=== PATIENT | female | born 1960 | race Hispanic/Latino ===

== ENCOUNTER → 2019-01-30 | Day surgery (SDC) | payer MEDICARE ==
[~2019-01-30] MED LIST: AMBIEN10 MG PO; APRISO0.375 GM PO; ATENOLOL PO; ATENOLOL25 MG PO; CLONAZEPAM0.5 MG PO; CLONAZEPAM1 MG PO; DESIPRAMINE HCL25 MG PO; DICLOFENAC SODI75 MG PO; FENTANYL CITRATE/PF 100MCG/2 ML INJ ONE; FLONASE NS; FLUCONAZOLE 200 MG/100 ML 100 ML IV NR; GABAPENTIN400 MG PO; HYDROCODONE; IMIPRAMINE HCL50 MG PO; INHALER; INSULIN PUMP1 EACH; LEVOTHYROXINE75 MCG PO; MIDAZOLAM HCL 2 MG/2 ML VIAL ONE; PANTOPRAZOLE SO40 MG PO; PIOGLITAZONE15 MG PO; PRAVASTATIN SOD40 MG PO; PROPOFOL IV EMULSION 10 MG/ML 50 ML VIAL ONE; PROVENTIL HFA6.7 GM INH; QVAIR INH; QVAR; QVAR INH; REGLAN10 MG PO; SERTRALINE HCL100 MG PO; TRAMADOL-ACETAMI1 EA; TRAZODONE HCL100 MG PO; ULTRACET TABLE1 EACH PO; ULTRAM50 MG PO; VICTOZA 2-0.6 MG/0.1 INJ; VIT D PO; VITAMIN B-12 INJ; VITAMIN B-6 PO; VITAMIN D350000 UNIT PO; XOLAIR150 MG INH; ZOLPIDEM TARTRA10 MG PO
--- OUTSIDE RECORDS SUMMARY | 2019-01-30 06:13 | XMS REPORT | Clinical Summary ---
Author Author [facility] Address Unknown Phone Unavailable Care Team Providers Care Community Affairs Manager Name Role Phone George Lin MD PCP Allergies No Known Allergies Medications End Date Status Medication Sig Dispensed Refills Start Date Active pantoprazole (PROTONIX) Take 40 mg by 2 40 MG EC tablet mouth 2 (two) 8 times a day. Active pravastatin (PRAVACHOL) Take 40 mg by 0 40 MG tablet mouth nightly. Active traZODone (DESYREL) 100 Take 100 mg 2 MG tablet by mouth 8 nightly. Active clonAZEPAM (KlonoPIN) 0.5 Take 0.5 mg 3 MG tablet by mouth 7 nightly. Active levothyroxine (SYNTHROID, Take 75 mcg 0 LEVOXYL) 75 mcg tablet by mouth 7 daily. Active cholecalciferol, vitamin Take 2,000 0 D3, (VITAMIN D3) 2,000 Units by unit capsule capsule mouth 2 (two) times a week. Active beclomethasone (QVAR) 40 Inhale 2 0 mcg/actuation inhaler puffs 2 (two) times a day. Active traMADol-acetaminophen Take 1 tablet 0 (ULTRACET) 37.5-325 mg by mouth per tablet every 12 (twelve) hours. Active metoclopramide (REGLAN) Take 10 mg by 3 10 MG tablet mouth 3 7 (three) times a day. Active NOVOLOG 100 unit/mL INJECT 75 1 injection UNITS VIA 7 INSULIN PUMP INSULIN PUMP SUBCUTANEOUSL Y 90 DAYS Active VICTOZA 2-GLENN 0.6 mg/0.1 INJECT 1.8 MG 3 mL (18 mg/3 mL) pen ONCE A DAY 7 injector SUBCUTANEOUSL Y Active zolpidem (AMBIEN) 10 mg Take 10 mg by 3 tablet mouth nightly 8 as needed. for sleep Active ondansetron (ZOFRAN) 8 MG TAKE 1 TABLET 2 tablet BY MOUTH 7 EVERY 6 TO 8 HOURS NEEDED FOR 30 DAYS. Active atenolol (TENORMIN) 100 Take 100 mg 0 MG tablet by mouth nightly. Active cyanocobalamin 1,000 Inject 1,000 0 mcg/mL injection mcg into the shoulder, thigh, or buttocks once a week. Active desipramine (NORPRAMIN) TAKE 1 TABLET 1 25 MG tablet DAILY FOR 5 8 DAYS, 2 DAILY FOR 5 DAYS, 3 DAILY FOR 5 DAYS, 4 DAILY THEREAFTER, ALL AT BEDTIME Active levothyroxine (SYNTHROID, Take 50 mcg 0 LEVOXYL) 50 mcg tablet by mouth 8 daily. Active Problems Not on file Encounters Care Team Description Date Type Specialty Kyle Rowley MD 05/20/2018 Telephone Gastroenterology Kyle Rowley MD 05/05/2018 Telephone Gastroenterology Kyle Rowley MD 04/25/2018 Telephone Gastroenterology Kyle Rowley MD LLQ pain (Primary Dx) 04/16/2018 Office Visit Gastroenterology Conrad Mendoza MA 03/05/2018 Telephone Gastroenterology Kyle Rowley MD 02/26/2018 Lab Lab after 01/29/2018 Family History Medical History Relation Name Comments No Known Problems Brother No Known Problems Father No Known Problems Maternal Aunt No Known Problems Maternal Grandfather No Known Problems Maternal Grandmother No Known Problems Maternal Uncle No Known Problems Mother No Known Problems Paternal Aunt No Known Problems Paternal Grandfather No Known Problems Paternal Grandmother No Known Problems Paternal Uncle No Known Problems Sister Relation Name Status Comments Brother Father Maternal Aunt Maternal Grandfather Maternal Grandmother Maternal Uncle Mother Paternal Aunt Paternal Grandfather Paternal Grandmother Paternal Uncle Sister Social History Date Tobacco Use Types Packs/Day Years Used Never Smoker Smokeless Tobacco: Never Used Alcohol Use Drinks/Week oz/Week Comments No Sex Assigned at Date Recorded Not on file Industry Job Start Date Occupation Not on file Not on file Not on file Travel End Travel History Travel Start No recent travel history available. Last Filed Vital Signs Time Taken Vital Sign Reading 04/16/2018 4:31 PM CDT Blood Pressure 129/85 04/16/2018 4:31 PM CDT Pulse 99 04/16/2018 4:31 PM CDT Temperature 37.1 C (98.8 F) - Respiratory Rate - - Oxygen Saturation - - Inhaled Oxygen - Concentration 04/16/2018 4:31 PM CDT Weight 55.8 kg (123 lb) 04/16/2018 4:31 PM CDT Height 152.4 cm (5') 04/16/2018 4:31 PM CDT Body Mass Index 24.02 Plan of Treatment Health Maintenance Due Date Last Done Comments CERVICAL CANCER SCREENING 1983 BREAST CANCER SCREENING 2012 COLON CANCER SCREENING 2012 SHINGLES VACCINES (#1) 2012 INFLUENZA VACCINE 06/18/2018 Procedures Comments Procedure Name Priority Date/Time Associated Diagnosis CREATININE LEVEL Routine 04/16/2018 LLQ pain 4:54 PM CDT BUN LEVEL Routine 04/16/2018 LLQ pain 4:54 PM CDT SURGICAL PATHOLOGY Routine 02/26/2018 REQUEST 10:49 AM CDT after 01/29/2018 Results * BUN level (04/16/2018 4:54 PM CDT) BUN, whole blood 9 7 - 25 mg/dL [email or web address] Specimen Blood Narrative Performed At FASTING:NO QUEST FASTING: NO Resulting Agency Comment Performing Organization Information: Site ID: [id number] Name: [facility] Address: [address] [place] [id number] Director: Antoinette Muller Performing Organization Address City/State/Zipcode Phone [email or web address] [place] [address] * Creatinine level (04/16/2018 4:54 PM CDT) Creatinine 0.72 0.50 - 1.05 mg/dL [email or web address] Comment: [facility] For patients >49 years of age, the reference limit for Creatinine is approximately 13% higher for people identified as -[place]. EGFR Non-Afr. [place] 94 > OR=60 mL/min/1.73m2 [email or web address] EGFR 109 > OR=60 mL/min/1.73m2 [email or web address] Specimen Blood Narrative Performed At FASTING:NO QUEST FASTING: NO Resulting Agency Comment Performing Organization Information: Site ID: [id number] Name: [facility] Address: [address] [place] [address] Director: Antoinette Muller Performing Organization Address City/State/Zipcode Phone Number [email or web address] [address] [place] [phone] * Surgical pathology request (02/26/2018 10:49 AM CDT) [facility] DEPARTMENT OF PATHOLOGY AND GENOMIC MEDICINE Surgical pathology report See link below for PDF Lab [facility] DEPARTMENT OF Report PATHOLOGY AND GENOMIC MEDICINE Result status This is Final Report to [facility] DEPARTMENT OF [id number] PATHOLOGY AND GENOMIC MEDICINE Performing Organization Address City/State/[facility] Phone Number [facility] DEPARTMENT OF [address] [place] [phone] PATHOLOGY AND GENOMIC MEDICINE after 01/29/2018 Insurance Payer Benefit Subscriber ID Type Phone Address Plan / Group AETNA MEDICARE AETNA xxxxxxxx HMO MEDICARE HMO/PPO [employer] MEDICAID MEDICAID xxxxxxxxx Medicaid Advance Directives Patient has advance care planning documents on file. For more information, palomo goss contact: [employer]ng [employer] [address] [place] [id number]
--- OUTSIDE RECORDS SUMMARY | 2019-01-30 06:15 | XMS REPORT | Continuity of Care Document ---
Author Author [facility] Interface Address Unknown Phone Unavailable Problems Problem Status Onset Date Classification Date Reported Comments Source DEPRESSIVE DISORDER, MAJOR, RECURRENT EPISODE, MODERATE Active 07/04/2018 Diagnosis 01/08/2019 [facility] Pelvic and perineal pain 01/16/2018 04/18/2018 [facility] Interstitial pulmonary disease, unspecified 01/09/2018 04/11/2018 [facility] BACK PAIN, POSS UTI, FEVER, VOMITING Active 12/08/2017 [facility] Discharge Diagnosis: Other spondylosis, lumbosacral region 11/27/2017 11/29/2017 [facility] J45.909 Active 10/21/2017 [facility] History of esophagogastroduodenoscopy (<span [id number]">Confirmed</span>) Resolved 09/18/2017 Problem 01/22/2019 [facility] THORACI FACET, SACRO ILIAC JOINT Active 08/13/2017 [facility] LUMBAR FACET Active 06/17/2017 [facility] Tachycardia<sup>2</sup> Active 11/18/2016 Problem 11/29/2017 had cardiac testing done 1 yr ago-cardio Dr Jose Case. denies any CP [facility] J45.909///WITH DLCO Active 02/09/2016 [facility] Discharge Diagnosis: Asthma exacerbation 12/27/2015 12/30/2015 [facility] SOB Active 12/27/2015 [facility] Discharge Diagnosis: Acute diarrhea 11/25/2015 11/29/2015 [facility] Discharge Diagnosis: Abdominal pain 11/25/2015 11/29/2015 [facility] LOWER ABDOMINAL AND BACK PAIN Active 11/25/2015 [facility] PRE-OP CV EXAM Active 01/25/2015 Condition 01/25/2015 [facility] Asthma<sup>1</sup> Active 01/11/2015 Problem 04/18/2018 Data migrated from [employer] on 05/25/15. [facility] Chest pain<sup>2</sup> Active 01/11/2015 Problem 04/18/2018 Data migrated from [employer] on 05/25/15. [facility] Conduction disorder of the heart<sup>3</sup> Active 01/11/2015 Problem 04/18/2018 Data migrated from [employer] on 05/25/15. [facility] Diabetes mellitus<sup>4</sup> Active 01/11/2015 Problem 04/18/2018 Data migrated from [employer] on 05/25/15. [facility] Dyspnea<sup>5</sup> Active 01/11/2015 Problem 04/18/2018 Data migrated from [employer] on 05/25/15. [facility] Palpitations<sup>6</sup> Active 01/11/2015 Problem 04/18/2018 Data migrated from [employer] on 05/25/15. [facility] Asthma<sup>1</sup> Active 01/11/2015 Problem 01/22/2019 Data migrated from [employer] on 05/25/15. [facility] Chest pain<sup>2</sup> Active 01/11/2015 Problem 01/22/2019 Data migrated from [employer] on 05/25/15. [facility] Conduction disorder of the heart<sup>3</sup> Active 01/11/2015 Problem 01/22/2019 Data migrated from [employer] on 05/25/15. [facility] Diabetes mellitus<sup>4</sup> Active 01/11/2015 Problem 05/26/2018 Data migrated from [employer] on 05/25/15. [facility] Dyspnea<sup>5</sup> Active 01/11/2015 Problem 05/26/2018 Data migrated from [employer] on 05/25/15. [facility] Palpitations<sup>6</sup> Active 01/11/2015 Problem 05/26/2018 Data migrated from [employer] on 05/25/15. [facility] Dyspnea<sup>4</sup> Active 01/11/2015 Problem 01/22/2019 Data migrated from [employer] on 05/25/15. [facility] Palpitations<sup>5</sup> Active 01/11/2015 Problem 01/22/2019 Data migrated from [employer] on 05/25/15. [facility] CHEST PAIN Active 01/11/2015 Condition 01/25/2015 [facility] PALPITATIONS Active 01/11/2015 Condition 01/25/2015 [facility] DYSPNEA Active 01/11/2015 Condition 01/25/2015 [facility] CARDIAC ARRHYTHMIA Active 01/11/2015 Condition 01/25/2015 [facility] HYPERTENSION - BENIGN ESSENTIAL Active 01/11/2015 Condition 01/25/2015 [facility] DM Active 01/11/2015 Condition 01/25/2015 [facility] ASTHMA Active 01/11/2015 Condition 01/25/2015 [facility] [id number] - LUMBOSACR SPOND Active 11/23/2014 [facility] Diabetes mellitus<sup>1</sup> Active 11/18/2013 Problem 11/29/2017 BS range 80-110's [facility] Insulin pump, device Active 11/18/2013 Problem 11/29/2017 [facility] Depression Active Problem 11/24/2017 [facility] Insulin pump Active Problem 11/24/2017 [facility], [facility] Pulmonary fibrosis, unspecified 04/11/2018 [facility] Cardiomegaly 04/11/2018 [facility] Asthma Active Problem 04/18/2018 [facility], [facility] Back pain Active Problem 04/18/2018 [facility], [facility] Crohn disease Active Problem 04/18/2018 [facility], [facility] Crohn's disease Active Problem 04/18/2018 [facility], [facility] Depression Active Problem 04/18/2018 [facility], [facility] Diabetes mellitus Active Problem 04/18/2018 [facility], [facility] Diabetic neuropathy Active Problem 04/18/2018 [facility] Hypercholesterolemia Active Problem 04/18/2018 [facility], [facility] Liver disease Active Problem 04/18/2018 [facility], [facility] Neck pain Active Problem 04/18/2018 [facility], [facility] Polyp Resolved Problem 04/18/2018 [facility], [facility] Tachycardia Active Problem 04/18/2018 [facility], [facility] Thyroid disease Active Problem [facility]/18[facility] [facility] Type II diabetes mellitus - poor control Active Problem 04/18/2018 [facility] 01/22/2019 [facility] Back pain Active Problem 01/22/2019 [facility] Crohn disease Active Problem 01/22/2019 [facility] Crohn's disease Active Problem 01/22/2019 [facility] Depression Active Problem 01/22/2019 [facility] Diabetes mellitus Active Problem 01/22/2019 [facility] Diabetic neuropathy Active Problem 01/22/2019 [facility] Hypercholesterolemia Active Problem 01/22/2019 [facility] Liver disease Active Problem 01/22/2019 [facility] Neck pain Active Problem 01/22/2019 [facility] Polyp Resolved Problem 01/22/2019 [facility] Gastroparesis due to secondary diabetes Resolved Problem 01/22/2019 [facility] Tachycardia Active Problem 01/22/2019 [facility] Thyroid disease Active Problem 01/22/2019 [facility] Type II diabetes mellitus - poor control Active Problem 01/22/2019 [facility] Herniated structure<sup>1</sup> Active Problem 02/24/2016 herniated disk [facility] Final: Mild persistent asthma with exacerbation 12/30/2015 [facility] Final: Acute bronchitis, unspecified 12/30/2015 [facility] Final: Fever, unspecified 12/30/2015 [facility] Final: Diarrhea, unspecified 12/30/2015 [facility] Final: Otalgia, left ear 12/30/2015 [facility] Final: Type 2 diabetes mellitus without complications 12/30/2015 [facility] Essential hypertension Active Diagnosis 01/27/2019 [facility] History of Iveth thyroiditis Active Problem 01/27/2019 [facility] Radiculopathy, lumbar region Active Problem 01/27/2019 [facility] Hyperlipidemia, mixed Active Problem 01/27/2019 [facility] Carpal tunnel syndrome Active Problem 01/27/2019 [facility] Anemia Active Problem 01/27/2019 [facility] Diarrhea Active Problem 01/27/2019 [facility] Candidiasis, unspecified Active Problem 01/27/2019 [facility] Neuropathic spondyloarthropathy of lumbosacral region Active Problem 01/27/2019 [facility] PVD Active Problem 01/27/2019 [facility] Radiculopathy, cervical region Active Problem 01/27/2019 [facility] Type 2 diabetes mellitus with diabetic polyneuropathy Active Diagnosis 01/27/2019 [facility] Hx of diverticulitis of colon Active Problem 01/27/2019 [facility] Nonscarring hair loss, unspecified Active Problem 01/27/2019 [facility] Cervical disc disorder with radiculopathy, cervicothoracic region Active Problem 01/27/2019 [facility] Left knee pain Active Problem 01/27/2019 [facility] Otalgia, left ear Active Problem 01/27/2019 [facility] Hypothyroid Active Problem 01/27/2019 [facility] Asthma Active Problem 01/27/2019 [facility] Migraine Active Problem 01/27/2019 [facility] Vitamin D deficiency Active Problem 01/27/2019 [facility] Other chronic pain Active Problem 01/27/2019 [facility] Type 2 diabetes mellitus with hyperglycemia Active Diagnosis 01/27/2019 [facility] Insulin pump status Active Diagnosis 01/27/2019 [facility] GERD Active Problem 01/27/2019 [facility] Tinea pedis Active Problem 01/27/2019 [facility] Onychomycosis Active Problem 01/27/2019 [facility] Back pain Active Diagnosis 01/27/2019 [facility] Crohn's disease of large intestine without complications Active Problem 01/27/2019 [facility] Encounter for immunization Active Diagnosis 12/03/2017 [facility] Urinary frequency Active Diagnosis 12/03/2017 [facility] Pelvic pain in female Active Diagnosis 02/05/2018 [facility] Dysuria Active Diagnosis 02/05/2018 [facility] Diabetes Type 2 Uncontrolled Active Problem 03/07/2017 [facility] Diverticulosis of colon Active Problem 03/07/2017 [facility] Fatigue Active Problem 03/07/2017 [facility] Insomnia Active Problem 03/07/2017 [facility] Anxiety state, unspecified Active Problem 03/07/2017 [facility] ASTHMA NOS Active Problem 03/07/2017 [facility] Hyperlipidemia Active Problem 03/07/2017 [facility] INSULIN PUMP STATUS Active Problem 03/07/2017 [facility] Diabetes type 2 uncontrolled w/neurological manifestations Active Problem 03/07/2017 [facility] UTI [Urinary tract infection] Active Problem 03/07/2017 [facility] Pseudopolyposis, colon Active Problem 03/07/2017 [facility] Crohn's disease NOS Active Problem 03/07/2017 [facility] Gastroenteritis NOS Active Problem 03/07/2017 [facility] Nausea with vomiting Active Problem 03/07/2017 [facility] Spondylolysis, lumbosacral region Active Problem 03/07/2017 [facility] Peripheral Vascular Disease-PVD Active Problem 03/07/2017 [facility] Tachycardia Active Problem 03/07/2017 [facility] Vitamin D Deficiency Active Problem 03/07/2017 [facility] Menopause Active Problem 03/07/2017 [facility] Dysuria Active Problem 03/07/2017 [facility] BREAST ANOMALIES NEC Active Problem 03/07/2017 [facility] Back pain Active Problem 03/07/2017 [facility] Iveth's thyroiditis Active Problem 03/07/2017 [facility] Depression with anxiety Active Problem 03/07/2017 [facility] Vulvovaginitis due to Mame Active Problem 03/07/2017 [facility] Arthralgias Active Problem 03/07/2017 [facility] INSULIN PUMP TRAINING Active Problem 03/07/2017 [facility] Crohn's disease of colon Active Problem 03/07/2017 [facility] Insulin pump titration Active Problem 03/07/2017 [facility] Hypothyroidism Active Problem 03/07/2017 [facility] Migraine Active Problem 03/07/2017 [facility] Insomnia Active Problem 03/07/2017 [facility] Type 2 diabetes mellitus with diabetic neuropathy Active Problem 03/07/2017 [facility] Other screening mammogram Active Diagnosis 01/04/2016 [facility] Examination of eyes and vision Active Diagnosis 01/04/2016 [facility] Encounter for screening mammogram for malignant neoplasm of breast Active Diagnosis 01/04/2016 [facility] Encounter for general adult medical examination without abnormal findings Active Diagnosis 01/04/2016 [facility] Type 2 diabetes mellitus with autonomic neuropathy Active Problem 03/07/2017 [facility] Vaginitis Active Diagnosis 06/12/2016 [facility] UTI Active Diagnosis 06/12/2016 [facility] Left ear pain Active Diagnosis 06/12/2016 [facility] Screening for lipid disorders Active Diagnosis 08/01/2016 [facility] Vitamin D deficiency, unspecified Active Diagnosis 08/01/2016 [facility] Anxiety Active Problem 11/29/2017 [facility] Asthma Active Problem 11/29/2017 [facility] Crohn disease Active Problem 11/29/2017 [facility] Fatty liver Active Problem 11/29/2017 [facility] Hypertension Active Problem 11/29/2017 [facility] UNSPECIFIED ASTHMA, UNCOMPLICATED Active [facility] Medications Medication Details Route Status Patient Instructions Ordering Provider Order Date Source ONE TOUCH ULTRA TEST STRIPS - check blood sugars Active - check blood sugars 4 TIMES A DAY [facility] 02/21/2019 Noel Mckenna Lidocaine Viscous 2% mucous membrane solution 1 appl, TOP, QID, PRN Mouth Pain, No trague, solution, X 7 day, # 15 mL, 0 Refill(s), Pharmacy: [facility] Active 12/30/2018 [facility] levothyroxine 50 mcg (0.05 mg) oral tablet See Instructions, # 30 tab, TAKE 1 TABLET BY MOUTH DAILY, Pharmacy: [facility] No Longer Active 08/29/2018 [facility] levothyroxine 50 mcg (0.05 mg) oral tablet See Instructions, # 30 tab, TAKE 1 TABLET BY MOUTH DAILY, Pharmacy: [facility] No Longer Active 07/28/2018 [facility] DESIPRAMINE HCL One tablet nightly. Active One tablet nightly. 07/25/2018 [facility] CLONAZEPAM One tablet Po BID. Active One tablet Po BID. 07/25/2018 [facility] DESIPRAMINE HCL Two tablets at night. Active Two tablets at night. 07/25/2018 [facility] Acetaminophen-TraMADol Hydrochloride 1 tab(s) orally Active 325 mg-37.5 mg orally every 12 hours, p.r.n. [facility] 07/18/2018 [facility] ZOLOFT 100 MG ORAL TABLET One tablet Po Every am Active One tablet Po Every am 07/04/2018 [facility] desipramine 25 mg oral tablet 25 mg=1 tab, PO, TID, # 270 tab, 0 Refill(s) Active 05/23/2018 [facility] Terbinafine Hydrochloride 1 tab(s) orally Active 250 mg orally once a day [facility] 05/19/2018 [facility] Terbinafine Hydrochloride, Topical 1 mike applied topically Active 1% applied topically One times a day [facility] 05/19/2018 [facility] Megestrol Acetate 40 MG/ML Oral Suspension [Megace] 800 mg=20 mL, PO, Daily, # 140 mL, 0 Refill(s), Pharmacy: [facility] Active 04/01/2018 [facility] B-12 1 tab(s) sublingually Active 1000 mcg sublingually once a day [facility] 01/13/2018 [facility] Freestyle William Sensor Apply one sensor every 10 days or as directed NA Active -- 01/13/2018 [facility] Mck[facility] Freestyle [place] Use as directed NA Active -- 01/13/2018 [facility] Mck[facility] Misc Medication 200 mL, Soln-IV, IV, Once, first dose 11/27/17 13:36:00 COMPUTER OPERATIONS TECHNICIAN, stop date 11/27/17 13:36:00 COMPUTER OPERATIONS TECHNICIAN Inactive 11/27/2017 [facility] diphenhydrAMINE 25 mg=0.5 mL, Injection, IV Push, Once PRN for itching, first dose 11/27/17 13:34:00 COMPUTER OPERATIONS TECHNICIAN Inactive 11/27/2017 [facility] hydrALAZINE 10 mg=0.5 mL, Injection, IV Push, As Indicated PRN for hypertension, first dose 11/27/17 13:34:00 COMPUTER OPERATIONS TECHNICIAN Inactive 11/27/2017 [facility] Labetalol 5 mg=1 mL, Injection, IV Push, As Indicated PRN for hypertension, first dose 11/27/17 13:34:00 COMPUTER OPERATIONS TECHNICIAN Inactive 11/27/2017 [facility] Dilaudid 0.5 mg=0.5 mL, Injection, IV Push, q10min PRN for pain severe (7-10), first dose 11/27/17 13:34:00 COMPUTER OPERATIONS TECHNICIAN Inactive 11/27/2017 [facility] morphine 2 mg=0.2 mL, Injection, IV Push, q5min PRN for pain, first dose 11/27/17 13:34:00 COMPUTER OPERATIONS TECHNICIAN Inactive 11/27/2017 [facility] ondansetron 4 mg=2 mL, Injection, IV Push, q15min PRN for nausea, order duration: 2 doses, first dose 11/27/17 13:34:00 COMPUTER OPERATIONS TECHNICIAN, stop date Limited # of times Inactive 11/27/2017 [facility] Xopenex 0.63 mg/3 mL inhalation solution 0.63 mg=3 mL, Soln, NEB, Once PRN for wheezing, first dose 11/27/17 13:34:00 COMPUTER OPERATIONS TECHNICIAN Inactive 11/27/2017 [facility] Demerol HCl 12.5 mg=0.25 mL, Injection, IV Push, Once PRN for shivers, first dose 11/27/17 13:34:00 COMPUTER OPERATIONS TECHNICIAN Inactive 11/27/2017 [facility] Saline Lock Flush 10 mL, Soln, IV Push, As Indicated PRN for flush, first dose 11/27/17 13:34:00 COMPUTER OPERATIONS TECHNICIAN Inactive 11/27/2017 [facility] LR 1,000 mL 1,000 mL, IV, 75 mL/hr, start date 11/27/17 13:34:00 COMPUTER OPERATIONS TECHNICIAN Inactive 11/27/2017 [facility] fentaNYL 50 mcg=1 mL, Injection, IV, Once, first dose 11/27/17 13:12:00 COMPUTER OPERATIONS TECHNICIAN, stop date 11/27/17 13:12:00 COMPUTER OPERATIONS TECHNICIAN Inactive 11/27/2017 [facility] midazolam 1 mg=1 mL, Injection, IV, Once, first dose 11/27/17 13:12:00 COMPUTER OPERATIONS TECHNICIAN, stop date 11/27/17 13:12:00 COMPUTER OPERATIONS TECHNICIAN Inactive 11/27/2017 [facility] ceFAZolin 1 gm, Powder-Inj, IV, Once, first dose 11/27/17 13:11:00 COMPUTER OPERATIONS TECHNICIAN, stop date 11/27/17 13:11:00 COMPUTER OPERATIONS TECHNICIAN Inactive 11/27/2017 [facility] Misc Medication 1,000 mL, Soln-IV, IV, Once, first dose 11/27/17 13:08:00 COMPUTER OPERATIONS TECHNICIAN, stop date 11/27/17 13:08:00 COMPUTER OPERATIONS TECHNICIAN Inactive 11/27/2017 [facility] fentaNYL 50 mcg=1 mL, Injection, IV, Once, first dose 11/27/17 13:06:00 COMPUTER OPERATIONS TECHNICIAN, stop date 11/27/17 13:06:00 COMPUTER OPERATIONS TECHNICIAN Inactive 11/27/2017 [facility] midazolam 1 mg=1 mL, Injection, IV, Once, first dose 11/27/17 13:06:00 COMPUTER OPERATIONS TECHNICIAN, stop date 11/27/17 13:06:00 COMPUTER OPERATIONS TECHNICIAN Inactive 11/27/2017 [facility] fentaNYL 50 mcg=1 mL, Injection, IV, Once, first dose 11/27/17 13:01:00 COMPUTER OPERATIONS TECHNICIAN, stop date 11/27/17 13:01:00 COMPUTER OPERATIONS TECHNICIAN Inactive 11/27/2017 [facility] midazolam 1 mg=1 mL, Injection, IV, Once, first dose 11/27/17 13:01:00 COMPUTER OPERATIONS TECHNICIAN, stop date 11/27/17 13:01:00 COMPUTER OPERATIONS TECHNICIAN Inactive 11/27/2017 [facility] midazolam 1 mg=1 mL, Injection, IV, Once, first dose 11/27/17 12:56:00 COMPUTER OPERATIONS TECHNICIAN, stop date 11/27/17 12:56:00 COMPUTER OPERATIONS TECHNICIAN Inactive 11/27/2017 [facility] fentaNYL 50 mcg=1 mL, Injection, IV, Once, first dose 11/27/17 12:56:00 COMPUTER OPERATIONS TECHNICIAN, stop date 11/27/17 12:56:00 COMPUTER OPERATIONS TECHNICIAN Inactive 11/27/2017 [facility] Lidocaine 2% 0.2 mL IV Start [[place]] 0.2 mL, Injection, Subcutaneous, Once PRN for other (see comment), first dose 11/27/17 11:01:00 COMPUTER OPERATIONS TECHNICIAN Inactive 11/27/2017 [facility] LR 1,000 mL 1,000 mL, IV, 30 mL/hr, start date 11/27/17 11:01:00 COMPUTER OPERATIONS TECHNICIAN Inactive 11/27/2017 [facility] NovoLOG Subcutaneous, TIDAC, INSULIN PUMP, 0 Refill(s), DM Active 11/20/2017 [facility] tramadol hydrochloride 50 MG Oral Tablet mg tabs, Oral, q4hr, 0 Refill(s), pain Active 11/20/2017 [facility] Trazodone Hydrochloride 50 MG Oral Tablet mg tabs, Oral, qHS, 0 Refill(s), sleep Active 11/20/2017 [facility] clonazePAM Oral, TID, 0 Refill(s), anxiety Active 11/20/2017 [facility] Qvar 80 mcg/inh inhalation aerosol INH, BID, use am of procedure, 0 Refill(s), asthma Active 11/20/2017 [facility] atenolol 25 mg oral tablet mg tabs, Oral, qPM, 0 Refill(s), HR Active 11/20/2017 [facility] pravastatin 40 mg oral tablet mg tabs, Oral, Daily, 0 Refill(s), cholesterol Active 11/20/2017 [facility] Reglan 10 mg, Oral, 0 Refill(s), acid reflux Active 11/20/2017 [facility] pantoprazole 40 mg oral delayed release tablet mg tabs, Oral, Daily, take am of procedure, 0 Refill(s), acid reflux Active 11/20/2017 [facility] levothyroxine 75 mcg (0.075 mg) oral capsule 75 mcg=1 caps, Oral, Daily, ok take am of procedure, # 30 caps, 0 Refill(s), hypothyroid Active 11/20/2017 [facility] propofol (ANES) Route: IV, Drug form: INJ, ONCE, Stop date: 08/20/17 13:25:00 CDT Inactive 08/20/2017 [facility] lidocaine (ANES) Route: IV, Drug form: INJ, ONCE, Stop date: 08/20/17 13:25:00 CDT Inactive 08/20/2017 [facility] LR 1000 mL INJ (ANES) Route: IV, Total Volume: 1,000, Start date: 08/20/17 13:08:00 CDT, Stop date: 08/20/17 14:08:00 CDT Inactive 08/20/2017 [facility] Atenolol 50 MG Oral Tablet 50 mg=1 tab, PO, Daily, 0 Refill(s) Active 08/20/2017 [facility] influenza virus vaccine, inactivated 0.5 mL, Route: IM, Drug Form: SUSP, ONCALL, Start date: 08/19/17 16:16:03 CDT, Stop date: 09/18/17 16:11:03 CDTNotes: (Same as: Fluzone Quadrivalent, Fluarix Quadrivalent) For 3 years of age and older (0.5 mL IM) Shake well before use No Longer Active 08/19/2017 [facility] levothyroxine 75 mcg (0.075 mg) oral tablet 75 microgram=1 tab, PO, Daily, 0 Refill(s) Active 08/19/2017 [facility] clonazePAM 0.5 mg oral tablet 0.5 mg=1 tab, PO, TID, 0 Refill(s) Active 08/19/2017 [facility] 3 ML liraglutide 6 MG/ML Prefilled Syringe [Victoza] SUB- Q, Daily, 0 Refill(s) Active 08/19/2017 [facility] 100 ACTUAT Beclomethasone Dipropionate 0.04 MG/ACTUAT Metered Dose Inhaler [Qvar] INHALATION, BID, 0 Refill(s) Active 08/19/2017 [facility] Trazodone Hydrochloride 100 MG Oral Tablet 100 mg=1 tab, PO, TID, 0 Refill(s) Active 08/19/2017 [facility] pantoprazole 40 mg oral enteric coated tablet 40 mg=1 tab, PO, Daily, 0 Refill(s) Active 08/19/2017 [facility] Metoclopramide 10 MG Oral Tablet 10 mg=1 tab, PO, TID, 0 Refill(s) Active 08/19/2017 [facility] pravastatin 40 mg oral tablet 40 mg=1 tab, PO, Daily, 0 Refill(s) Active 08/19/2017 [facility] cyanocobalamin 1000 mcg intramuscularly Active 1000 mcg/mL intramuscularly 1X/W [facility] 07/08/2017 [facility] Syringes - store brand not defined NA Active 3cc 25Gx1.5 1X/W [facility] 07/08/2017 [facility] Mck[facility] midazolam (ANES) Route: IV, Drug form: SOLN, ONCE, Stop date: 06/25/17 11:24:00 CDT Inactive 06/25/2017 [facility] fentaNYL (ANES) Route: IV, Drug form: INJ, ONCE, Stop date: 06/25/17 11:24:00 CDT Inactive 06/25/2017 [facility] Calcium Chloride 0.0014 MEQ/ML / Potassium Chloride 0.004 MEQ/ML / Sodium Chloride 0.103 MEQ/ML / Sodium Lactate 0.028 MEQ/ML Injectable Solution 1,000 mL, Rate: 25 ml/hr, Infuse over: 40 hr, Route: IV, Dosing Weight 60.1 kg, Total Volume: 1,000, Start date: 06/25/17 11:10:00 CDT, Duration: 30 day, Stop date: 07/25/17 11:09:00 CDT Inactive 06/25/2017 [facility] Dexamethasone 4 mg, 1 mL, Route: IVP, Drug form: INJ, ONCE, Dosing Weight 60.1, kg, PRN Nausea & Vomiting, Start date: 06/25/17 11:10:00 CDTNotes: Concentration: 4mg/ml Inactive 06/25/2017 [facility] Ondansetron 4 mg, 2 mL, Route: IVP, Drug form: INJ, ONCE, Dosing Weight 60.1, kg, PRN Nausea & Vomiting, Start date: 06/25/17 11:10:00 CDTNotes: (Same as: Patrick) MEDICATION WASTE Product Size: 4 mg P roduct Wasted: ___ mg Inactive 06/25/2017 [facility] Naloxone 0.4 mg, 1 mL, Route: IVP, Drug form: INJ, Q2MIN, Dosing Weight 60.1, kg, PRN Narcotic Reversal, Start date: 06/25/17 11:10:00 CDT, Duration: 8 doses or times, Stop date: Limited # of timesNotes: Same as Narcan Inactive 06/25/2017 [facility] Morphine 4 mg, 1 mL, Route: IVP, Drug form: INJ, Q5Min, Dosing Weight 60.1, kg, PRN Pain Score 7-10, Start date: 06/25/17 11:10:00 CDT, Duration: 3 doses or times, Stop date: Limited # of timesNotes: (Same as :MORPhine Sulfate) Inactive 06/25/2017 [facility] Flumazenil 0.2 mg, 2 mL, Route: IVP, Drug form: INJ, PRN, Dosing Weight 60.1, kg, PRN Benzodiazepine Reversal, Initial dose, Start date: 06/25/17 11:10:00 CDT, Duration: 30 day, Stop date: 07/25/17 11:09:00 CDTNotes: (Same as: Romazicon) Inactive 06/25/2017 [facility] Meperidine 12.5 mg, 0.25 mL, Route: IVP, Drug form: INJ, Q30Min, Dosing Weight 60.1, kg, PRN Other -See Comment, For shivering, Start date: 06/25/17 11:10:00 CDT, Duration: 2 doses or times, Stop date: Limited # of timesNotes: (Same As: Demerol) Inactive 06/25/2017 [facility] Ketorolac 30 mg, 1 mL, Route: IVP, Drug form: INJ, ONCE, Dosing Weight 60.1, kg, Start date: 06/25/17 11:10:00 CDT, Duration: 1 doses or times, Stop date: 06/25/17 11:10:00 CDTNotes: (Same as:Toradol) IV bolus must be given >15 seconds. Give IM administration slowly and deeply into the muscle. Not for use > 4 days MEDICATION WASTE Product Size: 30 mg Product Wasted: ___ mg Inactive 06/25/2017 [facility] Hydralazine 10 mg, 0.5 mL, Route: IVP, Drug form: INJ, Q20Min, Dosing Weight 60.1, kg, PRN Elevated BP, Start date: 06/25/17 11:10:00 CDT, Duration: 2 doses or times, Stop date: Limited # of timesNotes: (Same as: Apresoline) Push over 5 minutes Inactive 06/25/2017 [facility] Diphenhydramine 12.5 mg, 0.25 mL, Route: IVP, Drug form: INJ, Q6H, Dosing Weight 60.1, kg, PRN Itching, Start date: 06/25/17 11:10:00 CDT, Duration: 30 day, Stop date: 07/25/17 11:09:00 CDTNotes: (Same as: Benadryl) Inactive 06/25/2017 [facility] LR 1000 mL INJ (ANES) Route: IV, Total Volume: 1,000, Start date: 06/25/17 11:01:00 CDT, Stop date: 06/25/17 12:01:00 CDT Inactive 06/25/2017 [facility] fluconazole 1 tab(s) orally Active 150 mg orally once Bala 12/27/2016 Noel CadeBala BD Ultra-Fine Pen Needle Haley 32g 4mm as directed subcutaneously Active - subcutaneously daily 11/13/2016 Noel CadeBala BD Ultra-Fine Pen Needle [place] 32g 4mm as directed subcutaneously Active - subcutaneously daily 11/13/2016 Noel Mckenna Victoza 1.8 mg subcutaneously Active 18 mg/3 mL subcutaneously once a day 11/13/2016 Noel Mckenna Pravachol 1 tab(s) orally Active 40 mg orally once a day (at bedtime) 08/17/2016 Noel Mckenna nystatin topical 1 mike applied topically Active 153034 units/g applied topically 3 times a day 07/12/2016 Noel Mckenna nystatin topical 1 mike applied topically Active 488947 units/g applied topically 3 times a day 07/12/2016 Noel Mckenna fluconazole 1 tab(s) orally Active 150 mg orally once Bala 07/12/2016 Noel CadeBala Pravachol 1 tab(s) orally Active 40 mg orally once a day (at bedtime) 05/03/2016 Noel Mckenna Acetaminophen-TraMADol Hydrochloride 2 tab(s) orally Active 325 mg-37.5 mg orally every 12 hours Bala 04/27/2016 Noel Mckenna fluconazole 1 tab(s) orally Active 150 mg orally once and repeat in 3 days take after done with antibiotics Bala 04/27/2016 Noel Mckenna Sulfamethoxazole-Trimethoprim DS 1 tab(s) orally Active 800 mg- 160 mg orally 2 times a day Bala 04/27/2016 Noel Mckenna Celebrex 1 cap(s) orally Active 200 mg orally 2 times a day Bala 04/27/2016 Noel Mckenna Victoza 1.2 mg subcutaneously Active 18 mg/3 mL subcutaneously once a day Bala 03/01/2016 Noel Mckenna Tussin DM 10 CC orally Active 10 mg-100 mg/5 mL orally qid prn Bala 01/06/2016 Noel Mckenna Nebulizer Misc/Other 1 ea, MISC, PRN, PRN As directed by physician, # 1 unit, 0 Refill(s) Active 12/28/2015 [facility] predniSONE 20 mg oral tablet 40 mg=2 tab, PO, Daily, X 4 day, # 8 tab, 0 Refill(s) Active 12/28/2015 [facility] azithromycin 250 mg oral tablet See Instructions, Take 2 tablets by mouth the first day then 1 tablet by mouth daily on days 2-5., X 5 day, # 6 tab, 0 Refill(s) Active 12/28/2015 [facility] Albuterol 0.833 MG/ML / Ipratropium [place] 0.167 MG/ML Inhalant Solution [DuoNeb] 3 mL, INHALATION, QID, # 360 mL, 0 Refill(s) Active 12/28/2015 [facility] 200 ACTUAT Albuterol 0.09 MG/ACTUAT Metered Dose Inhaler [ProAir HFA] 2 puff, INHALER, Q4H, PRN wheezing, coughing, or shortness of breath, # 1 ea, 1 Refill(s) Active 12/28/2015 [facility] Albuterol 0.833 MG/ML / Ipratropium [place] 0.167 MG/ML Inhalant Solution [DuoNeb] 3 mL, Route: INHALATION, Dosing Weight 63.636, kg, ONCE, Start date: 12/27/15 18:55:00, Stop date: 12/27/15 18:55:00 Inactive 12/28/2015 [facility] Prednisone 60 mg, 3 tab, Route: PO, Drug form: TAB, ONCE, Dosing Weight 63.636, kg, Priority: STAT, Start date: 12/27/15 18:55:00, Stop date: 12/27/15 18:55:00Notes: Take with food. Inactive 12/28/2015 [facility] Naproxen 375 MG Oral Tablet [Naprosyn] 375 mg=1 tab, PO, BID, PRN Pain, # 30 tab, 0 Refill(s) Active 11/26/2015 [facility] Ondansetron 4 MG Disintegrating Tablet [Zofran] 4 mg=1 tab, PO, BID, PRN Nausea and Vomiting, Dissolve tab under tongue, X 5 day, # 10 tab, 0 Refill(s) Active 11/26/2015 [facility] Ciprofloxacin 500 MG Oral Tablet [Cipro] 500 mg=1 tab, PO, Q12H, X 7 day, # 14 tab, 0 Refill(s) Active 11/26/2015 [facility] Metronidazole 500 MG Oral Tablet [Flagyl] 500 mg=1 tab, PO, Q8H, X 7 day, # 21 tab, 0 Refill(s) Active 11/26/2015 [facility] Zofran 4 mg, 2 mL, Route: IVP, Drug form: INJ, ONCE, Dosing Weight 66.818, kg, Priority: STAT, Start date: 11/25/15 21:25:00, Stop date: 11/25/15 21:25:00Notes: (Same as: Zofran) MEDICATION WASTE Product Size: 4 mg Product Wasted: ___ mg Inactive 11/26/2015 [facility] Morphine 4 mg, 1 mL, Route: IVP, Drug form: INJ, ONCE, Dosing Weight 66.818, kg, Priority: STAT, Start date: 11/25/15 21:25:00, Stop date: 11/25/15 21:25:00Notes: (Same as:MORPhine Sulfate) Inactive 11/26/2015 [facility] Sodium Chloride 0.154 MEQ/ML Injectable Solution 1,000 mL, 1,000 ml/hr, Infuse Over: 1 hr, Route: IV, 1,000, Drug form: INJ, ONCE, Priority: STAT, Dosing Weight 66.818 kg, Start date: 11/25/15 21:25:00, Duration: 1 doses or times, Stop date: 11/25/15 21:25:00 Inactive 11/26/2015 [facility] Saline Flush 0.9% 10 mL, Route: IVP, Drug Form: INJ, Dosing Weight 66.818, kg, PRN, PRN Line Flush, Start date: 11/25/15 19:54:00, Duration: 30 day, Stop date: 12/25/15 19:53:00Notes: (Same as: BD Posiflush) No Longer Active 11/26/2015 [facility] Zostavax 1 mL subcutaneously Active - subcutaneously once [facility] 2015 Noel Mckenna Pioglitazone Hydrochloride 1 tab(s) orally No Longer Active 15 mg orally once a day [facility] 09/23/2015 Noel Mckenna Pravachol 1 tab(s) orally Active 40 mg orally once a day (at bedtime) [facility] 07/29/2015 Noel Mckenna NovoLog 75 units via insulin pump subcutaneously Active 100 units/mL subcutaneously insulin pump [facility] 07/15/2015 Noel Mckenna Acetaminophen-TraMADol Hydrochloride 1 tab(s) orally Active 325 mg-37.5 mg orally bid [facility] 03/18/2015 Noel Mckenna ASPIRIN EC LOW DOSE 81 MG TBEC 1 tablet daily Active 01/11/2015 [facility] METFORMIN HCL ER 500 MG [id number] 1 po qd Active 11/30/2014 [facility] PRAVACHOL 40 MG TABS 1 tablet daily Active 01/25/2013 [facility] GABAPENTIN 600 MG TABS 1 po TID Active 12/25/2011 [facility] TRAMADOL HCL ER 100 MG [id number] 1 po qd Active 12/25/2011 [facility] IMIPRAMINE HCL 50 MG TABS 1 po TID Active 12/25/2011 [facility] CLONAZEPAM 1 MG TABS 2 po hs Active 12/25/2011 [facility] ATENOLOL 25 MG TABS 1 po qd Active 12/25/2011 [facility] ZOLPIDEM TARTRATE 10 MG TABS 1 po hs PRN Active 12/25/2011 [facility] PROVENTIL HFA 108 (90 BASE) MCG/ACT AERS As directed Active 12/25/2011 [facility] PANTOPRAZOLE SODIUM 40 MG TBEC 1 po BID Active 12/25/2011 [facility] LEVOTHYROXINE SODIUM 75 MCG TABS 1 po qd Active 12/25/2011 [facility] NOVOLOG 100 UNIT/ML SOLN As directed Active 12/25/2011 [facility] BISOPROLOL FUMARATE 5 MG TABS 1 tablet daily Active 12/25/2011 [facility] ONE TOUCH ULTRA TEST STRIPS - check blood sugars Active - check blood sugars 4 TIMES A DAY Bala Mckenna Levothyroxine Sodium 1 tab(s) orally Active 75 mcg (0.075 mg) orally once a day Bala Mckenna Apriso 4 cap(s) orally Active 0.375 g orally once a day (in the morning) Bala Mckenna ProAir HFA 2 puff(s) inhaled Active CFC free 90 mcg/inh inhaled 4 times a day Bala Mckenna zolpidem 1 tab(s) orally Active 10 mg orally once a day (at bedtime) Bala Mckenna ergocalciferol 1 cap(s) orally Active 50,000 intl units orally 2 times a week Bala Mckenna clonazepam 2 tabs orally Active 0.5 mg orally qhs Bala Mckenna atenolol 25 mg oral tablet 1 tab(s) orally Active orally daily Bala Mckenna Celebrex 1 cap(s) orally Active 200 mg orally 2 times a day Bala Mckenna Pravachol 1 tab(s) orally Active 40 mg orally once a day (at bedtime) Bala Mckenna NovoLog 75 units via insulin pump subcutaneously Active 100 units/mL subcutaneously insulin pump Bala Mckenna trazodone 1 tab(s) orally Active 100 mg orally qhs Bala Mckenna Acetaminophen-TraMADol Hydrochloride 2 tab(s) orally Active 325 mg-37.5 mg orally every 12 hours Bala Mckenna Vitamin B6 not defined NA Active Bala Mckenna Victoza 0.6 subcutaneously Active 18 mg/3 mL subcutaneously once a day Bala Mckenna pantoprazole 1 tab(s) orally Active 40 mg orally once a day Balajesse Mckenna albuterol 3 mL inhaled Active 2.5 mg/3 mL (0.083%) inhaled every 6 hours Bala Mckenna fluconazole 1 tab(s) orally Active 150 mg orally once Bala Noel CadeBala Levothyroxine Sodium 1 tab(s) orally Active 75 mcg (0.075 mg) [facility] clonazepam 2 tabs orally Active 0.5 mg orally qhs Bala Noel CadeBala albuterol 3 mL inhaled Active 2.5 mg/3 mL (0.083%) inhaled every 6 hours Balajesse Mckenna Victoza 0.6 subcutaneously Active 18 mg/3 mL subcutaneously once a day Balajesse Mckenna atenolol 25 mg oral tablet 1 tab(s) orally Active orally daily Blaajesse Mckenna Pravachol 1 tab(s) orally Active 40 mg orally once a day (at bedtime) Balajesse Cadevaleta pantoprazole 1 tab(s) orally Active 40 mg orally once a day Bala Noel CadeBala zolpidem 1 tab(s) orally Active 10 mg orally once a day (at bedtime) Balajesse Cadevaleta ergocalciferol 1 cap(s) orally Active 50,000 intl units orally 2 times a week Balajesse Mckenna fluconazole 1 tab(s) orally Active 150 mg orally once Bala Noel Bala trazodone 1 tab(s) orally Active 100 mg orally qhs Balajesse Mckenna ProAir HFA 2 puff(s) inhaled Active CFC free 90 mcg/inh inhaled 4 times a day Balajesse Cadevaleta Levothyroxine Sodium 1 tab(s) orally Active 75 mcg (0.075 mg) orally once a day Balajesse Cadevaleta Acetaminophen-TraMADol Hydrochloride 2 tab(s) orally Active 325 mg-37.5 mg orally every 12 hours Balajesse Mckenna Vitamin B6 not defined NA Active Bala Noel Bala NovoLog 75 units via insulin pump subcutaneously Active 100 units/mL subcutaneously insulin pump Balajesse Mckenna Apriso 4 cap(s) orally Active 0.375 g orally once a day (in the morning) Balajesse Mckenna Duexis 1 tab(s) orally Active 26.6 mg-800 mg orally 3 times a day Bala Mckenna Qvar 1 puff(s) inhaled Active 40 mcg/inh inhaled 2 times a day Bala Mckenna metoclopramide 1 tab(s) orally Active 10 mg orally 2 TIMES A DAY Bala Mckenna Freestyle [place] Sensor Apply one sensor every 10 days or as directed NA Active -- Bala Mckenna Freestyle [place] Use as directed NA Active -- Bala Mckenna ONE TOUCH ULTRA TEST STRIPS CHECK BLOOD SUGARS TWICE/DAY - Active - - 6 x per day Bala Mckenna Volume spacer for inhaler as directed NA Active Gagan Mckenna Cymbalta 1 cap(s) orally Active 30 mg orally 2 times a day Bala Mckenna Proventil HFA 2 puff(s) inhaled Active CFC free 90 mcg/inh inhaled 4 times a day Bala Mckenna tramadol 1 tab(s) orally Active 50 mg orally once a day Gagan Mckenna Lyrica 1 cap(s) orally Active 150 mg orally 2 times a day Bala Mckenna Pioglitazone Hydrochloride 1 tab(s) orally Active 15 mg orally once a day Gagan Mckenna escitalopram 1 tab(s) orally Active 20 mg orally once a day Bala Mckenna naproxen 1 tab(s) orally Active 375 mg orally 2 times a day Bala Mckenna ondansetron 1 tab(s) orally Active 4 mg orally 3 times a day Bala Mckenna metronidazole 1 tab(s) orally Active 500 mg orally every 8 hours Bala Mckenna ciprofloxacin 1 tab(s) orally Active 500 mg orally once a day Bala Mckenna Pravachol 1 tab(s) orally Active 40 mg orally once a day (at bedtime) Bala Mckenna Terbinafine Hydrochloride, Topical 1 mike applied topically Active 1% applied topically One times a day Bala Mckenna Allergies, Adverse Reactions, Alerts Substance Category Reaction Severity Reaction type Status Date Reported Comments Source DARVOCET Drug allergy DARVOCET 12/26/2011 [facility] acetaminophen-propoxyphene<sup>4</sup> Assertion Drug allergy Active 12/26/2011 Data migrated from [facility] on05/26/15. Originally documented as DARVOCET. [facility] acetaminophen-propoxyphene<sup>1</sup> Assertion Drug allergy Active 12/26/2011 Data migrated from [facility] on05/26/15. Originally documented as DARVOCET. [facility] CODEINE drug allergy Does not now what 07/04/2018 [facility] PENICILLIN drug allergy Unkown 07/04/2018 [facility] METFORMIN HCL drug allergy diarrhea and vomiting 07/04/2018 [facility] codeine Adverse Reaction Info Not Available Adverse Reaction Active 11/24/2018 Noel Bala metformin Adverse Reaction Info Not Available Adverse Reaction Active 11/24/2018 Noel Bala Darvocet N 100 Adverse Reaction Info Not Available Adverse Reaction Active 11/24/2018 Noel Bala Darvocet N 50 Adverse Reaction Info Not Available Adverse Reaction Active 11/24/2018 Noel Bala Penicillin Adverse Reaction Info Not Available Adverse Reaction Active 11/24/2018 Noel Bala penicillins<sup>1</sup> Assertion Drug allergy Active Data migrated from [facility] on 06/17/15. Originally documented as PENICILLIN. [facility] codeine<sup>2, 3</sup> Assertion Drug allergy Active Data migrated from [facility] on 01/20/16. Originally documented as CODEINE. [facility] Vicodin Assertion Drug allergy Active [facility] Darvocet-N 100 Assertion Drug allergy Active [facility] metFORMIN Assertion Drug allergy Active [facility] penicillins<sup>4</sup> Assertion Drug allergy Active Data migrated from [facility] on 06/17/15. Originally documented as PENICILLIN. [facility] penicillins Assertion Drug allergy Active [facility] penicillin Assertion Unknown reaction Moderate Drug allergy Active [facility] Immunizations Immunization Date Given Site Status Last Updated Comments Source influenza virus vaccine, inactivated<sup>1</sup> 08/20/2018 Left Deltoid completed [facility] Result Comment: patient tolerated vaccine well, wait for 15 minutes no adverse reaction [facility] pneumococcal 23-valent vaccine<sup>1</sup> 05/23/2018 Left Deltoid completed [facility] Result Comment: patient tolerated vaccine well, wait for 15 minutes no adverse reaction [facility] pneumococcal 23-valent vaccine<sup>2</sup> 05/23/2018 Left Deltoid completed [facility] Result Comment: patient tolerated vaccine well, wait for 15 minutes no adverse reaction [facility] Influenza (MCR) 10/17/2017 completed Noel Bala Influenza (MCR) 09/27/2016 completed Noel Bala Toradol 30MG 04/27/2016 completed Noel Bala Influenza ([facility]) 09/23/2015 completed Noel Bala influenza virus vaccine, inactivated 10/16/2011 Right deltoid completed [facility] influenza virus vaccine, inactivated 10/16/2011 Right deltoid completed [facility], [facility] pneumococcal 23-valent vaccine 10/16/2011 Left deltoid completed [facility] pneumococcal 23-valent vaccine 10/16/2011 Left deltoid completed [facility], [facility] Results Order Name Results Value Reference Range Date Interpretation Comments Source Neck soft tissue wo contrast CT Neck soft tissue wo contrast CT Clinical Indication: - R13.10 Dysphagia, unspecified Comparison: None Technique: CT of the neck is performed with a multidetector CT. Coronal and sagittal reconstructions were obtained. Contrast: none, which limits assessment. CT Radiation Dose DLP 511 mGy-cm FINDINGS: SOFT TISSUES: There are no neck masses noted. There are no fluid collections or definite abscesses. LYMPH NODES: Physiologic level 1 and 2 nodes are present. SALIVARY GLANDS: The submandibular and parotid glands are unremarkable. PARANASAL SINUSES AND AIRWAY: The paranasal sinuses are clear without soft tissue thickening or air-fluid levels. The nasopharyngeal, oropharyngeal, supraglottic and infraglottic airway is unremarkable. There is a torus palatini. SUPRAHYOID NECK: The oropharynx, oral cavity, parapharyngeal space, and retropharyngeal space are normal on this limited noncontrast CT. INFRAHYOID NECK: The valleculae and piriform sinuses are normal. The larynx, hypopharynx, epiglottis and supraglottis are normal on this limited noncontrast CT. ORBITS: The visualized orbits are unremarkable. VASCULAR STRUCTURES: The jugular veins and carotid vessels are unremarkable. OSSEOUS STRUCTURES: There are no fractures or dislocations. There are no lucencies at the bases of the mandibular teeth to suggest abscess. There are no radiopaque foreign bodies noted. THYROID GLANDS: The thyroid lobes are symmetric and there are no lesions. VISUALIZED LUNG APICES: There are no pulmonary masses or consolidation. If there is further concern for neck masses or malignancy, postcontrast neck CT, PET/CT imaging or MRI of the neck should be performed for complete assessment. IMPRESSION: Unremarkable limited noncontrast CT examination of the neck. 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 Patient feels a small lump in the left side of the neck, starting to hurt. Symptoms have recurred for 2 months. COMPARISON: None FINDINGS: No solid or cystic masses are identified. Focal attention is made to the left submandibular gland region which is the area of interest. A soft tissue mass or fluid collection is not identified in this region. The left submandibular gland has a normal morphology. IMPRESSION: 1. No ultrasound correlate for the area of palpable abnormality and pain in the left neck region. CT scan or MRI of the neck with contrast is recommended for further evaluation. SL: [id number] 09/24/2018 - - Read by: Armando Orlando MD Dictated Date/time: 09/25/18 11:21 Electronically Signed by: Armando Orlando MD 09/25/18 11:36 [facility] Pelvis w Pelvis Transvaginal US Pelvis w Pelvis Transvaginal US Clinical Indication: R10.2 Pelvic and perineal pain - R10.2 Pelvic and perineal pain; Comparison: CT abdomen and pelvis 11/25/2015 US PELVIS Technique: Grayscale, color and Doppler transabdominal and transvaginal imaging of the pelvis was performed with standard technique. Limited assessment of the uterine parenchyma and ovaries on the transabdominal pelvic ultrasound, related to bowel gas in the pelvis necessitated a pelvic transvaginal ultrasound. FINDINGS: Uterus and ovaries are surgically absent. No adnexal masses. No fluid collections. OTHER FINDINGS: The transvaginal sonographic images show no free fluid in the pelvic cul-de-sac. If there is further concern, followup pelvic sonography or MRI of the pelvis may be performed. IMPRESSION: No sonographic abnormalities of the pelvis. The uterus and ovaries have been removed. No adnexal masses. SL: [id number] 01/10/2018 - - Read by: Jagdish Rubio MD Dictated Date/time: 01/10/18 15:38 Electronically Signed by: Jagdish Rubio MD 01/10/18 15:41 [facility] Chest wo contrast CT Chest wo contrast CT Patient Name: ELLI MACK : 1960; Age: 57 years y/o Female MR: [id number] Study: Chest wo contrast CT 01/03/2018 3:23 PM COMPUTER OPERATIONS TECHNICIAN Ordering Physician: Kyle Miranda MD Comparison: Chest x-ray 02/14/2016 CT abdomen and pelvis 11/25/2015. Clinical Indication: J84.9 Interstitial pulmonary disease, unspecified, Per pt intermittent shortness of breath and coughing x yrs - DLP: 261.41mGy-cm; Multiple computerized axial tomograms of the chest were obtained without contrast. Sagittal and coronal 2-D reconstruction images were obtained. High- resolution images of the pulmonary parenchyma were obtained bilaterally. The central tracheobronchial tree is grossly normal. A calcified granuloma is noted at the left lower lobe. No noncalcified pulmonary nodule or mass is noted. Curvilinear and patchy parenchymal opacity are noted at the basal lingula likely representing nonspecific scarring and/or volume loss. No pleural fluid collection. Lungs are otherwise clear. No pulmonary parenchymal consolidative opacity or findings for chronic interstitial pulmonary parenchymal disease are noted. There is no bronchiectasis. No mediastinal or hilar adenopathy is noted. The caliber of the thoracic aorta is not aneurysmal. Physiologic fluid at the mediastinal pericardial recesses. No pericardial fluid collection. Mild cardiomegaly. Coronary artery calcifications. Incidental images of the upper abdomen demonstrate surgical clips at the gallbladder fossa status post cholecystectomy. The bony thorax appears grossly intact. IMPRESSION: 1. Mild scarring and/or volume loss at the basal lingula similar to the previous exam, 11/25/2015. 2. No findings for chronic interstitial pulmonary parenchymal disease or bronchiectasis. 3. Calcified granuloma left lower lobe. 4. Mild cardiomegaly with minimal coronary artery calcifications. SL: [id number] 01/03/2018 - - Read by: Rogerio Lakhani MD Dictated Date/time: 01/04/18 08:51 Electronically Signed by: Rogerio Lakhani MD 01/04/18 08:59 FINAL REPORT [facility] LABORATORY Blood Glucose, Capillary 96 mg/dL 74 - 106 11/27/2017 [facility] CHEM PANEL eGFR 84 mL/min/1.73m2 08/19/2017 Result Comment: The eGFR is calculated using the CKD-EPI formula. In most young, healthy individuals the eGFR will be >90 mL/min/1.73m2. The eGFR declines with age. An eGFR of 60-89 may be normal in some populations, particularly the elderly, for whom the CKD-EPI formula has not been extensively validated. Use of the eGFR is not recommended in the following populations: Individuals with unstable creatinine concentrations, including patients and those with serious co-morbid conditions. Patients with extremes in muscle mass or diet. The data above are obtained from the National Kidney Disease Education Program (NKDEP) which additionally recommends that when the eGFR is used in patients with extremes of body mass index for purposes of drug dosing, the eGFR should be multiplied by the estimated BMI. [facility] CHEM PANEL Calcium Lvl 10.1 mg/dL 8.5 - 10.5 08/19/2017 [facility] CHEM PANEL Chloride Lvl 108 meq/L 95 - 109 08/19/2017 [facility] CHEM PANEL Potassium Lvl 4.3 meq/L 3.5 - 5.1 08/19/2017 [facility] CHEM PANEL Sodium Lvl 143 meq/L 135 - 145 08/19/2017 [facility] CHEM PANEL Glucose Lvl 118 mg/dL 70 - 99 08/19/2017 [facility] CHEM PANEL CO2 30 meq/L 24 - 32 08/19/2017 [facility] CHEM PANEL Creatinine Lvl 0.80 mg/dL 0.50 - 1.40 08/19/2017 [facility] CHEM PANEL BUN 7 mg/dL 7 - 22 08/19/2017 [facility] CHEM PANEL AGAP 9.3 meq/L 10.0 - 20.0 08/19/2017 [facility] MCHC 33.2 g/dL 32.0 - 36.0 08/19/2017 [facility] Platelet 248 K/CMM 133 - 450 08/19/2017 [facility] MCH 28.6 pg 27.0 - 31.0 08/19/2017 [facility] RDW 15.2 % 11.5 - 14.5 08/19/2017 [facility] MPV 9.0 fL 7.4 - 10.4 08/19/2017 [facility] [facility] RBC 4.04 M/CMM 4.20 - 5.40 08/19/2017 [facility] Hgb 11.6 g/dL 12.0 - 16.0 08/19/2017 [facility] MCV 86.3 fL 80.0 - 98.0 08/19/2017 [facility] WBC 8.0 K/CMM 3.7 - 10.4 08/19/2017 [facility] Hct 34.8 % 36.0 - 48.0 08/19/2017 [facility] Lymphocytes 37.4 % 20.0 - 40.0 08/19/2017 [facility] Basophils 0.4 % 0.0 - 1.0 08/19/2017 [facility] HEMATOLOGY Eosinophils 1.4 % 0.0 - 4.0 08/19/2017 [facility] Monocytes 7.5 % 2.0 - 12.0 08/19/2017 [facility] Basophils # 0.0 K/CMM 0.0 - 0.2 08/19/2017 [facility] Eosinophils # 0.1 K/CMM 0.0 - 0.5 08/19/2017 [facility] Monocytes # 0.6 K/CMM 0.0 - 0.8 08/19/2017 [facility] Segs 53.3 % 45.0 - 75.0 08/19/2017 [facility] Segs-Bands # 4.3 K/CMM 1.5 - 8.1 08/19/2017 [facility] Lymphocytes # 3.0 K/CMM 1.0 - 5.5 08/19/2017 [facility] ELECTROLYTES AGAP 8.8 meq/L 10.0 - 20.0 06/21/2017 [facility] ELECTROLYTES eGFR 84 mL/min/1.73m2 06/21/2017 Result Comment: The eGFR is calculated using the CKD-EPI formula. In most young, healthy individuals the eGFR will be >90 mL/min/1.73m2. The eGFR declines with age. An eGFR of 60-89 may be normal in some populations, particularly the elderly, for whom the CKD-EPI formula has not been extensively validated. Use of the eGFR is not recommended in the following populations: Individuals with unstable creatinine concentrations, including patients and those with serious co-morbid conditions. Patients with extremes in muscle mass or diet. The data above are obtained from the National Kidney Disease Education Program (NKDEP) which additionally recommends that when the eGFR is used in patients with extremes of body mass index for purposes of drug dosing, the eGFR should be multiplied by the estimated BMI. [facility] ELECTROLYTES Calcium Lvl 9.3 mg/dL 8.5 - 10.5 06/21/2017 [facility] ELECTROLYTES CO2 29 meq/L 24 - 32 06/21/2017 [facility] ELECTROLYTES Chloride Lvl 111 meq/L 95 - 109 06/21/2017 [facility] ELECTROLYTES BUN 10 mg/dL 7 - 22 06/21/2017 [facility] ELECTROLYTES Glucose Lvl 116 mg/dL 70 - 99 06/21/2017 [facility] ELECTROLYTES Sodium Lvl 144 meq/L 135 - 145 06/21/2017 [facility] ELECTROLYTES Creatinine Lvl 0.80 mg/dL 0.50 - 1.40 06/21/2017 [facility] ELECTROLYTES Potassium Lvl 4.8 meq/L 3.5 - 5.1 06/21/2017 [facility] Platelet 237 K/CMM 133 - 450 06/21/2017 [facility] MPV 8.9 fL 7.4 - 10.4 06/21/2017 [facility] MCH 27.6 pg 27.0 - 31.0 06/21/2017 [facility] RDW 14.7 % 11.5 - 14.5 06/21/2017 [facility] MCHC 32.2 g/dL 32.0 - 36.0 06/21/2017 [facility] RBC 4.05 M/CMM 4.20 - 5.40 06/21/2017 [facility] MCV 85.9 fL 80.0 - 98.0 06/21/2017 [facility] Hct 34.8 % 36.0 - 48.0 06/21/2017 [facility] Hgb 11.2 g/dL 12.0 - 16.0 06/21/2017 [facility] WBC 7.8 K/CMM 3.7 - 10.4 06/21/2017 [facility] HEMATOLOGY Monocytes # 0.5 K/CMM 0.0 - 0.8 06/21/2017 [facility] HEMATOLOGY Eosinophils # 0.2 K/CMM 0.0 - 0.5 06/21/2017 [facility] Basophils 0.6 % 0.0 - 1.0 06/21/2017 [facility] Lymphocytes # 2.7 K/CMM 1.0 - 5.5 06/21/2017 [facility] HEMATOLOGY Segs-Bands # 4.4 K/CMM 1.5 - 8.1 06/21/2017 [facility] Lymphocytes 34.2 % 20.0 - 40.0 06/21/2017 [facility] Monocytes 6.0 % 2.0 - 12.0 06/21/2017 [facility] Eosinophils 2.2 % 0.0 - 4.0 06/21/2017 [facility] Segs 57.0 % 45.0 - 75.0 06/21/2017 [facility] Chest 2 views DX Chest 2 views DX EXAM: Chest radiographs HISTORY: Cough, asthma COMPARISON: 12/27/2015 TECHNIQUE: Frontal and lateral views of the chest FINDINGS: The lungs appear clear. No pleural effusion. Heart size upper normal. IMPRESSION: Negative chest radiographs. SL: [id number] 02/14/2016 - - Read by: Alfredo Bonds MD Dictated Date/time: 02/14/16 09:45 Electronically Signed by: Alfredo Bonds MD 02/14/16 09:48 FINAL REPORT [facility] Digital Mammo Screen Vignesh MA w lenka Digital Mammo Screen Vignesh MA w lenka - DIGITAL MAMMO SCREEN VIGNESH MA W LENKA BILATERAL DIGITAL SCREENING MAMMOGRAM 3D/2D WITH CAD: 01/18/2016 CLINICAL: Z12.31. 2D digital mammographic images and 3D digital tomosynthesis images were obtained in the CC and MLO projections. Current study was evaluated with a Computer Aided Detection (CAD) system. Comparison is made to exams dated: 03/16/2014 mammogram and 02/26/2014 mammogram - [facility]. There are scattered fibroglandular densities in both breasts. Multiple, benign-appearing, similar circumscribed masses are present within both breasts, most likely applications sales representative of cysts or fibroadenomas. There are benign appearing calcifications in the right breast. No significant masses, calcifications, or other findings are seen in either breast. There has been no significant interval change. IMPRESSION: BENIGN Bilateral benign appearing masses. There is no mammographic evidence of malignancy. A 1 year screening mammogram is recommended. Huang Roca M.D. rsl/penrad:01/19/2016 08:39:46 [place] Supervisor: Hung Muñoz, [facility] This exam was dictated and interpreted by [id number] at [facility]. letter sent: Normal exam Mammogram BI-RADS: 2 Benign 01/18/2016 - - Read by: Huang Roca MD Dictated Date/time: 01/19/16 08:39 Electronically Signed by: Huang Roca MD 01/19/16 08:39 FINAL REPORT [facility] VIRAL - SEROLOGY Influ B Negative (12/27/15 7:26 PM) Negative 12/28/2015 [facility] VIRAL - SEROLOGY Influ A Negative (12/27/15 7:26 PM) Negative 12/28/2015 [facility] Chest 2 views DX Chest 2 views DX EXAMINATION: Chest 2 views CLINICAL HISTORY: Dyspnea. Shortness of breath. Asthma. Fever. Since 08/25/2014, pulmonary inflation has decreased. The lungs are clear of consolidation, pleural effusion, and pneumothorax. Mild streaky opacity seen in both parahilar regions are suspicious for atelectasis and reactive airway disease. The heart size remains normal. No acute fracture, dislocation, or focal osseous lesion is appreciated. SL:17 12/27/2015 - - Read by: Andrey Figueroa MD Dictated Date/time: 12/27/15 20:13 Electronically Signed by: Andrey Figueroa MD 12/27/15 20:14 FINAL REPORT [facility] CHEM PANEL Lipase Lvl 145 unit/L 73 - 393 11/26/2015 [facility] CHEM PANEL eGFR 64 mL/min/1.73m2 11/26/2015 Result Comment: The eGFR is calculated using the CKD-EPI formula. In most young, healthy individuals the eGFR will be >90 mL/min/1.73m2. The eGFR declines with age. An eGFR of 60-89 may be normal in some populations, particularly the elderly, for whom the CKD-EPI formula has not been extensively validated. Use of the eGFR is not recommended in the following populations: Individuals with unstable creatinine concentrations, including patients and those with serious co-morbid conditions. Patients with extremes in muscle mass or diet. The data above are obtained from the National Kidney Disease Education Program (NKDEP) which additionally recommends that when the eGFR is used in patients with extremes of body mass index for purposes of drug dosing, the eGFR should be multiplied by the estimated BMI. [facility] CHEM PANEL Bili Total 0.3 mg/dL 0.2 - 1.3 11/26/2015 [facility] CHEM PANEL Total Protein 8.3 g/dL 6.4 - 8.4 11/26/2015 [facility] CHEM PANEL Albumin Lvl 3.6 g/dL 3.5 - 5.0 11/26/2015 [facility] CHEM PANEL ALT 23 unit/L 0 - 65 11/26/2015 [facility] CHEM PANEL Chloride Lvl 105 meq/L 95 - 109 11/26/2015 [facility] CHEM PANEL CO2 25 meq/L 24 - 32 11/26/2015 [facility] CHEM PANEL AST 16 unit/L 0 - 37 11/26/2015 [facility] CHEM PANEL Alk Phos 101 unit/L 39 - 136 11/26/2015 [facility] CHEM PANEL Calcium Lvl 8.6 mg/dL 8.5 - 10.5 11/26/2015 [facility] CHEM PANEL Sodium Lvl 140 meq/L 135 - 145 11/26/2015 [facility] CHEM PANEL Potassium Lvl 3.5 meq/L 3.5 - 5.1 11/26/2015 [facility] CHEM PANEL Creatinine Lvl 1.01 mg/dL 0.50 - 1.40 11/26/2015 [facility] CHEM PANEL Glucose Lvl 184 mg/dL 70 - 99 11/26/2015 [facility] CHEM PANEL BUN 10 mg/dL 7 - 22 11/26/2015 [facility] CHEM PANEL A/G Ratio 0.8 0.7 - 1.6 11/26/2015 [facility] CHEM PANEL Globulin 4.7 g/dL 2.0 - 4.0 11/26/2015 [facility] CHEM PANEL AGAP 13.5 meq/L 10.0 - 20.0 11/26/2015 [facility] CHEM PANEL B/C Ratio 10 6 - 25 11/26/2015 [facility] HEMATOLOGY MPV 9.1 fL 7.4 - 10.4 11/26/2015 [facility] HEMATOLOGY Platelet 272 K/CMM 133 - 450 11/26/2015 [facility] MCH 26.3 pg 27.0 - 31.0 11/26/2015 [facility] MCHC 31.8 g/dL 32.0 - 36.0 11/26/2015 [facility] RDW 16.3 % 11.5 - 14.5 11/26/2015 [facility] Hct 38.1 % 36.0 - 48.0 11/26/2015 [facility] MCV 82.7 fL 80.0 - 98.0 11/26/2015 [facility] WBC 11.9 K/CMM 3.7 - 10.4 11/26/2015 [facility] Hgb 12.1 g/dL 12.0 - 16.0 11/26/2015 [facility] RBC 4.60 M/CMM 4.20 - 5.40 11/26/2015 [facility] Basophils 0.5 % 0.0 - 1.0 11/26/2015 [facility] Segs-Bands # 6.9 K/CMM 1.5 - 8.1 11/26/2015 [facility] Lymphocytes # 4.1 K/CMM 1.0 - 5.5 11/26/2015 [facility] Eosinophils 1.0 % 0.0 - 4.0 11/26/2015 [facility] Lymphocytes 34.4 % 20.0 - 40.0 11/26/2015 [facility] Monocytes 6.1 % 2.0 - 12.0 11/26/2015 [facility] Segs 58.0 % 45.0 - 75.0 11/26/2015 [facility] Monocytes # 0.7 K/CMM 0.0 - 0.8 11/26/2015 [facility] HEMATOLOGY Eosinophils # 0.1 K/CMM 0.0 - 0.5 11/26/2015 [facility] Basophils # 0.1 K/CMM 0.0 - 0.2 11/26/2015 [facility] URINE AND STOOL UA Trans Epi 0- 2 *ABN* (11/25/15 8:10 PM) 11/26/2015 [facility] URINE AND STOOL UA Amorph Heather Moderate /HPF None Seen /HPF 11/26/2015 [facility] URINE AND STOOL UA Sq Epi Few /LPF Few /LPF 11/26/2015 [facility] URINE AND STOOL UA Mucus Few /LPF None Seen /LPF 11/26/2015 [facility] URINE AND STOOL UA RBC 0-2 /HPF 0 - 2 11/26/2015 [facility] URINE AND STOOL UA Bacteria None Seen (11/25/15 8:10 PM) None Seen 11/26/2015 [facility] URINE AND STOOL UA WBC 6-10 /HPF None Seen /HPF 11/26/2015 [facility] URINE AND STOOL UA Nitrite Negative (11/25/15 8:10 PM) Negative 11/26/2015 [facility] URINE AND STOOL UA Leuk Est Moderate *ABN* (11/25/15 8:10 PM) Negative 11/26/2015 [facility] URINE AND STOOL UA Urobilinogen 0.2 EU/dL 0.1 - 1.0 11/26/2015 [facility] URINE AND STOOL UA Blood Negative (11/25/15 8:10 PM) Negative 11/26/2015 [facility] URINE AND STOOL UA Ketones Negative *NA* (11/25/15 8:10 PM) Negative 11/26/2015 [facility] URINE AND STOOL UA Bili Negative *NA* (11/25/15 8:10 PM) Negative 11/26/2015 [facility] URINE AND STOOL UA Glucose Negative (11/25/15 8:10 PM) Negative 11/26/2015 [facility] URINE AND STOOL UA pH 6.0 5.0 - 8.0 11/26/2015 [facility] URINE AND STOOL UA Protein Negative (11/25/15 8:10 PM) Negative 11/26/2015 [facility] URINE AND STOOL UA Spec Grav 1.010 <=1.030 11/26/2015 [facility] URINE AND STOOL UA Color Yellow *NA* (11/25/15 8:10 PM) Yellow 11/26/2015 [facility] URINE AND STOOL UA Turbidity Clear (11/25/15 8:10 PM) Clear 11/26/2015 [facility] ED Abdomen/Pelvis IV contrast only CT ED Abdomen/Pelvis IV contrast only CT CT ABDOMEN AND PELVIS WITH CONTRAST INDICATION: Left upper and lower quadrant abdominal pain, nausea and vomiting COMPARISON: CT abdomen/pelvis 08/01/2013 FINDINGS: ABDOMEN: The visible lung bases are clear. Cholecystectomy clips are in place. The liver, spleen, pancreas, adrenal glands, and kidneys appear normal. The stomach and bowel loops are grossly unremarkable, including the appendix. No free fluid or abnormal fluid collections are seen. No abdominal lymphadenopathy is identified. The abdominal aorta is normal in caliber. PELVIS: The bladder is unremarkable. The uterus and ovaries are not seen, presumed absent. No pelvic mass or lymphadenopathy are identified. BONES: No acute bony abnormalities are seen. IMPRESSION: No acute abdominal or pelvic abnormalities are visualized. SL: 16 11/25/2015 - - Read by: Inocencio Freire MD Dictated Date/time: 11/25/15 22:49 Electronically Signed by: Inocencio Freire MD 11/25/15 22:52 FINAL REPORT [facility] Vital Signs Vital Sign Value Date Comments Source Diastolic (mm Hg) 72 01/02/2019 [facility] Systolic (mm Hg) 106 01/02/2019 [facility] Height 61 01/02/2019 [facility] Heart Rate 114 01/02/2019 [facility] Weight 130 01/02/2019 [facility] Height 149.86 cm 12/30/2018 [facility] Weight 59.545 12/30/2018 [facility] BMI Calculated 26.51 12/30/2018 [facility] Heart Rate 101 12/30/2018 [facility] Temperature Oral (F) 98.5 F 12/30/2018 [facility] Systolic (mm Hg) 111 12/30/2018 [facility] Diastolic (mm Hg) 70 12/30/2018 [facility] Weight 130 11/24/2018 [facility] Height 61 11/24/2018 [facility] Diastolic (mm Hg) 80 11/24/2018 [facility] Systolic (mm Hg) 125 11/24/2018 [facility] Diastolic (mm Hg) 75 10/31/2018 [facility] Systolic (mm Hg) 111 10/31/2018 [facility] Height 61 10/31/2018 [facility] Heart Rate 113 10/31/2018 [facility] Weight 129.60 10/31/2018 [facility] Diastolic (mm Hg) 80 08/29/2018 [facility] Systolic (mm Hg) 117 08/29/2018 [facility] Height 61 08/29/2018 [facility] Heart Rate 87 08/29/2018 [facility] Weight 130.40 08/29/2018 [facility] Weight 128 08/25/2018 [facility] Height 61 08/25/2018 [facility] Diastolic (mm Hg) 70 08/25/2018 [facility] Systolic (mm Hg) 110 08/25/2018 [facility] Diastolic (mm Hg) 76 07/25/2018 [facility] Systolic (mm Hg) 111 07/25/2018 [facility] Height 61 07/25/2018 [facility] Heart Rate 103 07/25/2018 [facility] Weight 114.80 07/25/2018 [facility] Diastolic (mm Hg) 76 07/04/2018 [facility] Systolic (mm Hg) 118 07/04/2018 [facility] Height 61 07/04/2018 [facility] Heart Rate 106 07/04/2018 [facility] Weight 126.50 07/04/2018 [facility] Weight 57.727 05/23/2018 [facility] BMI Calculated 25.7 05/23/2018 [facility] Height 149.86 cm 05/23/2018 [facility] Temperature Oral (F) 98.0 F 05/23/2018 [facility] Heart Rate 83 05/23/2018 [facility] Systolic (mm Hg) 108 05/23/2018 [facility] Diastolic (mm Hg) 68 05/23/2018 [facility] Weight 125 05/19/2018 [facility] Height 61 05/19/2018 [facility] Diastolic (mm Hg) 70 05/19/2018 [facility] Systolic (mm Hg) 110 05/19/2018 [facility] Height 149.86 cm 04/01/2018 [facility] BMI Calculated 25.7 04/01/2018 [facility] Weight 57.727 04/01/2018 [facility] Systolic (mm Hg) 112 04/01/2018 [facility] Diastolic (mm Hg) 80 04/01/2018 [facility] Heart Rate 98 04/01/2018 [facility] Temperature Oral (F) 98.4 F 04/01/2018 [facility] Weight 124 02/17/2018 [facility] Height 61 02/17/2018 [facility] Diastolic (mm Hg) 80 02/17/2018 [facility] Systolic (mm Hg) 120 02/17/2018 [facility] Weight 126 01/13/2018 [facility] Height 61 01/13/2018 [facility] Weight 126 12/11/2017 [facility] Height 61 12/11/2017 [facility] Diastolic (mm Hg) 92 12/11/2017 [facility] Systolic (mm Hg) 136 12/11/2017 [facility] Systolic (mm Hg) 130 11/27/2017 [facility] Diastolic (mm Hg) 60 11/27/2017 [facility] Respitory Rate 16 11/27/2017 [facility] Peripheral Pulse Rate 72 11/27/2017 [facility] Systolic (mm Hg) 129 11/27/2017 [facility] Diastolic (mm Hg) 61 11/27/2017 [facility] Respitory Rate 16 11/27/2017 [facility] Heart Rate 74 11/27/2017 [facility] Systolic (mm Hg) 127 11/27/2017 [facility] Diastolic (mm Hg) 59 11/27/2017 [facility] Respitory Rate 16 11/27/2017 [facility] Heart Rate 75 11/27/2017 [facility] Heart Rate 71 11/27/2017 [facility] Temperature Oral (F) 36.8 Kitty 11/27/2017 [facility] Weight Measured 58.96 11/27/2017 [facility] Height 152.4 cm 11/27/2017 [facility] Peripheral Pulse Rate 86 11/27/2017 [facility] Temperature Oral (F) 36.7 Kitty 11/27/2017 [facility] Height 151.13 cm 11/21/2017 [facility] Weight 58.636 11/21/2017 [facility] BMI Calculated 25.67 11/21/2017 [facility] Weight Measured 58.96 11/20/2017 [facility] Height 152.4 cm 11/20/2017 [facility] Weight 130 11/12/2017 [facility] Height 61 11/12/2017 [facility] Diastolic (mm Hg) 80 11/12/2017 [facility] Systolic (mm Hg) 120 11/12/2017 [facility] Weight 129 10/17/2017 [facility] Height 61 10/17/2017 [facility] Diastolic (mm Hg) 70 10/17/2017 [facility] Systolic (mm Hg) 112 10/17/2017 [facility] Systolic (mm Hg) 103 08/20/2017 [facility] Diastolic (mm Hg) 63 08/20/2017 [facility] Respitory Rate 13 08/20/2017 [facility] Systolic (mm Hg) 103 08/20/2017 [facility] Diastolic (mm Hg) 63 08/20/2017 [facility] Respitory Rate 13 08/20/2017 [facility] Systolic (mm Hg) 94 08/20/2017 [facility] Diastolic (mm Hg) 66 08/20/2017 [facility] Respitory Rate 16 08/20/2017 [facility] Heart Rate 78 08/20/2017 [facility] Temperature Oral (F) 98.4 F 08/20/2017 [facility] Heart Rate 75 08/19/2017 [facility] BMI Calculated 24.97 08/19/2017 [facility] Height 152.4 cm 08/19/2017 [facility] Weight 58 08/19/2017 [facility] Weight 128 07/08/2017 [facility] Height 61 07/08/2017 [facility] Diastolic (mm Hg) 72 07/08/2017 [facility] Systolic (mm Hg) 112 07/08/2017 [facility] Systolic (mm Hg) 123 06/25/2017 [facility] Diastolic (mm Hg) 74 06/25/2017 [facility] Respitory Rate 12 06/25/2017 [facility] Respitory Rate 7 06/25/2017 [facility] Systolic (mm Hg) 104 06/25/2017 [facility] Diastolic (mm Hg) 50 06/25/2017 [facility] Systolic (mm Hg) 114 06/25/2017 [facility] Diastolic (mm Hg) 77 06/25/2017 [facility] Respitory Rate 16 06/25/2017 [facility] Heart Rate 78 06/25/2017 [facility] Temperature Oral (F) 96.6 F 06/21/2017 [facility] Heart Rate 83 06/21/2017 [facility] Weight 60.1 06/21/2017 [facility] BMI Calculated 25.88 06/21/2017 [facility] Height 152.4 cm 06/21/2017 [facility] Weight 133 04/04/2017 [facility] Height 61 04/04/2017 [facility] Diastolic (mm Hg) 70 04/04/2017 [facility] Systolic (mm Hg) 110 04/04/2017 [facility] Weight 137 12/27/2016 [facility] Height 61 12/27/2016 [facility] Diastolic (mm Hg) 66 12/27/2016 [facility] Systolic (mm Hg) 108 12/27/2016 [facility] Weight 138 09/27/2016 [facility] Height 61 09/27/2016 [facility] Diastolic (mm Hg) 70 09/27/2016 [facility] Systolic (mm Hg) 126 09/27/2016 [facility] Weight 142 07/12/2016 [facility] Height 61 07/12/2016 [facility] Diastolic (mm Hg) 76 07/12/2016 [facility] Systolic (mm Hg) 106 07/12/2016 [facility] Weight 142 06/07/2016 [facility] Height 61 06/07/2016 [facility] Temperature Oral (F) 97.9 F 06/07/2016 [facility] Diastolic (mm Hg) 70 06/07/2016 [facility] Systolic (mm Hg) 124 06/07/2016 [facility] Weight 149 04/27/2016 [facility] Height 61 04/27/2016 [facility] Diastolic (mm Hg) 76 04/27/2016 [facility] Systolic (mm Hg) 120 04/27/2016 [facility] Weight 150 03/01/2016 [facility] Height 61 03/01/2016 [facility] Diastolic (mm Hg) 70 03/01/2016 [facility] Systolic (mm Hg) 102 03/01/2016 [facility] Height 154.94 cm 02/21/2016 [facility] BMI Calculated 27.83 02/21/2016 [facility] Weight 66.818 02/21/2016 [facility] Weight 148 01/06/2016 [facility] Height 61 01/06/2016 [facility] Diastolic (mm Hg) 70 01/06/2016 [facility] Systolic (mm Hg) 112 01/06/2016 [facility] Systolic (mm Hg) 119 12/28/2015 [facility] Diastolic (mm Hg) 57 12/28/2015 [facility] Heart Rate 89 12/28/2015 [facility] Respitory Rate 18 12/28/2015 [facility] Temperature Oral (F) 98.7 F 12/28/2015 [facility] Height 170.18 cm 12/28/2015 [facility] Weight 63.636 12/28/2015 [facility] BMI Calculated 21.97 12/28/2015 [facility] Heart Rate 92 12/28/2015 [facility] Systolic (mm Hg) 151 12/28/2015 [facility] Diastolic (mm Hg) 93 12/28/2015 [facility] Temperature Oral (F) 98.2 F 12/28/2015 [facility] Respitory Rate 18 12/28/2015 [facility] Weight 153 12/01/2015 [facility] Height 61 12/01/2015 [facility] Diastolic (mm Hg) 70 12/01/2015 [facility] Systolic (mm Hg) 110 12/01/2015 [facility] Respitory Rate 18 11/26/2015 [facility] Heart Rate 76 11/26/2015 [facility] Systolic (mm Hg) 120 11/26/2015 [facility] Diastolic (mm Hg) 71 11/26/2015 [facility] Temperature Oral (F) 97.8 F 11/26/2015 [facility] Respitory Rate 18 11/26/2015 [facility] Temperature Oral (F) 99.1 F 11/26/2015 [facility] Heart Rate 88 11/26/2015 [facility] Systolic (mm Hg) 122 11/26/2015 [facility] Diastolic (mm Hg) 77 11/26/2015 [facility] Weight 66.818 11/26/2015 [facility] BMI Calculated 27.83 11/26/2015 [facility] Height 154.94 cm 11/26/2015 [facility] Weight 150 2015 No[facility] Hearnta Height 61 2015 [facility]ade[facility] Diastolic (mm Hg) 80 2015 Noel Mckenna Systolic (mm Hg) 130 2015 [facility]ck[facility] Weight 150 10/28/2015 No[facility] Mckenna Height 61 10/28/2015 Noel Mckenna Diastolic (mm Hg) 80 10/28/2015 No[facility] Mck[facility] Systolic (mm Hg) 116 10/28/2015 [facility] Weight 147 09/23/2015 [facility] Height 61 09/23/2015 [facility]ck[facility] Diastolic (mm Hg) 80 09/23/2015 [facility] Mck[facility] Systolic (mm Hg) 110 09/23/2015 [facility] Weight 143 01/25/[facility] Systolic (mm Hg) 116 01/25/2015 [facility] Diastolic (mm Hg) 70 01/25/2015 [facility] Heart Rate 81 01/25/2015 [facility] Temperature Oral (F) 97.6 F 01/25/2015 [facility] Weight 145 01/11/2015 [facility] Height 61 01/11/2015 [facility] Systolic (mm Hg) 124 01/11/2015 [facility] Diastolic (mm Hg) 79 01/11/2015 [facility] Heart Rate 95 01/11/2015 [facility] Temperature Oral (F) 97.8 F 01/11/2015 [facility] Encounters Location Location Details Encounter Type Encounter Number Reason For Visit Attending Provider ADM Date DC Date Status Source Noel Mckenna MD 3 mon x dm [id number] 09/04/2013 09/04/2013 Noel Hall MD 3 mon x dm [id number] 09/04/2013 09/04/2013 Noel Hall MD 3 mon x dm [id number] 09/04/2013 09/04/2013 Noel Hall MD 3 mon x dm [id number] 09/04/2013 09/04/2013 Noel Hall MD 3 mon x dm [id number] 09/04/2013 09/04/2013 Noel Hall MD 3 mon x dm yx2111eo-9v10-0z9z-xd28-49v36g627731 09/04/2013 09/04/2013 Noel Hall MD 3 mon x dm [id number]-e607-8e7i772o36p8 09/04/2013 09/04/2013 Noel Hall MD 3 mon x dm [id number]-77a5y4t8v0m7 09/04/2013 09/04/2013 Noel Hall MD 3 mon x dm 89np358o-wz59-3tnv-vy1k-77iv29599561 09/04/2013 09/04/2013 Noel Hall MD 3 mon x dm 7fk6cn7t-f8d0-78ur-1p0q-595w1h897m1q 09/04/2013 09/04/2013 Noel Hall MD 3 mon x dm 87oqm106-es7b-80g3-m670-19u9mi8e8i3p 09/04/2013 09/04/2013 Noel Hall MD 3 mon x dm h84w33xv-f18x-8485-32gh-8962405hx964 09/04/2013 09/04/2013 Noel Hall MD 3 mon x dm 100j91x0-2603-01i7-0x4c-b51gd4czzmf4 09/04/2013 09/04/2013 Noel Hall MD 3 mon x dm 772v45n0-nf42-519k-qu55-14twjn2l0916 09/04/2013 09/04/2013 Noel Mckenna, Noel LACY 3 mon x dm 39z3k5h3-3i71-800e-jx86-5n6x717y2249 09/04/2013 09/04/2013 Noel Mckenna, Noel LACY 3 mon x dm n0of2f9n-j998-82p6-a709-ux7a4289615u 09/04/2013 09/04/2013 Noel Mckenna, Noel LACY Unknown [id number]-ww2y-8534-zkw8-22xn50943650 01/23/2014 01/23/2014 Noel Mckenna, Noel LACY Unknown [id number] 01/23/2014 01/23/2014 Noel Hall MD Unknown [id number] 01/23/2014 01/23/2014 Noel Hall MD Unknown [id number]-[id number] 01/23/2014 01/23/2014 Noel Hall MD Unknown [id number]-r0n3-t6epe2xxpin8 01/23/2014 01/23/2014 Noel Hall MD Unknown [id number] 01/23/2014 01/23/2014 Noel Hall MD Unknown [id number]-c14hf16if1p8 01/23/2014 01/23/2014 Noel Hall MD Unknown [id number] 01/23/2014 01/23/2014 Noel Hall MD Unknown [id number] 01/23/2014 01/23/2014 Noel Mckenna, Noel LACY Unknown [id number] 01/23/2014 01/23/2014 Noel Mckenna, Noel LACY Unknown [id number] 01/23/2014 01/23/2014 Noel Mckenna, Noel LACY Unknown [id number]-x1l0-yc776v85n444 01/23/2014 01/23/2014 Noel Mckenna, Noel LACY Unknown [id number]-myv8-zt17g5143q42 01/23/2014 01/23/2014 Noel Mckenna, Noel LACY Unknown [id number]-[id number]-m10uuo7ug360 01/23/2014 01/23/2014 Noel Mckenna, Noel LACY Unknown [id number]-xh3g-8708-1348-3n1z08falwvp 01/23/2014 01/23/2014 Noel Mckenna, Noel LACY Unknown [id number] 01/23/2014 01/23/2014 Noel Mckenna, Noel LACY Refferal [id number]-4c7f-7017-3d9wa0937cbt 03/01/2014 03/01/2014 Noel Mckenna, Noel LACY Refferal [id number]-8498-q22v-5tzo74i5t743 03/01/2014 03/01/2014 Noel Mckenna, Noel LACY Refferal [id number]-ko60-0225-sqlt-8rgh2v4i8927 03/01/2014 03/01/2014 Noel Mckenna, Noel LACY Refferal [id number]-5sc9-7844-tzz7-c8j282i46299 03/01/2014 03/01/2014 Noel Mckenna, Noel LACY Refferal [id number] 03/01/2014 03/01/2014 Noel Mckenna, Noel LACY Refferal [id number]-1t19-462b-4wzb-39484j357p91 03/01/2014 03/01/2014 Noel Mckenna, Noel LACY Refferal tz2l3k90-e0qz-6rv4-bb8u-ljs9sgk04s7w 03/01/2014 03/01/2014 Noel Mckenna, Noel LACY Refferal [id number]-yu2j-[id number] 03/01/2014 03/01/2014 Noel Mckenna, Noel LACY Refferal h3x602x0-g2a4-7v1b-zd18-vo5x625c8930 03/01/2014 03/01/2014 Noel Mckenna, Noel LACY Refferal [id number]-[id number] 03/01/2014 03/01/2014 Noel Mckenna, Noel LACY Refferal [id number]-l973-41xi-dt29-1ni31676297x 03/01/2014 03/01/2014 Neol Mckenna, Noel LACY Refferal [id number]-e67g-9710u7b9y5h7 03/01/2014 03/01/2014 Noel Mckenna, Noel LACY Refferal yzknan15-uv21-511d-7oq6-7285a372n975 03/01/2014 03/01/2014 Noel Mckenna, Noel LACY Refferal [id number]-233a-15d08s0hmi98 03/01/2014 03/01/2014 Noel Mckenna, Noel LACY Refferal 64fnl5a8-8157-3h6p-1g45-28b1u3t2dj61 03/01/2014 03/01/2014 Noel Hall MD Refferal [id number]-7ef0-7353-w99q-62349145bc4p 03/01/2014 03/01/2014 Noel Hall MD shortness of breath, weak 67g1y182-8xf2-74gp-v3c6-03c860urs405 03/12/2014 03/12/2014 Noel Hall MD shortness of breath, weak 92l859i8-1c98-071l-few7-4145g0x1m177 03/12/2014 03/12/2014 Noel Hall MD shortness of breath, weak 7230y3k5-053u-7724-0a47-4095r1b83bqj 03/12/2014 03/12/2014 Noel Hall MD shortness of breath, weak 7xi6ve26-k2k5-2k1k-u023-nu68247ty174 03/12/2014 03/12/2014 Noel Hall MD shortness of breath, weak 3bh05038-32no-103m-e997-9h48hx38x038 03/12/2014 03/12/2014 Noel Hall MD shortness of breath, weak uts92l29-5f7a-58kh-ol7f-n3h0t28jlxa5 03/12/2014 03/12/2014 Noel Hall MD shortness of breath, weak 3l8h8874-060s-3xrg-lv6c-21k4n193fh7u 03/12/2014 03/12/2014 Noel Hall MD shortness of breath, weak hk844s7y-c50q-6v45-93t3-4151824b5g99 03/12/2014 03/12/2014 Noel Hall MD shortness of breath, weak weo3094h-x838-0o7f-s58z-v15hr843gd8s 03/12/2014 03/12/2014 Noel Hall MD shortness of breath, weak 7b3f3u34-lpod-6ii2-ddjw-f6r41737kofv 03/12/2014 03/12/2014 Noel Hall MD shortness of breath, weak n066l929-p605-6q22-mh2i-fj4928577tt3 03/12/2014 03/12/2014 Noel Hall MD shortness of breath, weak ca831b4q-1cp6-9542-80o4-ph30s1z735f2 03/12/2014 03/12/2014 Noel Hall MD shortness of breath, weak p6k4181b-5134-92jz-ro46-60t03nj91667 03/12/2014 03/12/2014 Noel Hall MD shortness of breath, weak 629x09l6-459x-9jmz-8282-k02559e52p33 03/12/2014 03/12/2014 Noel Hall MD shortness of breath, weak 4f1jq5oi-9w21-106s-7789-924e34x150xe 03/12/2014 03/12/2014 Noel Hall MD shortness of breath, weak sqs70357-4c33-43vi-45r0-86885u925m98 03/12/2014 03/12/2014 Noel Hall MD Unknown [id number]-u17e-9pn2-9ik1-0469l89266hg 03/15/2014 03/15/2014 Noel Hall MD Unknown [id number] 03/15/2014 03/15/2014 Noel Hall MD Unknown [id number] 03/15/2014 03/15/2014 Noel Hall MD Unknown [id number] 03/15/2014 03/15/2014 Noel Hall MD Unknown [id number]-[id number] 03/15/2014 03/15/2014 Noel Mckenna, Noel LACY Unknown [id number] 03/15/2014 03/15/2014 Noel Mckenna, Noel LACY Unknown [id number]-y10z-429i-[id number] 03/15/2014 03/15/2014 Noel Mckenna, Noel LACY Unknown [id number]-29n2-843s-y38w383n2k5l 03/15/2014 03/15/2014 Noel Mckenna, Noel LACY Unknown [id number]-65q3en9e07jq 03/15/2014 03/15/2014 Noel Mckenna, Noel LACY Unknown [id number]-88j2-9f4w97h76u92 03/15/2014 03/15/2014 Noel Mckenna, Noel LACY Unknown [id number]-l19h1859z5p3 03/15/2014 03/15/2014 Noel Mckenna, Noel LACY Unknown [id number]-[id number]-g78z-u4581w062e1e 03/15/2014 03/15/2014 Noel Mckenna, Noel LACY Unknown [id number]-j552-ne2m2400x292 03/15/2014 03/15/2014 Noel Mckenna, Noel LACY Unknown [id number]-u878-3uv9-5ie9-l9185biw8f7w 03/15/2014 03/15/2014 Noel Mckenna, Noel LACY Unknown [id number]-wz3u1e5c4490 03/15/2014 03/15/2014 Noel Mckenna, Noel LACY Unknown 06qnzv6x-88ml-8rka-3434-3jd51y0ti3w5 03/15/2014 03/15/2014 Noel Mckenna, Noel LACY Unknown ym4xus26-z1ue-6148-l6bm-n0s5117r172h 03/17/2014 03/17/2014 Noel Mckenna, Noel LACY Unknown [id number]-8713-11aru64184e5 03/17/2014 03/17/2014 Noel Mckenna, Noel LACY Unknown t04617v0-x030-1p43-is0h-j8s08pk42c3t 03/17/2014 03/17/2014 Noel Mckenna, Noel LACY Unknown [id number]-17t8-un96-97l62jh65sm1 03/17/2014 03/17/2014 Noel Mckenna, Noel LACY Unknown [id number]-89mk6ho12153 03/17/2014 03/17/2014 Noel Mckenna, Noel LACY Unknown [id number]-4016-6932-21b7-gmz92003k7cl 03/17/2014 03/17/2014 Noel Mckenna, Noel LACY Unknown [id number]-r3w0-481q-j1kw-4383dkw0mwu5 03/17/2014 03/17/2014 Noel Mckenna, Noel LACY Unknown [id number] 03/17/2014 03/17/2014 Noel Mckenna, Noel LACY Unknown llwafh14-2m98-2ot1-06r7-966mh0ce4914 03/17/2014 03/17/2014 Noel Mckenna, Noel LACY Unknown [id number]-ir8h-5ch3-d4zh-48c7iu7j2338 03/17/2014 03/17/2014 Noel Mckenna, Noel LACY Unknown [id number]-c7y1-w92498qje0k0 03/17/2014 03/17/2014 Noel Mckenna, Noel LACY Unknown [id number] 03/17/2014 03/17/2014 Noel Mckenna, Noel LACY Unknown [id number]-[id number]-188v-6xa175i3l7t4 03/17/2014 03/17/2014 Noel Mckenna, Noel LACY Unknown [id number]-7v5l-4v37-u199jg6k5v51 03/17/2014 03/17/2014 Noel Mckenna, Noel LACY Unknown [id number]-ez39-40f3-3i4x-59y80wfad423 03/17/2014 03/17/2014 Noel Mckenna, Noel LACY Unknown [id number]-g555-94d1-oi34-r641pt2bn95u 03/17/2014 03/17/2014 Noel Mckenna, Noel LACY 3m x dm r4w671iy-n3kb-9z47-2345-08s8r4x01a36 04/09/2014 04/09/2014 Noel Mckenna, Noel LACY 3m x dm 28drz8m2-e570-7150-f86f-r5wr0bi03mf9 04/09/2014 04/09/2014 Noel Mckenna, Noel LACY 3m x dm 6669641g-x410-8s4n-q607-h8d7f7aln092 04/09/2014 04/09/2014 Noel Mckenna, Noel LACY 3m x dm 16mrwy98-u7l7-5955-37vk-216993h51758 04/09/2014 04/09/2014 Noel Mckenna, Noel LACY 3m x dm 145nzif7-m251-423r-q1a0-016e0r009938 04/09/2014 04/09/2014 Noel Mckenna, Nole LACY 3m x dm oo43o17y-vv61-7966-y324-28557o3244kn 04/09/2014 04/09/2014 Noel Mckenna, Noel LACY 3m x dm k6620651-086r-78fl-3296-05689096g853 04/09/2014 04/09/2014 Noel Mckenna, Noel LACY 3m x dm 406816ni-0yv8-37io-1a99-343q5o0845k5 04/09/2014 04/09/2014 Noel Mckenna, Noel LACY 3m x dm 62f488p5-o40o-8483-0886-p39p4iap78w7 04/09/2014 04/09/2014 Noel Mckenna, Noel LACY 3m x dm 6k0d8328-v4mq-212f-03mq-2kn10ih96153 04/09/2014 04/09/2014 Noel Mckenna, Noel LACY 3m x dm 5tdaj1xf-m520-4e47-110d-93928l0w2qzh 04/09/2014 04/09/2014 Noel Mckenna, Noel LACY 3m x dm 95q2ih2q-jxp9-91i3-0413-14sxi69f5mj1 04/09/2014 04/09/2014 Noel Mckenna, Noel LACY 3m x dm 0b06g6hx-ia95-21t4-208v-e8sox4ii15ez 04/09/2014 04/09/2014 Noel Mckenna, Noel LACY 3m x dm x82l96jq-3af1-0p86-4m24-015747g5930r 04/09/2014 04/09/2014 Noel Mckenna, Noel LACY 3m x dm l668953i-xs2h-0s5s-ks34-9hv023rq7cpn 04/09/2014 04/09/2014 Noel Mckenna, Noel LACY 3m x dm 206yc98n-ox7o-61kd-7l3d-35m59h7p5281 04/09/2014 04/09/2014 Noel Mckenna, Noel LACY Unknown [id number]-ic53-jc9l78m2h79a 07/09/2014 07/09/2014 Noel Mckenna, Noel LACY [facility] [id number]-w6a3-08f6-9055-v84zpyb2d809 07/09/2014 07/09/2014 Noel Mckenna, Noel LACY Unknown [id number]-29te-230h-4o55-6w0ul64cgl01 07/09/2014 07/09/2014 Noel Mckenna, Noel LACY Unknown [id number]-i67u-1a3989e677yq 07/09/2014 07/09/2014 Noel Mckenna, Noel LACY Unknown [id number]-[id number]-[id number] 07/09/2014 07/09/2014 Noel Mckenna, Noel LACY Unknown dmi9u6q7-4fb6-956w-19u8-wv100435y741 07/09/2014 07/09/2014 Noel Mckenna, Noel LACY Unknown [id number]-135b-880xs1129k91 07/09/2014 07/09/2014 Noel Mckenna, Noel LACY Unknown w13xja5a-6309-94m2-fw98-i1t8211qtde4 07/09/2014 07/09/2014 Noel Mckenna, Noel LACY Unknown [id number]-9d38-7901-52j7137ahn7n 07/09/2014 07/09/2014 Noel Mckenna, Noel LACY Unknown 92htszuq-20x8-238989l5-9841-58z0-g43v56c2299s 07/09/2014 07/09/2014 Noel Mckenna, Noel LACY Unknown [id number]-8rpc-5630-x133-400922rk203f 07/09/2014 07/09/2014 Noel Mckenna, Noel LACY Unknown [id number]-1m78-966879g20sd5 07/09/2014 07/09/2014 Noel Mckenna, Noel LACY Unknown [id number]-o2mo-2d3r-3kv2-hpl070058oya 07/09/2014 07/09/2014 Noel Mckenna, Noel LACY Unknown [id number]-p23w-4dd5-4689-6923460m3rzi 07/09/2014 07/09/2014 Noel Hall MD Unknown n6pj82b2-29o8-25m8-gmm4-9010m2875li2 07/09/2014 07/09/2014 Noel Hall MD Unknown 15dm4liu-kze8-7y18-bu89-i979zma3v9uw 07/09/2014 07/09/2014 Noel Hall MD Cold congestion nb5qtv44-240y-5w7o-405g-7mvrax755019 08/24/2014 08/24/2014 Noel Hall MD Cold congestion u344qg93-443h-81x6-x39q-hm98d5748b42 08/24/2014 08/24/2014 Noel Hall MD Cold congestion 576iu756-e2n8-5305-b98d-pi3ny81034z7 08/24/2014 08/24/2014 Noel Hall MD Cold congestion d18gf97l-9f12-92e3-v56r-6mc1no3s6g44 08/24/2014 08/24/2014 Noel Hall MD Cold congestion b6437391-z100-1122-007r-g990227696y5 08/24/2014 08/24/2014 Noel Hall MD Cold congestion 1673u375-2kds-1056-144f-259wb659myo0 08/24/2014 08/24/2014 Noel aHll MD Cold congestion 912137n7-l9ed-03gu-p0jb-30spn7svn995 08/24/2014 08/24/2014 Noel Hall MD Cold congestion h754u8bd-086w-9u16-d700-84u21ye00j39 08/24/2014 08/24/2014 Noel Hall MD Cold congestion 9856406u-71s8-33tb-09xy-k185881b8h06 08/24/2014 08/24/2014 Noel Hall MD Cold congestion 3o08f4t2-04x2-2w41-9293-55s68o3vy61d 08/24/2014 08/24/2014 Noel Hall MD Cold congestion 0y263481-m004-4489-3jx5-ih83820o115m 08/24/2014 08/24/2014 Noel Hall MD Cold congestion 5w191tc6-4jb3-2h68-az22-f3c652gf0729 08/24/2014 08/24/2014 Noel Hall MD Cold congestion 91710c71-7plb-5uz8-m2o1-j92631ecb329 08/24/2014 08/24/2014 Noel Hall MD Cold congestion l40n1358-3663-5608-3143-21do1v030f84 08/24/2014 08/24/2014 Noel Hall MD Cold congestion l03n7iy3-4143-0yps-91dr-s597804957i2 08/24/2014 08/24/2014 Noel Hall MD Cold congestion i3uy16g8-p31z-9541-t4u3-8ey3gk59j1zi 08/24/2014 08/24/2014 Noel Mckenna [facility] Outpatient Imaging [facility] Out Diag Services [id number] Telly Farah 08/25/2014 08/26/2014 OPID [facility] Noel Mckenna MD CXR results [id number]-xs70-750498i52648 08/26/2014 08/26/2014 Noel Hall MD CXR results u0h1r4w5-37tg-500i-y236-5782d5g88s96 08/26/2014 08/26/2014 Noel Hall MD CXR results 42iy3254-8cm8-2140-ndo2-456e5g930dt8 08/26/2014 08/26/2014 Noel Hall MD CXR results taqn9574-510o-1827-83or-1p225cvla6ur 08/26/2014 08/26/2014 Noel Mckenna, Noel LACY CXR results t1d84g50-49p4-14yz-r36b-yar280n55hro 08/26/2014 08/26/2014 Noel Mckenna, Noel LACY CXR results 097sl81s-zz58-5306-6edz-495v16vcd23o 08/26/2014 08/26/2014 Noel Mckenna, Noel LACY CXR results o6782yvb-a413-7055-9kgk-ty9c75h77vit 08/26/2014 08/26/2014 Noel Mckenna, Noel LACY CXR results 4eg10n7c-z301-788o-vr33-9x2fp08f88kr 08/26/2014 08/26/2014 Noel Mckenna, Noel LACY CXR results 8711815t-h1t2-3t82-3b8o-57u82j8h08e2 08/26/2014 08/26/2014 Noel Mckenna, Noel LACY CXR results 042k72ky-7ax9-16cb-i475-vx300tx65t99 08/26/2014 08/26/2014 Noel Hall MD CXR results ibp7ydq7-s2y7-834r-f39y-ue9p33233246 08/26/2014 08/26/2014 Noel Hall MD CXR results 1s1m07q8-y8bf-7496-68i7-5d11nti9c455 08/26/2014 08/26/2014 Noel Hall MD CXR results 383360yb-6595-6bn5-y175-ggvk17528374 08/26/2014 08/26/2014 Noel Hall MD CXR results a9507935-0858-93bu-cl6r-265q1ml46f70 08/26/2014 08/26/2014 Noel Hall MD CXR results mld213tz-60sx-3r61-px5z-54u7b528ea2l 08/26/2014 08/26/2014 Noel Mckenna, Noel LACY CXR results 9yr6936s-7462-4337-5v0o-5q98n394e592 08/26/2014 08/26/2014 Noel Mckenna, Noel LACY Cold p9c66t0m-glh0-529b-u36k-062lac96v7mt 08/31/2014 08/31/2014 Noel Mckenna, Noel LACY Cold 04022n68-gj50-3980-nh51-b24r5uh421at 08/31/2014 08/31/2014 Noel Mckenna, Noel LACY Cold 780n7oq5-w5yr-542y-a6a7-2266x5935bh8 08/31/2014 08/31/2014 Noel Mckenna, Noel LACY Cold 6y4u6q8t-6k0b-82u2-k3bw-2c706191e2o3 08/31/2014 08/31/2014 Noel Mckenna, Noel LACY Cold 9haq2398-68a9-8fw2-d830-51qr9l8xerr1 08/31/2014 08/31/2014 Noel Mckenna, Noel LACY [facility] q2c8387d-y1c4-131u-i057-vf0oi9213q61 08/31/2014 08/31/2014 Noel Mckenna, Noel Brantley b76z31bu-1i31-3kup-c90s-fx6n54u39c83 08/31/2014 08/31/2014 Noel Mckenna, Noel LACY [facility] 7o8y5l89-m791-598n-u691-81527d9yz95u 08/31/2014 08/31/2014 Noel Mcknena, Noel LACY Cold p4252v8d-1t1t-7pag-hc33-t6hf52ufc31r 08/31/2014 08/31/2014 Noel Mckenna, Noel LACY Cold 3wzl46ym-736f-000q-75fe-9852705040dd 08/31/2014 08/31/2014 Noel Mckenna, Noel LACY Cold 90z2foc3-z432-50xz-2j8b-e8l120tpoq48 08/31/2014 08/31/2014 Noel Hall MD Cold 4f9asrbd-1222-2323-sai1-it8867w0816d 08/31/2014 08/31/2014 Noel Hall MD Cold 7zfw4jpp-nlp3-0f40-425z-59460r7e887r 08/31/2014 08/31/2014 Noel Hall MD Cold 377p6697-b33n-6e2w-uw27-6v60la7bx134 08/31/2014 08/31/2014 Noel Hall MD Cold 9676051h-s2ht-6n16-m2h0-lt62h7304541 08/31/2014 08/31/2014 Noel Hall MD Cold 18k3bez2-2660-7h03-r0zv-x6cue138948z 08/31/2014 08/31/2014 Noel Hall MD follow up Diabetes/insulin pump 93309i93-ox8f-0c16-e1q5-8bw593ro7apc 11/16/2014 11/16/2014 Noel Hall MD follow up Diabetes/insulin pump [id number]-7g5u-6953-6gv126907wl9 11/16/2014 11/16/2014 Noel Hall MD follow up Diabetes/insulin pump l81p3777-01n8-5t2w-rw67-74uy985a99r8 11/16/2014 11/16/2014 Noel Hall MD follow up Diabetes/insulin pump 83026ewa-3e39-263v-4a11-t05ndsp1p801 11/16/2014 11/16/2014 Noel Hall MD follow up Diabetes/insulin pump 6hp70w3k-1i0q-5098-j159-h6742d974862 11/16/2014 11/16/2014 Noel Hall MD follow up Diabetes/insulin pump [id number]-y9g1jxe83649 11/16/2014 11/16/2014 Noel Hall MD follow up Diabetes/insulin pump e6cz65jo-b728-91j2-7r2i-1j4aay4d2z8g 11/16/2014 11/16/2014 Noel Hall MD follow up Diabetes/insulin pump ic8130mg-5039-7191-286k-9e4x894h325t 11/16/2014 11/16/2014 Noel Hall MD follow up Diabetes/insulin pump [id number]-v306-8482-wzl8-56xr746pdef3 11/16/2014 11/16/2014 Noel Hall MD follow up Diabetes/insulin pump 6jh1q656-0aw3-10mx-e2nr-bin0986e7e8s 11/16/2014 11/16/2014 Noel Hall MD follow up Diabetes/insulin pump 11uwl1c2-9681-63o2-2fbx-4v21huh201z2 11/16/2014 11/16/2014 Noel Hall MD follow up Diabetes/insulin pump [id number]-901z-514g-8928-57q0oqf6u2v9 11/16/2014 11/16/2014 Noel Hall MD follow up Diabetes/insulin pump l87dt54v-0889-1f69-0568-1lxv5b8x1b1m 11/16/2014 11/16/2014 Noel Hall MD follow up Diabetes/insulin pump [id number]-4w87-d8h5-0488v6017631 11/16/2014 11/16/2014 Noel Hall MD follow up Diabetes/insulin pump [id number]-h891-9k068b44fi44 11/16/2014 11/16/2014 Noel Hall MD follow up Diabetes/insulin pump [id number] 11/16/2014 11/16/2014 Noel Mckenna [facility] Outpatient Imaging [facility] Out[facility] [id number] Telly Farah 11/23/2014 11/24/2014 [facility] Noel Bach MD cgms disc [id number]-bhdn80kdtj36 11/29/2014 11/29/2014 Noel Hall MD cgms disc x2q9ufc7-iwp6-6871-a620-990j22575obw 11/29/2014 11/29/2014 Noel Hall MD cgms disc [id number]-71h0-2582-887gq7624278 11/29/2014 11/29/2014 Noel Hall MD cgms disc y7e34bm9-0gec-94m7-6500-2gtx2b8m4yg1 11/29/2014 11/29/2014 Noel Hall MD cgms disc xap68lea-26c3-0872-3df6-p142i8r4lj1c 11/29/2014 11/29/2014 Noel Hall MD cgms disc bl7e5130-jb6w-497m-n671-4l6ih082361g 11/29/2014 11/29/2014 Noel Hall MD cgms disc i3856aj7-m937-9096-w4m4-72255wii2624 11/29/2014 11/29/2014 Noel Hall MD cgms disc 7qmdpx30-5jk7-4yb9-667v-2w020w57w707 11/29/2014 11/29/2014 Noel Hall MD cgms disc 766ms676-4ig0-4y6h-i838-nnx2023e33tx 11/29/2014 11/29/2014 Noel Hall MD cgms disc 0d56ox2t-cype-71e9-o0ic-0s58eg40n8zw 11/29/2014 11/29/2014 Noel Hall MD cgms disc p3s057v3-h77u-547o-q49r-x5944h0106w8 11/29/2014 11/29/2014 Noel Mckenna, Noel LACY cgms disc yc57tnt7-m2o9-43w8-8496-487s124c032r 11/29/2014 11/29/2014 Noel Mckenna, Noel LACY cgms disc 2hoi0695-2r25-65z4-z94b-61240saa0305 11/29/2014 11/29/2014 Noel Mckenna, Noel LACY cgms disc [id number]-5pk7-3a00-6519-am4471nt95k2 11/29/2014 11/29/2014 Noel Mckenna, Noel LACY cgms disc c2uoom8t-zvw6-3105-hk61-9pd83t7x99zp 11/29/2014 11/29/2014 Noel Mckenna, Noel LACY cgms results [id number]-74gz-is5a-8670t26a7w9z 12/17/2014 12/17/2014 Noel Mckenna, Noel LACY cgms results x17f3z39-3r6g-71h9-4bm5-h9j84h6l26s5 12/17/2014 12/17/2014 Noel Mckenna, Noel LACY cgms results 8166yp2a-gva0-2e58-npp9-5j372wu64g08 12/17/2014 12/17/2014 Noel Hall MD cgms results 3522s6m6-otq9-13j4-401w-zv3117v57909 12/17/2014 12/17/2014 Noel Hall MD cgms results 0xv5g7he-zh96-0v21-e291-o054gs002e58 12/17/2014 12/17/2014 Noel Hall MD cgms results f838679q-r6eu-6df5-v235-481715mpa404 12/17/2014 12/17/2014 Noel Hall MD cgms results jg11278r-w399-3pgt-x5nv-9q2l5687x54i 12/17/2014 12/17/2014 Noel Hall MD cgms results nxpc438b-d1r4-4u8o-qa85-15czw28u7k29 12/17/2014 12/17/2014 Noel Hall MD cgms results c6673858-7655-3zg3-ba0a-825a58c12wh2 12/17/2014 12/17/2014 Noel Hall MD cgms results 6t7s7560-84d4-0rok-yl41-1r39i31g95c6 12/17/2014 12/17/2014 Noel Hall MD cgms results 54jrn441-3i38-377u-6677-190w1xl76x60 12/17/2014 12/17/2014 Noel Hall MD cgms results kqg99v62-3y07-840b-f556-sy7s3h4k0dc4 12/17/2014 12/17/2014 Noel Hall MD cgms results 691w2f4k-tp26-8w52-vw97-480510400z86 12/17/2014 12/17/2014 Noel Hall MD cgms results 2fq01004-7247-423z-j33r-4e61jq6t77r8 12/17/2014 12/17/2014 Noel Hall MD cgms results n69j1h38-91nf-723y-aj20-s9xkj6b9n442 12/17/2014 12/17/2014 Noel Hall MD cgms results 51ys9ik9-kn89-8c49-cm76-9740385fo300 12/17/2014 12/17/2014 Noel Hall MD left wrist pain d8822859-8n85-0524-h663-z0976d4mhxo1 12/31/2014 12/31/2014 Noel Hall MD left wrist pain 2499786x-ras2-7bv0-420v-17r46uw2171o 12/31/2014 12/31/2014 Noel Hall MD left wrist pain 906fo045-7bf9-4516-jl88-3j41m2006g6q 12/31/2014 12/31/2014 Noel Hall MD left wrist pain 2p954050-13vr-573o-s1j0-87w3i19g4l63 12/31/2014 12/31/2014 Noel Hall MD left wrist pain s24tt7q7-k37x-6w8o-vr3z-07dk3hi71z3f 12/31/2014 12/31/2014 Noel Hall MD left wrist pain 5267u9t2-kunm-3593-is29-34m97x8d2685 12/31/2014 12/31/2014 Noel Hall MD left wrist pain rdi6902r-gd0i-5gq2-90o1-4m9q9s014184 12/31/2014 12/31/2014 Noel Hall MD left wrist pain 63v9746n-pc2f-1r84-s108-3e4y7a7a81v8 12/31/2014 12/31/2014 Noel Hall MD left wrist pain 414uxx01-86jh-13g1-xp44-88xksxfk7249 12/31/2014 12/31/2014 Noel Hall MD left wrist pain b72l0d39-ypky-1yz9-f956-07v3s1ys102l 12/31/2014 12/31/2014 Noel Hall MD left wrist pain l8971fa7-263u-0211-7893-798l41465l98 12/31/2014 12/31/2014 Noel Hall MD left wrist pain 4v45oz16-65uy-68h5-4e9s-v62hn20g7n81 12/31/2014 12/31/2014 Noel Hall MD left wrist pain zc230flk-6jl3-6915-1ic0-2n3f59663678 12/31/2014 12/31/2014 Noel Hall MD left wrist pain x038z6kz-d733-38o3-0089-61os47wek6v2 12/31/2014 12/31/2014 Noel Hall MD left wrist pain b29nr322-4133-1jvp-f9b7-3i7bj14zf690 12/31/2014 12/31/2014 Noel Hall MD left wrist pain ie913374-aj7t-4d1x-6q33-643p341m6k32 12/31/2014 12/31/2014 Noel Hall MD 4 Weeks (Reason: Diabetes ) w8t2au52-067x-987q-d334-6208t85yv941 01/07/2015 01/07/2015 Noel Hall MD 4 Weeks (Reason: Diabetes ) 5x9035k6-78is-3b38-77v7-c2h74j71h4zc 01/07/2015 01/07/2015 Noel Hall MD 4 Weeks (Reason: Diabetes ) 5qn9t694-j0o0-7f4a-f965-nyk625849336 01/07/2015 01/07/2015 Noel Hall MD 4 Weeks (Reason: Diabetes ) a018h5qg-e1n3-8760-8w79-33p8181ww6bf 01/07/2015 01/07/2015 Noel Hall MD 4 Weeks (Reason: Diabetes ) a47ppz7f-6147-259f-df64-9987x7021r84 01/07/2015 01/07/2015 Noel Hall MD 4 Weeks (Reason: Diabetes ) 1i8d5m2n-e815-3g55-b951-8x9fu7f39579 01/07/2015 01/07/2015 oNel Hall MD 4 Weeks (Reason: Diabetes ) sl6c250e-556p-89lr-0f1v-58p37x2fj386 01/07/2015 01/07/2015 Noel Hall MD 4 Weeks (Reason: Diabetes ) 52q968x9-1zj0-6456-p5ui-8m8vy3713q3o 01/07/2015 01/07/2015 Noel Hall MD 4 Weeks (Reason: Diabetes ) u466289g-6ohj-3fu3-1000-1f82833wp3n5 01/07/2015 01/07/2015 Noel Hall MD 4 Weeks (Reason: Diabetes ) 49pn418o-1017-1670-0ll2-28u4k16m0a83 01/07/2015 01/07/2015 Noel Hall MD 4 Weeks (Reason: Diabetes ) 97h8q5r1-ze92-63tm-k48w-507q7x984is0 01/07/2015 01/07/2015 Noel Hall MD 4 Weeks (Reason: Diabetes ) 6q97hr52-c395-1jd1-7s0t-axer9q13q1ti 01/07/2015 01/07/2015 Noel Hall MD 4 Weeks (Reason: Diabetes ) 6418a12r-4755-4lcg-u3bk-8o4y7t5305l1 01/07/2015 01/07/2015 Noel Hall MD 4 Weeks (Reason: Diabetes ) 3i2fy358-5c2d-8wc1-3916-1ie6501l945y 01/07/2015 01/07/2015 Noel Hall MD 4 Weeks (Reason: Diabetes ) 637dju85-33zj-41o9-tqz6-2937p4nchp42 01/07/2015 01/07/2015 Noel Hall MD 4 Weeks (Reason: Diabetes ) 989sbe1o-35lk-97j1-1245-t9n0051aj5ja 01/07/2015 01/07/2015 Noel Mckenna [facility] Cardiology Office Visit [id number] Gustavo Calles MD 01/11/2015 01/11/2015 [facility] Cardiology SW Office Visit [id number] Gustavo Calles MD 01/25/2015 01/25/2015 [facility] Noel Mckenna MD referral for Dr. Easton 1jm2s864-1jt0-2360-ltxw-389u31z8564t 01/26/2015 01/26/2015 Noel Hall MD referral for Dr. Easton k42j15t6-5399-177q-w762-86g1149vb3e9 01/26/2015 01/26/2015 Noel Hall MD referral for Dr. Easton 5ftuy14q-6h0a-14td-nb2l-9wd5f0833218 01/26/2015 01/26/2015 Noel Hall MD referral for Dr. Easton o20p8240-24h7-2707-7149-059aa17778xk 01/26/2015 01/26/2015 Noel Hall MD referral for Dr. Easton tpmcb53z-i31u-1291-6325-fa444x0d6186 01/26/2015 01/26/2015 Noel Hall MD referral for Dr. Easton 83c0wi52-3514-072t-79n7-96vn27654k2k 01/26/2015 01/26/2015 Noel Hall MD referral for Dr. Easton [id number]-ot00-ff9v204t3z26 01/26/2015 01/26/2015 Noel Hall MD referral for Dr. Easton 841p2744-90mf-3yp9-od95-6614g33qi51x 01/26/2015 01/26/2015 Noel Hall MD referral for Dr. Easton 02258m19-8v6g-44y3-60vb-t97795sd59zx 01/26/2015 01/26/2015 Noel Hall MD referral for Dr. Easton 0a44d865-k4p0-29b1-w322-id6zu0y4id65 01/26/2015 01/26/2015 Noel Hall MD referral for Dr. Easton 34u30i9i-w073-5m06-q411-q217me054d38 01/26/2015 01/26/2015 Noel Hall MD referral for Dr. Easton 2651zt21-42ec-94y9-362f-14o965xu85p8 01/26/2015 01/26/2015 Noel Hall MD referral for Dr. Easton 9t539ei7-2153-4v2e-k0ud-vg1n96449a4k 01/26/2015 01/26/2015 Noel Hall MD referral for Dr. Easton v48b873i-9565-1kk7-j0zw-53454s7r4504 01/26/2015 01/26/2015 Noel Hall MD referral for Dr. Easton 543uu1v0-09v7-8070-vw08-2f435s5lr8c3 01/26/2015 01/26/2015 Noel Hall MD referral for Dr. Easton 94mcx77e-ydv5-0254-459g-8zy76p03a487 01/26/2015 01/26/2015 Noel Hall MD New referral 604ytj8v-8687-5a47-2537-82ap41h661m8 02/16/2015 02/16/2015 Noel Hall MD New referral 6s5i9ay4-7alk-5d21-j857-80p8820icr7q 02/16/2015 02/16/2015 Noel Hall MD New referral [id number]-210b-6e97-3861-y5764o59383o 02/16/2015 02/16/2015 Noel Hall MD New referral i906l5cj-2mx2-6u5p-9wyz-104law36s38d 02/16/2015 02/16/2015 Noel Hall MD New referral [id number] 02/16/2015 02/16/2015 Noel Mckenna, Noel LACY New referral [id number]-3xk1-91ra-27661923r0by 02/16/2015 02/16/2015 Noel Mckenna, Noel LACY New referral [id number]-23ea-h83t8px07702 02/16/2015 02/16/2015 Noel Mckenna, Noel LACY New referral a6mciuy1-2151-799s-p948-69y993e7b547 02/16/2015 02/16/2015 Noel Mckenna, Noel LACY New referral 5mk2u27o-y12f-05z5-07l3-vwv80j2415bn 02/16/2015 02/16/2015 Noel Mckenna, Noel LACY New referral 1k6k9u8u-85q4-2935-92j8-f0055255j276 02/16/2015 02/16/2015 Noel Mckenna, Noel LACY New referral 7r39t83o-568n-0gk0-s1ru-3h0e075655d1 02/16/2015 02/16/2015 Noel Mckenna, Noel LACY New referral 6hv3m200-9d88-9pk4-e82d-7i57x6160zw4 02/16/2015 02/16/2015 Noel Mckenna, Noel LACY New referral 56ud7f43-0f9b-4u21-b30q-5j598q4iqc1h 02/16/2015 02/16/2015 Noel Mckenna, Noel LACY New referral [id number]-9901-9987-m788-rv6xf7i4n198 02/16/2015 02/16/2015 Noel Mckenna, Noel LACY New referral s3d0j9o2-6490-9173-vz89-em7238k25xpx 02/16/2015 02/16/2015 Noel Mckenna, Noel LACY New referral [id number]-h49s-937csnh6jln8 02/16/2015 02/16/2015 Noel Hall MD 3 Months (Reason: D.M. and multiple problems) mul82x25-aj62-69nx-n53z-28hx6cek82n1 06/24/2015 06/24/2015 Noel Hall MD 3 Months (Reason: D.M. and multiple problems) 8f11eo39-ad88-38t9-2e42-x66o43630k8g 06/24/2015 06/24/2015 Noel Hall MD 3 Months (Reason: D.M. and multiple problems) re5d9l0m-23di-2995-9w83-i5pm591mt7b4 06/24/2015 06/24/2015 Noel Hall MD 3 Months (Reason: D.M. and multiple problems) w9h69k89-f31m-20s1-61m4-20214c0838g6 06/24/2015 06/24/2015 Noel Hall MD 3 Months (Reason: D.M. and multiple problems) 4sl4328l-99t1-26mk-269p-19557lu23ecr 06/24/2015 06/24/2015 Noel Hall MD 3 Months (Reason: D.M. and multiple problems) vyde2u21-x4vw-59a3-24k3-2r9iko0w8o78 06/24/2015 06/24/2015 Noel Hall MD 3 Months (Reason: D.M. and multiple problems) nbgda827-bv09-67n5-9s10-585e14n1138k 06/24/2015 06/24/2015 Noel Hall MD 3 Months (Reason: D.M. and multiple problems) 76x2088n-540a-754o-i9y2-95y427s03w94 06/24/2015 06/24/2015 Noel Hall MD 3 Months (Reason: D.M. and multiple problems) [id number]-wx05-7xagrb3si555 06/24/2015 06/24/2015 Noel Hall MD 3 Months (Reason: D.M. and multiple problems) an5862g7-57o7-2l5w-9atw-x841z20ao7l6 06/24/2015 06/24/2015 Noel Hall MD 3 Months (Reason: D.M. and multiple problems) [id number]0v2 06/24/2015 06/24/2015 Noel Hall MD 3 Months (Reason: D.M. and multiple problems) [id number] 06/24/2015 06/24/2015 Noel Hall MD 3 Months (Reason: D.M. and multiple problems) i1aoe8ai-422e-533z-673m-6f686202u1t0 06/24/2015 06/24/2015 Noel Hall MD 3 Months (Reason: D.M. and multiple problems) 3l92kf0i-9576-65g8-rqen-0l1274868etv 06/24/2015 06/24/2015 Noel Hall MD 3 Months (Reason: D.M. and multiple problems) 42o9gg58-0i3n-62u1-ba1x-1376efggu440 06/24/2015 06/24/2015 Noel Hall MD 3 Months (Reason: D.M. and multiple problems) 52mcfe15-65t9-532f-e8hq-70o7137o7e2u 06/24/2015 06/24/2015 Noel Hall MD 3 Months (Reason: Diabetes ) [id number]-6096-6p1hy0o1m754 09/23/2015 09/23/2015 Noel Hall MD 3 Months (Reason: Diabetes ) 286v3ed0-j4q3-47ro-v111-4pu9p9390q68 09/23/2015 09/23/2015 Noel Hall MD 3 Months (Reason: Diabetes ) dl6c2k03-t7k9-7ye5-9t29-c6ag3t34c32a 09/23/2015 09/23/2015 Noel Hall MD 3 Months (Reason: Diabetes ) fi6x5s9w-0l01-2s16-w12f-20uj316t98j7 09/23/2015 09/23/2015 Noel Hall MD 3 Months (Reason: Diabetes ) [id number]-8688-45nzrh917393 09/23/2015 09/23/2015 Noel Hall MD 3 Months (Reason: Diabetes ) b7wcxf84-7bz1-4k44-f5gw-8k5062i80rw3 09/23/2015 09/23/2015 Noel Hall MD 3 Months (Reason: Diabetes ) 20275er2-921k-12c2-293d-j3g4me33e30c 09/23/2015 09/23/2015 Noel Hall MD 3 Months (Reason: Diabetes ) 4f30hz06-t238-2l12-5099-060l0194m3o2 09/23/2015 09/23/2015 Noel Hall MD 3 Months (Reason: Diabetes ) [id number]-g5f7-7238-ym92-5wai675x5189 09/23/2015 09/23/2015 Noel Hall MD 3 Months (Reason: Diabetes ) a995l00l-3zr9-9g40-2963-49c658aqbw4p 09/23/2015 09/23/2015 Noel Hall MD 3 Months (Reason: Diabetes ) 5n81vuuv-b3nm-318g-r670-mhe45731ci12 09/23/2015 09/23/2015 Noel Hall MD 3 Months (Reason: Diabetes ) ys142196-2t90-4wet-v679-4kui86074a9c 09/23/2015 09/23/2015 Noel Hall MD 3 Months (Reason: Diabetes ) 180kys23-02ys-64lf-98n0-bcv900n07164 09/23/2015 09/23/2015 Noel Hall MD 3 Months (Reason: Diabetes ) 687p3446-7365-00k7-5609-4s5b0xh46341 09/23/2015 09/23/2015 Noel Hall MD 3 Months (Reason: Diabetes ) 64ppsd2c-6806-8650-vm72-7qknrx74898g 09/23/2015 09/23/2015 Noel Hall MD 3 Months (Reason: Diabetes ) 08j573d0-of0m-76c7-bbwi-5p6929fz613p 09/23/2015 09/23/2015 Noel Hall MD cgms disc me6l6441-vwkm-1p93-f011-c64wi1i044i2 10/10/2015 10/10/2015 Noel Hall MD cgms disc 10t9z481-4108-9555-pc62-p3m4as2381om 10/10/2015 10/10/2015 Noel Hall MD cgms disc xu50b363-5fp3-5la3-029r-29n0545a2h96 10/10/2015 10/10/2015 Noel Hall MD cgms disc 163883su-1s59-2458-b0x4-w2392mgdnw7v 10/10/2015 10/10/2015 Noel Hall MD cgms disc v2w0k2bw-e181-6251-d904-r7485u033775 10/10/2015 10/10/2015 Noel Hall MD cgms disc 790f0781-m5f6-7lcn-4128-t5481671z31b 10/10/2015 10/10/2015 Noel Hall MD cgms disc 40b4097g-7rtu-3238-c2x2-9077776p6vlf 10/10/2015 10/10/2015 Noel Hall MD cgms disc 6680655s-81x8-4746-d8j3-2g38yfj36w0v 10/10/2015 10/10/2015 Noel Hall MD cgms disc 74ao9141-7280-04y5-82a9-89xvz3c98i54 10/10/2015 10/10/2015 Noel Hall MD cgms disc 36ar0vlk-5x8p-6i8f-ln1d-6360rx2y92y2 10/10/2015 10/10/2015 Noel Hall MD cgms disc eet8zvx7-3fd5-8f57-z42g-n84oo144kqxc 10/10/2015 10/10/2015 Noel Hall MD cgms disc 00234a8h-106j-8248-jjz9-6270c5095uo8 10/10/2015 10/10/2015 Noel Hall MD cgms results 03144475-c912-2779-0ns6-24x121ta5d13 10/28/2015 10/28/2015 Noel Hall MD cgms results mj6241hu-x1q7-3da5-574m-z51otef7y943 10/28/2015 10/28/2015 Noel Hall MD cgms results scal66mc-u8o1-33mz-0132-ei55ik0x4552 10/28/2015 10/28/2015 Noel Hall MD cgms results i28u9tm0-4084-8qe6-32a8-v2h594i1q958 10/28/2015 10/28/2015 Noel Hall MD cgms results 177i8643-k420-8032-8r5m-q79h1j895108 10/28/2015 10/28/2015 Noel Hall MD cgms results 66935uh6-z0z4-2n1e-9446-2306erzi7409 10/28/2015 10/28/2015 Noel Hall MD cgms results q6607aa8-o447-4623-sc01-5lx49m939182 10/28/2015 10/28/2015 Noel Mckenna, Noel LACY cgms results 45x54no2-8t0m-4q94-e764-25t51xz295cc 10/28/2015 10/28/2015 Noel Mckenna, Noel LACY cgms results 6d8o74p5-9886-8o49-b30s-5w7z8c70yd11 10/28/2015 10/28/2015 Noel Mckenna, Noel LACY cgms results ar21i733-2c3h-76b3-18nh-11b734494033 10/28/2015 10/28/2015 Noel Mckenna, Noel LACY cgms results u7f09921-621m-5q2c-2846-b85288zlmax5 10/28/2015 10/28/2015 Noel Mckenna, Noel LACY cgms results te8g37ra-j31q-4575-12j9-7214f3906x27 10/28/2015 10/28/2015 Noel Mckenna, Noel LACY cgms results 3j8024s3-0v60-63t7-3000-985372gu43fw 10/28/2015 10/28/2015 Noel Mckenna, Noel LACY AWV y0258245-782w-7581-ra05-413fcy47i79z 2015 2015 Noel Mckenna, Noel LACY AWV 3q573s23-k277-6t91-ag5b-1vep2918og0r 2015 2015 Noel Mckenna, Noel LACY AWV kp895wa7-0995-0331-mu59-zf4y301b33j8 2015 2015 Noel Mckenna, Noel LAYC AWV 75n65u77-128g-30mg-27e6-8099l83i4383 2015 2015 Noel Mckenna, Noel LACY AWV 2x2l8jgk-2i43-921j-ir15-92185f0834v1 2015 2015 Noel Mckenna, Noel CARRASCOV jb0t301e-c4e3-6b3k-131q-6j4g593d689m 2015 2015 Noel Mckenna, Noel VICTOR h32r3116-kg22-5z91-sl56-1o2j47384i2o 2015 2015 Noel Mckenna, Noel VICTOR 42347h68-naj0-034x-78d1-14dz426p7if6 2015 2015 Noel Mckenna, Noel VICTOR 4763p3w2-44l5-6178-mbgo-1x9462oj60y2 2015 2015 Noel Mckenna, Noel VICTOR 6e5o1356-5557-3261-2jq4-01oi1444e846 2015 2015 Noel Mckenna, Noel VICTOR 0y73y554-0272-5945-e8bz-7i79xc2qeu9w 2015 2015 Noel Mckenna, Noel CARRASCOV j26nd521-717y-14z2-738e-0l257o3nnco4 2015 2015 Noel Mckenna [facility] [id number] Alberto Lay 11/26/2015 11/26/2015 [facility] Noel Mckenna MD x dm after cgms results 54d162rm-ir1a-2z0u-c94e-27ky66164ht2 12/01/2015 12/01/2015 Noel Hall MD x dm after cgms results 524o864p-666z-2069-gfs3-qw020m7p04ml 12/01/2015 12/01/2015 Noel Hall MD dm after cgms results ge34wz9u-c2cg-1516-8mp5-i90c79g87u34 12/01/2015 12/01/2015 Noel Hall MD x dm after cgms results pe34z345-4xb7-6779-5ey1-33i5491p2i09 12/01/2015 12/01/2015 Noel Hall MD x dm after cgms results j41m1532-h2b4-7hc9-tg11-42vh6675p9h0 12/01/2015 12/01/2015 Noel Hall MD x dm after cgms results 8je0jkh8-2p72-1h22-q096-p5ie2k092k65 12/01/2015 12/01/2015 Noel Hall MD x dm after cgms results 2i1hhzr0-9e13-217q-74l8-816py2j23lkp 12/01/2015 12/01/2015 Noel Hall MD x dm after cgms results 19u321kd-8bh8-2564-vby7-3z32896x83ks 12/01/2015 12/01/2015 Noel Hall MD x dm after cgms results i79aqp87-ht7h-8ahd-904h-3epc9w59t285 12/01/2015 12/01/2015 Noel Hall MD x dm after cgms results 6334e184-851p-161o-6t3e-3447pkn3wjf7 12/01/2015 12/01/2015 Noel Hall MD x dm after cgms results bj0gzwj4-9pjx-1368-rta6-qo8qa45k055p 12/01/2015 12/01/2015 Noel Hall MD x dm after cgms results r676b7fs-k33e-9d91-kd79-42bk7a212b44 12/01/2015 12/01/2015 Noel Hall MD x dm after cgms results 3307585u-lso2-05q8-4vt1-3872ux633156 12/01/2015 12/01/2015 Noel Hall MD x dm after cgms results 94851863-6s04-84zv-9198-r6b3s5b35fh8 12/01/2015 12/01/2015 Noel Mkcenna [facility] Emergency Center [id number] Alberto Lay 12/28/2015 12/28/2015 [facility] Noel Mckenna MD Asthma 2u6bycro-pg83-05a9-07b6-1m71k2e6yc6x 01/06/2016 01/06/2016 Noel Hall MD Asthma 0858xo56-9tdx-5hz9-c865-ced1b331u3z7 01/06/2016 01/06/2016 Noel Hall MD Asthma 68825924-kc0q-83g2-h45n-9b8j31sd637h 01/06/2016 01/06/2016 Noel Hall MD Asthma -z959-9m67-5v5b-19eu8h1z4r66 01/06/2016 01/06/2016 Noel Hall MD Asthma v3zh9vj6-v960-339p-1g17-2m8i95x47rzv 01/06/2016 01/06/2016 Noel Hall MD Asthma ict3zy0x-4qiq-5ar9-0519-152t01a4c040 01/06/2016 01/06/2016 Noel Hall MD Asthma 253y0f7e-483x-18ej-30ip-9klh045z291f 01/06/2016 01/06/2016 Noel Hall MD Asthma yo34s4mp-2338-3on3-2y42-o45867v7l8y7 01/06/2016 01/06/2016 Noel Hall MD Asthma 0ck135ie-688x-7529-6ppn-a283m5187wl7 01/06/2016 01/06/2016 Noel Hall MD Asthma zn8x23rb-m43v-8802-541n-gtqz4r52f3jw 01/06/2016 01/06/2016 Noel Mckenna [facility] Outpatient Imaging [facility] Outpatient [id number] Noel Mckenna 01/18/2016 01/19/2016 MH OPID [facility] Outpatient Imaging [facility] Outpt Diag Services [id number] Kyle Ortizo 02/14/2016 02/15/2016 MH OPID [facility] Outpatient [id number] Kyle Fullerijo 02/21/2016 02/22/2016 [facility] Noel Mckenna MD 3 Months (Reason: D.M.) z1i5h2z9-883n-47u9-4r8w-p0h23moi9tq3 03/01/2016 03/01/2016 Noel Hall MD 3 Months (Reason: D.M.) vm4a6951-3508-5522-81p5-a0s95d88pi4j 03/01/2016 03/01/2016 Noel Hall MD 3 Months (Reason: D.M.) 816826u7-5n4a-70gw-n56m-0685xue20a31 03/01/2016 03/01/2016 Noel Hall MD 3 Months (Reason: D.M.) 497gn9di-naf1-4htn-t2xg-59n04gcx3291 03/01/2016 03/01/2016 Noel Hall MD 3 Months (Reason: D.M.) 56m81gxi-x1j6-8c05-66rs-5yozk8qz4v21 03/01/2016 03/01/2016 Noel Hall MD 3 Months (Reason: D.M.) 7122q755-0qvi-20f6-ml7b-47i3g2bzlz8g 03/01/2016 03/01/2016 Noel Hall MD 3 Months (Reason: D.M.) 28174hp7-m2s3-61w6-5630-1igfu0886o04 03/01/2016 03/01/2016 Noel Hall MD check up [id number]-2qs5-rdm2-9q8d27q99582 04/27/2016 04/27/2016 Noel Hall MD check up 15c99284-5034-4461-2758-e7s0y2c462b2 04/27/2016 04/27/2016 Noel Mckenna, Noel LACY check up g75583h3-0169-4739-9910-684709k42a6g 04/27/2016 04/27/2016 Noel Mckenna, Noel LACY check up zsv61i0r-81a4-7476-445x-uy0h18995680 04/27/2016 04/27/2016 Noel Mckenna, Noel LACY check up 936qku1i-t182-024x-023d-6312dls238oo 04/27/2016 04/27/2016 Noel Mckenna, Noel LACY check up 2noj1305-b866-7x71-3m9p-9080949633w7 04/27/2016 04/27/2016 Noel Mckenna, Noel LACY check up x6v0312q-39yl-7jo4-l423-5ac8r0fp190q 04/27/2016 04/27/2016 Noel Mckenna, Noel LACY check up q1g1bj36-129a-00p6-6zv7-zv1h7t47xq41 04/27/2016 04/27/2016 Noel Mckenna, Noel LACY referral 920sdd9k-911j-225l-19o1-70267ef8p5v3 05/17/2016 05/17/2016 Noel Mckenna, Noel LACY referral [id number]-5f6j-o5sb-a4042r846564 05/17/2016 05/17/2016 Noel Mckenna, Noel LACY referral 660lo9o2-21k2-811i-c23r-x38wol500450 05/17/2016 05/17/2016 Noel Mckenna, Noel LACY referral 04w6e7r7-k250-5n7n-2569-g6g101pi60t8 05/17/2016 05/17/2016 Noel Mckenna, Noel LACY referral a41vyu97-11o5-9e4a-7210-21y7250z0p14 05/17/2016 05/17/2016 Noel Mckenna, Noel LACY referral 29z95571-s53j-8g00-x8r8-1722t257712w 05/17/2016 05/17/2016 Noel Mckenna, Noel LACY referral 5p53kyaz-r3h8-38vo-l792-y24317s96592 05/17/2016 05/17/2016 Noel Mckenna, Noel LACY referral d63y4v37-31x1-760l-wxmz-x4a0e9ass91p 05/17/2016 05/17/2016 Noel Mckenna, Noel LACY referral 71nr0989-av0z-725o-3878-v57814q4mor9 05/17/2016 05/17/2016 Noel Mckenna, Noel LACY 3 mon f/u 8j9g4c35-u89w-6j0e-m613-c8j3q300112k 06/07/2016 06/07/2016 Noel Mckenna, Noel LACY 3 mon f/u 18579q1o-e505-03p1-030y-10q779652kx1 06/07/2016 06/07/2016 Noel Mckenna, Noel LACY 3 mon f/u 3to225e2-r360-59z1-n971-3x24pr6j5x35 06/07/2016 06/07/2016 Noel Mckenna, Noel LACY 3 mon f/u 598107o9-0e9b-0k61-47wp-27906b2r34ge 06/07/2016 06/07/2016 Noel Mckenna, Noel LACY 3 mon f/u w4295sz3-37kg-3318-fntj-hs3w686u3uf2 06/07/2016 06/07/2016 Noel Hall MD 3 mon f/u 8x19k88c-y0jd-98m9-b605-5g425328c1d1 06/07/2016 06/07/2016 Noel Hall MD 4 Weeks (Reason: D.M.) o95815er-689w-446j-i526-4321xl06zgk4 07/12/2016 07/12/2016 Noel Hall MD 4 Weeks (Reason: D.M.) 97c7x158-zhmt-00hn-5cl8-q3k9b9l26x27 07/12/2016 07/12/2016 Noel Hall MD 4 Weeks (Reason: D.M.) 3d323027-m7ey-82c5-g992-m62uu42z87ec 07/12/2016 07/12/2016 Noel Hall MD 4 Weeks (Reason: D.M.) 5w2byqyy-96p2-3955-jc9b-079p00jmw2b6 07/12/2016 07/12/2016 Noel Hall MD 4 Weeks (Reason: D.M.) 37tay7j8-92l4-525l-oinc-0921q7zrd60m 07/12/2016 07/12/2016 Noel Hall MD 3 Months (Reason: D.M.) s7q82rx0-1e50-5384-j293-052z274ei96g 09/27/2016 09/27/2016 Noel Hall MD 3 Months (Reason: D.M.) 667gr6wx-n44b-4973-l3h3-78bh7178pb31 09/27/2016 09/27/2016 Noel Hall MD 3 Months (Reason: D.M.) 2l60492q-39y3-7gqu-y90n-e6k83ih52837 09/27/2016 09/27/2016 Noel Hall MD 3 Months (Reason: D.M.) 4885jr49-d5k3-84a8-v465-25j378e698g1 09/27/2016 09/27/2016 Noel Hall MD referral [id number]-[id number] 10/25/2016 10/25/2016 Noel Hall MD referral 2f00we97-58gc-8qlw-u50t-0jfq3sc112s4 10/25/2016 10/25/2016 Noel Hall MD REFILLS 8x66p15v-1028-0455-uc9e-459xf213eu6s 11/13/2016 11/13/2016 Noel Hall MD REFILLS mwt97j24-w89k-5405-0744-3i3e01q452g4 11/13/2016 11/13/2016 Noel Hall MD REFILLS 7665so31-5i55-585n-6508-5596g71h5h7e 11/13/2016 11/13/2016 Noel Hall MD REFERRAL TO CARDIO 8c415984-g425-5512-40f6-25r2g5825e22 11/26/2016 11/26/2016 Noel Mckenna [facility] Day Surgery [id number] Jeb Juan 06/25/2017 06/25/2017 [facility] Day Surgery [id number] Jeb Juan 08/20/2017 08/20/2017 [facility] Outpatient [id number] Kyle Miranda 11/21/2017 11/22/2017 [facility] Outpatient [id number] Jeb Juan 11/27/2017 11/27/2017 [facility] Outpatient [id number] Jeb Juan 11/27/2017 11/27/2017 [facility] Outpatient Imaging [facility] Outpt Diag Services [id number] Kyle Ruth 01/03/2018 01/04/2018 OPID [facility] Outpatient Imaging [facility] Outpt Diag Services [id number] Jagdish Hansen 01/10/2018 01/11/2018 OPID [facility] Outpatient [id number] ROGER MCINTOSH 04/01/2018 Active [facility] Primary Care [facility] Outpatient [id number] Roger Mcintosh 04/01/2018 04/02/2018 [facility] Outpatient [id number] ROGER MCINTOSH 05/08/2018 Active [facility] Primary Care [facility] Ambulatory Pre-Reg [id number] Roger Trejoa 05/08/2018 05/08/2018 [facility] Outpatient [id number] ROGER MCINTOSH 05/23/2018 Active [facility] Primary Care [facility] Outpatient [id number] Roger Mcintosh 05/23/2018 05/24/2018 Medical Group [facility] Primary Care [facility] Phone Message [id number] 07/04/2018 07/06/2018 Medical Group [facility] Behavioral Health Est Patient Detailed - [id number] Kris Hunt MD 07/25/2018 [facility] Primary Care [facility] Phone Message [phone] 07/28/2018 07/30/2018 [facility] Group Outpatient [id number] ROGER MCINTOSH 08/20/[address] [facility] Behavioral Health Est Patient Exp Problem - [id number] Kris Hunt MD 08/29/2018 [facility] Outpatient [id number] ROGER MCINTOSH 09/15/[address] [facility] Behavioral Health Est Patient Exp Problem - [id number] Kris Hunt MD 10/31/2018 [facility] Outpatient [id number] [facility] 12/30/2018 Active [facility] Primary Care [facility] Outpatient [id number] Roger [facility] 12/30/2018 12/31/2018 Medical Group [place] [facility] Est Patient Exp Problem - [id number] Perla Clayton MD 01/02/2019 [facility] Procedures Procedure Code Date Perfomer Comments Source Diagnostic evaluation with medical - [id number] 07/04/2018 Gilbert LACY [facility] Colonoscopy<sup>1</sup> [id number] 02/26/2018 Dr. Rodriguez [facility]ID [facility] Gastroduodenoscopy [id number] 02/26/2018 OPID [facility] Colonoscopy<sup>1</sup> [id number] 02/26/2018 Dr. Rodriguez [facility] Gastroduodenoscopy [id number] 02/26/2018 Medical Group PAP smear preparation<sup>2</sup> [id number] 12/19/2017 Dr. Hansen OPID [facility] PAP smear preparation<sup>2</sup> [id number] 12/19/2017 Dr. [facility] DESTRUCTION BY NEUROLYTIC AGENT PARAVERTEBRAL FACET JT NERVE W/ IMAGE LUMB/SACRAL EACH 30607 (Bilateral)<sup>1</sup> 11/27/2017 auto-populated from documented surgical case [facility] DESTRUCTION BY NEUROLYTIC AGT PARARVERT FACET JT W/IMAGE LUM/SAC SINGLE JT 04433 (Bilateral)<sup>2</sup> 11/27/2017 auto-populated from documented surgical case [facility] FLUOROSCOPIC GUIDANCE AND LOCALIZATION OF NEEDLE OR CATHETER TIP; SPINE INJ. 59577 (Bilateral)<sup>3</sup> 11/27/2017 auto-populated from documented surgical case [facility] Colonoscopy [id number] 11/18/2013 [facility] Esophagogastroduodenoscopy [id number] 11/18/2013 [facility] Hysterectomy [id number] 11/18/2003 [facility] section [id number] [facility] Colonoscopy [id number] [facility] Gallbladder operation [id number] [facility] Gastric operation [id number] [facility] Hysterectomy [id number] [facility] section [id number] [facility] Gallbladder operation [id number] [facility] Gastric operation [id number] [facility] Hysterectomy [id number] OP[facility] section [id number] [facility] Gallbladder operation [id number] [facility] Gastric operation [id number] [facility] Hysterectomy [id number] [facility] Colonoscopy [id number] [facility] Arthroscopy of knee<sup>4</sup> [id number] X 2- left knee [facility] Cholecystectomy [id number] [facility] Laparoscopy [id number] [facility]
--- OUTSIDE RECORDS SUMMARY | 2019-01-30 06:16 | XMS REPORT | Summary of Care ---
Author Author [facility] Organization [facility] Address Unknown Phone Unavailable Encounter HQ Carlos(RENAY) [id number] Date(s): 11/21/17 - 11/21/17 [facility] [address] [place] [address]- Discharge Disposition: Home or Self Care Attending Physician: Kyle Miranda MD Vital Signs Most recent to 1 oldest [Reference Range]: Height 151.13 cm (11/21/17 10:21 AM) Weight 58.636 kg (11/21/17 10:21 AM) Body Mass Index 25.67 m2 (11/21/17 10:21 AM) Problem List Condition Effective Dates Status Health Status Informant Asthma1 01/11/15 Active Asthma(Confirmed) Active Asthma(Confirmed) Active Back pain(Confirmed) Active Chest pain2 01/11/15 Active 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/11/15 Active of the heart3 Crohn Active disease(Confirmed) Crohn's Active disease(Confirmed) Depression(Confirmed Active ) Depression(Confirmed Active ) Diabetes mellitus4 01/11/15 Active Diabetes Active mellitus(Confirmed) Diabetic Active neuropathy(Confirmed ) Dyspnea5 01/11/15 Active Hypercholesterolemia Active (Confirmed) Insulin Active pump(Confirmed) Liver Active disease(Confirmed) Neck pain(Confirmed) Active Palpitations6 01/11/15 Active Polyp(Confirmed) Resolved Tachycardia(Confirme Active d) Thyroid Active disease(Confirmed) Type II diabetes Active mellitus - poor control(Confirmed) 1Data migrated from [employer] on 05/25/15. 2Data migrated from [employer] on 05/25/15. 3Data migrated from [employer] on 05/25/15. 4Data migrated from [employer] on 05/25/15. 5Data migrated from [employer] on 05/25/15. 6Data migrated from [employer] on 05/25/15. Allergies, Adverse Reactions, Alerts Substance Reaction Severity Status penicillins1 Active codeine2, 3 Active acetaminophen-propoxyphen Active e4 Vicodin Active Darvocet-N 100 Active metFORMIN Active 1Data migrated from [employer] on 06/17/15. Originally documented as PENICILLIN. 2Data migrated from [employer] on 02/06/16. Originally documented as CODEINE. 3Data migrated from [employer] on 01/20/16. Originally documented as CODEINE. 4Data migrated from [employer] on05/26/15. Originally documented as DARVOCET. Medications No data available for this section Results No data available for this section Immunizations Given and Recorded Vaccine Date Status Refusal Reason influenza virus vaccine, inactivated 10/16/11 Given pneumococcal 23-valent vaccine 10/16/11 Given Procedures Procedure Date Related Diagnosis Body Site section Colonoscopy Gallbladder operation Gastric operation Hysterectomy Social History Social History Type Response Alcohol Never Smoking Status Never smoker; Exposure to Tobacco Smoke None; Cigarette Smoking Last 365 Days No; Reg Smoking Cessation Counseling No Assessment and Plan No data available for this section
--- OUTSIDE RECORDS SUMMARY | 2019-01-30 06:16 | XMS REPORT | Summary of Care ---
Author Author [facility] Organization [facility] Address Unknown Phone Unavailable Encounter ANDREEA Gonzalez(RENAY) [id number] Date(s): 06/25/17 - 06/25/17 [facility] [address] [place] [address]- Discharge Disposition: Home or Self Care Attending Physician: Jeb Juan MD Referring Physician: Jbe Juan MD Vital Signs 1 2 3 Most recent to oldest [Reference Range]: 152.4 cm (06/21/17 11:40 AM) Height 96.6 DegF (06/21/17 11:41 AM) Temperature Oral [96.4-99.1 DegF] 123/74 mmHg (06/25/17 11:45 AM) 104/50 mmHg (06/25/17 11:30 AM) 114/77 mmHg (06/25/17 11:27 AM) Blood Pressure [90-140/60-90 mmHg] 12 BRMIN *LOW* (06/25/17 11:45 AM) 7 BRMIN *LOW* (06/25/17 11:30 AM) 16 BRMIN (06/25/17 11:27 AM) Respiratory Rate [14-20 BRMIN] 78 bpm (06/25/17 10:30 AM) 83 bpm (06/21/17 11:41 AM) Peripheral Pulse Rate [60-100 bpm] 60.1 kg (06/21/17 11:40 AM) Weight 25.88 m2 (06/21/17 11:40 AM) Body Mass Index Problem List Condition Effective Dates Status Health [...] Adverse Reactions, Alerts Substance Reaction Severity Status acetaminophen-propoxyphen Active e1 codeine2, 3 Active Darvocet-N 100 Active metFORMIN Active penicillins4 Active Vicodin Active 1Data migrated from [employer] on05/26/15. Originally documented as DARVOCET. 2Data migrated from [employer] on 02/06/16. Originally documented as CODEINE. 3Data migrated from [employer] on 01/20/16. Originally documented as CODEINE. 4Data migrated from [employer] on 06/17/15. Originally documented as PENICILLIN. Medications ANES dexamethasone 4 mg, 1 mL, Route: IVP, Drug form: INJ, ONCE, Dosing Weight 60.1, kg, PRN Nausea & Vomiting, Start date: 06/25/17 11:10:00 CDT Notes: Concentration: 4mg/ml Start Date: 06/25/17 Stop Date: 06/25/17 Status: Discontinued ANES diphenhydrAMINE 12.5 mg, 0.25 mL, Route: IVP, Drug form: INJ, Q6H, Dosing Weight 60.1, kg, PRN I tching, Start date: 06/25/17 11:10:00 CDT, Duration: 30 day, Stop date: 07/25/17 11:09:00 CDT Notes: (Same as: Benadryl) Start Date: 06/25/17 Stop Date: 06/25/17 Status: Discontinued ANES flumazenil 0.2 mg, 2 mL, Route: IVP, Drug form: INJ, PRN, Dosing Weight 60.1, kg, PRN Benzo diazepine Reversal, Initial dose, Start date: 06/25/17 11:10:00 CDT, Duration: 3 0 day, Stop date: 07/25/17 11:09:00 CDT Notes: (Same as: Romazicon) Start Date: 06/25/17 Stop Date: 06/25/17 Status: Discontinued ANES hydrALAZINE 10 mg, 0.5 mL, Route: IVP, Drug form: INJ, Q20Min, Dosing Weight 60.1, kg, PRN E levated BP, Start date: 06/25/17 11:10:00 CDT, Duration: 2 doses or times, Stop date: Limited # of times Notes: (Same as: Apresoline)Push over 5 minutes Start Date: 06/25/17 Stop Date: 06/25/17 Status: Discontinued ANES ketOROLAC 30 mg, 1 mL, Route: IVP, Drug form: INJ, ONCE, Dosing Weight 60.1, kg, Start brittnee e: 06/25/17 11:10:00 CDT, Duration: 1 doses or times, Stop date: 06/25/17 11:10: 00 CDT Notes: (Same as:Toradol) IV bolus must be given >15 seconds. Give IM administration slowly and deeply into the muscle.Not for use > 4 days MEDICATION WASTE Product Size: 30 mgProduct Wasted: ___ mg Start Date: 06/25/17 Stop Date: 06/25/17 Status: Ordered ANES meperidine 12.5 mg, 0.25 mL, Route: IVP, Drug form: INJ, Q30Min, Dosing Weight 60.1, kg, MT N Other -See Comment, For shivering, Start date: 06/25/17 11:10:00 CDT, Duration : 2 doses or times, Stop date: Limited # of times Notes: (Same As: Demerol) Start Date: 06/25/17 Stop Date: 06/25/17 Status: Discontinued ANES morphine Sulfate 4 mg, 1 mL, Route: IVP, Drug form: INJ, Q5Min, Dosing Weight 60.1, kg, PRN Pain Score 7-10, Start date: 06/25/17 11:10:00 CDT, Duration: 3 doses or times, Stop date: Limited # of times Notes: (Same as:MORPhine Sulfate) Start Date: 06/25/17 Stop Date: 06/25/17 Status: Discontinued ANES morphine Sulfate 2 mg, 1 mL, Route: IVP, Drug form: INJ, Q5Min, Dosing Weight 60.1, kg, PRN Pain Score 4-6, Start date: 06/25/17 11:10:00 CDT, Duration: 5 doses or times, Stop d ate: Limited # of times Notes: (Same as:MORPhine Sulfate) Start Date: 06/25/17 Stop Date: 06/25/17 Status: Discontinued ANES naloxone 0.4 mg, 1 mL, Route: IVP, Drug form: INJ, Q2MIN, Dosing Weight 60.1, kg, PRN Manoj cotic Reversal, Start date: 06/25/17 11:10:00 CDT, Duration: 8 doses or times, S top date: Limited # of times Notes: Same as Narcan Start Date: 06/25/17 Stop Date: 06/25/17 Status: Discontinued ANES ondansetron 4 mg, 2 mL, Route: IVP, Drug form: INJ, ONCE, Dosing Weight 60.1, kg, PRN Nausea & Vomiting, Start date: 06/25/17 11:10:00 CDT Notes: (Same as: Patrick) MEDICATION WASTE Product Size: 4 mgProduct Was desmond: ___ mg Start Date: 06/25/17 Stop Date: 06/25/17 Status: Discontinued fentaNYL (ANES) Route: IV, Drug form: INJ, ONCE, Stop date: 06/25/17 11:24:00 CDT Start Date: 06/25/17 Stop Date: 06/25/17 Status: Completed Lactated Ringers 1,000 mL 1,000 mL, Rate: 25 ml/hr, Infuse over: 40 hr, Route: IV, Dosing Weight 60.1 kg, Total Volume: 1,000, Start date: 06/25/17 11:10:00 CDT, Duration: 30 day, Stop d ate: 07/25/17 11:09:00 CDT Start Date: 06/25/17 Stop Date: 06/25/17 Status: Discontinued LR 1000 mL INJ (ANES) Route: IV, Total Volume: 1,000, Start date: 06/25/17 11:01:00 CDT, Stop date: 12:01:00 CDT Start Date: 06/25/17 Stop Date: 06/25/17 Status: Completed midazolam (ANES) Route: IV, Drug form: SOLN, ONCE, Stop date: 06/25/17 11:24:00 CDT Start Date: 06/25/17 Stop Date: 06/25/17 Status: Completed Results ELECTROLYTES Most recent to 1 oldest [Reference Range]: Sodium Lvl [135-145 144 mEq/L mEq/L] (06/21/17 11:43 AM) Potassium Lvl 4.8 mEq/L [3.5-5.1 mEq/L] (06/21/17 11:43 AM) Chloride Lvl [95-109 111 mEq/L mEq/L] *HI* (06/21/17 11:43 AM) CO2 [24-32 mEq/L] 29 mEq/L (06/21/17 11:43 AM) AGAP [10.0-20.0 8.8 mEq/L mEq/L] *LOW* (06/21/17 11:43 AM) CHEM PANEL Most recent to 1 oldest [Reference Range]: Creatinine Lvl 0.80 mg/dL [0.50-1.40 mg/dL] (06/21/17 11:43 AM) eGFR 84 mL/min/1.73m2 1 *NA* (06/21/17 11:43 AM) BUN [7-22 mg/dL] 10 mg/dL (06/21/17 11:43 AM) Glucose Lvl [70-99 116 mg/dL mg/dL] *HI* (06/21/17 11:43 AM) Calcium Lvl 9.3 mg/dL [8.5-10.5 mg/dL] (06/21/17 11:43 AM) 1Result Comment: The eGFR is calculated using the [...] from the National Kidney Disease Education Program ( NKDEP) which additionally recommends that when the eGFR is used in patients with extremes of body mass index for purposes of drug dosing, the eGFR should be mul tiplied by the estimated BMI. HEMATOLOGY Most recent to 1 oldest [Reference Range]: WBC [3.7-10.4 K/CMM] 7.8 K/CMM (06/21/17 11:43 AM) RBC [4.20-5.40 4.05 M/CMM M/CMM] *LOW* (06/21/17:43 AM) Hgb [12.0-16.0 g/dL] 11.2 g/dL *LOW* (06/21/17:43 AM) Hct [36.0-48.0 %] 34.8 % *LOW* (06/21/17 11:43 AM) MCV [80.0-98.0 fL] 85.9 fL (06/21/17 11:43 AM) MCH [27.0-31.0 pg] 27.6 pg (06/21/17 11:43 AM) MCHC [32.0-36.0 32.2 g/dL g/dL] (06/21/17 11:43 AM) RDW [11.5-14.5 %] 14.7 % *HI* (06/21/17 11:43 AM) Platelet [133-450 237 K/CMM K/CMM] (06/21/17 11:43 AM) MPV [7.4-10.4 fL] 8.9 fL (06/21/17 11:43 AM) Segs [45.0-75.0 %] 57.0 % (06/21/17 11:43 AM) Lymphocytes 34.2 % [20.0-40.0 %] (06/21/17 11:43 AM) Monocytes [2.0-12.0 6.0 % %] (06/21/17 11:43 AM) Eosinophils [0.0-4.0 2.2 % %] (06/21/17 11:43 AM) Basophils [0.0-1.0 0.6 % %] (06/21/17 11:43 AM) Segs-Bands # 4.4 K/CMM [1.5-8.1 K/CMM] (06/21/17 11:43 AM) Lymphocytes # 2.7 K/CMM [1.0-5.5 K/CMM] (06/21/17 11:43 AM) Monocytes # [0.0-0.8 0.5 K/CMM K/CMM] (06/21/17 11:43 AM) Eosinophils # 0.2 K/CMM [0.0-0.5 K/CMM] (06/21/17 11:43 AM) Immunizations Given and Recorded Vaccine Date Status Refusal Reason influenza virus vaccine, inactivated 10/16/11 Given pneumococcal 23-valent vaccine 10/16/11 Given Procedures Procedure Date Related Diagnosis Body Site section Colonoscopy Gallbladder operation Gastric operation Hysterectomy Social History Social History Type Response Smoking Status Never smoker; Ready to change: No; Concerns about tobacco use in household: No; Exposure to Tobacco Smoke None; Cigarette Smoking Last 365 Days No; Reg Smoking Cessation Counseling Yes Assessment and Plan No data available for this section
--- OUTSIDE RECORDS SUMMARY | 2019-01-30 06:16 | XMS REPORT | Summary of Care ---
Author Author [facility] Outpatient Imaging [facility] Address Unknown Phone Unavailable Encounter HQ Encntr_alijonas(FIN) [id number] Date(s): 01/03/18 - 01/03/18 [facility] Outpatient Imaging [facility] [address] [facility] [address] [place] [address]- [phone] Encounter Diagnosis Interstitial pulmonary disease, unspecified (Final) - 01/08/18 Pulmonary fibrosis, unspecified (Final) - Cardiomegaly (Final) - Discharge Disposition: Home or Self Care Attending Physician: Kyle Miranda MD Vital Signs No data available for this section Problem List Condition Effective Dates Status Health Status Informant Asthma(Confirmed)1 01/11/15 Active Asthma(Confirmed) Active Asthma(Confirmed) Active Back pain(Confirmed) Active Chest pain2 01/11/15 Active 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/11/15 Active of the heart3 Crohn Active disease(Confirmed) Crohn's Active disease(Confirmed) Depression(Confirmed Active ) Diabetes mellitus4 01/11/15 Active Diabetes Active mellitus(Confirmed) Diabetic Active neuropathy(Confirmed ) Dyspnea5 01/11/15 Active Hypercholesterolemia Active (Confirmed) Liver Active disease(Confirmed) Neck pain(Confirmed) Active Palpitations6 01/11/15 Active Polyp(Confirmed) Resolved Gastroparesis due to Resolved secondary diabetes(Confirmed) Tachycardia(Confirme Active d) Thyroid Active disease(Confirmed) Type [...] Procedures Procedure Date Related Diagnosis Body Site Status Colonoscopy1 02/26/18 Completed Gastroduodenoscopy 02/26/18 Completed PAP smear preparation2 12/2017 Completed section Completed Gallbladder operation Completed Gastric operation Completed Hysterectomy Completed 1DrMaggy Rodriguez 2Dr. Jade Social History Social History Type Response Exercise Exercise duration: 0. Alcohol Never Smoking Status Never smoker; Exposure to Tobacco Smoke None; Cigarette Smoking Last 365 Days No; Reg Smoking Cessation Counseling No entered on: 04/01/18 Assessment and Plan No data available for this section
--- OUTSIDE RECORDS SUMMARY | 2019-01-30 06:16 | XMS REPORT | Summary of Care ---
Author Author [facility] Address Unknown Phone Unavailable Encounter HQ Deedeer_huong(FIN) [id number] Date(s): 05/08/18 - 05/08/18 [facility] [address] [address]- [phone] Attending Physician: Roger Mcintosh MD Vital Signs No data available for [...]
--- OUTSIDE RECORDS SUMMARY | 2019-01-30 06:16 | XMS REPORT | Summary of Care ---
Author Author [facility] Organization [facility] Address Unknown Phone Unavailable Encounter ANDREEA Gonzalez(RENAY) [id number] Date(s): 12/27/15 - 12/27/15 [facility] [address] [place] [address]- Discharge Diagnosis: Asthma exacerbation Final: Mild persistent asthma with (acute) exacerbation Final: Acute bronchitis, unspecified Final: Fever, unspecified Final: Diarrhea, unspecified Final: Otalgia, left ear Final: Type 2 diabetes mellitus without complications Discharge Disposition: Home Attending Physician: Alberto Lay MD Vital Signs Most recent to 1 2 oldest [Reference Range]: Height 170.18 cm (12/27/15 6:11 PM) Temperature Oral 98.7 DegF 98.2 DegF [96.4-99.1 DegF] (12/27/15 9:50 PM) (12/27/15 6:11 PM) Blood Pressure 119/57 mmHg 151/93 mmHg [90-140/60-90 mmHg] (12/27/15 9:50 PM) *HI* (12/27/15 6:11 PM) Respiratory Rate 18 BRMIN 18 BRMIN [14-20 BRMIN] (12/27/15 9:50 PM) (12/27/15 6:11 PM) Peripheral Pulse 89 bpm 92 bpm Rate [60-100 bpm] (12/27/15 9:50 PM) (12/27/15 6:11 PM) Weight 63.636 kg (12/27/15 6:11 PM) Body Mass Index 21.97 m2 (12/27/15 6:11 PM) Problem List Condition Effective Dates Status Health Status Informant Asthma(Confirmed) Active Asthma(Confirmed) Active Back pain(Confirmed) Active Crohn Active disease(Confirmed) Crohn's Active disease(Confirmed) Depression(Confirmed Active ) Depression(Confirmed Active ) Diabetes Active mellitus(Confirmed) Diabetic Active neuropathy(Confirmed ) Herniated Active structure(Confirmed) 1 Hypercholesterolemia Active (Confirmed) Insulin Active pump(Confirmed) Liver Active disease(Confirmed) Neck pain(Confirmed) Active Polyp(Confirmed) Resolved Tachycardia(Confirme Active d) Thyroid Active disease(Confirmed) Type II diabetes Active mellitus - poor control(Confirmed) 1herniated disk Allergies, Adverse Reactions, Alerts Substance Reaction Severity Status codeine Active Darvocet-N 100 Active metFORMIN Active penicillins Active Vicodin Active Medications azithromycin 250 mg oral tablet See Instructions, Take 2 tablets by mouth the first day then 1 tablet by mouth d aily on days 2-5., X 5 day, # 6 tab, 0 Refill(s) Start Date: 12/27/15 Stop Date: 01/01/16 Status: Ordered DuoNeb inhalation solution 3 mL, INHALATION, QID, # 360 mL, 0 Refill(s) Start Date: 12/27/15 Stop Date: 01/26/16 Status: Ordered DuoNeb inhalation solution 3 mL, Route: INHALATION, Dosing Weight 63.636, kg, ONCE, Start date: 12/27/15 18 :55:00, Stop date: 12/27/15 18:55:00 Start Date: 12/27/15 Stop Date: 12/27/15 Status: Completed DuoNeb inhalation solution 3 mL, Route: INHALATION, Dosing Weight 63.636, kg, ONCE, Start date: 12/27/15 18 :55:00, Stop date: 12/27/15 18:55:00 Start Date: 12/27/15 Stop Date: 12/27/15 Status: Completed DuoNeb inhalation solution 3 mL, Route: INHALATION, Dosing Weight 63.636, kg, ONCE, Start date: 12/27/15 18 :55:00, Stop date: 12/27/15 18:55:00 Start Date: 12/27/15 Stop Date: 12/27/15 Status: Completed Nebulizer Misc/Other 1 ea, MISC, PRN, PRN As directed by physician, # 1 unit, 0 Refill(s) Start Date: 12/27/15 Stop Date: 12/26/16 Status: Ordered predniSONE 60 mg, 3 tab, Route: PO, Drug form: TAB, ONCE, Dosing Weight 63.636, kg, Priorit y: STAT, Start date: 12/27/15 18:55:00, Stop date: 12/27/15 18:55:00 Notes: Take with food. Start Date: 12/27/15 Stop Date: 12/27/15 Status: Completed predniSONE 20 mg oral tablet 40 mg=2 tab, PO, Daily, X 4 day, # 8 tab, 0 Refill(s) Start Date: 12/27/15 Stop Date: 12/31/15 Status: Ordered ProAir HFA 90 mcg/inh inhalation aerosol with adapter 2 puff, INHALER, Q4H, PRN wheezing, coughing, or shortness of breath, # 1 ea, 1 Refill(s) Start Date: 12/27/15 Status: Ordered Results VIRAL - SEROLOGY Most recent to 1 oldest [Reference Range]: Influ A [Negative] Negative (12/27/15 7:26 PM) Influ B [Negative] Negative (12/27/15 7:26 PM) Immunizations Vaccine Date Refusal Reason influenza virus vaccine, inactivated 10/16/11 pneumococcal 23-valent vaccine 10/16/11 Procedures Procedure Date Related Diagnosis Body Site section Colonoscopy Gallbladder operation Gastric operation Hysterectomy Social History Social History Type Response Smoking Status Never smoker; Exposure to Tobacco Smoke None; Cigarette Smoking Last 365 Days No; Reg Smoking Cessation Counseling No Assessment and Plan No data available for this section
--- OUTSIDE RECORDS SUMMARY | 2019-01-30 06:16 | XMS REPORT | Summary of Care ---
Author Author [facility] Address Unknown Phone Unavailable Encounter HQ Jignesh_huong(FIN) [id number] Date(s): 04/01/18 - 04/01/18 [facility] [address] [facility] [address] [place] [address]- [phone] Discharge Disposition: Home or Self Care Attending Physician: Roger Mcintosh MD Vital Signs Most recent to 1 oldest [Reference Range]: Height 149.86 cm (04/01/18 1:37 PM) Temperature Oral 98.4 DegF [96.4-99.1 DegF] (04/01/18 1:37 PM) Blood Pressure 112/80 mmHg [90-140/60-90 mmHg] (04/01/18 1:37 PM) Peripheral Pulse 98 bpm Rate [60-100 bpm] (04/01/18 1:37 PM) Weight 57.727 kg (04/01/18 1:37 PM) Body Mass Index 25.7 m2 (04/01/18 1:37 PM) Problem List Condition Effective Dates Status [...] mellitus - poor control(Confirmed) 1Data migrated from [employer] on 05/25/15. 2Data migrated from [employer] [...] [employer] on05/26/15. Originally documented as DARVOCET. Medications Megace 40 mg/mL oral suspension 800 mg=20 mL, PO, Daily, # 140 mL, 0 Refill(s), Pharmacy: [facility] Start Date: 04/01/18 Stop Date: 04/08/18 Status: Ordered Results No data available for this section Immunizations Given and Recorded Vaccine Date Status Refusal Reason influenza virus vaccine, inactivated 10/16/11 Given pneumococcal 23-valent vaccine 10/16/11 Given Procedures Procedure Date Related Diagnosis Body Site Status Colonoscopy1 02/26/18 Completed Gastroduodenoscopy 02/26/18 Completed PAP smear preparation2 12/2017 Completed section Completed Gallbladder operation Completed Gastric operation Completed Hysterectomy Completed 1Dr. Jennifer 2Dr. Jade Social History Social History Type Response Exercise Exercise duration: 0. Alcohol Never Smoking Status Never smoker; Exposure to Tobacco Smoke None; Cigarette Smoking Last 365 Days No; Reg Smoking Cessation Counseling No entered on: 04/01/18 Assessment and Plan No data available for this section
--- OUTSIDE RECORDS SUMMARY | 2019-01-30 06:16 | XMS REPORT | Summary of Care ---
Author Author [facility] Organization [facility] Address Unknown Phone Unavailable Encounter ANDREEA Gonzalez(RENAY) [id number] Date(s): 08/20/17 - 08/20/17 [facility] [address] [place] [address]- Discharge Disposition: Home or Self Care Attending Physician: Jeb Juan MD Referring Physician: Jeb Juan MD Vital Signs 1 2 3 Most recent to oldest [Reference Range]: 152.4 cm (08/19/17 3:47 PM) Height 98.4 DegF (08/20/17 10:55 AM) Temperature Oral [96.4-99.1 DegF] 103/63 mmHg (08/20/17 2:15 PM) 103/63 mmHg (08/20/17 2:00 PM) 94/66 mmHg (08/20/17 1:45 PM) Blood Pressure [90-140/60-90 mmHg] 13 BRMIN *LOW* (08/20/17 2:15 PM) 13 BRMIN *LOW* (08/20/17 2:00 PM) 16 BRMIN (08/20/17 1:45 PM) Respiratory Rate [14-20 BRMIN] 78 bpm (08/20/17 10:55 AM) 75 bpm (08/19/17 4:08 PM) Peripheral Pulse Rate [60-100 bpm] 58 kg (08/19/17 3:47 PM) Weight 24.97 m2 (08/19/17 3:47 PM) Body Mass Index Problem List Condition Effective [...] on 06/17/15. Originally documented as PENICILLIN. Medications atenolol 50 mg oral tablet 50 mg=1 tab, PO, Daily, 0 Refill(s) Start Date: 08/20/17 Status: Ordered clonazePAM 0.5 mg oral tablet 0.5 mg=1 tab, PO, TID, 0 Refill(s) Start Date: 08/19/17 Status: Ordered influenza virus vaccine, inactivated 0.5 mL, Route: IM, Drug Form: SUSP, ONCALL, Start date: 08/19/17 16:16:03 CDT, S top date: 09/18/17 16:11:03 CDT Notes: (Same as: Fluzone Quadrivalent, Fluarix Quadrivalent)For 3 years of age a nd older (0.5 mL IM)Shake well before use Start Date: 08/19/17 Stop Date: 08/21/17 Status: Discontinued levothyroxine 75 mcg (0.075 mg) oral tablet 75 microgram=1 tab, PO, Daily, 0 Refill(s) Start Date: 08/19/17 Status: Ordered lidocaine (ANES) Route: IV, Drug form: INJ, ONCE, Stop date: 08/20/17 13:25:00 CDT Start Date: 08/20/17 Stop Date: 08/20/17 Status: Completed LR 1000 mL INJ (ANES) Route: IV, Total Volume: 1,000, Start date: 08/20/17 13:08:00 CDT, Stop date: 14:08:00 CDT Start Date: 08/20/17 Stop Date: 08/20/17 Status: Completed metoclopramide 10 mg oral tablet 10 mg=1 tab, PO, TID, 0 Refill(s) Start Date: 08/19/17 Status: Ordered pantoprazole 40 mg oral enteric coated tablet 40 mg=1 tab, PO, Daily, 0 Refill(s) Start Date: 08/19/17 Status: Ordered pravastatin 40 mg oral tablet 40 mg=1 tab, PO, Daily, 0 Refill(s) Start Date: 08/19/17 Status: Ordered propofol (ANES) Route: IV, Drug form: INJ, ONCE, Stop date: 08/20/17 13:25:00 CDT Start Date: 08/20/17 Stop Date: 08/20/17 Status: Completed Qvar 40 mcg/inh inhalation aerosol with adapter INHALATION, BID, 0 Refill(s) Start Date: 08/19/17 Status: Ordered trazodone 100 mg oral tablet 100 mg=1 tab, PO, TID, 0 Refill(s) Start Date: 08/19/17 Status: Ordered Victoza 18 mg/3 mL subcutaneous injection SUB-Q, Daily, 0 Refill(s) Start Date: 08/19/17 Status: Ordered Results ELECTROLYTES Most recent to 1 oldest [Reference Range]: Sodium Lvl [135-145 143 mEq/L mEq/L] (08/19/17 3:54 PM) Potassium Lvl 4.3 mEq/L [3.5-5.1 mEq/L] (08/19/17 3:54 PM) Chloride Lvl [95-109 108 mEq/L mEq/L] (08/19/17 3:54 PM) CO2 [24-32 mEq/L] 30 mEq/L (08/19/17 3:54 PM) AGAP [10.0-20.0 9.3 mEq/L mEq/L] *LOW* (08/19/17 3:54 PM) CHEM PANEL Most recent to 1 oldest [Reference Range]: Creatinine Lvl 0.80 mg/dL [0.50-1.40 mg/dL] (08/19/17 3:54 PM) eGFR 84 mL/min/1.73m2 1 *NA* (08/19/17 3:54 PM) BUN [7-22 mg/dL] 7 mg/dL (08/19/17 3:54 PM) Glucose Lvl [70-99 118 mg/dL mg/dL] *HI* (08/19/17 3:54 PM) Calcium Lvl 10.1 mg/dL [8.5-10.5 mg/dL] (08/19/17 3:54 PM) 1Result Comment: The eGFR is calculated using [...] 1 oldest [Reference Range]: WBC [3.7-10.4 K/CMM] 8.0 K/CMM (08/19/17 3:54 PM) RBC [4.20-5.40 4.04 M/CMM M/CMM] *LOW* (08/19/17 3:54 PM) Hgb [12.0-16.0 g/dL] 11.6 g/dL *LOW* (08/19/17 3:54 PM) Hct [36.0-48.0 %] 34.8 % *LOW* (08/19/17 3:54 PM) MCV [80.0-98.0 fL] 86.3 fL (08/19/17 3:54 PM) MCH [27.0-31.0 pg] 28.6 pg (08/19/17 3:54 PM) MCHC [32.0-36.0 33.2 g/dL g/dL] (08/19/17 3:54 PM) RDW [11.5-14.5 %] 15.2 % *HI* (08/19/17 3:54 PM) Platelet [133-450 248 K/CMM K/CMM] (08/19/17 3:54 PM) MPV [7.4-10.4 fL] 9.0 fL (08/19/17 3:54 PM) Segs [45.0-75.0 %] 53.3 % (08/19/17 3:54 PM) Lymphocytes 37.4 % [20.0-40.0 %] (08/19/17 3:54 PM) Monocytes [2.0-12.0 7.5 % %] (08/19/17 3:54 PM) Eosinophils [0.0-4.0 1.4 % %] (08/19/17 3:54 PM) Basophils [0.0-1.0 0.4 % %] (08/19/17 3:54 PM) Segs-Bands # 4.3 K/CMM [1.5-8.1 K/CMM] (08/19/17 3:54 PM) Lymphocytes # 3.0 K/CMM [1.0-5.5 K/CMM] (08/19/17 3:54 PM) Monocytes # [0.0-0.8 0.6 K/CMM K/CMM] (08/19/17 3:54 PM) Eosinophils # 0.1 K/CMM [0.0-0.5 K/CMM] (08/19/17 3:54 PM) Basophils # [0.0-0.2 0.0 K/CMM K/CMM] (08/19/17 3:54 PM) Immunizations Given and Recorded Vaccine Date Status [...]
--- OUTSIDE RECORDS SUMMARY | 2019-01-30 06:16 | XMS REPORT | Summary of Care ---
Author Author [facility] Primary Care [facility] Address Unknown Phone Unavailable Encounter HQ Deedeer_huong(FIN) [id number] Date(s): 07/04/18 - 07/05/18 [facility] [address] [facility] [address] [place] [address]- [phone] Vital Signs No data available for this section Problem List Condition Effective Dates Status Health Status Informant Asthma(Confirmed)1 01/11/15 Active Asthma(Confirmed) Active Back pain(Confirmed) Active Chest pain2 01/11/15 Active 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/11/15 Active of the heart3 Crohn Active disease(Confirmed) Crohn's Active disease(Confirmed) Depression(Confirmed Active ) Diabetes Active mellitus(Confirmed) Diabetic Active neuropathy(Confirmed ) Dyspnea4 01/11/15 Active Hypercholesterolemia Active (Confirmed) Liver Active disease(Confirmed) Neck pain(Confirmed) Active Palpitations5 01/11/15 Active History of 09/2017 Resolved esophagogastroduoden oscopy (EGD)(Confirmed) Polyp(Confirmed) Resolved Gastroparesis due to Resolved secondary diabetes(Confirmed) Tachycardia(Confirme Active d) Thyroid Active disease(Confirmed) Type II diabetes Active mellitus - poor control(Confirmed) 1Data migrated from [employer] on 05/25/15. 2Data migrated from [employer] on 05/25/15. 3Data migrated from [employer] on 05/25/15. 4Data migrated from [employer] on 05/25/15. 5Data migrated from [employer] on 05/25/15. Allergies, [...] Date Status Refusal Reason influenza virus vaccine, inactivated1 08/20/18 Given influenza virus vaccine, inactivated 10/16/11 Given pneumococcal 23-valent vaccine2 05/23/18 Given pneumococcal 23-valent vaccine 10/16/11 Given 1Result Comment: patient tolerated vaccine well, wait for 15 minutes no adverse reaction 2Result Comment: patient tolerated vaccine well, wait for 15 minutes no adverse reaction Procedures Procedure Date Related Diagnosis Body Site Status Colonoscopy1 02/26/18 Completed Gastroduodenoscopy 02/26/18 Completed PAP smear preparation2 12/2017 Completed section Completed Gallbladder operation Completed Gastric operation Completed Hysterectomy Completed 1DrMaggy Rodriguez 2DrMaggy Hansen Social History Social History Type Response Exercise Exercise duration: 0. Alcohol Never Smoking Status Never smoker; Exposure to Tobacco Smoke None; Cigarette Smoking Last 365 Days No; Reg Smoking Cessation Counseling No entered on: 12/30/18 Assessment and Plan No data available for this section
--- OUTSIDE RECORDS SUMMARY | 2019-01-30 06:16 | XMS REPORT | Summary of Care ---
Author Author [facility] Primary Care [facility] Address Unknown Phone Unavailable Encounter HQ Carlos(FIN) [id number] Date(s): 12/30/18 - 12/30/18 [facility] [address] [address]- [phone] Discharge Disposition: Home or Self Care Attending Physician: Roger Mcintosh MD Vital Signs Most recent to 1 oldest [Reference Range]: Height 149.86 cm (12/30/18 3:46 PM) Temperature Oral 98.5 DegF [96.4-99.1 DegF] (12/30/18 3:46 PM) Blood Pressure 111/70 mmHg [90-140/60-90 mmHg] (12/30/18 3:46 PM) Peripheral Pulse 101 bpm Rate [60-100 bpm] *HI* (12/30/18 3:46 PM) Weight 59.545 kg (12/30/18 3:46 PM) Body Mass Index 26.51 m2 (12/30/18 3:46 PM) Problem List Condition Effective Dates Status [...] Centricity on05/26/15. Originally documented as DARVOCET. Medications Lidocaine Viscous 2% mucous membrane solution 1 appl, TOP, QID, PRN Mouth Pain, No trague, solution, X 7 day, # 15 mL, 0 Refi ll(s), Pharmacy: [facility] Start Date: 12/30/18 Stop Date: 01/06/19 Status: Ordered Results No data available for [...]
--- OUTSIDE RECORDS SUMMARY | 2019-01-30 06:16 | XMS REPORT | Summary of Care ---
Author Author [facility] Primary Care [facility] Address Unknown Phone Unavailable Encounter HQ Jignesh_huong(FIN) [id number] Date(s): 05/23/18 - 05/23/18 [facility] [address] [address]- [phone] Discharge Disposition: Home or Self Care Attending Physician: Roger Mcintosh MD Vital Signs Most recent to 1 oldest [Reference Range]: Height 149.86 cm (05/23/18 10:25 AM) Temperature Oral 98.0 DegF [96.4-99.1 DegF] (05/23/18 10:25 AM) Blood Pressure 108/68 mmHg [90-140/60-90 mmHg] (05/23/18 10:25 AM) Peripheral Pulse 83 bpm Rate [60-100 bpm] (05/23/18 10:25 AM) Weight 57.727 kg (05/23/18 10:25 AM) Body Mass Index 25.7 m2 (05/23/18 10:25 AM) Problem List Condition Effective Dates Status [...] mellitus - poor control(Confirmed) 1Data migrated from [employer] on 05/25/15. 2Data migrated from [employer] [...] Centricity on05/26/15. Originally documented as DARVOCET. Medications desipramine 25 mg oral tablet 25 mg=1 tab, PO, TID, # 270 tab, 0 Refill(s) Start Date: 05/23/18 Status: Ordered Results No data available for this section Immunizations Given and Recorded Vaccine Date Status Refusal Reason pneumococcal 23-valent vaccine1 05/23/18 Given pneumococcal 23-valent vaccine 10/16/11 Given influenza virus vaccine, inactivated 10/16/11 Given 1Result Comment: patient tolerated vaccine [...] Reg Smoking Cessation Counseling No entered on: 05/23/18 Assessment and Plan No data available for this section
--- OUTSIDE RECORDS SUMMARY | 2019-01-30 06:16 | XMS REPORT | Summary of Care ---
Author Organization Unknown Address Unknown Phone Unavailable Encounter HQ Carlos(RENAY) [id number] Date(s): 11/23/14 - 11/23/14 [facility] Outpatient Imaging [address] [facility] [address] Discharge Disposition: Home Physician Attending: Telly Farah MD Reason for Visit 756.11 - LUMBOSACR SPOND Problem List Condition Effective Dates Status Health [...] metFORMIN Active penicillins Active Vicodin Active Medications No data available for this section Medications Administered During Your Visit No data available for this section Immunizations Vaccine Date Refusal Reason influenza virus vaccine, inactivated 10/16/11 pneumococcal 23-valent vaccine 10/16/11 Social History Social History Type Response
--- OUTSIDE RECORDS SUMMARY | 2019-01-30 06:16 | XMS REPORT | Summary of Care ---
Author Author [facility] Outpatient Imaging [facility] Outpatient Imaging [facility] Address Unknown Phone Unavailable Encounter HQ Deedeer_huong(FIN) [id number] Date(s): 01/10/18 - 01/10/18 [facility] Outpatient Imaging [facility] [address] [facility] [address] [place], [place] [address]- [phone] Encounter Diagnosis Pelvic and perineal pain (Final) - 01/15/18 Discharge Disposition: Home or Self Care Attending Physician: Jagdish Hansen MD Vital Signs No data available for [...]
--- OUTSIDE RECORDS SUMMARY | 2019-01-30 06:16 | XMS REPORT | Summary of Care ---
Author Author [facility] Address Unknown Phone Unavailable Encounter HQ Encntr_alijonas(FIN) [id number] Date(s): 07/28/18 - 07/29/18 [facility] [address] [address]- [phone] Vital Signs No data available for this [...] Centricity on05/26/15. Originally documented as DARVOCET. Medications levothyroxine 50 mcg (0.05 mg) oral tablet See Instructions, # 30 tab, TAKE 1 TABLET BY MOUTH DAILY, Pharmacy: [facility] Start Date: 08/29/18 Stop Date: 09/30/18 Status: Completed levothyroxine 50 mcg (0.05 mg) oral tablet See Instructions, # 30 tab, TAKE 1 TABLET BY MOUTH DAILY, Pharmacy: [facility] Start Date: 07/28/18 Stop Date: 08/29/18 Status: Completed Results No data available for this section [...] Reg Smoking Cessation Counseling No entered on: 09/15/18 Assessment and Plan No data available for this section
--- OUTSIDE RECORDS SUMMARY | 2019-01-30 06:16 | XMS REPORT | Summary of Care ---
Author Organization Unknown Address Unknown Phone Unavailable Encounter HQ Carlos(RENAY) [id number] Date(s): 08/25/14 - 08/25/14 [facility] Outpatient Imaging [address] [facility] [address] [place] [address] Discharge Disposition: Home Physician Attending: Telly Farah MD Reason for Visit 466.0 - ACUTE BRONCHITI Problem List Condition Effective Dates Status Health [...]
--- OUTSIDE RECORDS SUMMARY | 2019-01-30 06:17 | XMS REPORT | Summary of Care ---
Author Author [facility] Organization [facility] Address Unknown Phone Unavailable Encounter ANDREEA Gonzalez(RENAY) [id number] Date(s): 11/25/15 - 11/26/15 [facility] [address] [place] [address]- [phone] Discharge Diagnosis: Acute diarrhea Discharge Diagnosis: Abdominal pain Discharge Disposition: Home Attending Physician: Alberto Lay MD Vital Signs Most recent to 1 2 oldest [Reference Range]: Height 154.94 cm (11/25/15 7:17 PM) Temperature Oral 97.8 DegF 99.1 DegF [96.4-99.1 DegF] (11/26/15 12:02 AM) (11/25/15 7:17 PM) Blood Pressure 120/71 mmHg 122/77 mmHg [90-140/60-90 mmHg] (11/26/15 12:02 AM) (11/25/15 7:17 PM) Respiratory Rate 18 BRMIN 18 BRMIN [14-20 BRMIN] (11/26/15 12:02 AM) (11/25/15 7:17 PM) Peripheral Pulse 76 bpm 88 bpm Rate [60-100 bpm] (11/26/15 12:02 AM) (11/25/15 7:17 PM) Weight 66.818 kg (11/25/15 7:17 PM) Body Mass Index 27.83 m2 (11/25/15 7:17 PM) Problem List Condition Effective Dates Status [...] metFORMIN Active penicillins Active Vicodin Active Medications Cipro 500 mg oral tablet 500 mg=1 tab, PO, Q12H, X 7 day, # 14 tab, 0 Refill(s) Start Date: 11/25/15 Stop Date: 12/02/15 Status: Ordered Flagyl 500 mg oral tablet 500 mg=1 tab, PO, Q8H, X 7 day, # 21 tab, 0 Refill(s) Start Date: 11/25/15 Stop Date: 12/02/15 Status: Ordered morphine Sulfate 4 mg, 1 mL, Route: IVP, Drug form: INJ, ONCE, Dosing Weight 66.818, kg, Priority : STAT, Start date: 11/25/15 21:25:00, Stop date: 11/25/15 21:25:00 Notes: (Same as:MORPhine Sulfate) Start Date: 11/25/15 Stop Date: 11/25/15 Status: Completed Naprosyn 375 mg oral tablet 375 mg=1 tab, PO, BID, PRN Pain, # 30 tab, 0 Refill(s) Start Date: 11/25/15 Stop Date: 12/10/15 Status: Ordered NS (Bolus) IV 1,000 mL, 1,000 ml/hr, Infuse Over: 1 hr, Route: IV, 1,000, Drug form: INJ, ONCE , Priority: STAT, Dosing Weight 66.818 kg, Start date: 11/25/15 21:25:00, Durati on: 1 doses or times, Stop date: 11/25/15 21:25:00 Start Date: 11/25/15 Stop Date: 11/25/15 Status: Completed Saline Flush 0.9% 10 mL, Route: IVP, Drug Form: INJ, Dosing Weight 66.818, kg, PRN, PRN Line Flush , Start date: 11/25/15 19:54:00, Duration: 30 day, Stop date: 12/25/15 19:53:00 Notes: (Same as: BD Posiflush) Start Date: 11/25/15 Stop Date: 11/26/15 Status: Discontinued Zofran 4 mg, 2 mL, Route: IVP, Drug form: INJ, ONCE, Dosing Weight 66.818, kg, Priority : STAT, Start date: 11/25/15 21:25:00, Stop date: 11/25/15 21:25:00 Notes: (Same as: Zofran) MEDICATION WASTE Product Size: 4 mgProduct Was desmond: ___ mg Start Date: 11/25/15 Stop Date: 11/25/15 Status: Completed Zofran ODT 4 mg oral tablet, disintegrating 4 mg=1 tab, PO, BID, PRN Nausea and Vomiting, Dissolve tab under tongue, X 5 day , # 10 tab, 0 Refill(s) Start Date: 11/25/15 Stop Date: 11/30/15 Status: Ordered Results ELECTROLYTES Most recent to 1 oldest [Reference Range]: Sodium Lvl [135-145 140 mEq/L mEq/L] (11/25/15 8:10 PM) Potassium Lvl 3.5 mEq/L [3.5-5.1 mEq/L] (11/25/15 8:10 PM) Chloride Lvl [95-109 105 mEq/L mEq/L] (11/25/15 8:10 PM) CO2 [24-32 mEq/L] 25 mEq/L (11/25/15 8:10 PM) AGAP [10.0-20.0 13.5 mEq/L mEq/L] (11/25/15 8:10 PM) CHEM PANEL Most recent to 1 oldest [Reference Range]: Creatinine Lvl 1.01 mg/dL [0.50-1.40 mg/dL] (11/25/15 8:10 PM) eGFR 64 mL/min/1.73m2 1 *NA* (11/25/15 8:10 PM) BUN [7-22 mg/dL] 10 mg/dL (11/25/15 8:10 PM) B/C Ratio [6-25] 10 (11/25/15 8:10 PM) Glucose Lvl [70-99 184 mg/dL mg/dL] *HI* (11/25/15 8:10 PM) Total Protein 8.3 g/dL [6.4-8.4 g/dL] (11/25/15 8:10 PM) Albumin Lvl [3.5-5.0 3.6 g/dL g/dL] (11/25/15 8:10 PM) Globulin [2.0-4.0 4.7 g/dL g/dL] *HI* (11/25/15 8:10 PM) A/G Ratio [0.7-1.6] 0.8 (11/25/15 8:10 PM) Calcium Lvl 8.6 mg/dL [8.5-10.5 mg/dL] (11/25/15 8:10 PM) ALT [0-65 unit/L] 23 unit/L (11/25/15 8:10 PM) AST [0-37 unit/L] 16 unit/L (11/25/15 8:10 PM) Alk Phos [39-136 101 unit/L unit/L] (11/25/15 8:10 PM) Bili Total [0.2-1.3 0.3 mg/dL mg/dL] (11/25/15 8:10 PM) Lipase Lvl [73-393 145 unit/L unit/L] (11/25/15 8:10 PM) 1Result Comment: The eGFR is calculated [...] be mul tiplied by the estimated BMI. URINE AND STOOL Most recent to 1 oldest [Reference Range]: UA Turbidity [Clear] Clear (11/25/15 8:10 PM) UA Color [Yellow] Yellow *NA* (11/25/15 8:10 PM) UA pH [5.0-8.0] 6.0 (11/25/15 8:10 PM) UA Spec Grav 1.010 [<=1.030] (11/25/15 8:10 PM) UA Glucose Negative [Negative] (11/25/15 8:10 PM) UA Blood [Negative] Negative (11/25/15 8:10 PM) UA Ketones Negative [Negative] *NA* (11/25/15 8:10 PM) UA Protein Negative [Negative] (11/25/15 8:10 PM) UA Urobilinogen 0.2 EU/dL [0.1-1.0 EU/dL] (11/25/15 8:10 PM) UA Bili [Negative] Negative *NA* (11/25/15 8:10 PM) UA Leuk Est Moderate [Negative] *ABN* (11/25/15 8:10 PM) UA Nitrite Negative [Negative] (11/25/15 8:10 PM) UA WBC [None Seen 6-10 /HPF /HPF] *ABN* (11/25/15 8:10 PM) UA RBC [0-2 /HPF] 0-2 /HPF (11/25/15 8:10 PM) UA Bacteria [None None Seen Seen] (11/25/15 8:10 PM) UA Sq Epi [Few /LPF] Few /LPF (11/25/15 8:10 PM) UA Amorph Heather [None Moderate /HPF Seen /HPF] *ABN* (11/25/15 8:10 PM) UA Mucus [None Seen Few /LPF /LPF] (11/25/15 8:10 PM) UA Trans Epi 0-2 *ABN* (11/25/15 8:10 PM) HEMATOLOGY Most recent to 1 oldest [Reference Range]: WBC [3.7-10.4 K/CMM] 11.9 K/CMM *HI* (11/25/15 8:10 PM) RBC [4.20-5.40 4.60 M/CMM M/CMM] (11/25/15 8:10 PM) Hgb [12.0-16.0 g/dL] 12.1 g/dL (11/25/15 8:10 PM) Hct [36.0-48.0 %] 38.1 % (11/25/15 8:10 PM) MCV [80.0-98.0 fL] 82.7 fL (11/25/15 8:10 PM) MCH [27.0-31.0 pg] 26.3 pg *LOW* (11/25/15 8:10 PM) MCHC [32.0-36.0 31.8 g/dL g/dL] *LOW* (11/25/15 8:10 PM) RDW [11.5-14.5 %] 16.3 % *HI* (11/25/15 8:10 PM) Platelet [133-450 272 K/CMM K/CMM] (11/25/15 8:10 PM) MPV [7.4-10.4 fL] 9.1 fL (11/25/15 8:10 PM) Segs [45.0-75.0 %] 58.0 % (11/25/15 8:10 PM) Lymphocytes 34.4 % [20.0-40.0 %] (11/25/15 8:10 PM) Monocytes [2.0-12.0 6.1 % %] (11/25/15 8:10 PM) Eosinophils [0.0-4.0 1.0 % %] (11/25/15 8:10 PM) Basophils [0.0-1.0 0.5 % %] (11/25/15 8:10 PM) Segs-Bands # 6.9 K/CMM [1.5-8.1 K/CMM] (11/25/15 8:10 PM) Lymphocytes # 4.1 K/CMM [1.0-5.5 K/CMM] (11/25/15 8:10 PM) Monocytes # [0.0-0.8 0.7 K/CMM K/CMM] (11/25/15 8:10 PM) Eosinophils # 0.1 K/CMM [0.0-0.5 K/CMM] (11/25/15 8:10 PM) Basophils # [0.0-0.2 0.1 K/CMM K/CMM] (11/25/15 8:10 PM) Immunizations Vaccine Date Refusal Reason influenza [...]
--- OUTSIDE RECORDS SUMMARY | 2019-01-30 06:17 | XMS REPORT ---
Author Author Gustavo Mckenna [facility] [employer] Address Unknown Phone Unavailable Care Team Providers Care Line Out Man Name Role Phone Gustavo Mckenna CP Unavailable Allergies, Adverse Reactions, Alerts Substance Reaction Event Type metformin Info Not Available Drug Allergy codeine Info Not Available Drug Allergy Darvocet N 100 Info Not Available Drug Allergy Darvocet N 50 Info Not Available Drug Allergy Penicillin Info Not Available Drug Allergy Problems Problem Type Condition Code Onset Dates Condition Status Assessment Hypothyroid E03.9 Active Assessment Asthma J45.909 Active Assessment Hyperlipidemia, mixed E78.2 Active Assessment PVD (peripheral vascular disease) I73.9 Active Assessment Essential (primary) hypertension I10 Active Assessment Insulin pump status Z96.41 Active Assessment Type 2 diabetes mellitus with diabetic polyneuropathy E11.42 Active Assessment Type 2 diabetes mellitus with hyperglycemia E11.65 Active Problem PVD (peripheral vascular disease) I73.9 Active Problem Radiculopathy, lumbar region M54.16 Active Problem Migraine G43.909 Active Problem Carpal tunnel syndrome G56.00 Active Problem Vitamin D deficiency E55.9 Active Problem Diarrhea R19.7 Active Problem Cervical disc disorder with radiculopathy, cervicothoracic region M50.13 Active Problem Anemia D64.9 Active Problem Type 2 diabetes mellitus with diabetic polyneuropathy E11.42 Active Problem Candidiasis, unspecified B37.9 Active Problem Insulin pump status Z96.41 Active Problem Asthma J45.909 Active Problem Crohn's disease of large intestine without complications K50.10 Active Problem Hypothyroid E03.9 Active Problem Otalgia, left ear H92.02 Active Problem Nonscarring hair loss, unspecified L65.9 Active Problem 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 Problem Left knee pain M25.562 Active Assessment Crohn's disease of large intestine without complications K50.10 Active Problem Hyperlipidemia, mixed E78.2 Active Assessment GERD (gastroesophageal reflux disease) K21.9 Active Problem Hx of diverticulitis of colon Z87.19 Active Problem GERD (gastroesophageal reflux disease) K21.9 Active Problem History of Iveth thyroiditis Z86.39 Active Problem Type 2 diabetes mellitus with hyperglycemia E11.65 Active Problem Essential (primary) hypertension I10 Active Problem Radiculopathy, cervical region M54.12 Active Problem Other chronic pain G89.29 Active Medications Medication Code System Code Instructions Start Date End Date Status Dosage Levothyroxine Sodium [facility] 13469400286 75 mcg (0.075 mg) orally once a day Active 1 tab(s) Pravachol [facility] 85737248250 40 mg orally once a day (at bedtime) Active 1 tab(s) metoclopramide [facility] 19960261972 10 mg orally 2 TIMES A DAY Active 1 tab(s) Syringes - store brand ND 0 3cc 25Gx1.5 1X/W Jul 08, 2017 Active not defined Freestyle William Sensor [facility] 42081189621 -- Jan 13, 2018 Active Apply one sensor every 10 days or as directed ONE TOUCH ULTRA TEST STRIPS [facility] 0 - - 6 x per day Active CHECK BLOOD SUGARS TWICE/DAY pantoprazole [facility] 61755705582 40 mg orally once a day Active 1 tab(s) atenolol 25 mg oral tablet ND 0 orally daily Active 1 tab(s) cyanocobalamin [facility] 62757880872 1000 mcg/mL intramuscularly 1X/W Jul 08, 2017 Active 1000 mcg B-12 [facility] 51189587989 1000 mcg sublingually once a day Jan 13, 2018 Active 1 tab(s) Freestyle William Virgil [facility] 52045333924 -- Jan 13, 2018 Active Use as directed clonazepam [facility] 76448098141 0.5 mg orally qhs Active 2 tabs Acetaminophen-TraMADol Hydrochloride [facility] 68132376785 325 mg-37.5 mg orally every 12 hours Active 2 tab(s) Qvar [facility] 85050503437 40 mcg/inh inhaled 2 times a day Active 1 puff(s) ProAir HFA [facility] 73046617888 CFC free 90 mcg/inh inhaled 4 times a day Active 2 puff(s) NovoLog [facility] 12286230991 100 units/mL subcutaneously insulin pump Active 75 units via insulin pump trazodone [facility] 79905409844 100 mg orally qhs Active 1 tab(s) Vitamin B6 NDC 0 Active not defined ergocalciferol NDC 91492130017 50,000 intl units orally 2 times a week Active 1 cap(s) BD Ultra-Fine Pen Needle Haley 32g 4mm NDC 0 - subcutaneously daily Nov 13, 2016 Active as directed Vital Signs Date/Time: Jan 13, 2018 BMI 23.80 Index Weight 126 lbs Height 61 in Results Name Result Date Reference Range Unit Abnormality Flag T3, FREE ----T3, FREE 2.8 20180116 2.3-4.2 pg/mL N ACTH, PLASMA TSH, 3RD GENERATION ----TSH 0.11 20180116 mIU/L L T4, FREE ----T4, FREE 1.3 20180116 0.8-1.8 ng/dL N CORTISOL, A.M. ----CORTISOL, A.M. 14.2 20180116 mcg/dL N Summary Purpose eClinicalWorks Submission
--- OUTSIDE RECORDS SUMMARY | 2019-01-30 06:17 | XMS REPORT | Summary of Care ---
Author Author [facility] Outpatient Imaging [facility] Outpatient Imaging [facility] Address Unknown Phone Unavailable Encounter HQ Deedeer_huong(FIN) [id number] Date(s): 01/18/16 - 01/18/16 [facility] Outpatient Imaging [facility] [address] [facility] [address] [place], [place] [address]- [phone] Discharge Disposition: Home Attending Physician: Noel Mckenna MD Vital Signs No data available for [...]
--- OUTSIDE RECORDS SUMMARY | 2019-01-30 06:17 | XMS REPORT ---
Author Author Gustavo Mckenna Organization [employer] Address Unknown Phone Unavailable Care Team Providers Care Stave Cutting Supervisor Name Role Phone Gustavo Mckenna CP Unavailable Allergies No Known Allergies Problems Problem Type Condition Code Onset Dates Condition Status Problem Essential (primary) hypertension I10 Active Problem History of Iveth thyroiditis Z86.39 Active Problem Radiculopathy, lumbar region M54.16 Active Problem Hyperlipidemia, mixed E78.2 Active Problem Carpal tunnel syndrome G56.00 Active Problem Anemia D64.9 Active Problem Diarrhea R19.7 Active Problem Candidiasis, unspecified B37.9 Active Problem 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 Problem PVD (peripheral vascular disease) I73.9 Active Problem Radiculopathy, cervical region M54.12 Active Problem Type 2 diabetes mellitus with diabetic polyneuropathy E11.42 Active Problem Hx of diverticulitis of colon Z87.19 Active Problem Nonscarring hair loss, unspecified L65.9 Active Problem Cervical disc disorder with radiculopathy, cervicothoracic region M50.13 Active Problem Left knee pain M25.562 Active Problem Otalgia, left ear H92.02 Active Problem Hypothyroid E03.9 Active Problem Asthma J45.909 Active Problem Migraine G43.909 Active Problem Vitamin D deficiency E55.9 Active Problem Other chronic pain G89.29 Active Problem Type 2 diabetes mellitus with hyperglycemia E11.65 Active Problem Insulin pump status Z96.41 Active Problem GERD (gastroesophageal reflux disease) K21.9 Active Medications No Known Medications Results No Known Results Summary Purpose eClinicalWorks Submission
--- OUTSIDE RECORDS SUMMARY | 2019-01-30 06:17 | XMS REPORT ---
Author Author Gustavo Mckenna Organization [employer] Address Unknown Phone Unavailable Care Team Providers Care Director Financial Services Name Role Phone Gustavo Mckenna CP Unavailable Allergies, Adverse Reactions, Alerts Substance Reaction Event Type metformin Info Not Available Drug Allergy codeine Info Not Available Drug Allergy Darvocet N 100 Info Not Available Drug Allergy Darvocet N 50 Info Not Available Drug Allergy Penicillin Info Not Available Drug Allergy Problems Problem Type Condition Code Onset Dates Condition Status Assessment Hyperlipidemia, mixed E78.2 Active Assessment Cervical disc disorder with radiculopathy, cervicothoracic region M50.13 Active Assessment 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 Assessment Hypothyroid E03.9 Active Assessment Essential (primary) hypertension I10 Active Assessment Type 2 diabetes mellitus with diabetic polyneuropathy E11.42 Active Assessment Insulin pump status Z96.41 Active [...] GERD (gastroesophageal reflux disease) K21.9 Active Medications Medication Code System Code Instructions Start Date End Date Status Dosage Levothyroxine Sodium [facility] 86418382314 75 mcg (0.075 mg) orally once a day Active 1 tab(s) BD Ultra-Fine Pen Needle Haley 32g 4mm NDC 0 - subcutaneously daily Nov 13, 2016 Active as directed cyanocobalamin [facility] 50749542954 1000 mcg/mL intramuscularly 1X/W Jul 08, 2017 Active 1000 mcg Syringes - store brand NDC 0 3cc 25Gx1.5" 1X/W Jul 08, 2017 Active not defined clonazepam [facility] 88771113428 0.5 mg orally qhs Active 2 tabs albuterol [facility] 44642421539 2.5 mg/3 mL (0.083%) inhaled every 6 hours Active 3 mL Victoza [facility] 94300574648 18 mg/3 mL subcutaneously once a day Inactive 0.6 atenolol 25 mg oral tablet NDC 0 orally daily Active 1 tab(s) Pravachol [facility] 66853695629 40 mg orally once a day (at bedtime) Active 1 tab(s) pantoprazole [facility] 39457488465 40 mg orally once a day Active 1 tab(s) zolpidem [facility] 63855941265 10 mg orally once a day (at bedtime) Active 1 tab(s) ergocalciferol [facility] 42126572994 50,000 intl units orally 2 times a week Active 1 cap(s) fluconazole [facility] 87959678860 150 mg orally once Active 1 tab(s) trazodone [facility] 31524577376 100 mg orally qhs Active 1 tab(s) ProAir HFA [facility] 48322841290 CFC free 90 mcg/inh inhaled 4 times a day Active 2 puff(s) Levothyroxine Sodium [facility] 47020957919 75 mcg (0.075 mg) orally once a day Active 1 tab(s) Acetaminophen-TraMADol Hydrochloride [facility] 32942564539 325 mg-37.5 mg orally every 12 hours Active 2 tab(s) nystatin topical [facility] 29845462451 286596 units/g applied topically 3 times a day Jul 12, 2016 Active 1 mike Vitamin B6 NDC 0 Active not defined ONE TOUCH ULTRA TEST STRIPS ND 0 - - 6 x per day Active CHECK BLOOD SUGARS TWICE/DAY NovoLog [facility] 34999336094 100 units/mL subcutaneously insulin pump Active 75 units via insulin pump Apriso [facility] 73716202197 0.375 g orally once a day (in the morning) Active 4 cap(s) Vital Signs Date/Time: Jul 08, 2017 BMI 24.18 Index Weight 128 lbs Height 61 in Blood Pressure Diastolic 72 mm Hg Blood Pressure Systolic 112 mm Hg Results No Known Results Summary Purpose [employer]Works Submission
--- OUTSIDE RECORDS SUMMARY | 2019-01-30 06:17 | XMS REPORT ---
Author Author Gustavo Mckenna Organization [employer] Address Unknown Phone Unavailable Care Team Providers Care Box Spring Frame Builder Name Role Phone Gustavo Mckenna CP Unavailable Allergies No Known Allergies Problems Problem Type Condition Code Onset Dates Condition Status Assessment Type 2 diabetes mellitus with hyperglycemia [...] Instructions Start Date End Date Status Dosage ONE TOUCH ULTRA TEST STRIPS NDC 0 - check blood sugars 6 times a day ( insulin pump user) Active - Results No Known Results Summary Purpose [employer] Submission
--- OUTSIDE RECORDS SUMMARY | 2019-01-30 06:17 | XMS REPORT | Continuity of Care Document ---
Author Author [facility] Organization [facility] Address Unknown Phone Unavailable Care Team Providers Care Machinery Dismantler Name Role Phone MD Stevan, Gustavo Samano PP Unavailable Insurance Providers Payer name Policy type / Coverage type Policy ID Covered green party ID Policy Thomas AETNA (MEDICARE REPLACEMENT HMO) AETNA (MEDICARE REPLACEMENT HMO) [place] TM[place] - TRADITIONAL Encounters Encounter Performer Location Date Office Visit Gustavo Calles MD [facility] [address] Jan 11, 2015 Allergies, Adverse Reactions, Alerts Type Substance Reaction Status Drug allergy CODEINE Active Drug allergy DARVOCET Active Drug allergy PENICILLIN Active Problems Problem Effective Dates Problem Status CHEST PAIN Jan 11, 2015 Active PALPITATIONS Jan 11, 2015 Active DYSPNEA Jan 11, 2015 Active CARDIAC ARRHYTHMIA Jan 11, 2015 Active HYPERTENSION - BENIGN ESSENTIAL Jan 11, 2015 Active DM Jan 11, 2015 Active ASTHMA Jan 11, 2015 Active Procedures Date Description Comments Jan 11, 2015 smoking status Never smoker Medications Medication Instructions Start Date Status GABAPENTIN 600 MG TABS 1 po TID Dec 25, 2011 Active TRAMADOL HCL ER 100 MG [id number] 1 po qd Dec 25, 2011 Active IMIPRAMINE HCL 50 MG TABS 1 po TID Dec 25, 2011 Active CLONAZEPAM 1 MG TABS 2 po hs Dec 25, 2011 Active ATENOLOL 25 MG TABS 1 po qd Dec 25, 2011 Active ZOLPIDEM TARTRATE 10 MG TABS 1 po hs PRN Dec 25, 2011 Active PROVENTIL HFA 108 (90 BASE) MCG/ACT AERS As directed Dec 25, 2011 Active PANTOPRAZOLE SODIUM 40 MG TBEC 1 po BID Dec 25, 2011 Active LEVOTHYROXINE SODIUM 75 MCG TABS 1 po qd Dec 25, 2011 Active NOVOLOG 100 UNIT/ML SOLN As directed Dec 25, 2011 Active METFORMIN HCL ER 500 MG [id number] 1 po qd Nov 30, 2014 Active ASPIRIN EC LOW DOSE 81 MG TBEC 1 tablet daily Jan 11, 2015 Active Vital Signs Date Description Test Result Jan 11, 2015 weight E&M - 3141-9 WEIGHT 145 lb Jan 11, 2015 height E&M - 8302-2 HEIGHT 61 in Jan 11, 2015 blood pressure, systolic, sitting, right arm BP SYS SIT R 124 null Jan 11, 2015 blood pressure, diastolic, sitting, right arm BP STALIN SIT R 79 mmHg Jan 11, 2015 pulse rate, sitting, right PULSE SIT R 95 /min Jan 11, 2015 blood pressure, systolic, sitting, left arm BP SYS SIT L 120 mm Hg Jan 11, 2015 blood pressure, diastolic, sitting, left arm BP STALIN SIT L 68 mm Hg Jan 11, 2015 pulse rate, sitting, left PULSE SIT L 95 /min Jan 11, 2015 orthostatic blood pressure, lying, left arm, systolic OBPLYLASYS 121 null Jan 11, 2015 orthostatic blood pressure, lying, left arm, diastolic OBPLYLADIA 71 null Jan 11, 2015 pulse rate, supine, left PULSE SUP L 92 /min Jan 11, 2015 orthostatic blood pressure, sitting, left arm, systolic OBPSITLASYS 118 null Jan 11, 2015 orthostatic blood pressure, sitting, left arm, diastolic OBPSITLADIA 70 null Jan 11, 2015 pulse rate 8 PULSE RATE8 89 /min Jan 11, 2015 orthostatic blood pressure, standing, left arm, systolic OBPSTALASYS 126 null Jan 11, 2015 orthostatic blood pressure, standing, left arm, diastolic OBPSTALADIA 69 null Jan 11, 2015 pulse rate 10 PULSE RATE10 95 /min Jan 11, 2015 temperature E&M TEMPERATURE 97.8 deg f Jan 11, 2015 blood pressure, systolic - 8480-6 BP SYSTOLIC 124 mm Hg Jan 11, 2015 pulse rate E&M - 8867-4 PULSE RATE 95 /min Jan 11, 2015 blood pressure, diastolic - 8462-4 BP DIASTOLIC 79 mm Hg
--- OUTSIDE RECORDS SUMMARY | 2019-01-30 06:17 | XMS REPORT ---
Author Author Gustavo Mckenna Organization [employer] Address Unknown Phone Unavailable Care Team Providers Care Vp Research Name Role Phone Gustavo Mckenna CP Unavailable [...]
--- OUTSIDE RECORDS SUMMARY | 2019-01-30 06:17 | XMS REPORT ---
Author Author Gustavo Mckenna Organization [employer] Address Unknown Phone Unavailable Care Team Providers Care Riprap Man Name Role Phone Gustavo Mckenna CP Unavailable Allergies, Adverse Reactions, Alerts Substance Reaction Event Type metformin Info Not Available Drug Allergy codeine Info Not Available Drug Allergy Darvocet N 100 Info Not Available Drug Allergy Darvocet N 50 Info Not Available Drug Allergy Penicillin Info Not Available Drug Allergy Problems Problem Type Condition Code Onset Dates Condition Status Assessment Cervical disc disorder with radiculopathy, cervicothoracic region M50.13 Active Assessment 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 Assessment Essential (primary) hypertension I10 Active Assessment Hypothyroid E03.9 Active Assessment Insulin pump status Z96.41 Active Assessment Encounter for immunization Z23 Active Assessment Urinary frequency R35.0 Active Assessment Type 2 diabetes mellitus with [...] ear H92.02 Active Problem Hypothyroid E03.9 Active Assessment Hyperlipidemia, mixed E78.2 Active Problem Asthma J45.909 Active Problem Migraine G43.909 Active Problem Vitamin D deficiency E55.9 Active Problem Other chronic pain G89.29 Active Problem Type 2 diabetes mellitus with hyperglycemia E11.65 Active Problem Insulin pump status Z96.41 Active Problem GERD (gastroesophageal reflux disease) K21.9 Active Medications Medication Code System Code Instructions Start Date End Date Status Dosage trazodone [facility] 63280029527 100 mg orally qhs Active 1 tab(s) Qvar [facility] 36968717672 40 mcg/inh inhaled 2 times a day Active 1 puff(s) ONE TOUCH ULTRA TEST STRIPS ND 0 - - 6 x per day Active CHECK BLOOD SUGARS TWICE/DAY pantoprazole ND 14704063370 40 mg orally once a day Active 1 tab(s) NovoLog ND 91176225251 100 units/mL subcutaneously insulin pump Active 75 units via insulin pump cyanocobalamin [facility] 21616459183 1000 mcg/mL intramuscularly 1X/W Jul 08, 2017 Active 1000 mcg BD Ultra-Fine Pen Needle Haley 32g 4mm ND 0 - subcutaneously daily Nov 13, 2016 Active as directed metoclopramide [facility] 19257779544 10 mg orally 2 TIMES A DAY Active 1 tab(s) Syringes - store brand NDC 0 3cc 25Gx1.5 1X/W Jul 08, 2017 Active not defined atenolol 25 mg oral tablet NDC 0 orally daily Active 1 tab(s) Pravachol [facility] 31186195156 40 mg orally once a day (at bedtime) Active 1 tab(s) clonazepam [facility] 78868817775 0.5 mg orally qhs Active 2 tabs Levothyroxine Sodium [facility] 78542242986 75 mcg (0.075 mg) orally once a day Active 1 tab(s) Vitamin B6 NDC 0 Active not defined Acetaminophen-TraMADol Hydrochloride ND 90148317626 325 mg-37.5 mg orally every 12 hours Active 2 tab(s) ProAir HFA [facility] 18200882347 CFC free 90 mcg/inh inhaled 4 times a day Active 2 puff(s) ergocalciferol [facility] 27613433769 50,000 intl units orally 2 times a week Active 1 cap(s) Vital Signs Date/Time: Oct 17, 2017 BMI 24.37 Index Weight 129 lbs Height 61 in Blood Pressure Diastolic 70 mm Hg Blood Pressure Systolic 112 mm Hg Results No Known Results Immunizations Vaccine Administration Date Influenza (MCR) Oct 17, 2017 Summary Purpose eClinicalWorks Submission
--- OUTSIDE RECORDS SUMMARY | 2019-01-30 06:17 | XMS REPORT | Continuity of Care Document ---
Author Author [facility] Organization [facility] Address Unknown Phone Unavailable Care Team Providers Care Manufacturing Controls Engineer Name Role Phone MD Stevan, Gustavo Samano PP Unavailable Insurance Providers Payer name Policy type / Coverage type Policy ID Covered constitution party ID Policy Thomas AETNA (MEDICARE REPLACEMENT HMO) AETNA (MEDICARE REPLACEMENT HMO[place]AD[place] Encounters Encounter Performer Location Date Office Visit Gustavo Calles MD [facility] Cardiology Jan 25, 2015 Allergies, Adverse Reactions, Alerts Type Substance [...] 2015 Active ASTHMA Jan 11, 2015 Active PRE-OP CV EXAM Jan 25, 2015 Active Procedures Date Description Comments Jan 11, 2015 smoking status Never smoker Jan 25, 2015 smoking status Never smoker Medications Medication Instructions Start Date Status GABAPENTIN 600 MG TABS 1 po TID Dec 25, 2011 Active TRAMADOL HCL ER 100 MG [id number] 1 po qd Dec 25, 2011 Active IMIPRAMINE HCL 50 MG TABS 1 po TID Dec 25, 2011 Active CLONAZEPAM 1 MG TABS 2 po hs Dec 25, 2011 Active ZOLPIDEM TARTRATE 10 [...] 2011 Active METFORMIN HCL ER 500 MG [id number] 1 po qd Nov 30, 2014 Active ASPIRIN EC LOW DOSE 81 MG TBEC 1 tablet daily Jan 11, 2015 Active BISOPROLOL FUMARATE 5 MG TABS 1 tablet daily Dec 25, 2011 Active PRAVACHOL 40 MG TABS 1 tablet daily Jan 25, 2013 Active Vital Signs Date Description Test Result [...] - 8462-4 BP DIASTOLIC 79 mm Hg Jan 25, 2015 weight E&M - 3141-9 WEIGHT 143 lb Jan 25, 2015 blood pressure, systolic, sitting, right arm BP SYS SIT R 116 null Jan 25, 2015 blood pressure, diastolic, sitting, right arm BP STALIN SIT R 70 mmHg Jan 25, 2015 pulse rate, sitting, right PULSE SIT R 81 /min Jan 25, 2015 blood pressure, systolic, sitting, left arm BP SYS SIT L 118 mm Hg Jan 25, 2015 blood pressure, diastolic, sitting, left arm BP STALIN SIT L 65 mm Hg Jan 25, 2015 pulse rate, sitting, left PULSE SIT L 84 /min Jan 25, 2015 temperature E&M TEMPERATURE 97.6 deg f Jan 25, 2015 orthostatic blood pressure, lying, left arm, systolic OBPLYLASYS 112 null Jan 25, 2015 orthostatic blood pressure, lying, left arm, diastolic OBPLYLADIA 73 null Jan 25, 2015 pulse rate, supine, left PULSE SUP L 72 /min Jan 25, 2015 orthostatic blood pressure, sitting, left arm, systolic OBPSITLASYS 117 null Jan 25, 2015 orthostatic blood pressure, sitting, left arm, diastolic OBPSITLADIA 69 null Jan 25, 2015 pulse rate 8 PULSE RATE8 74 /min Jan 25, 2015 orthostatic blood pressure, standing, left arm, systolic OBPSTALASYS 102 null Jan 25, 2015 orthostatic blood pressure, standing, left arm, diastolic OBPSTALADIA 64 null Jan 25, 2015 pulse rate 10 PULSE RATE10 80 /min Jan 25, 2015 blood pressure, systolic - 8480-6 BP SYSTOLIC 116 mm Hg Jan 25, 2015 pulse rate E&M - 8867-4 PULSE RATE 84 /min Jan 25, 2015 blood pressure, diastolic - 8462-4 BP DIASTOLIC 70 mm Hg
--- OUTSIDE RECORDS SUMMARY | 2019-01-30 06:17 | XMS REPORT ---
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 Assessment Type 2 diabetes mellitus with hyperglycemia E11.65 Active Problem Hyperlipidemia, mixed E78.2 Active Problem Radiculopathy, cervical region M54.12 Active Problem Type 2 diabetes mellitus with hyperglycemia E11.65 Active Problem Other chronic pain G89.29 Active Problem Diarrhea R19.7 Active Problem Cervical disc disorder with radiculopathy, cervicothoracic region M50.13 Active Problem Carpal tunnel syndrome G56.00 Active Problem Candidiasis, unspecified B37.9 Active Problem 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 Problem Asthma J45.909 Active Problem GERD (gastroesophageal reflux disease) K21.9 Active Problem Type 2 diabetes mellitus with diabetic polyneuropathy E11.42 Active Problem Radiculopathy, lumbar region M54.16 Active Problem Anemia D64.9 Active Problem Nonscarring hair loss, unspecified L65.9 Active Problem Left knee pain M25.562 Active Problem Otalgia, left ear H92.02 Active Problem Migraine G43.909 Active Problem Insulin pump status Z96.41 Active Problem Essential (primary) hypertension I10 Active Problem Vitamin D deficiency E55.9 Active Problem History of Iveth thyroiditis Z86.39 Active Problem PVD (peripheral vascular disease) I73.9 Active Problem Hx of diverticulitis of colon Z87.19 Active Problem Hypothyroid E03.9 Active Medications No Known Medications Results No Known Results Summary Purpose eClinicalWorks Submission
--- OUTSIDE RECORDS SUMMARY | 2019-01-30 06:17 | XMS REPORT ---
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 Assessment Hyperlipidemia, mixed E78.2 Active Assessment Left knee pain M25.562 Active Assessment Cervical disc disorder with radiculopathy, cervicothoracic region M50.13 Active Assessment Hypothyroid E03.9 Active Assessment Essential [...] Z87.19 Active Problem Hypothyroid E03.9 Active Medications Medication Code System Code Instructions Start Date End Date Status Dosage Levothyroxine Sodium ND 1842 75 mcg (0.075 mg) orally once a day Active 1 tab([place] [address] 489572 units/g applied topically 3 times a day Jul 12, 2016 Active 1 mike Apriso NDC 218200 0.375 g orally once a day (in the morning) Active 4 cap(s) ProAir HFA NDC 12503 CFC free 90 mcg/inh inhaled 4 times a day Active 2 puff(s) zolpidem NDC 69670 10 mg orally once a day (at bedtime) Active 1 tab([place] [address] 50,000 intl units orally 2 times a week Active 1 cap(s) clonazepam NDC 49657 0.5 mg orally qhs Active 2 tabs atenolol 25 mg oral tablet NDC 46353 orally daily Active 1 tab(s) Celebrex NDC 28971 200 mg orally 2 times a day Inactive 1 cap(s) Pravachol NDC 1884 40 mg orally once a day (at bedtime) Active 1 tab(s) BD Ultra-Fine Pen Needle Haley 32g 4mm ND 7517502 - subcutaneously daily Nov 13, 2016 Active as directed ONE TOUCH ULTRA TEST STRIPS ND 0 - - 6 x per day Active CHECK BLOOD SUGARS TWICE/DAY NovoLog NDC 30126 100 units/mL subcutaneously insulin pump Active 75 units via insulin pump trazodone NDC 68845 100 mg orally qhs Active 1 tab(s) [place] [address] 325 mg-37.5 mg orally every 12 hours Active 2 tab(s) Vitamin B6 ND 4994 Active not defined Victoza ND 553041 18 mg/3 mL subcutaneously once a day Active 0.6 pantoprazole NDC 28814 40 mg orally once a day Active 1 tab([place] [address] 2.5 mg/3 mL (0.083%) inhaled every 6 hours Active 3 mL fluconazole NDC 34600 150 mg orally once Active 1 tab(s) Vital Signs Date/Time: April 04, 2017 BMI 25.13 Index Weight 133 lbs Height 61 in Blood Pressure Diastolic 70 mm Hg Blood Pressure Systolic 110 mm Hg Results No Known Results Summary Purpose eClinicalWorks Submission
--- OUTSIDE RECORDS SUMMARY | 2019-01-30 06:17 | XMS REPORT ---
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 Assessment Cervical disc disorder with radiculopathy, cervicothoracic region M50.13 Active Assessment Left knee pain M25.562 Active Assessment Hypothyroid E03.9 Active Assessment Essential (primary) hypertension I10 Active Problem PVD (peripheral vascular disease) I73.9 Active Assessment Type 2 diabetes mellitus with hyperglycemia E11.65 Active Problem Hyperlipidemia, mixed E78.2 Active Problem Radiculopathy, cervical region M54.12 Active Problem Type 2 diabetes mellitus with hyperglycemia E11.65 Active Problem Carpal tunnel syndrome G56.00 Active Problem Diarrhea R19.7 Active Problem 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 Problem Left knee pain M25.562 Active Problem GERD (gastroesophageal reflux disease) K21.9 Active Problem Radiculopathy, lumbar region M54.16 Active Problem Candidiasis, unspecified B37.9 Active Problem Other chronic pain G89.29 Active Problem Nonscarring hair loss, unspecified L65.9 Active Problem Cervical disc disorder with radiculopathy, cervicothoracic region M50.13 Active Problem Otalgia, left ear H92.02 Active Problem Anemia D64.9 Active Problem Vitamin D deficiency E55.9 Active Problem Migraine G43.909 Active Problem Asthma J45.909 Active Problem Essential (primary) hypertension I10 Active Problem Hypothyroid E03.9 Active Problem History of Iveth thyroiditis Z86.39 Active Problem Insulin pump status Z96.41 Active Problem Hx of diverticulitis of colon Z87.19 Active Medications Medication Code System Code Instructions Start Date End [place] D[place] [address] 2.5 mg/3 mL (0.083%) inhaled every 6 hours Active 3 [place] [address] 50,000 intl units orally 2 times a week Active 1 cap(s) Vitamin B6 ND 4994 Active not defined NovoLog NDC 12849 100 units/mL subcutaneously insulin pump Active 75 units via insulin pump [place] [address] 325 mg-37.5 mg orally every 12 hours Active 2 tab(s) clonazepam NDC 92343 0.5 mg orally qhs Active 2 tabs Levothyroxine Sodium ND 1842 75 mcg (0.075 mg) orally once a day Active 1 tab([place]) [place] [address] 40 mg orally once a day Active 1 tab(s) Apriso NDC 537345 0.375 g orally once a day (in the morning) Active 4 cap([place] [address] 636143 units/g applied topically 3 times a day Jul 12, 2016 Active 1 mike Celebrex NDC 79498 200 mg orally 2 times a day Active 1 cap(s) zolpidem NDC 88203 10 mg orally once a day (at bedtime) Active 1 tab(s) ProAir HFA NDC 34796 CFC free 90 mcg/inh inhaled 4 times a day Active 2 puff(s) atenolol 25 mg oral tablet NDC 06017 orally daily Active 1 tab(s) Pravachol NDC 1884 40 mg orally once a day (at bedtime) Active 1 tab(s) Celebrex NDC 96807 200 mg orally 2 times a day Active 1 cap(s) Duexis NDC 042791 26.6 mg-800 mg orally 3 times a day Active 1 tab(s) BD Ultra-Fine Pen Needle Haley 32g 4mm ND 0680352 - subcutaneously daily Nov 13, 2016 Active as directed trazodone NDC 07431 100 mg orally qhs Active 1 tab(s) ONE TOUCH ULTRA TEST STRIPS ND 0 - - 6 x per day Active CHECK BLOOD SUGARS TWICE/DAY Victoza ND 548135 18 mg/3 mL subcutaneously once a day Active 1.8 mg fluconazole [facility] [place] [address] 150 mg orally once Dec 27, 2016 Active 1 tab(s) Vital Signs Date/Time: Dec 27, 2016 BMI 25.88 Index Weight 137 lbs Height 61 in Blood Pressure Diastolic 66 mm Hg Blood Pressure Systolic 108 mm Hg Results No Known Results Summary Purpose eClinicalWorks Submission
--- OUTSIDE RECORDS SUMMARY | 2019-01-30 06:17 | XMS REPORT | Summary of Care ---
Author Author [facility] Outpatient Imaging [facility] Address Unknown Phone Unavailable Encounter HQ Carlos(FIN) [id number] Date(s): 02/14/16 - 02/14/16 [facility] Outpatient Imaging [facility] [address] [place], [place] [address]- [phone] Discharge Disposition: Home Attending Physician: Kyle Miranda MD Vital Signs [...]
--- OUTSIDE RECORDS SUMMARY | 2019-01-30 06:17 | XMS REPORT | Summary of Care ---
Author Author [facility] Organization [facility] Address Unknown Phone Unavailable Encounter ANDREEA Gonzalez(RENAY) [id number] Date(s): 02/21/16 - 02/21/16 [facility] [address] [place] [address]- Discharge Disposition: Home Attending Physician: Kyle Miranda MD Vital Signs Most recent to 1 oldest [Reference Range]: Height 154.94 cm (02/21/16 7:42 AM) Weight 66.818 kg (02/21/16 7:42 AM) Body Mass Index 27.83 m2 (02/21/16 7:42 AM) Problem List Condition Effective Dates Status [...]
--- OUTSIDE RECORDS SUMMARY | 2019-01-30 06:18 | XMS REPORT ---
Author Author Telly Farah Organization [employer] Address Unknown Phone Unavailable Care Team Providers Care Barrel Lapper Name Role Phone Telly Farah Unavailable Encounters Encounter Location Date Unknown Noel Mckenna MD March 15, 2014 Unknown Noel Mckenna MD March 17, 2014 shortness of breath, weak Noel Mckenna MD March 12, 2014 3m x dm Noel Mckenna MD April 09, 2014 3 mon x dm Noel Mckenna MD Sep 04, 2013 Unknown Noel Mckenna MD January 23, 2014 Refferal Noel Mckenna MD March 01, 2014 Cold congestion Noel Mckenna MD Aug 24, 2014 cgms disc Noel Mckenna MD Nov 29, 2014 Unknown Noel Mckenna MD Jul 09, 2014 CXR results Noel Mckenna MD Aug 26, 2014 New referral Noel Mckenna MD February 16, 2015 3 Months (Reason: D.M. and multiple problems) Noel Mckenna MD Jun 24, 2015 referral for Noel Gonzáles MD January 26, 2015 4 Weeks (Reason: Diabetes ) Noel Mckenna MD Jan 07, 2015 left wrist pain Noel Mckenna MD Dec 31, 2014 cgms results Noel Mckenna MD Dec 17, 2014 Cold Noel Mckenna MD Aug 31, 2014 follow up Diabetes/insulin pump Noel Mckenna MD Nov 16, 2014 3 Months (Reason: Diabetes ) Noel Mckenna MD Sep 23, 2015 Problems Problem Type Condition ICD-9 Code Onset Dates Condition Status Assessment Diabetes Type 2 Uncontrolled 250.02 Active Problem Diverticulosis of colon (without mention of hemorrhage) 562.10 Active Problem Fatigue 780.79 Active Problem Insomnia 780.52 Active Problem Anxiety state, unspecified 300.00 Active Problem ASTHMA NOS 493.90 Active Problem Hyperlipidemia 272.4 Active Problem INSULIN PUMP STATUS V45.85 Active Problem Diabetes type 2 uncontrolled w/neurological manifestations 250.62 Active Problem UTI [Urinary tract infection] 599.0 Active Problem Pseudopolyposis, colon 556.4 Active Problem Crohn's disease NOS 555.9 Active Problem Gastroenteritis NOS 009.1 Active Problem Nausea with vomiting 787.01 Active Problem Spondylolysis, 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 Active Problem Peripheral Vascular Disease-PVD 443.9 Active Problem Tachycardia 785.0 Active Problem Diabetes Type 2 Uncontrolled 250.02 Active Problem Vitamin D Deficiency 268.9 Active Problem Menopause 627.9 Active Problem Dysuria 788.1 Active Problem BREAST ANOMALIES NEC 757.6 Active Problem Hyperlipidemia 272.4 Active Problem Back pain 724.5 Active Problem Iveth's thyroiditis 245.2 Active Problem Depression with anxiety 300.4 Active Problem Vulvovaginitis due to Mame 112.1 Active Problem Arthralgias 714.9 Active Problem INSULIN PUMP TRAINING V65.46 Active Problem Crohn's disease of colon 555.1 Active Social History Social History Element Qualifiers Date Reported Language: . Swedish, Czech Dec 01, 2015 Marital Status: single. Dec 01, 2015 Tobacco . N/A Dec 01, 2015 Drug use: no. Dec 01, 2015 Caffeine: yes. frequency:, 1 c/day Dec 01, 2015 Pets: . N/A Dec 01, 2015 Exercise: yes. Dec 01, 2015 Sexually active: . N/A Dec 01, 2015 Smoking/Tobacco Use: no. Patient is a: Never Smoker Dec 01, 2015 Alcohol: no. Dec 01, 2015 Travel outside [place]: no. Dec 01, 2015 Occupation: unemployed. Disabled Dec 01, 2015 Summary Purpose [employer]Works Submission
--- OUTSIDE RECORDS SUMMARY | 2019-01-30 06:18 | XMS REPORT ---
Author Author Gustavo Mckenna [facility] [employer] Address Unknown Phone Unavailable Care Team Providers Care Rigger Apprentice Name Role Phone Gustavo Mckenna CP Unavailable [...] Instructions Start Date End Date Status Dosage clonazepam [facility] 92841160410 0.5 mg orally qhs Active 2 tabs cyanocobalamin [facility] 50960287516 1000 mcg/mL intramuscularly 1X/W Jul 08, 2017 Active 1000 mcg BD Ultra-Fine Pen Needle Haley 32g 4mm NDC 0 - subcutaneously daily Nov 13, 2016 Active as directed B-12 ND 61190379943 1000 mcg sublingually once a day Jan 13, 2018 Active 1 tab(s) Pravachol [facility] 96707370387 40 mg orally once a day (at bedtime) Active 1 tab(s) ONE TOUCH ULTRA TEST STRIPS [facility] 0 - - 6 x per day Active CHECK BLOOD SUGARS TWICE/DAY Syringes - store brand NDC 0 3cc 25Gx1.5 1X/W Jul 08, 2017 Active not defined Qvar [facility] 23438252392 40 mcg/inh inhaled 2 times a day Active 1 puff(s) Vitamin B6 NDC 0 Active not defined Freestyle William Sensor [facility] 26085670549 -- Active Apply one sensor every 10 days or as directed pantoprazole [facility] 18512105786 40 mg orally once a day Active 1 tab(s) atenolol 25 mg oral tablet NDC 0 orally daily Active 1 tab(s) NovoLog [facility] 51598825715 100 units/mL subcutaneously insulin pump Active 75 units via insulin pump metoclopramide [facility] 73374065926 10 mg orally 2 TIMES A DAY Active 1 tab(s) ergocalciferol [facility] 12023828496 50,000 intl units orally 2 times a week Active 1 cap(s) Levothyroxine Sodium [facility] 73733127785 75 mcg (0.075 mg) orally once a day Active 1 tab(s) Freestyle William [place] [facility] 44446088669 -- Active Use as directed trazodone [facility] 24383215457 100 mg orally qhs Active 1 tab(s) Acetaminophen-TraMADol Hydrochloride [facility] 51635467019 325 mg-37.5 mg orally every 12 hours Active 2 tab(s) ProAir HFA [facility] 55166606010 CFC free 90 mcg/inh inhaled 4 times a day Active 2 puff(s) Vital Signs Date/Time: February 17, 2018 BMI 23.43 Index Weight 124 lbs Height 61 in Blood Pressure Diastolic 80 mm Hg Blood Pressure Systolic 120 mm Hg Results No Known Results Summary Purpose [employer]ClinicalWorks Submission
--- OUTSIDE RECORDS SUMMARY | 2019-01-30 06:18 | XMS REPORT ---
Author Author Gustavo Mckenna Organization [employer] Address Unknown Phone Unavailable Care Team Providers Care Community Service Worker Name Role Phone Gustavo Mckenna CP Unavailable Allergies, Adverse Reactions, Alerts Substance Reaction Event Type metformin Info Not Available Drug Allergy codeine Info Not Available Drug Allergy Darvocet N 100 Info Not Available Drug Allergy Darvocet N 50 Info Not Available Drug Allergy Penicillin Info Not Available Drug Allergy Problems Problem Type Condition Code Onset Dates Condition Status Assessment Insulin pump status Z96.41 Active Assessment Essential (primary) hypertension I10 Active Assessment Type 2 diabetes mellitus with hyperglycemia E11.65 Active Assessment Type 2 diabetes mellitus with diabetic polyneuropathy E11.42 Active Problem Asthma J45.909 Active Problem Insulin pump status Z96.41 Active Problem GERD (gastroesophageal reflux disease) K21.9 Active Problem PVD (peripheral vascular disease) I73.9 Active Problem Anemia D64.9 Active Problem Migraine G43.909 Active Problem Cervical disc disorder with radiculopathy, cervicothoracic region M50.13 Active Problem Vitamin D deficiency E55.9 Active Problem Nonscarring hair loss, unspecified L65.9 Active Problem Otalgia, left ear H92.02 Active Problem Left knee pain M25.562 Active Problem Tinea pedis B35.3 Active Problem Onychomycosis B35.1 Active Problem Hyperlipidemia, mixed E78.2 Active Problem History of Iveth thyroiditis Z86.39 Active Assessment Back pain M54.9 Active Problem Back pain M54.9 Active Problem Hypothyroid E03.9 Active Assessment Onychomycosis B35.1 Active Problem Candidiasis, unspecified B37.9 Active Assessment Tinea pedis B35.3 Active Problem 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 Problem Crohn's disease of large intestine without complications K50.10 Active Problem Type 2 diabetes mellitus with diabetic polyneuropathy E11.42 Active Assessment PVD (peripheral vascular disease) I73.9 Active Problem Other chronic pain G89.29 Active Assessment Hyperlipidemia, mixed E78.2 Active Problem Type 2 diabetes mellitus with hyperglycemia E11.65 Active Assessment Asthma J45.909 Active Problem Hx of diverticulitis of colon Z87.19 Active Assessment Hypothyroid E03.9 Active Problem Radiculopathy, cervical region M54.12 Active Assessment Crohn's disease of large intestine without complications K50.10 Active Problem Diarrhea R19.7 Active Assessment GERD (gastroesophageal reflux disease) K21.9 Active Problem Carpal tunnel syndrome G56.00 Active Problem Essential (primary) hypertension I10 Active Problem Radiculopathy, lumbar region M54.16 Active Medications Medication Code System Code Instructions Start Date End Date Status Dosage Pravachol [facility] 62705115043 40 mg orally once a day (at bedtime) Active 1 tab(s) atenolol 25 mg oral tablet NDC 0 orally daily Active 1 tab(s) Qvar [facility] 52989771087 40 mcg/inh inhaled 2 times a day Active 1 puff(s) Freestyle William Sensor [facility] 93140203846 -- Active Apply one sensor every 10 days or as directed Syringes - store brand NDC 0 3cc 25Gx1.5 1X/W Jul 08, 2017 Active not defined Terbinafine Hydrochloride, Topical [facility] 17443747452 1% applied topically One times a day Active 1 mike Freestyle William [place] [facility] 27633816476 -- Active Use as directed pantoprazole [facility] 38006697271 40 mg orally once a day Active 1 tab(s) B-12 [facility] 53746578706 1000 mcg sublingually once a day Jan 13, 2018 Active 1 tab(s) BD Ultra-Fine Pen Needle Haley 32g 4mm ND 0 - subcutaneously daily Nov 13, 2016 Active as directed metoclopramide [facility] 49374533427 10 mg orally 2 TIMES A DAY Active 1 tab(s) trazodone ND 17026510048 100 mg orally qhs Active 1 tab(s) NovoLog ND 15800052480 100 units/mL subcutaneously insulin pump Active 75 units via insulin pump ONE TOUCH ULTRA TEST STRIPS NDC 0 - check blood sugars 4 TIMES A DAY February 21, 2019 Active - ergocalciferol [facility] 83111940460 50,000 intl units orally 2 times a week Active 1 cap(s) Vitamin B6 ND 0 Active not defined Levothyroxine Sodium [facility] 26704550768 75 mcg (0.075 mg) orally once a day Active 1 tab(s) ProAir HFA [facility] 15691535163 CFC free 90 mcg/inh inhaled 4 times a day Active 2 puff(s) clonazepam [facility] 46619420119 0.5 mg orally qhs Active 2 tabs Vital Signs Date/Time: Aug 25, 2018 BMI 24.18 Index Weight 128 lbs Height 61 in Blood Pressure Diastolic 70 mm Hg Blood Pressure Systolic 110 mm Hg Results No Known Results Summary Purpose [employer]Works Submission
--- OUTSIDE RECORDS SUMMARY | 2019-01-30 06:18 | XMS REPORT ---
Author Author Telly Farah Organization [employer] Address Unknown Phone Unavailable Care Team Providers Care Resident Medical Officer Name Role Phone Gagan Telly CP Unavailable Allergies, Adverse Reactions, Alerts Substance Reaction Event Type metformin Info Not Available Drug Allergy codeine Info Not Available Drug Allergy Darvocet N 100 Info Not Available Drug Allergy Darvocet N 50 Info Not Available Drug Allergy Penicillin Info Not Available Drug Allergy Encounters Encounter Location Date Unknown Noel Mckenna [...] congestion Noel Mckenna MD Aug 24, 2014 x dm after cgms results Noel Mckenna MD Dec 01, 2015 cgms disc Noel Mckenna MD Nov 29, 2014 Unknown Noel Mckenna MD Jul 09, 2014 CXR results Noel Mckenna MD Aug 26, 2014 New referral Noel Mckenna MD February 16, 2015 3 Months (Reason: D.M. and multiple problems) Noel Mckenna MD Jun 24, 2015 referral for Noel Gonzáles MD January 26, 2015 4 Weeks (Reason: Diabetes ) Noel Mckenna MD Jan 07, 2015 cgms results Noel Mckenna MD Oct 28, 2015 left wrist pain Noel Mckenna MD Dec 31, 2014 cgms disc Noel Mckenna MD Oct 10, 2015 cgms results Noel Mckenna MD Dec 17, 2014 AWV Noel Mckenna MD 2015 Cold Nole Mckenna MD Aug 31, 2014 follow up Diabetes/insulin pump Noel Mckenna MD Nov 16, 2014 3 Months (Reason: Diabetes ) Noel Mckenna MD Sep 23, 2015 Problems Problem Type Condition ICD-9 Code Onset Dates Condition Status Problem Arthralgias 714.9 Active Problem Vulvovaginitis due to Mame 112.1 Active Problem INSULIN PUMP STATUS V45.85 Active Problem ASTHMA NOS 493.90 Active Problem UTI [Urinary tract infection] 599.0 Active Problem Crohn's disease NOS 555.9 Active Problem Pseudopolyposis, colon 556.4 Active Problem Menopause 627.9 Active Problem Vitamin D Deficiency 268.9 Active Problem BREAST ANOMALIES NEC 757.6 Active Problem Dysuria 788.1 Active Problem Tachycardia 785.0 Active Problem Gastroenteritis NOS 009.1 Active Problem Nausea with vomiting 787.01 Active Problem Insulin pump titration V53.91 Active Problem Radiculopathy, cervical region M54.12 Active Problem Hypothyroidism (acquired) 244.9 Active Problem Migraine 346.10 Active Problem GERD (gastroesophageal reflux disease) K21.9 Active Problem Asthma J45.909 Active Problem Other chronic pain G89.29 Active Problem Radiculopathy, lumbar region M54.16 Active Assessment Other screening mammogram Z12.31 Active Assessment Examination of eyes and vision Z01.00 Active Assessment Encounter for screening mammogram for malignant neoplasm of breast Z12.31 Active Problem Diverticulosis of colon (without mention of hemorrhage) 562.10 Active Problem Fatigue 780.79 Active Problem Insomnia 780.52 Active Problem Anxiety state, unspecified 300.00 Active Problem Essential (primary) hypertension I10 Active Assessment Encounter for general adult medical examination without abnormal findings Z00.00 Active Problem Vitamin D deficiency E55.9 Active Problem Migraine G43.909 Active Problem Insomnia G47.00 Active Problem Insulin pump status Z96.41 Active Problem Type 2 diabetes mellitus with diabetic neuropathy E11.40 Active Problem Hyperlipidemia, mixed E78.2 Active Problem Type 2 diabetes mellitus with hyperglycemia E11.65 Active Problem Spondylolysis, 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 Active Problem Hypothyroid E03.9 Active Problem Peripheral Vascular Disease-PVD 443.9 Active Problem Hx of diverticulitis of colon Z87.19 Active Problem Diabetes Type 2 Uncontrolled 250.02 Active Problem PVD (peripheral vascular disease) I73.9 Active Problem Diabetes type 2 uncontrolled w/neurological manifestations 250.62 Active Problem History of Iveth thyroiditis Z86.39 Active Problem Hyperlipidemia 272.4 Active Problem INSULIN PUMP TRAINING V65.46 Active Problem Crohn's disease of colon 555.1 Active Problem Hyperlipidemia 272.4 Active Problem Back pain 724.5 Active Problem Iveth's thyroiditis 245.2 Active Problem Depression with anxiety 300.4 Active Medications Medication Code System Code Instructions Start Date End Date Status Dosage ONE TOUCH ULTRA TEST STRIPS Unknown 0 - - 6 x per day Active CHECK BLOOD SUGARS TWICE/DAY Levothyroxine Sodium [facility] 1842 75 mcg (0.075 mg) orally once a day Active 1 tab(s) ergocalciferol [facility] 58762 50,000 intl units orally 2 times a week Active 1 cap(s) Cymbalta [facility] 35725 30 mg orally 2 times a day Active 1 cap(s) zolpidem [facility] 87018 10 mg orally once a day (at bedtime) Active 1 tab(s) Acetaminophen-TraMADol Hydrochloride [facility] 63977 325 mg-37.5 mg orally bid March 18, 2015 Active 1 tab(s) Pravachol [facility] 1884 40 mg orally once a day (at bedtime) Active 1 tab(s) pantoprazole [facility] 09580 40 mg orally once a day Active 1 tab(s) Lyrica [facility] 05020 150 mg orally 2 times a day Active 1 cap(s) Zostavax [facility] 91761 - subcutaneously once 2015 Active 1 mL atenolol 25 mg oral tablet [facility] 29089 orally daily Active 1 tab(s) tramadol [facility] 98301 50 mg orally once a day Active 1 tab(s) NovoLog [facility] 58519 100 units/mL subcutaneously insulin pump Active 75 units via insulin pump Pioglitazone Hydrochloride [facility] 937496 15 mg orally once a day Sep 23, 2015 Active 1 tab(s) Proventil HFA [facility] 6128 CFC free 90 mcg/inh inhaled 4 times a day Active 2 puff(s) Vitamin B6 [facility] 4994 Active Unknown Social History Social History Element Qualifiers Date Reported Language: . Tajik, Georgian Dec 01, 2015 Marital Status: single. Dec [...] 2015 Occupation: unemployed. Disabled Dec 01, 2015 Vital Signs Date/Time: 2015 Weight 150 lbs Height 61 in Blood Pressure Diastolic 80 mm Hg Blood Pressure Systolic 130 mm Hg Summary Purpose [employer]ClinicalWorks Submission
--- OUTSIDE RECORDS SUMMARY | 2019-01-30 06:18 | XMS REPORT ---
Author Author Telly Farah Organization [employer] Address Unknown Phone Unavailable Care Team Providers Care Rubber Heel And Sole Press Tender Name Role Phone Farah, Telly CP Unavailable Allergies, Adverse Reactions, Alerts [...] congestion Noel Mckenna MD Aug 24, 2014 Unknown Noel Mckenna MD Jul 09, [...] NEC 757.6 Active Problem Dysuria 788.1 Active Assessment Radiculopathy, lumbar region M54.16 Active Assessment GERD (gastroesophageal reflux disease) K21.9 Active Assessment Radiculopathy, cervical region M54.12 Active Assessment Other chronic pain G89.29 Active Assessment Migraine G43.909 Active Assessment Asthma J45.909 Active Assessment Vitamin D deficiency E55.9 Active Problem Tachycardia 785.0 Active Problem Gastroenteritis NOS 009.1 Active Problem Nausea with vomiting 787.01 Active Problem Insulin pump titration V53.91 Active Problem Radiculopathy, cervical region M54.12 Active Problem Hypothyroidism (acquired) 244.9 Active Problem Migraine 346.10 Active Problem GERD (gastroesophageal reflux disease) K21.9 Active Problem Asthma J45.909 Active Problem Other chronic pain G89.29 Active Problem Radiculopathy, lumbar region M54.16 Active Assessment Hypothyroid E03.9 Active Assessment Hx of diverticulitis of colon Z87.19 Active Assessment Insomnia G47.00 Active Assessment Insulin pump status Z96.41 Active Assessment Type 2 diabetes mellitus with diabetic neuropathy E11.40 Active Assessment Hyperlipidemia, mixed E78.2 Active Assessment Essential (primary) hypertension I10 Active Assessment History of Iveth thyroiditis Z86.39 Active Assessment Encounter for immunization Z23 Active Assessment PVD (peripheral vascular disease) I73.9 Active Problem Diverticulosis of colon (without mention of hemorrhage) 562.10 Active Problem Fatigue 780.79 Active Problem Insomnia 780.52 Active Problem Anxiety state, unspecified 300.00 Active Problem Essential (primary) hypertension I10 Active Assessment Type 2 diabetes mellitus with hyperglycemia E11.65 Active Problem Vitamin D deficiency E55.9 Active [...] Start Date End Date Status Dosage Pravachol [facility] 1884 40 mg orally once a day (at bedtime) Jul 29, 2015 Active 1 tab(s) zolpidem [facility] 43036 10 mg orally once a day (at bedtime) Active 1 tab(s) ONE TOUCH ULTRA TEST STRIPS Unknown 0 - - 6 x per day Active CHECK BLOOD SUGARS TWICE/DAY pantoprazole [facility] 44600 40 mg orally once a day Active 1 tab(s) Volume spacer for inhaler [facility] 9167 Active as directed Cymbalta [facility] 10624 30 mg orally 2 times a day Active 1 cap(s) Proventil HFA [facility] 6128 CFC free 90 mcg/inh inhaled 4 times a day Active 2 puff(s) tramadol [facility] 70873 50 mg orally once a day Active 1 tab(s) Pioglitazone Hydrochloride [facility] 240929 15 mg orally once a day Sep 23, 2015 Active 1 tab(s) NovoLog [facility] 38942 100 units/mL subcutaneously insulin pump Jul 15, 2015 Active 75 units via insulin pump Levothyroxine Sodium [facility] 1842 75 mcg (0.075 mg) orally once a day Active 1 tab(s) Acetaminophen-TraMADol Hydrochloride [facility] 70644 325 mg-37.5 mg orally bid March 18, 2015 Active 1 tab(s) Lyrica [facility] 32222 150 mg orally 2 times a day Active 1 cap(s) ergocalciferol [facility] 02084 50,000 intl units orally 2 times a week Active 1 cap(s) atenolol 25 mg oral tablet [facility] 94421 orally daily Active 1 tab(s) Social History Social History Element Qualifiers Date Reported Language: . Djiboutian, Scottish Dec 01, 2015 Marital Status: single. Dec [...] Disabled Dec 01, 2015 Vital Signs Date/Time: Sep 23, 2015 Weight 147 lbs Height 61 in Blood Pressure Diastolic 80 mm Hg Blood Pressure Systolic 110 mm Hg Immunizations Vaccine Administration Date Influenza (MCR) Sep 23, 2015 Summary Purpose [employer]ClinicalWorks Submission
--- OUTSIDE RECORDS SUMMARY | 2019-01-30 06:18 | XMS REPORT ---
Author Author Gustavo Mckenna Organization [employer] Address Unknown Phone Unavailable Care Team Providers Care Hoof Trimmer Name Role Phone Gustavo Mckenna CP Unavailable [...] Instructions Start Date End Date Status Dosage BD Ultra-Fine Pen Needle Haley 32g 4mm NDC 0 - subcutaneously daily Nov 13, 2016 Active as directed trazodone NDC 87696771665 100 mg orally qhs Active 1 tab(s) NovoLog NDC 06768673929 100 units/mL subcutaneously insulin pump Active 75 units via insulin pump ergocalciferol NDC 15219075489 50,000 intl units orally 2 times a week Active 1 cap(s) metoclopramide [facility] 92943482265 10 mg orally 2 TIMES A DAY Active 1 tab(s) clonazepam [facility] 08738315385 0.5 mg orally qhs Active 2 tabs Acetaminophen-TraMADol Hydrochloride [facility] 73185193432 325 mg-37.5 mg orally every 12 hours Active 2 tab(s) ONE TOUCH ULTRA TEST STRIPS ND 0 - - 6 x per day Active CHECK BLOOD SUGARS TWICE/DAY pantoprazole [facility] 93242006879 40 mg orally once a day Active 1 tab(s) Syringes - store brand NDC 0 3cc 25Gx1.5 1X/W Jul 08, 2017 Active not defined atenolol 25 mg oral tablet ND 0 orally daily Active 1 tab(s) Levothyroxine Sodium [facility] 31385647323 75 mcg (0.075 mg) orally once a day Active 1 tab(s) cyanocobalamin [facility] 37221821206 1000 mcg/mL intramuscularly 1X/W Jul 08, 2017 Active 1000 mcg Vitamin B6 NDC 0 Active not defined Pravachol [facility] 01891048829 40 mg orally once a day (at bedtime) Active 1 tab(s) ProAir HFA [facility] 65027085203 CFC free 90 mcg/inh inhaled 4 times a day Active 2 puff(s) Qvar [facility] 24903500297 40 mcg/inh inhaled 2 times a day Active 1 puff(s) Results No Known Results Summary Purpose [employer]Works Submission
--- OUTSIDE RECORDS SUMMARY | 2019-01-30 06:18 | XMS REPORT ---
Author Author Linn Fam Organization [employer] Address Unknown Phone Unavailable Care Team Providers Care Member Of Technical Staff Name Role Phone Linn Fam CP Unavailable Allergies, Adverse Reactions, Alerts Substance [...] Instructions Start Date End Date Status Dosage ergocalciferol [facility] 16963810778 50,000 intl units orally 2 times a week Active 1 cap(s) cyanocobalamin ND 82698085550 1000 mcg/mL intramuscularly 1X/W Jul 08, 2017 Active 1000 mcg atenolol 25 mg oral tablet NDC 0 orally daily Active 1 tab(s) NovoLog ND 00757343034 100 units/mL subcutaneously insulin pump Active 75 units via insulin pump ONE TOUCH ULTRA TEST STRIPS NDC 0 - - 6 x per day Active CHECK BLOOD SUGARS TWICE/DAY Qvar ND 80180764378 40 mcg/inh inhaled 2 times a day Active 1 puff(s) Levothyroxine Sodium [facility] 17055752491 75 mcg (0.075 mg) orally once a day Active 1 tab(s) BD Ultra-Fine Pen Needle Haley 32g 4mm NDC 0 - subcutaneously daily Nov 13, 2016 Active as directed Vitamin B6 NDC 0 Active not defined metoclopramide [facility] 17401930982 10 mg orally 2 TIMES A DAY Active 1 tab(s) ProAir HFA [facility] 47069749623 CFC free 90 mcg/inh inhaled 4 times a day Active 2 puff(s) trazodone [facility] 65103035762 100 mg orally qhs Active 1 tab(s) Pravachol [facility] 86459561111 40 mg orally once a day (at bedtime) Active 1 tab(s) clonazepam [facility] 55426256124 0.5 mg orally qhs Active 2 tabs pantoprazole [facility] 00705361314 40 mg orally once a day Active 1 tab(s) Syringes - store brand NDC 0 3cc 25Gx1.5 1X/W Jul 08, 2017 Active not defined Acetaminophen-TraMADol Hydrochloride [facility] 06497824529 325 mg-37.5 mg orally every 12 hours Active 2 tab(s) Vital Signs Date/Time: Nov 12, 2017 BMI 24.56 Index Weight 130 lbs Height 61 in Blood Pressure Diastolic 80 mm Hg Blood Pressure Systolic 120 mm Hg Results No Known Results Summary Purpose [employer] Submission
--- OUTSIDE RECORDS SUMMARY | 2019-01-30 06:18 | XMS REPORT ---
Author Author Gustavo Mckenna [facility] [employer] Address Unknown Phone Unavailable Care Team Providers Care Supervisor Carding Name Role Phone Gustavo Mckenna CP Unavailable Allergies, Adverse Reactions, Alerts Substance Reaction Event Type metformin Info Not Available Drug Allergy codeine Info Not Available Drug Allergy Darvocet N 100 Info Not Available Drug Allergy Darvocet N 50 Info Not Available Drug Allergy Penicillin Info Not Available Drug Allergy Problems Problem Type Condition Code Onset Dates Condition Status Assessment Essential (primary) hypertension I10 Active Assessment Hyperlipidemia, mixed E78.2 Active Assessment Type 2 diabetes mellitus with diabetic polyneuropathy E11.42 Active Assessment Insulin pump status Z96.41 Active Assessment Type 2 diabetes mellitus with hyperglycemia E11.65 Active Problem Asthma J45.909 Active Problem Insulin [...] History of Iveth thyroiditis Z86.39 Active Assessment Onychomycosis B35.1 Active Problem Back pain M54.9 Active Problem Hypothyroid E03.9 Active Assessment Tinea pedis B35.3 Active Problem Candidiasis, unspecified B37.9 Active Problem 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 Problem Crohn's disease of large intestine without complications K50.10 Active Problem Type 2 diabetes mellitus with diabetic polyneuropathy E11.42 Active Assessment Hypothyroid E03.9 Active Problem Other chronic pain G89.29 Active Assessment PVD (peripheral vascular disease) I73.9 Active Problem Type 2 diabetes mellitus with hyperglycemia E11.65 Active Assessment GERD (gastroesophageal reflux disease) K21.9 Active Problem Hx of diverticulitis of colon Z87.19 Active Assessment Asthma J45.909 Active Problem Radiculopathy, cervical region M54.12 Active Assessment Back pain M54.9 Active Problem Diarrhea R19.7 Active Assessment Crohn's disease of large intestine without complications K50.10 Active Problem Carpal tunnel syndrome G56.00 Active Problem Essential (primary) hypertension I10 Active Problem Radiculopathy, lumbar region M54.16 Active Medications Medication Code System Code Instructions Start Date End Date Status Dosage Freestyle William Pyote [facility] 41249128327 -- Active Use as directed Qvar [facility] 72812147034 40 mcg/inh inhaled 2 times a day Active 1 puff(s) ProAir HFA [facility] 82784267443 CFC free 90 mcg/inh inhaled 4 times a day Active 2 puff(s) Pravachol [facility] 87128323551 40 mg orally once a day (at bedtime) Active 1 tab(s) ONE TOUCH ULTRA TEST STRIPS [facility] 0 - - 6 x per day Active CHECK BLOOD SUGARS TWICE/DAY trazodone [facility] 16237629586 100 mg orally qhs Active 1 tab(s) clonazepam [facility] 35073904562 0.5 mg orally qhs Active 2 tabs Freestyle William Sensor [facility] 80119335543 -- Active Apply one sensor every 10 days or as directed Levothyroxine Sodium [facility] 41676905146 75 mcg (0.075 mg) orally once a day Active 1 tab(s) B-12 [facility] 70736082226 1000 mcg sublingually once a day Jan 13, 2018 Active 1 tab(s) NovoLog [facility] 89178903494 100 units/mL subcutaneously insulin pump Active 75 units via insulin pump Terbinafine Hydrochloride [facility] 36529496903 250 mg orally once a day May 19, 2018 Aug 17, 2018 Active 1 tab(s) Terbinafine Hydrochloride, Topical ND 16895226750 1% applied topically One times a day May 19, 2018 Sep 16, 2018 Active 1 mike Acetaminophen-TraMADol Hydrochloride [facility] 93537902442 325 mg-37.5 mg orally every 12 hours, p.r.n. Jul 18, 2018 Active 1 tab(s) ergocalciferol [facility] 63302171650 50,000 intl units orally 2 times a week Active 1 cap(s) BD Ultra-Fine Pen Needle Haley 32g 4mm NDC 0 - subcutaneously daily Nov 13, 2016 Active as directed atenolol 25 mg oral tablet NDC 0 orally daily Active 1 tab(s) Syringes - store brand NDC 0 3cc 25Gx1.5 1X/W Jul 08, 2017 Active not defined Vitamin B6 NDC 0 Active not defined pantoprazole [facility] 90519948596 40 mg orally once a day Active 1 tab(s) cyanocobalamin [facility] 88024808245 1000 mcg/mL intramuscularly 1X/W Jul 08, 2017 Active 1000 mcg metoclopramide [facility] 95859286115 10 mg orally 2 TIMES A DAY Active 1 tab(s) Vital Signs Date/Time: May 19, 2018 BMI 23.62 Index Weight 125 lbs Height 61 in Blood Pressure Diastolic 70 mm Hg Blood Pressure Systolic 110 mm Hg Results No Known Results Summary Purpose [employer]Works Submission
--- OUTSIDE RECORDS SUMMARY | 2019-01-30 06:18 | XMS REPORT ---
Author Author Linn Fam Organization [employer] Address Unknown Phone Unavailable Care Team Providers Care Police Dispatcher Name Role Phone Linn Fam CP Unavailable Allergies, Adverse Reactions, Alerts Substance Reaction Event Type metformin Info Not Available Drug Allergy codeine Info Not Available Drug Allergy Darvocet N 100 Info Not Available Drug Allergy Darvocet N 50 Info Not Available Drug Allergy Penicillin Info Not Available Drug Allergy Problems Problem Type Condition Code Onset Dates Condition Status Assessment Pelvic pain in female R10.2 Active Assessment Dysuria R30.0 Active Problem PVD (peripheral vascular disease) I73.9 [...] Problem Left knee pain M25.562 Active Problem Hyperlipidemia, mixed E78.2 Active Problem Hx of diverticulitis of colon Z87.19 Active Problem GERD (gastroesophageal reflux disease) K21.9 Active Problem History of Iveth thyroiditis Z86.39 Active Problem Type 2 diabetes mellitus with hyperglycemia E11.65 Active Problem Essential (primary) hypertension I10 Active Problem Radiculopathy, cervical region M54.12 Active Problem Other chronic pain G89.29 Active Medications Medication Code System Code Instructions Start Date End Date Status Dosage Vitamin B6 NDC 0 Active not defined pantoprazole NDC 58627128824 40 mg orally once a day Active 1 tab(s) atenolol 25 mg oral tablet NDC 0 orally daily Active 1 tab(s) NovoLog ND 71000003546 100 units/mL subcutaneously insulin pump Active 75 units via insulin pump Levothyroxine Sodium ND 62622434870 75 mcg (0.075 mg) orally once a day Active 1 tab(s) Syringes - store brand NDC 0 3cc 25Gx1.5 1X/W Jul 08, 2017 Active not defined clonazepam [facility] 06309849305 0.5 mg orally qhs Active 2 tabs ProAir HFA [facility] 72745953154 CFC free 90 mcg/inh inhaled 4 times a day Active 2 puff(s) Pravachol [facility] 69219042420 40 mg orally once a day (at bedtime) Active 1 tab(s) Acetaminophen-TraMADol Hydrochloride [facility] 09258618276 325 mg-37.5 mg orally every 12 hours Active 2 tab(s) cyanocobalamin [facility] 18921075282 1000 mcg/mL intramuscularly 1X/W Jul 08, 2017 Active 1000 mcg Qvar [facility] 98798052516 40 mcg/inh inhaled 2 times a day Active 1 puff(s) ONE TOUCH ULTRA TEST STRIPS [facility] 0 - - 6 x per day Active CHECK BLOOD SUGARS TWICE/DAY trazodone [facility] 25676405675 100 mg orally qhs Active 1 tab(s) ergocalciferol [facility] 01883218027 50,000 intl units orally 2 times a week Active 1 cap(s) metoclopramide [facility] 87095966866 10 mg orally 2 TIMES A DAY Active 1 tab(s) BD Ultra-Fine Pen Needle Haley 32g 4mm ND 0 - subcutaneously daily Nov 13, 2016 Active as directed Vital Signs Date/Time: Dec 11, 2017 BMI 23.80 Index Weight 126 lbs Height 61 in Blood Pressure Diastolic 92 mm Hg Blood Pressure Systolic 136 mm Hg Results No Known Results Summary Purpose [employer]Works Submission
--- OUTSIDE RECORDS SUMMARY | 2019-01-30 06:18 | XMS REPORT ---
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 Problem Crohn's disease of large intestine without complications K50.10 Active Problem Type 2 diabetes mellitus with diabetic polyneuropathy E11.42 Active Problem Other chronic pain G89.29 Active Problem Type 2 diabetes mellitus with hyperglycemia E11.65 Active Problem Hx of diverticulitis of colon Z87.19 Active Problem Radiculopathy, cervical region M54.12 Active Problem Diarrhea R19.7 Active Problem Carpal tunnel syndrome G56.00 Active Problem Essential (primary) hypertension I10 Active Problem Radiculopathy, lumbar region M54.16 Active Medications No Known Medications Results No Known Results Summary Purpose [employer] Submission
--- OUTSIDE RECORDS SUMMARY | 2019-01-30 06:18 | XMS REPORT ---
Author Author Gustavo Mckenna Organization [employer] Address Unknown Phone Unavailable Care Team Providers Care Nipping Machine Operator Name Role Phone Gustavo Mckenna [...] PVD (peripheral vascular disease) I73.9 Active Problem Migraine G43.909 Active Problem Anemia D64.9 Active Problem Cervical disc disorder with radiculopathy, [...] Start Date End Date Status Dosage Pravachol [facility] 50914187871 40 mg orally once a day (at bedtime) Active 1 tab(s) ergocalciferol [facility] 09195327220 50,000 intl units orally 2 times a week Active 1 cap(s) trazodone [facility] 44359161919 100 mg orally qhs Active 1 tab(s) Qvar [facility] 93374574661 40 mcg/inh inhaled 2 times a day Active 1 puff(s) Vitamin B6 ND 0 Active not defined Freestyle William [place] [facility] 98396039885 -- Active Use as directed pantoprazole [facility] 09886469476 40 mg orally once a day Active 1 tab(s) clonazepam [facility] 79469546344 0.5 mg orally qhs Active 2 tabs NovoLog [facility] 44890070797 100 units/mL subcutaneously insulin pump Active 75 units via insulin pump ONE TOUCH ULTRA TEST STRIPS ND 0 - check blood sugars 4 TIMES A DAY Active - BD Ultra-Fine Pen Needle Haley 32g 4mm ND 0 - subcutaneously daily Nov 13, 2016 Active as directed ProAir HFA [facility] 54935179630 CFC free 90 mcg/inh inhaled 4 times a day Active 2 puff(s) Freestyle William Sensor [facility] 09110670822 -- Active Apply one sensor every 10 days or as directed Syringes - store brand NDC 0 3cc 25Gx1.5 1X/W Jul 08, 2017 Active not defined Levothyroxine Sodium [facility] 28184144422 75 mcg (0.075 mg) orally once a day Active 1 tab(s) Terbinafine Hydrochloride, Topical ND 94062087116 1% applied topically One times a day Active 1 mike metoclopramide [facility] 26388980504 10 mg orally 2 TIMES A DAY Active 1 tab(s) B-12 [facility] 83397574702 1000 mcg sublingually once a day Jan 13, 2018 Active 1 tab(s) atenolol 25 mg oral tablet NDC 0 orally daily Active 1 tab(s) Vital Signs Date/Time: Nov 24, 2018 BMI 24.56 Index Weight 130 lbs Height 61 in Blood Pressure Diastolic 80 mm Hg Blood Pressure Systolic 125 mm Hg Results No Known Results Summary Purpose [employer]ClinicalWorks Submission
--- OUTSIDE RECORDS SUMMARY | 2019-01-30 06:19 | XMS REPORT ---
Author Author Gustavo Mckenna [facility] [employer] Address Unknown Phone Unavailable Care Team Providers Care Telephone Order Dispatcher Name Role Phone Gustavo Mckenna Unavailable Allergies, Adverse Reactions, Alerts Substance Reaction [...] ICD-9 Code Onset Dates Condition Status Problem INSULIN PUMP STATUS V45.85 Active Problem ASTHMA NOS 493.90 Active Problem Crohn's disease NOS 555.9 Active Problem UTI [Urinary tract infection] 599.0 Active Problem Pseudopolyposis, colon 556.4 Active Problem Menopause 627.9 Active Problem Vitamin D Deficiency 268.9 Active Problem BREAST ANOMALIES NEC 757.6 Active Problem Dysuria 788.1 Active Problem Nausea with vomiting 787.01 Active Problem Gastroenteritis NOS 009.1 Active Problem Migraine 346.10 Active Problem Hypothyroidism (acquired) 244.9 Active Problem Tachycardia 785.0 Active Problem Other chronic pain G89.29 Active Problem Radiculopathy, lumbar region M54.16 Active Problem Insulin pump titration V53.91 Active Problem Radiculopathy, cervical region M54.12 Active Problem Essential (primary) hypertension I10 Active Problem Vitamin D deficiency E55.9 Active Problem GERD (gastroesophageal reflux disease) K21.9 Active Problem Asthma J45.909 Active Assessment Hypothyroid E03.9 Active Assessment Diarrhea R19.7 Active Problem Diverticulosis of colon (without mention of hemorrhage) 562.10 Active Assessment Type 2 diabetes mellitus with hyperglycemia E11.65 Active Assessment Essential (primary) hypertension I10 Active Assessment Hyperlipidemia, mixed E78.2 Active Assessment Type 2 diabetes mellitus with diabetic neuropathy E11.40 Active Assessment Carpal tunnel syndrome G56.00 Active Problem Insomnia 780.52 Active Problem Anxiety state, unspecified 300.00 Active Problem Hyperlipidemia 272.4 Active Problem Diabetes type 2 uncontrolled w/neurological manifestations 250.62 Active Problem Migraine G43.909 Active Problem Fatigue 780.79 Active Problem Insulin pump status Z96.41 Active Problem Insomnia G47.00 Active Problem Hypothyroid E03.9 Active Problem Hx of diverticulitis of colon Z87.19 Active Problem Diarrhea R19.7 Active Problem Type 2 diabetes mellitus with hyperglycemia E11.65 Active Problem Carpal tunnel syndrome G56.00 Active Problem Depression with anxiety 300.4 Active Problem PVD (peripheral vascular disease) I73.9 Active Problem Iveth's thyroiditis 245.2 Active Problem History of Iveth thyroiditis Z86.39 Active Problem Spondylolysis, 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 Active Problem Type 2 diabetes mellitus with diabetic neuropathy E11.40 Active Problem Peripheral Vascular Disease-PVD 443.9 Active Problem Hyperlipidemia, mixed E78.2 Active Problem Diabetes Type 2 Uncontrolled 250.02 Active Problem Vulvovaginitis due to Mame 112.1 Active Problem Arthralgias 714.9 Active Problem INSULIN PUMP TRAINING V65.46 Active Problem Crohn's disease of colon 555.1 Active Problem Hyperlipidemia 272.4 Active Problem Back pain 724.5 Active Medications Medication Code System Code Instructions Start Date End Date Status Dosage atenolol 25 mg oral tablet [facility] 05101 orally daily Active 1 tab(s) Pioglitazone Hydrochloride [facility] 919385 15 mg orally once a day Sep 23, 2015 Active 1 tab(s) pantoprazole [facility] 14655 40 mg orally once a day Active 1 tab(s) Lyrica [facility] 55482 150 mg orally 2 times a day Active 1 cap(s) Zostavax [facility] 70392 - subcutaneously once 2015 Active 1 mL metronidazole [facility] 00792 500 mg orally every 8 hours Active 1 tab(s) NovoLog [facility] 12331 100 units/mL subcutaneously insulin pump Active 75 units via insulin pump ondansetron [facility] 32037 4 mg orally 3 times a day Active 1 tab(s) Acetaminophen-TraMADol Hydrochloride [facility] 78967 325 mg-37.5 mg orally bid March 18, 2015 Active 1 tab(s) zolpidem [facility] 06141 10 mg orally once a day (at bedtime) Active 1 tab(s) tramadol [facility] 64357 50 mg orally once a day Active 1 tab(s) ciprofloxacin [facility] 64729 500 mg orally once a day Active 1 tab(s) Proventil HFA [facility] 6128 CFC free 90 mcg/inh inhaled 4 times a day Active 2 puff(s) Levothyroxine Sodium [facility] 1842 75 mcg (0.075 mg) orally once a day Active 1 tab(s) Pravachol [facility] 1884 40 mg orally once a day (at bedtime) Active 1 tab(s) naproxen [facility] 35563 375 mg orally 2 times a day Active 1 tab(s) Cymbalta [facility] 15725 30 mg orally 2 times a day Active 1 cap(s) ergocalciferol [facility] 44424 50,000 intl units orally 2 times a week Active 1 cap(s) ONE TOUCH ULTRA TEST STRIPS Unknown 0 - - 6 x per day Active CHECK BLOOD SUGARS TWICE/DAY Vitamin B6 [facility] 2888 Active Unknown Social History Social History Element Qualifiers Date Reported Language: . Bhutanese, Monegasque Dec 01, 2015 Marital Status: single. Dec [...] Disabled Dec 01, 2015 Vital Signs Date/Time: Dec 01, 2015 Weight 153 lbs Height 61 in Blood Pressure Diastolic 70 mm Hg Blood Pressure Systolic 110 mm Hg Summary Purpose eClinicalWorks Submission
--- OUTSIDE RECORDS SUMMARY | 2019-01-30 06:19 | XMS REPORT ---
Author Author Telly Farah Organization [employer] Address Unknown Phone Unavailable Care Team Providers Care Heel Top Lift Splitter Name Role Phone Gagan Telly Unavailable Allergies, Adverse Reactions, Alerts Substance Reaction Event Type metformin Info Not Available Drug Allergy codeine Info Not Available Drug Allergy Darvocet N 100 Info Not Available Drug Allergy Darvocet N 50 Info Not Available Drug Allergy Penicillin Info Not Available Drug Allergy Encounters Encounter Location Date Cold congestion Noel Mckenna MD Aug 24, 2014 New referral Noel Mckenna MD February [...] ) Noel Mckenna MD Sep 23, 2015 Unknown Noel Mckenna MD March 15, 2014 Unknown Noel Mckenna MD March 17, 2014 shortness of breath, weak Noel Mckenna MD March 12, 2014 3m x dm Noel Mckenna MD April 09, 2014 3 mon x dm Noel Mckenna MD Sep 04, 2013 Unknown Noel Mckenna MD January 23, 2014 Refferal Noel Mckenna MD March 01, 2014 x dm after cgms results Noel Mckenna MD Dec 01, 2015 cgms disc Noel Mckenna MD Nov 29, 2014 Unknown Noel Mckenna MD Jul 09, 2014 CXR results Noel Mckenna MD Aug 26, 2014 referral Noel Mckenna MD May 17, 2016 check up Noel Mckenna MD April 27, 2016 cgms results Noel Mckenna MD Oct 28, 2015 cgms disc Noel Mckenna MD Oct 10, 2015 AWNoel Li MD 2015 Asthma Noel Mckenna MD Jan 06, 2016 Problems Problem Type Condition ICD-9 Code Onset Dates Condition Status Problem Dysuria 788.1 Active Problem BREAST ANOMALIES NEC 757.6 Active Problem Gastroenteritis NOS 009.1 Active Problem Nausea with vomiting 787.01 Active Problem Tachycardia 785.0 Active Problem Hypothyroidism (acquired) 244.9 Active Problem Migraine 346.10 Active Problem Insulin pump titration V53.91 Active Problem Radiculopathy, cervical region M54.12 Active Problem Other chronic pain G89.29 Active Problem Radiculopathy, lumbar region M54.16 Active Assessment Dysuria R30.0 Active Assessment 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 Assessment Vaginitis N76.0 Active Assessment UTI (lower urinary tract infection) N39.0 Active Assessment Hypothyroid E03.9 Active Assessment Left ear pain H92.02 Active Assessment Left knee pain M25.562 Active Problem Essential (primary) hypertension I10 Active Problem Asthma J45.909 Active Problem GERD (gastroesophageal reflux disease) K21.9 Active Problem Insulin pump status Z96.41 Active Problem Insomnia G47.00 Active Problem Vitamin D deficiency E55.9 Active Problem Migraine G43.909 Active Problem History of Iveth thyroiditis Z86.39 Active Problem PVD (peripheral vascular disease) I73.9 Active Problem Hx of diverticulitis of colon Z87.19 Active Problem Hypothyroid E03.9 Active Problem Fatigue 780.79 Active Problem Diverticulosis of colon (without mention of hemorrhage) 562.10 Active Assessment Type 2 diabetes mellitus with hyperglycemia E11.65 Active Assessment Essential (primary) hypertension I10 Active Problem Peripheral Vascular Disease-PVD 443.9 Active Problem Diabetes Type 2 Uncontrolled 250.02 Active Problem Anxiety state, unspecified 300.00 Active Problem Insomnia 780.52 Active Problem Diabetes type 2 uncontrolled w/neurological manifestations 250.62 Active Problem Hyperlipidemia 272.4 Active Problem Iveth's thyroiditis 245.2 Active Problem Depression with anxiety 300.4 Active Problem Hyperlipidemia 272.4 Active Problem Back pain 724.5 Active Problem Hyperlipidemia, mixed E78.2 Active Problem Spondylolysis, 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 Active Problem Type 2 diabetes mellitus with diabetic neuropathy E11.40 Active Problem Type 2 diabetes mellitus with hyperglycemia E11.65 Active Problem Carpal tunnel syndrome G56.00 Active Problem Diarrhea R19.7 Active Problem 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 Problem Left knee pain M25.562 Active Problem Type 2 diabetes mellitus with autonomic neuropathy E11.43 Active Problem ASTHMA NOS 493.90 Active Problem Nonscarring hair loss, unspecified L65.9 Active Problem Arthralgias 714.9 Active Problem Cervical disc disorder with radiculopathy, cervicothoracic region M50.13 Active Problem Vulvovaginitis due to Mame 112.1 Active Problem Otalgia, left ear H92.02 Active Problem Crohn's disease of colon 555.1 Active Problem Anemia D64.9 Active Problem INSULIN PUMP TRAINING V65.46 Active Problem Menopause 627.9 Active Problem Vitamin D Deficiency 268.9 Active Problem Crohn's disease NOS 555.9 Active Problem Pseudopolyposis, colon 556.4 Active Problem INSULIN PUMP STATUS V45.85 Active Problem UTI [Urinary tract infection] 599.0 Active Medications Medication Code System Code Instructions Start Date End Date Status Dosage Celebrex MULTUM 55747 200 mg orally 2 times a day April 27, 2016 Active 1 cap(s) atenolol 25 mg oral tablet MULTUM 78963 orally daily Active 1 tab(s) NovoLog MULTUM 49553 100 units/mL subcutaneously insulin pump Active 75 units via insulin pump Pravachol MULTUM 1884 40 mg orally once a day (at bedtime) Active 1 tab(s) Levothyroxine Sodium MULTUM 1842 75 mcg (0.075 mg) orally once a day Active 1 tab(s) Vitamin B6 MULTUM 4994 Active Unknown clonazepam MULTUM 77255 0.5 mg orally qhs Active 2 tabs Victoza MULTUM 717812 18 mg/3 mL subcutaneously once a day Active 1.8 mg Sulfamethoxazole-Trimethoprim DS MULTUM 7978 800 mg-160 mg orally 2 times a day April 27, 2016 Active 1 tab(s) Victoza MULTUM 449658 18 mg/3 mL subcutaneously once a day March 01, 2016 Active 1.2 mg Acetaminophen-TraMADol Hydrochloride MULTUM 80995 325 mg-37.5 mg orally every 12 hours April 27, 2016 Active 2 tab(s) pantoprazole MULTUM 79847 40 mg orally once a day Active 1 tab(s) escitalopram MULTUM 90789 20 mg orally once a day Active 1 tab(s) zolpidem MULTUM 71182 10 mg orally once a day (at bedtime) Active 1 tab(s) ONE TOUCH ULTRA TEST STRIPS Unknown 0 - - 6 x per day Active CHECK BLOOD SUGARS TWICE/DAY fluconazole MULTUM 38548 150 mg orally once and repeat in 3 days take after done with antibiotics April 27, 2016 Active 1 tab(s) ProAir HFA MULTUM 65728 CFC free 90 mcg/inh inhaled 4 times a day Active 2 puff(s) albuterol MULTUM 03407 2.5 mg/3 mL (0.083%) inhaled every 6 hours Active 3 mL ergocalciferol MULTUM 41032 50,000 intl units orally 2 times a week Active 1 cap(s) Acetaminophen-TraMADol Hydrochloride MULTUM 48917 325 mg-37.5 mg orally bid March 18, 2015 Active 1 tab(s) trazodone MULTUM 03253 100 mg orally qhs Active 1 tab(s) Social History Social History Element Qualifiers Date Reported Language: . Ukrainian, Mauritian June 07, 2016 Marital Status: single. June 07, 2016 Tobacco . N/A June 07, 2016 Drug use: no. June 07, 2016 Caffeine: yes. frequency:, 1 c/day June 07, 2016 Pets: . N/A June 07, 2016 Exercise: yes. June 07, 2016 Sexually active: . N/A June 07, 2016 Smoking/Tobacco Use: no. Patient is a: Never Smoker June 07, 2016 Alcohol: no. June 07, 2016 Travel outside [place]: no. June 07, 2016 Occupation: unemployed. Disabled June 07, 2016 Vital Signs Date/Time: April 27, 2016 Weight 149 lbs Height 61 in Blood Pressure Diastolic 76 mm Hg Blood Pressure Systolic 120 mm Hg Results HgA1C Finger stick glucose Immunizations Vaccine Administration Date Toradol 30MG April 27, 2016 Summary Purpose [employer] Submission
--- OUTSIDE RECORDS SUMMARY | 2019-01-30 06:19 | XMS REPORT ---
Author Author Gustavo Mckenna [facility] [employer] Address Unknown Phone Unavailable Care Team Providers Care Algebraist Name Role Phone Gustavo Mckenna Unavailable Allergies, [...] results Noel Mckenna MD Aug 26, 2014 cgms results Noel Mckenna MD Oct 28, 2015 cgms disc Noel Mckenna MD Oct 10, 2015 AWV Noel Mckenna MD 2015 Asthma Noel Mckenna MD Jan [...] K21.9 Active Problem Asthma J45.909 Active Problem Diverticulosis of colon (without mention of hemorrhage) 562.10 Active Assessment Type 2 diabetes mellitus with hyperglycemia E11.65 Active Assessment Asthma J45.909 Active Problem Insomnia 780.52 Active Problem Anxiety [...] Instructions Start Date End Date Status Dosage zolpidem MULTUM 07750 10 mg orally once a day (at bedtime) Active 1 tab(s) Vitamin B6 MULTUM 4994 Active Unknown ergocalciferol MULTUM 82580 50,000 intl units orally 2 times a week Active 1 cap(s) albuterol MULTUM 27770 2.5 mg/3 mL (0.083%) inhaled every 6 hours Active 3 mL Zostavax MULTUM 92956 - subcutaneously once 2015 Active 1 mL Acetaminophen-TraMADol Hydrochloride MULTUM 37650 325 mg-37.5 mg orally bid March 18, 2015 Active 1 tab(s) NovoLog MULTUM 40509 100 units/mL subcutaneously insulin pump Active 75 units via insulin pump naproxen MULTUM 26110 375 mg orally 2 times a day Active 1 tab(s) ondansetron MULTUM 79377 4 mg orally 3 times a day Active 1 tab(s) Cymbalta MULTUM 85508 30 mg orally 2 times a day Active 1 cap(s) metronidazole MULTUM 31661 500 mg orally every 8 hours Active 1 tab(s) Pravachol MULTUM 1884 40 mg orally once a day (at bedtime) Active 1 tab(s) Levothyroxine Sodium MULTUM 1842 75 mcg (0.075 mg) orally once a day Active 1 tab(s) Tussin DM MULTUM 7794 10 mg-100 mg/5 mL orally qid prn Jan 06, 2016 Active 10 CC atenolol 25 mg oral tablet MULTUM 44430 orally daily Active 1 tab(s) pantoprazole MULTUM 65362 40 mg orally once a day Active 1 tab(s) Proventil HFA MULTUM 6128 CFC free 90 mcg/inh inhaled 4 times a day Active 2 puff(s) ONE TOUCH ULTRA TEST STRIPS Unknown 0 - - 6 x per day Active CHECK BLOOD SUGARS TWICE/DAY Lyrica MULTUM 88643 150 mg orally 2 times a day Active 1 cap(s) ProAir HFA MULTUM 88657 CFC free 90 mcg/inh inhaled 4 times a day Active 2 puff(s) ciprofloxacin MULTUM 03669 500 mg orally once a day Active 1 tab(s) Pioglitazone Hydrochloride MULTUM 572954 15 mg orally once a day Sep 23, 2015 Active 1 tab(s) Social History Social History Element Qualifiers Date Reported Language: . Bulgarian, Syriac March 01, 2016 Marital Status: single. March 01, 2016 Tobacco . N/A March 01, 2016 Drug use: no. March 01, 2016 Caffeine: yes. frequency:, 1 c/day March 01, 2016 Pets: . N/A March 01, 2016 Exercise: yes. March 01, 2016 Sexually active: . N/A March 01, 2016 Smoking/Tobacco Use: no. Patient is a: Never Smoker March 01, 2016 Alcohol: no. March 01, 2016 Travel outside [place]: no. March 01, 2016 Occupation: unemployed. Disabled March 01, 2016 Vital Signs Date/Time: Jan 06, 2016 Weight 148 lbs Height 61 in Blood Pressure Diastolic 70 mm Hg Blood Pressure Systolic 112 mm Hg Results Finger stick glucose Summary Purpose [employer] Submission
--- OUTSIDE RECORDS SUMMARY | 2019-01-30 06:19 | XMS REPORT ---
Author Author Gustavo Mckenna [facility] [employer] Address Unknown Phone Unavailable Care Team Providers Care Seismographer Name Role Phone Gustavo Mckenna Unavailable Encounters Encounter Location Date Cold congestion Noel [...] referral Noel Mckenna MD May 17, 2016 cgms results Noel Mckenna MD Oct 28, 2015 cgms disc Noel Mckenna MD Oct 10, 2015 AWV Noel Mckenna MD 2015 Asthma Noel Mckenna MD Jan 06, 2016 Problems Problem Type Condition ICD-9 Code Onset Dates Condition Status Problem Crohn's disease NOS 555.9 Active Problem UTI [Urinary tract infection] 599.0 Active Problem Menopause 627.9 Active Problem Pseudopolyposis, colon 556.4 Active Problem Vitamin D Deficiency 268.9 Active Problem BREAST ANOMALIES NEC 757.6 Active Problem Dysuria 788.1 Active Problem Nausea with vomiting 787.01 Active Problem Gastroenteritis NOS 009.1 Active Problem Tachycardia 785.0 Active Problem Hypothyroidism (acquired) 244.9 Active Problem Radiculopathy, cervical region M54.12 Active Problem Insulin pump titration V53.91 Active Problem Migraine 346.10 Active Problem GERD (gastroesophageal reflux disease) K21.9 Active Problem Asthma J45.909 Active Problem Other chronic pain G89.29 Active Problem Radiculopathy, lumbar region M54.16 Active Problem Migraine G43.909 Active Problem Insulin pump status Z96.41 Active Problem Essential (primary) hypertension I10 Active Problem Vitamin D deficiency E55.9 Active Problem Insomnia 780.52 Active Problem Fatigue 780.79 Active Problem Diverticulosis of colon (without mention of hemorrhage) 562.10 Active Problem Hyperlipidemia 272.4 Active Problem Diabetes type 2 uncontrolled w/neurological manifestations 250.62 Active Problem Diabetes Type 2 Uncontrolled 250.02 Active Problem Peripheral Vascular Disease-PVD 443.9 Active Problem Insomnia G47.00 Active Problem Anxiety state, unspecified 300.00 Active Problem Hx of diverticulitis of colon Z87.19 Active Problem Hypothyroid E03.9 Active Problem PVD (peripheral vascular disease) I73.9 Active Problem History of Iveth thyroiditis Z86.39 Active Problem 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 Problem Carpal tunnel syndrome G56.00 Active Problem Type 2 diabetes mellitus with autonomic neuropathy E11.43 Active Problem Back pain 724.5 Active Problem Type 2 diabetes mellitus with diabetic neuropathy E11.40 Active Problem Hyperlipidemia 272.4 Active Problem Hyperlipidemia, mixed E78.2 Active Problem Depression with anxiety 300.4 Active Problem Diarrhea R19.7 Active Problem Iveth's thyroiditis 245.2 Active Problem Type 2 diabetes mellitus with hyperglycemia E11.65 Active Problem Spondylolysis, 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 Lithuanian, Kosovan April 27, 2016 Marital Status: single. April 27, 2016 Tobacco . N/A April 27, 2016 Drug use: no. April 27, 2016 Caffeine: yes. frequency:, 1 c/day April 27, 2016 Pets: . N/A April 27, 2016 Exercise: yes. April 27, 2016 Sexually active: . N/A April 27, 2016 Smoking/Tobacco Use: no. Patient is a: Never Smoker April 27, 2016 Alcohol: no. April 27, 2016 Travel outside [place]: no. April 27, 2016 Occupation: unemployed. Disabled April 27, 2016 Summary Purpose [employer]Works Submission
--- OUTSIDE RECORDS SUMMARY | 2019-01-30 06:19 | XMS REPORT ---
Author Author Gustavo Mckenna [facility] [employer] Address Unknown Phone Unavailable Care Team Providers Care Bench Technician Name Role Phone Gustavo Mceknna Unavailable Allergies, Adverse Reactions, Alerts Substance Reaction Event Type metformin Info Not Available Drug Allergy codeine Info Not Available Drug Allergy Darvocet N 100 Info Not Available Drug Allergy Darvocet N 50 Info Not Available Drug Allergy Penicillin Info Not Available Drug Allergy Encounters Encounter Location Date Cold congestion Noel Mckenna MD Aug 24, 2014 4 Weeks (Reason: D.M.) Noel Mckenna MD Jul 12, 2016 New referral Noel Mckenna MD February 16, [...] up Noel Mckenna MD April 27, 2016 3 Months (Reason: D.M.) Noel Mckenna MD March 01, 2016 3 mon f/u Noel Mckenna MD June 07, 2016 cgms results Noel Mckenna MD Oct 28, 2015 cgms disc Noel Mckenna MD Oct 10, 2015 AWV Noel Mckenna MD 2015 Asthma Noel Mckenna MD Jan 06, 2016 Problems Problem Type Condition ICD-9 Code Onset Dates Condition Status Problem Nausea with vomiting 787.01 Active Problem Dysuria 788.1 Active Problem Tachycardia 785.0 Active Problem Gastroenteritis NOS 009.1 Active Problem Hypothyroidism (acquired) 244.9 Active Problem Migraine 346.10 Active Problem Insulin pump titration V53.91 Active Problem Radiculopathy, cervical region M54.12 Active Problem Other chronic pain G89.29 Active Problem Radiculopathy, lumbar region M54.16 Active Problem GERD (gastroesophageal reflux disease) K21.9 Active Assessment Candidiasis, unspecified B37.9 Active Assessment Screening for lipid disorders Z13.220 Active Assessment 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 Assessment Cervical disc disorder with radiculopathy, cervicothoracic region M50.13 Active Assessment Nonscarring hair loss, unspecified L65.9 Active Assessment Anemia D64.9 Active Assessment Essential (primary) hypertension I10 Active Assessment Left knee pain M25.562 Active Assessment Hypothyroid E03.9 Active Problem Vitamin D deficiency E55.9 Active Problem Essential (primary) hypertension I10 Active Problem Asthma J45.909 Active Problem Insomnia G47.00 Active Problem Hx of diverticulitis of colon Z87.19 Active Problem Migraine G43.909 Active Problem Insulin pump status Z96.41 Active Problem PVD (peripheral vascular disease) I73.9 Active Problem Hyperlipidemia, mixed E78.2 Active Problem Hypothyroid E03.9 Active Problem History of Iveth thyroiditis Z86.39 Active Problem Insomnia 780.52 Active Problem Fatigue 780.79 Active Problem Diverticulosis of colon (without mention of hemorrhage) 562.10 Active Assessment Type 2 diabetes mellitus with hyperglycemia E11.65 Active Problem Spondylolysis, 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 Active Problem Peripheral Vascular Disease-PVD 443.9 Active Problem Hyperlipidemia 272.4 Active Problem Anxiety state, unspecified 300.00 Active Problem Diabetes Type 2 Uncontrolled 250.02 Active Problem Diabetes type 2 uncontrolled w/neurological manifestations 250.62 Active Problem Depression with anxiety 300.4 Active Problem Hyperlipidemia 272.4 Active Problem Back pain 724.5 Active Problem INSULIN PUMP TRAINING V65.46 Active Problem Type 2 diabetes mellitus with diabetic neuropathy E11.40 Active Problem Iveth's thyroiditis 245.2 Active Problem Type 2 diabetes mellitus with hyperglycemia E11.65 Active Problem Diarrhea R19.7 Active Problem Cervical disc disorder with radiculopathy, cervicothoracic region M50.13 Active Problem Carpal tunnel syndrome G56.00 Active Problem Type 2 diabetes mellitus with autonomic neuropathy E11.43 Active Problem 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 Problem Candidiasis, unspecified B37.9 Active Problem INSULIN PUMP STATUS V45.85 Active Problem Anemia D64.9 Active Problem ASTHMA NOS 493.90 Active Problem Nonscarring hair loss, unspecified L65.9 Active Problem Arthralgias 714.9 Active Problem Left knee pain M25.562 Active Problem Vulvovaginitis due to Mame 112.1 Active Problem Otalgia, left ear H92.02 Active Problem Crohn's disease of colon 555.1 Active Problem Vitamin D Deficiency 268.9 Active Problem BREAST ANOMALIES NEC 757.6 Active Problem Pseudopolyposis, colon 556.4 Active Problem Menopause 627.9 Active Problem UTI [Urinary tract infection] 599.0 Active Problem Crohn's disease NOS 555.9 Active Medications Medication Code System Code Instructions Start Date End Date Status Dosage nystatin topical MULTUM 00595 030427 units/g applied topically 3 times a day Jul 12, 2016 Active 1 mike escitalopram MULTUM 50063 20 mg orally once a day Active 1 tab(s) zolpidem MULTUM 63245 10 mg orally once a day (at bedtime) Active 1 tab(s) Vitamin B6 MULTUM 4994 Active Unknown albuterol MULTUM 84546 2.5 mg/3 mL (0.083%) inhaled every 6 hours Active 3 mL NovoLog MULTUM 80042 100 units/mL subcutaneously insulin pump Active 75 units via insulin pump fluconazole MULTUM 39666 150 mg orally once and repeat in 3 days take after done with antibiotics April 27, 2016 Active 1 tab(s) fluconazole MULTUM 41517 150 mg orally once Jul 12, 2016 Active 1 tab(s) Pravachol MULTUM 1884 40 mg orally once a day (at bedtime) May 03, 2016 Active 1 tab(s) Victoza MULTUM 655388 18 mg/3 mL subcutaneously once a day Active 1.8 mg ProAir HFA MULTUM 74141 CFC free 90 mcg/inh inhaled 4 times a day Active 2 puff(s) Acetaminophen-TraMADol Hydrochloride MULTUM 68062 325 mg-37.5 mg orally every 12 hours Active 2 tab(s) ONE TOUCH ULTRA TEST STRIPS Unknown 0 - - 6 x per day Active CHECK BLOOD SUGARS TWICE/DAY Levothyroxine Sodium MULTUM 1842 75 mcg (0.075 mg) orally once a day Active 1 tab(s) atenolol 25 mg oral tablet MULTUM 45622 orally daily Active 1 tab(s) trazodone MULTUM 43633 100 mg orally qhs Active 1 tab(s) clonazepam MULTUM 08061 0.5 mg orally qhs Active 2 tabs Celebrex MULTUM 12597 200 mg orally 2 times a day Active 1 cap(s) Celebrex MULTUM 17302 200 mg orally 2 times a day Active 1 cap(s) ergocalciferol MULTUM 95278 50,000 intl units orally 2 times a week Active 1 cap(s) pantoprazole MULTUM 79260 40 mg orally once a day Active 1 tab(s) Acetaminophen-TraMADol Hydrochloride MULTUM 11158 325 mg-37.5 mg orally every 12 hours Active 2 tab(s) Social History Social History Element Qualifiers Date Reported Language: . Italian, Sami Jul 12, 2016 Marital Status: single. Jul 12, 2016 Tobacco . N/A Jul 12, 2016 Drug use: no. Jul 12, 2016 Caffeine: yes. frequency:, 1 c/day Jul 12, 2016 Pets: . N/A Jul 12, 2016 Exercise: yes. Jul 12, 2016 Sexually active: . N/A Jul 12, 2016 Smoking/Tobacco Use: no. Patient is a: Never Smoker Jul 12, 2016 Alcohol: no. Jul 12, 2016 Travel outside [place]: no. Jul 12, 2016 Occupation: unemployed. Disabled Jul 12, 2016 Vital Signs Date/Time: Jul 12, 2016 Weight 142 lbs Height 61 in Blood Pressure Diastolic 76 mm Hg Blood Pressure Systolic 106 mm Hg Results Finger stick glucose Summary Purpose eClinicalWorks Submission
--- OUTSIDE RECORDS SUMMARY | 2019-01-30 06:19 | XMS REPORT ---
Author Author Telly Farah Organization [employer] Address Unknown Phone Unavailable Care Team Providers Care Press Cutter Name Role Phone Telly Farah Unavailable Encounters Encounter Location Date Unknown Noel Mckenna MD March 15, 2014 Unknown Noel Mckenan MD March 17, 2014 shortness of breath, [...] 2014 AWV Noel Mckenna MD 2015 Cold Noel Mckenna MD Aug 31, 2014 [...] Problem Radiculopathy, lumbar region M54.16 Active Problem Diverticulosis of colon (without mention [...] Active Problem Depression with anxiety 300.4 Active Social History Social History Element Qualifiers Date Reported Language: . Japanese, Greenlandic Dec 01, 2015 Marital Status: single. Dec [...]
--- OUTSIDE RECORDS SUMMARY | 2019-01-30 06:19 | XMS REPORT ---
Author Author Telly Farah Organization [employer] Address Unknown Phone Unavailable Care Team Providers Care Stable Cleaner Name Role Phone Farah, Telly CP Unavailable [...] 757.6 Active Problem Dysuria 788.1 Active Assessment GERD (gastroesophageal reflux disease) K21.9 Active Problem Tachycardia 785.0 Active Problem Gastroenteritis NOS 009.1 Active Problem Nausea with vomiting 787.01 Active Problem Insulin pump titration V53.91 Active Problem Radiculopathy, cervical region M54.12 Active Problem Hypothyroidism (acquired) 244.9 Active Problem Migraine 346.10 Active Problem GERD (gastroesophageal reflux disease) K21.9 Active Problem Asthma J45.909 Active Problem Other chronic pain G89.29 Active Problem Radiculopathy, lumbar region M54.16 Active Assessment Insulin pump status Z96.41 Active Assessment Migraine G43.909 Active Assessment Vitamin D deficiency E55.9 Active Assessment Asthma J45.909 Active Assessment Type 2 diabetes mellitus with diabetic neuropathy E11.40 Active Assessment Hyperlipidemia, mixed E78.2 Active Assessment Hypothyroid E03.9 Active Assessment Insomnia G47.00 Active Assessment PVD (peripheral vascular disease) I73.9 Active Assessment Essential (primary) hypertension I10 Active Problem Diverticulosis of colon (without mention [...] Instructions Start Date End Date Status Dosage NovoLog MULTUM 77728 100 units/mL subcutaneously insulin pump Active 75 units via insulin pump tramadol MULTUM 69970 50 mg orally once a day Active 1 tab(s) Proventil HFA MULTUM 6128 CFC free 90 mcg/inh inhaled 4 times a day Active 2 puff(s) Cymbalta MULTUM 19281 30 mg orally 2 times a day Active 1 cap(s) ergocalciferol MULTUM 01792 50,000 intl units orally 2 times a week Active 1 cap(s) Lyrica MULTUM 44056 150 mg orally 2 times a day Active 1 cap(s) Vitamin B6 MULTUM 4994 Active Unknown Levothyroxine Sodium MULTUM 1842 75 mcg (0.075 mg) orally once a day Active 1 tab(s) pantoprazole MULTUM 51138 40 mg orally once a day Active 1 tab(s) zolpidem MULTUM 00657 10 mg orally once a day (at bedtime) Active 1 tab(s) ONE TOUCH ULTRA TEST STRIPS Unknown 0 - - 6 x per day Active CHECK BLOOD SUGARS TWICE/DAY Pioglitazone Hydrochloride MULTUM 862959 15 mg orally once a day Sep 23, 2015 Active 1 tab(s) atenolol 25 mg oral tablet MULTUM 90091 orally daily Active 1 tab(s) Volume spacer for inhaler MULTUM 9167 Active as directed Pioglitazone Hydrochloride MULTUM 640867 15 mg orally once a day Active 1 tab(s) Acetaminophen-TraMADol Hydrochloride MULTUM 29114 325 mg-37.5 mg orally bid March 18, 2015 Active 1 tab(s) Pravachol MULTUM 1884 40 mg orally once a day (at bedtime) Active 1 tab(s) Social History Social History Element Qualifiers Date Reported Language: . English, Georgian Dec 01, 2015 Marital Status: single. [...] Disabled Dec 01, 2015 Vital Signs Date/Time: Oct 28, 2015 Weight 150 lbs Height 61 in Blood Pressure Diastolic 80 mm Hg Blood Pressure Systolic 116 mm Hg Summary Purpose eClinicalWorks Submission
--- OUTSIDE RECORDS SUMMARY | 2019-01-30 06:20 | XMS REPORT ---
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 Assessment Anemia D64.9 Active Assessment Otalgia, left ear H92.02 Active Assessment Hypothyroid E03.9 Active Assessment Cervical disc disorder with radiculopathy, [...] bedtime) May 03, 2016 Active 1 tab(s) atenolol 25 mg oral tablet MULTUM 96383 orally daily Active 1 tab(s) Acetaminophen-TraMADol Hydrochloride MULTUM 92271 325 mg-37.5 mg orally every 12 hours April 27, 2016 Active 2 tab(s) zolpidem MULTUM 28339 10 mg orally once a day (at bedtime) Active 1 tab(s) fluconazole MULTUM 04726 150 mg orally once and repeat in 3 days take after done with antibiotics April 27, 2016 Active 1 tab(s) albuterol MULTUM 74538 2.5 mg/3 mL (0.083%) inhaled every 6 hours Active 3 mL Victoza MULTUM 068171 18 mg/3 mL subcutaneously once a day Active 1.8 mg Acetaminophen-TraMADol Hydrochloride MULTUM 93466 325 mg-37.5 mg orally bid March 18, 2015 Active 1 tab(s) Levothyroxine Sodium MULTUM 1842 75 mcg (0.075 mg) orally once a day Active 1 tab(s) clonazepam MULTUM 54924 0.5 mg orally qhs Active 2 tabs NovoLog MULTUM 33653 100 units/mL subcutaneously insulin pump Active 75 units via insulin pump ergocalciferol MULTUM 89169 50,000 intl units orally 2 times a week Active 1 cap(s) Celebrex MULTUM 09413 200 mg orally 2 times a day Active 1 cap(s) ONE TOUCH ULTRA TEST STRIPS Unknown 0 - - 6 x per day Active CHECK BLOOD SUGARS TWICE/DAY Victoza MULTUM 833984 18 mg/3 mL subcutaneously once a day March 01, 2016 Active 1.2 mg Sulfamethoxazole-Trimethoprim DS MULTUM 7978 800 mg-160 mg orally 2 times a day April 27, 2016 Active 1 tab(s) escitalopram MULTUM 10994 20 mg orally once a day Active 1 tab(s) trazodone MULTUM 13165 100 mg orally qhs Active 1 tab(s) fluconazole MULTUM 37955 150 mg orally once and repeat in 3 days take after done with antibiotics April 27, 2016 Active 1 tab(s) Acetaminophen-TraMADol Hydrochloride MULTUM 59272 325 mg-37.5 mg orally every 12 hours Active 2 tab(s) ProAir HFA MULTUM 30966 CFC free 90 mcg/inh inhaled 4 times a day Active 2 puff(s) Celebrex MULTUM 64842 200 mg orally 2 times a day April 27, 2016 Active 1 cap(s) pantoprazole MULTUM 88934 40 mg orally once a day Active 1 tab(s) Vitamin B6 MULTUM 4994 Active Unknown Social History Social History Element Qualifiers Date Reported Language: . Frisian, Slovak Jul 12, 2016 Marital Status: single. Jul [...] Disabled Jul 12, 2016 Vital Signs Date/Time: June 07, 2016 Weight 142 lbs Height 61 in Temperature 97.9 F Blood Pressure Diastolic 70 mm Hg Blood Pressure Systolic 124 mm Hg Summary Purpose eClinicalWorks Submission
--- OUTSIDE RECORDS SUMMARY | 2019-01-30 06:20 | XMS REPORT | Summary of Care ---
Author Author [facility] Organization [facility] Address Unknown Phone Unavailable Encounter [facility] [id number] Date(s): 11/27/17 - 11/27/17 [facility] [address] [place], [place] [address] Discharge Diagnosis: Other spondylosis, lumbosacral region Discharge Disposition: Discharged to Home or Self Care Attending Physician: Jeb Juan Admitting Physician: Jeb Juan Vital Signs 1 2 3 Most recent to oldest [Reference Range]: 36.7 DegC (11/27/17 11:02 AM) Temperature Oral [35.8-37.3 DegC] 36.8 DegC (11/27/17 1:30 PM) Temperature Temporal Artery [36.3-37.8 DegC] 98.24 (11/27/17 1:30 PM) Temperature Temporal Fahrenheit 72 bpm (11/27/17 3:15 PM) 86 bpm (11/27/17 11:02 AM) Peripheral Pulse Rate [55-105 bpm] 74 bpm (11/27/17 2:30 PM) 75 bpm (11/27/17 2:20 PM) 71 bpm (11/27/17 2:10 PM) Heart Rate Monitored [60-100 bpm] 16 (11/27/17 3:15 PM) 16 (11/27/17 2:30 PM) 16 (11/27/17 2:20 PM) Respiratory Rate [12-20] 97 % (11/27/17 3:15 PM) 97 % (11/27/17 2:30 PM) 97 % (11/27/17 2:20 PM) SpO2 [90-100 %] 130/60 mmHg *HI* (11/27/17 3:15 PM) 129/61 mmHg *HI* (11/27/17 2:30 PM) 127/59 mmHg *HI* (11/27/17 2:20 PM) Blood Pressure [110-120/65-85 mmHg] 83.7 mmHg (11/27/17 2:30 PM) 81.7 mmHg (11/27/17 2:20 PM) 90 mmHg (11/27/17 2:10 PM) Mean Arterial Pressure, Cuff 152.4 cm (11/27/17 11:02 AM) 152.4 cm (11/20/17 3:55 PM) Height 152.4 cm (11/27/17 11:02 AM) 152.4 cm (11/20/17 3:55 PM) Height/Length Dosing 60 in (11/27/17 11:02 AM) 60 in (11/20/17 3:55 PM) Height Inches 58.96 kg (11/27/17 11:02 AM) 58.96 kg (11/20/17 3:55 PM) Weight 58.96 kg (11/27/17 11:02 AM) 58.96 kg (11/20/17 3:55 PM) Weight Dosing 130 lb (11/27/17 11:02 AM) 130 lb (11/20/17 3:55 PM) Weight Pounds 25.39 kg/m2 (11/27/17 11:02 AM) 25.39 kg/m2 (11/20/17 3:55 PM) Body Mass Index Problem List Condition Effective Dates Status Health Status Informant Anxiety(Confirmed) Active Asthma(Confirmed) Active Crohn Active disease(Confirmed) Diabetes 11/18/13 Active mellitus(Confirmed)1 Fatty Active liver(Confirmed) Hypertension(Confirm Active ed) Insulin pump, 11/18/13 Active device(Confirmed) Tachycardia(Confirme 11/18/16 Active d)2 1BS range 80-110's 2had cardiac testing done 1 yr ago-cardio Dr Jose Case. denies any CP Allergies, Adverse Reactions, Alerts Substance Reaction Severity Status codeine Unknown reaction Active penicillin Unknown reaction Moderate Active Vicodin Heart rate increase Moderate Active Medications atenolol 25 mg oral tablet mg tabs, Oral, qPM, 0 Refill(s), HR Start Date: 11/20/17 Stop Date: 12/04/17 Status: Ordered ceFAZolin 1 gm, Powder-Inj, IV, Once, first dose 11/27/17 13:11:00 ENERGY DIRECTOR, stop date 11/27/17 13:11:00 ENERGY DIRECTOR Start Date: 11/27/17 Stop Date: 11/27/17 Status: Completed clonazePAM Oral, TID, 0 Refill(s), anxiety Start Date: 11/20/17 Stop Date: 12/04/17 Status: Ordered Demerol HCl 12.5 mg=0.25 mL, Injection, IV Push, Once PRN for shivers, first dose 11/27/17 1 3:34:00 ENERGY DIRECTOR Start Date: 11/27/17 Stop Date: 11/27/17 Status: Discontinued Dilaudid 0.5 mg=0.5 mL, Injection, IV Push, q10min PRN for pain severe (7-10), first dose 11/27/17 13:34:00 ENERGY DIRECTOR Start Date: 11/27/17 Stop Date: 11/27/17 Status: Discontinued diphenhydrAMINE 25 mg=0.5 mL, Injection, IV Push, Once PRN for itching, first dose 11/27/17 13:3 4:00 ENERGY DIRECTOR Start Date: 11/27/17 Stop Date: 11/27/17 Status: Discontinued fentaNYL 50 mcg=1 mL, Injection, IV, Once, first dose 11/27/17 13:12:00 ENERGY DIRECTOR, stop date 13:12:00 ENERGY DIRECTOR Start Date: 11/27/17 Stop Date: 11/27/17 Status: Completed fentaNYL 50 mcg=1 mL, Injection, IV, Once, first dose 11/27/17 13:06:00 ENERGY DIRECTOR, stop date 13:06:00 ENERGY DIRECTOR Start Date: 11/27/17 Stop Date: 11/27/17 Status: Completed fentaNYL 50 mcg=1 mL, Injection, IV, Once, first dose 11/27/17 13:01:00 ENERGY DIRECTOR, stop date 13:01:00 ENERGY DIRECTOR Start Date: 11/27/17 Stop Date: 11/27/17 Status: Completed fentaNYL 50 mcg=1 mL, Injection, IV, Once, first dose 11/27/17 12:56:00 ENERGY DIRECTOR, stop date 12:56:00 ENERGY DIRECTOR Start Date: 11/27/17 Stop Date: 11/27/17 Status: Completed hydrALAZINE 10 mg=0.5 mL, Injection, IV Push, As Indicated PRN for hypertension, first dose 11/27/17 13:34:00 ENERGY DIRECTOR Start Date: 11/27/17 Stop Date: 11/27/17 Status: Discontinued labetalol 5 mg=1 mL, Injection, IV Push, As Indicated PRN for hypertension, first dose 09/04 13:34:00 ENERGY DIRECTOR Start Date: 11/27/17 Stop Date: 11/27/17 Status: Discontinued levothyroxine 75 mcg (0.075 mg) oral capsule 75 mcg=1 caps, Oral, Daily, ok take am of procedure, # 30 caps, 0 Refill(s), hyp othyroid Start Date: 11/20/17 Stop Date: 12/04/17 Status: Ordered Lidocaine 2% 0.2 mL IV Start [[place]] 0.2 mL, Injection, Subcutaneous, Once PRN for other (see comment), first dose 11:01:00 ENERGY DIRECTOR Start Date: 11/27/17 Stop Date: 11/27/17 Status: Discontinued LR 1,000 mL 1,000 mL, IV, 75 mL/hr, start date 11/27/17 13:34:00 ENERGY DIRECTOR Start Date: 11/27/17 Stop Date: 11/27/17 Status: Discontinued LR 1,000 mL 1,000 mL, IV, 30 mL/hr, start date 11/27/17 11:01:00 ENERGY DIRECTOR Start Date: 11/27/17 Stop Date: 11/27/17 Status: Discontinued midazolam 1 mg=1 mL, Injection, IV, Once, first dose 11/27/17 12:56:00 ENERGY DIRECTOR, stop date 11/18 12:56:00 ENERGY DIRECTOR Start Date: 11/27/17 Stop Date: 11/27/17 Status: Completed midazolam 1 mg=1 mL, Injection, IV, Once, first dose 11/27/17 13:01:00 ENERGY DIRECTOR, stop date 11/18 13:01:00 ENERGY DIRECTOR Start Date: 11/27/17 Stop Date: 11/27/17 Status: Completed midazolam 1 mg=1 mL, Injection, IV, Once, first dose 11/27/17 13:06:00 ENERGY DIRECTOR, stop date 11/18 13:06:00 ENERGY DIRECTOR Start Date: 11/27/17 Stop Date: 11/27/17 Status: Completed midazolam 1 mg=1 mL, Injection, IV, Once, first dose 11/27/17 13:12:00 ENERGY DIRECTOR, stop date 11/18 13:12:00 ENERGY DIRECTOR Start Date: 11/27/17 Stop Date: 11/27/17 Status: Completed Misc Medication 200 mL, Soln-IV, IV, Once, first dose 11/27/17 13:36:00 ENERGY DIRECTOR, stop date 11/27/17 13:36:00 ENERGY DIRECTOR Start Date: 11/27/17 Stop Date: 11/27/17 Status: Completed Misc Medication 1,000 mL, Soln-IV, IV, Once, first dose 11/27/17 13:08:00 ENERGY DIRECTOR, stop date 8 13:08:00 ENERGY DIRECTOR Start Date: 11/27/17 Stop Date: 11/27/17 Status: Completed morphine 2 mg=0.2 mL, Injection, IV Push, q5min PRN for pain, first dose 11/27/17 13:34:0 0 ENERGY DIRECTOR Start Date: 11/27/17 Stop Date: 11/27/17 Status: Discontinued NovoLOG Subcutaneous, TIDAC, INSULIN PUMP, 0 Refill(s), DM Start Date: 11/20/17 Stop Date: 12/04/17 Status: Ordered ondansetron 4 mg=2 mL, Injection, IV Push, q15min PRN for nausea, order duration: 2 doses, f irst dose 11/27/17 13:34:00 ENERGY DIRECTOR, stop date Limited # of times Start Date: 11/27/17 Stop Date: 11/27/17 Status: Discontinued pantoprazole 40 mg oral delayed release tablet mg tabs, Oral, Daily, take am of procedure, 0 Refill(s), acid reflux Start Date: 11/20/17 Stop Date: 12/04/17 Status: Ordered pravastatin 40 mg oral tablet mg tabs, Oral, Daily, 0 Refill(s), cholesterol Start Date: 11/20/17 Stop Date: 12/04/17 Status: Ordered Qvar 80 mcg/inh inhalation aerosol INH, BID, use am of procedure, 0 Refill(s), asthma Start Date: 11/20/17 Stop Date: 12/04/17 Status: Ordered Reglan 10 mg, Oral, 0 Refill(s), acid reflux Start Date: 11/20/17 Stop Date: 12/04/17 Status: Ordered Saline Lock Flush 10 mL, Soln, IV Push, As Indicated PRN for flush, first dose 11/27/17 13:34:[address] Start Date: 11/27/17 Stop Date: 11/27/17 Status: Discontinued traMADol 50 mg oral tablet mg tabs, Oral, q4hr, 0 Refill(s), pain Start Date: 11/20/17 Stop Date: 12/04/17 Status: Ordered traZODone 50 mg oral tablet mg tabs, Oral, qHS, 0 Refill(s), sleep Start Date: 11/20/17 Stop Date: 12/04/17 Status: Ordered Xopenex 0.63 mg/3 mL inhalation solution 0.63 mg=3 mL, Soln, NEB, Once PRN for wheezing, first dose 11/27/17 13:34:00 ENERGY DIRECTOR Start Date: 11/27/17 Stop Date: 11/27/17 Status: Discontinued Results LABORATORY Most recent to 1 oldest [Reference Range]: Blood Glucose, 96 mg/dL Capillary [74-106 (11/27/17 11:27 AM) mg/dL] Immunizations No data available for this section Procedures Procedure Date Related Diagnosis Body Site DESTRUCTION BY NEUROLYTIC AGENT PARAVERTEBRAL 11/27/17 FACET JT NERVE W/ IMAGE LUMB/SACRAL EACH 83657 (Bilateral)1 DESTRUCTION BY NEUROLYTIC AGT PARARVERT FACET 11/27/17 JT W/IMAGE LUM/SAC SINGLE JT 37235 (Bilateral)2 FLUOROSCOPIC GUIDANCE AND LOCALIZATION OF 11/27/17 NEEDLE OR CATHETER TIP; SPINE INJ. 47760 (Bilateral)3 Colonoscopy 2013 Esophagogastroduodenoscopy 2013 Hysterectomy 2004 Arthroscopy of knee4 Cholecystectomy Laparoscopy 1auto-populated from documented surgical case 2auto-populated from documented surgical case 3auto-populated from documented surgical case 4X 2- left knee Social History Social History Type Response Smoking Status Never smoker Assessment and Plan No data available for this section
--- OUTSIDE RECORDS SUMMARY | 2019-01-30 06:20 | XMS REPORT ---
Author Author Gustavo Mckenna [facility] eClinicalWorks Address Unknown Phone Unavailable Care Team Providers Care Assembler Corncob Pipes Name Role Phone Gustavo Mckenna Unavailable Allergies, [...] D.M.) Noel Mckenna MD March 01, 2016 cgms results Noel Mckenna MD Oct [...] K21.9 Active Problem Asthma J45.909 Active Assessment Asthma J45.909 Active Assessment GERD (gastroesophageal reflux disease) K21.9 Active Assessment Vitamin D deficiency, unspecified E55.9 Active Problem Diverticulosis of colon (without mention of hemorrhage) 562.10 Active Assessment Type 2 diabetes mellitus with hyperglycemia E11.65 Active Assessment Hyperlipidemia, mixed E78.2 Active Assessment Hypothyroid E03.9 Active Assessment Type 2 diabetes mellitus with diabetic neuropathy E11.40 Active Assessment Essential (primary) hypertension I10 Active Problem Insomnia 780.52 Active Problem Anxiety [...] Instructions Start Date End Date Status Dosage ondansetron MULTUM 13116 4 mg orally 3 times a day Active 1 tab(s) Pravachol MULTUM 1884 40 mg orally once a day (at bedtime) Active 1 tab(s) atenolol 25 mg oral tablet MULTUM 57299 orally daily Active 1 tab(s) escitalopram MULTUM 87482 20 mg orally once a day Active 1 tab(s) clonazepam MULTUM 20377 0.5 mg orally qhs Active 2 tabs naproxen MULTUM 85520 375 mg orally 2 times a day Active 1 tab(s) ergocalciferol MULTUM 42398 50,000 intl units orally 2 times a week Active 1 cap(s) Acetaminophen-TraMADol Hydrochloride MULTUM 55013 325 mg-37.5 mg orally bid March 18, 2015 Active 1 tab(s) Cymbalta MULTUM 92860 30 mg orally 2 times a day Active 1 cap(s) ProAir HFA MULTUM 79735 CFC free 90 mcg/inh inhaled 4 times a day Active 2 puff(s) Victoza MULTUM 311676 18 mg/3 mL subcutaneously once a day March 01, 2016 Active 1.2 mg Pioglitazone Hydrochloride MULTUM 497733 15 mg orally once a day Sep 23, 2015 Inactive 1 tab(s) NovoLog MULTUM 79343 100 units/mL subcutaneously insulin pump Active 75 units via insulin pump Vitamin B6 MULTUM 4994 Active Unknown Levothyroxine Sodium MULTUM 1842 75 mcg (0.075 mg) orally once a day Active 1 tab(s) Tussin DM MULTUM 7794 10 mg-100 mg/5 mL orally qid prn Jan 06, 2016 Active 10 CC albuterol MULTUM 15063 2.5 mg/3 mL (0.083%) inhaled every 6 hours Active 3 mL ONE TOUCH ULTRA TEST STRIPS Unknown 0 - - 6 x per day Active CHECK BLOOD SUGARS TWICE/DAY zolpidem MULTUM 60957 10 mg orally once a day (at bedtime) Active 1 tab(s) trazodone MULTUM 92605 100 mg orally qhs Active 1 tab(s) pantoprazole MULTUM 51230 40 mg orally once a day Active 1 tab(s) Social History Social History Element Qualifiers Date Reported Language: . Faroese, Albanian Jul 12, 2016 Marital Status: single. Jul [...] Disabled Jul 12, 2016 Vital Signs Date/Time: March 01, 2016 Weight 150 lbs Height 61 in Blood Pressure Diastolic 70 mm Hg Blood Pressure Systolic 102 mm Hg Summary Purpose eClinicalWorks Submission
--- OUTSIDE RECORDS SUMMARY | 2019-01-30 06:20 | XMS REPORT ---
Author Author Gustavo Mckenna [facility] eClinicalWorks Address Unknown Phone Unavailable Care Team Providers Care Health Policy Manager Name Role Phone Gustavo Mckenna Unavailable Encounters Encounter Location Date Cold congestion Noel Mckenna MD Aug 24, 2014 REFILLS Noel Mckenna MD Nov 13, 2016 3 Months (Reason: D.M.) Noel Mckenna MD Sep 27, 2016 4 Weeks (Reason: D.M.) Noel Mckenna MD Jul 12, 2016 New referral Noel Mckenna MD February 16, 2015 3 Months (Reason: D.M. and multiple problems) Noel Mckenna MD Jun 24, 2015 referral Noel Mckenna MD Oct 25, 2016 referral for Noel Gonzáles MD January 26, 2015 4 Weeks (Reason: Diabetes ) Noel Mckenna MD Jan 07, 2015 left wrist pain Noel Mckenna MD Dec 31, 2014 cgms results Noel Mckenna MD Dec 17, 2014 Cold Noel Mckenna MD Aug 31, 2014 follow up Diabetes/insulin pump Noel Mckenna MD Nov 16, 2014 3 Months (Reason: Diabetes ) oNel Mckenna MD Sep 23, 2015 Unknown Noel [...] GERD (gastroesophageal reflux disease) K21.9 Active Problem Vitamin D deficiency E55.9 Active [...] (without mention of hemorrhage) 562.10 Active Problem Spondylolysis, 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 Croatian, Amharic Sep 27, 2016 Marital Status: single. Sep 27, 2016 Tobacco . N/A Sep 27, 2016 Drug use: no. Sep 27, 2016 Caffeine: yes. frequency:, 1 c/day Sep 27, 2016 Pets: . N/A Sep 27, 2016 Exercise: yes. Sep 27, 2016 Sexually active: . N/A Sep 27, 2016 Smoking/Tobacco Use: no. Patient is a: Never Smoker Sep 27, 2016 Alcohol: no. Sep 27, 2016 Travel outside [place]: no. Sep 27, 2016 Occupation: unemployed. Disabled Sep 27, 2016 Summary Purpose eClinicalWorks Submission
--- OUTSIDE RECORDS SUMMARY | 2019-01-30 06:20 | XMS REPORT ---
Author Author Admin, [place] Organization [facility] Address [address] [place] [address] Phone Allergies, Adverse Reactions, Alerts Allergy Name Reaction Description Start Date Severity Status Provider METFORMIN HCL diarrhea and vomiting Severe Active Kris Hunt MD PENICILLIN Unkown Severe Active Kris Hunt MD CODEINE Does not now what Severe Active Kris Hunt MD Conditions or Problems Problem Name Problem Code Onset Date Status Entry Date Provider Comment Standard Description Annotate DEPRESSIVE DISORDER, MAJOR, RECURRENT EPISODE, MODERATE Active Kris Hunt MD Major depressive disorder, recurrent episode, moderate degree Medication List Medication Instructions Start Date Stop Date Generic Name NDC Status Provider Patient Instruction CLONAZEPAM 0.5 MG ORAL TABLET One tablet Po BID. CLONAZEPAM 21782401821 Active Kris Hunt MD Active DESIPRAMINE HCL 75 MG ORAL TABLET One tablet nightly. DESIPRAMINE HCL 36215758617 Active Perla Clayton MD Active ZOLOFT 100 MG ORAL TABLET One tablet Po Every am SERTRALINE HCL 14311232651 Active Kris Hunt MD Active Vital Signs Date Name Value Unit Range Description blood pressure, diastolic 72 mm[Hg] BP martinez blood pressure, systolic 106 mm[Hg] BP sys height E&M 61 [in_us] Bdy height pulse rate E&M 114 /min Heart rate weight E&M 130 [lb_av] Weight Measured blood pressure, diastolic 75 mm[Hg] BP martinez blood pressure, systolic 111 mm[Hg] BP sys height E&M 61 [in_us] Bdy height pulse rate E&M 113 /min Heart rate weight E&M 129.60 [lb_av] Weight Measured blood pressure, diastolic 80 mm[Hg] BP martinez blood pressure, systolic 117 mm[Hg] BP sys height E&M 61 [in_us] Bdy height pulse rate E&M 87 /min Heart rate weight E&M 130.40 [lb_av] Weight Measured blood pressure, diastolic 76 mm[Hg] BP martinez blood pressure, systolic 111 mm[Hg] BP sys height E&M 61 [in_us] Bdy height pulse rate E&M 103 /min Heart rate weight E&M 114.80 [lb_av] Weight Measured blood pressure, diastolic 76 mm[Hg] BP martinez blood pressure, systolic 118 mm[Hg] BP sys height E&M 61 [in_us] Bdy height pulse rate E&M 106 /min Heart rate weight E&M 126.50 [lb_av] Weight Measured Encounters Date Encounter Provider Code Facility 16:16:31 ENFORCEMENT OFFICER Est Patient Exp Problem - 37399 Perla Clayton MD CPT-70785 [facility] 15:59:40 ENFORCEMENT OFFICER Est Patient Exp Problem - 51198 Kris Wooten MD CPT-96608 [facility] 16:16:41 CDT Est Patient Exp Problem - 40851 Kris Wooten MD CPT-34005 [facility] 14:44:53 CDT Est Patient Detailed - 15475 Kris Hunt MD CPT-[address] [facility] Procedures Code Procedure Name Date Entry Date Standard Description CPT-15584 Diagnostic evaluation with medical - 21010 13:53:05 CDT
--- OUTSIDE RECORDS SUMMARY | 2019-01-30 06:20 | XMS REPORT ---
Author Author Admin, [place] Organization [facility] Address [address] [place] [address] Phone Allergies, Adverse Reactions, Alerts Allergy Name [...] ORAL TABLET One tablet Po BID. CLONAZEPAM 48601596505 Active Kris Hunt MD Active DESIPRAMINE HCL 25 MG ORAL TABLET Two tablets at night. DESIPRAMINE HCL 90416804091 Active Kris Hunt MD Active ZOLOFT 100 MG ORAL TABLET One tablet Po Every am SERTRALINE HCL 77791814292 Active Kris Hunt MD Active Vital Signs Date Name Value Unit Range Description blood pressure, diastolic 75 mm[Hg] BP martinez [...] Measured Encounters Date Encounter Provider Code Facility 15:59:40 MEAT WRAPPER Est Patient Exp Problem - 28826 Kris Wooten MD CPT-43347 [facility] 16:16:41 CDT Est Patient Exp Problem - 70099 Kris Wooten MD CPT-34447 [facility] 14:44:53 CDT Est Patient Detailed - 82134 Kris Hunt MD CPT-99848 [facility] Procedures Code Procedure Name Date Entry Date Standard Description CPT-50626 Diagnostic evaluation with medical - 21531 13:53:05 CDT
--- OUTSIDE RECORDS SUMMARY | 2019-01-30 06:20 | XMS REPORT ---
Author Author [facility] Address Unknown Phone Unavailable Care Team Providers Care Flanging Machine Operator Name Role Phone Shannon Hansen Unavailable Unavailable Problems This patient has no known problems. Allergies, Adverse Reactions, Alerts This patient has no known allergies or adverse reactions. Medications This patient has no known medications. Encounters Start Date/Time End Date/Time Encounter Type Admission Type Attending Clinicians Care Facility Care Department Encounter ID 2017-12-30 15:28:00 2017-12-30 15:28:00 Outpatient Jagdish Hansen [id number] Results Test Description Test Time Test Comments Text Results Atomic Results Result Comments MRI CERVICAL WO CLINICAL INDICATION: M54.2 Cervicalgia. MODALITY: [employer] [place] 1.2 [place] Open MRITECHNIQUE: Multiplanar SE and FSE evaluation of the cervical region was performed without contrast enha ncement.IMPRESSION:1. Multiple, small broad-based posterior protrusions at the C3-C4 through C6-C7 levels, detailed below.2. Mild bilateral neural foraminal narrowing at C4-C5.3. No significant cervical canal stenosis.4. Mild cervical facet arthrosis.FINDINGS:COMPARISON: None.Cervical vertebral bodies demonstrate anatomic alignment. No focal marrow signal abnormalities are seen. There is no significant disc desiccation or disc height loss in the cervical spine.Craniocervical junction is within normal limits. Cervical spinal cord demonstrates normal signal intensity.No prevertebral soft tissue mass is seen.FINDINGS AT SPECIFIC LEVELS:C2-C3: No significant disc bulge or protrusion. Bilateral facets are within normal limits. No significant central canal stenosis or neural foraminal narrowing.C3-C4: Broad-based posterior protrusion measuring 1.5 mm, minimally effacing the anterior thecal sac. Bilateral facets are within normal limits. No significant central canal stenosis or neural foraminal jerome rowing.C4-C5: Broad-based posterior protrusion measuring 1.5 mm, minimally effacing the anterior thecal sac. Bilateral facets are mildly degenerated. Mild bilateral neural foraminal narrowing is present. No significant central canal stenosis.C5-C6: Broad-based posterior protrusion measuring 1.5 mm, mildly effacing the anterior thecal sac. Bilateral facets are mildly degenerated. No significant neural foraminal narrowing or central canal stenosis.C6-C7: Broad- based posterior protrusion measuring 1.5 mm, effacing the anterior thecal sac. Bilateral facets are within normal limits. No significant central canal stenosis or neural foraminal narrowing.C7-T1: No significant disc bulge or protrusion. Bilateral facets are within normal limits. No significant central canal stenosis or neural foraminal narrowing.
--- OUTSIDE RECORDS SUMMARY | 2019-01-30 06:20 | XMS REPORT ---
Author Author Gustavo Mckenna [facility] eClinicalWorks Address Unknown Phone Unavailable Care Team Providers Care Party Plan Sales Unit Sales Leader Name Role Phone Gustavo Mckenna Unavailable Encounters [...] BD Ultra-Fine Pen Needle [place]aley 32g 4mm MULTUM 0245057 - subcutaneously daily Nov 13, 2016 Active as directed Victoza MULTUM 950319 18 mg/3 mL subcutaneously once a day Nov 13, 2016 Active 1.8 mg Social History Social History Element Qualifiers Date Reported Language: . German, Mohawk Sep 27, 2016 Marital Status: single. Sep [...]
--- OUTSIDE RECORDS SUMMARY | 2019-01-30 06:20 | XMS REPORT ---
Author Author Gustavo Mckenna [facility] eClinicalWorks Address Unknown Phone Unavailable Care Team Providers Care Security Expert Name Role Phone Gustavo Mckenna Unavailable Encounters [...] for Noel Gonzáles MD January 26, 2015 REFERRAL TO CARDIO Noel Mckenna MD Nov 26, 2016 4 Weeks (Reason: Diabetes ) Noel Mckenna [...] History Element Qualifiers Date Reported Language: . Albanian, Mongolian Sep 27, 2016 Marital Status: single. Sep [...]
--- OUTSIDE RECORDS SUMMARY | 2019-01-30 06:20 | XMS REPORT ---
Author Author Gustavo Mckenna [facility] eClinicalWorks Address Unknown Phone Unavailable Care Team Providers Care Silverware Etcher Name Role Phone Gustavo Mckenna Unavailable Allergies, Adverse Reactions, Alerts Substance Reaction Event Type metformin Info Not Available Drug Allergy codeine Info Not Available Drug Allergy Darvocet N 100 Info Not Available Drug Allergy Darvocet N 50 Info Not Available Drug Allergy Penicillin Info Not Available Drug Allergy Encounters Encounter Location Date Cold congestion Nole Mckenna MD Aug 24, 2014 3 Months (Reason: D.M.) Noel Mckenna MD [...] GERD (gastroesophageal reflux disease) K21.9 Active Assessment Hyperlipidemia, mixed E78.2 Active Assessment Cervical disc disorder with radiculopathy, cervicothoracic region M50.13 Active Assessment Left knee pain M25.562 Active Assessment Anemia D64.9 Active Assessment 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 Assessment Essential (primary) hypertension I10 Active Assessment Encounter for immunization Z23 Active Assessment Hypothyroid E03.9 Active Problem Vitamin [...] Instructions Start Date End Date Status Dosage Acetaminophen-TraMADol Hydrochloride MULTUM 53535 325 mg-37.5 mg orally every 12 hours Active 2 tab(s) clonazepam MULTUM 09269 0.5 mg orally qhs Active 2 tabs Celebrex MULTUM 93048 200 mg orally 2 times a day Active 1 cap(s) Duexis MULTUM 743580 26.6 mg-800 mg orally 3 times a day Active 1 tab(s) albuterol MULTUM 77369 2.5 mg/3 mL (0.083%) inhaled every 6 hours Active 3 mL atenolol 25 mg oral tablet MULTUM 91122 orally daily Active 1 tab(s) Vitamin B6 MULTUM 4994 Active Unknown Pravachol MULTUM 1884 40 mg orally once a day (at bedtime) Aug 17, 2016 Active 1 tab(s) Levothyroxine Sodium MULTUM 1842 75 mcg (0.075 mg) orally once a day Active 1 tab(s) pantoprazole MULTUM 69936 40 mg orally once a day Active 1 tab(s) Victoza MULTUM 067602 18 mg/3 mL subcutaneously once a day Active 1.8 mg fluconazole MULTUM 11054 150 mg orally once Jul 12, 2016 Active 1 tab(s) escitalopram MULTUM 90901 20 mg orally once a day Active 1 tab(s) NovoLog MULTUM 71966 100 units/mL subcutaneously insulin pump Active 75 units via insulin pump zolpidem MULTUM 02305 10 mg orally once a day (at bedtime) Active 1 tab(s) trazodone MULTUM 08760 100 mg orally qhs Active 1 tab(s) Celebrex MULTUM 05590 200 mg orally 2 times a day Active 1 cap(s) ONE TOUCH ULTRA TEST STRIPS Unknown 0 - - 6 x per day Active CHECK BLOOD SUGARS TWICE/DAY nystatin topical MULTUM 55981 868636 units/g applied topically 3 times a day Jul 12, 2016 Active 1 mike ProAir HFA MULTUM 42909 CFC free 90 mcg/inh inhaled 4 times a day Active 2 puff(s) ergocalciferol MULTUM 26304 50,000 intl units orally 2 times a week Active 1 cap(s) Social History Social History Element Qualifiers Date Reported Language: . Kiswahili, Malay Sep 27, 2016 Marital Status: single. Sep [...] 2016 Occupation: unemployed. Disabled Sep 27, 2016 Vital Signs Date/Time: Sep 27, 2016 Weight 138 lbs Height 61 in Blood Pressure Diastolic 70 mm Hg Blood Pressure Systolic 126 mm Hg Results Finger stick glucose Immunizations Vaccine Administration Date Influenza (MCR) Sep 27, 2016 Summary Purpose eClinicalWorks Submission
[2019-01-30 09:26] VITALS: BP 126/76
--- NOTE | 2019-01-30 14:55 | Operative Report ---
DATE OF PROCEDURE: 01/30/2019 SURGEON: George Lin MD PROCEDURES: Esophagogastroduodenoscopy with esophageal brushings, esophageal dilatation and biopsies. INDICATIONS FOR PROCEDURE: Dysphagia/odynophagia. MEDICATIONS: The patient was done under MAC, please see anesthesiologist's note. PROCEDURE IN DETAIL: With the patient in left lateral decubitus position, flexible fiberoptic Olympus gastroscope was introduced into the esophagus under direct visualization without any difficulty. There were a few scattered whitish plaques noted in the esophagus, those were brushed and sent to stain for Mame. Esophagus was dilated to size 52-Malian Munoz. The scope was then advanced with ease into the stomach and a large amount of retained undigested food was noted in the stomach precluding visualization of the fundus and the majority of the upper body along the greater curvature along with some of the antral mucosa. Whatever was visualized, the mucosa overlying the antrum and the distal body revealed some patchy intense erythema, low-grade to moderate edema. Biopsies were obtained and sent to stain for H pylori. The pylorus was of normal contour and shape, was intubated with ease and the scope was advanced all the way to the second portion of the duodenum. Biopsies were obtained from the proximal second portion and duodenal bulb to rule out sprue. The scope was then withdrawn back into the stomach and retroflexed and the cardia appeared to be within normal limits. The minimal mucosa that was visualized overlying the fundus appeared to be within normal limits. The scope was then straightened out, it was subsequently withdrawn. The patient tolerated the procedure well. IMPRESSION: 1. Rule out Mame esophagitis. 2. Esophagus dilated to size 52-Malian Munoz. 3. Gastritis, mild. 4. Large amount of retained undigested food in the stomach precluding visualization of the fundus and the body. 5. Rule out sprue. PLAN: Follow up histology. Continue Protonix 40 mg one p.o. a.c. b.i.d. Add Diflucan 200 mg one p.o. daily x10 days. George Lin MD [facility] [place][id number] cc: Roger Mcintosh MD
== END | disposition home or self-care (01) ==
LOC: OR 06:08
PROVIDERS: ATTEND Internal Medicine Gastroenterology
DX: R13.10 Dysphagia, unspecified (principal); K29.70 Gastritis, unspecified, without bleeding; K31.89 Other diseases of stomach and duodenum; K22.8 Other specified diseases of esophagus; K21.9 Gastro-esophageal reflux disease without esophagitis; K76.0 Fatty (change of) liver, not elsewhere classified; G47.33 Obstructive sleep apnea (adult) (pediatric); J45.909 Unspecified asthma, uncomplicated; E78.5 Hyperlipidemia, unspecified; E11.9 Type 2 diabetes mellitus without complications; E03.9 Hypothyroidism, unspecified; F32.9 Major depressive disorder, single episode, unspecified; F41.9 Anxiety disorder, unspecified; Z88.6 Allergy status to analgesic agent; Z88.0 Allergy status to penicillin; Z88.8 Allergy status to other drugs, medicaments and biological substances; Z01.810 Encounter for preprocedural cardiovascular examination; Z79.4 Long term (current) use of insulin
CPT/HCPCS: 36415; 43239; 43450; 82948; 88112; 88305; 88312; 93005; J1450; J2250; J2704

== ENCOUNTER → 2019-07-16 | Day surgery (SDC) | payer MEDICARE ==
[2019-07-10 11:56] LABS: ANION GAP 14.3 mmol/L (8-16); BLOOD UREA NITROGEN 11 mg/dL (7-26); BUN/CREATININE RATIO 15 (6-25); CALCIUM 9.4 mg/dL (8.4-10.2); CARBON DIOXIDE 26 mmol/L (22-29); CHLORIDE 104 mmol/L (98-107); CREATININE, SERUM 0.74 mg/dL (0.57-1.11); EST GLOMERULAR FILTRATION RATE > 60 ML/MIN (60-); GLUCOSE 95 mg/dL (74-118); POTASSIUM 4.3 mmol/L (3.5-5.1); SODIUM 140 mmol/L (136-145)
[~2019-07-16] MED LIST changes: +ACETAMINOPHEN 1000 MG/100 ML 100 ML IV ONE; +DEXAMETHASONE SOD PHOS INJ 4 MG/ML VIAL ONE; -FLUCONAZOLE 200 MG/100 ML 100 ML IV NR; +KETOROLAC TROMETHAMINE 30 MG/ML VIAL ONE; +LIDOCAINE 1% W/EPINEPHRINE 20 ML VIAL ONE; +LIDOCAINE HCL 2% LOCAL INJ 5 ML SDV VIAL INJ ONE; +ONDANSETRON HCL INJ 2MG/ML 2ML 2 MG/ML VIAL ONE; +PROAIR HFA INH8.5 GM INH; +PROPOFOL IV EMULSION 10 MG/ML 20 ML VIAL ONE; -PROPOFOL IV EMULSION 10 MG/ML 50 ML VIAL ONE; +RANITIDINE HCL75 MG PO; +ROCURONIUM BROMIDE 10 MG/ML 5ML VIAL ONE; +SEVOFLURANE INHAL SOLN 250 ML PEN BTL ONE
--- OUTSIDE RECORDS SUMMARY | 2019-07-16 07:17 | XMS REPORT | Clinical Summary ---
Author Author [facility] Address Unknown Phone Unavailable Care Team Providers Care Real Estate Officer Name Role Phone George Lin MD PCP [...] 8 daily. Active Problems Not on file Family History Medical History Relation Name Comments [...] Used Never Smoker Smokeless Tobacco: Never Used Drinks/Week oz/Week Comments Alcohol Use No Sex Assigned at Date Recorded Not on file Industry Job Start Date Occupation Not on file Not on file Not on file Travel End Travel History Travel Start No recent travel history available. Last Filed Vital Signs Not on file Plan of Treatment Health Maintenance Due Date Last Done Comments CERVICAL CANCER SCREENING 1983 BREAST CANCER SCREENING 2012 COLONOSCOPY SCREENING 2012 SHINGLES VACCINES (#1) 2012 INFLUENZA VACCINE 06/18/2019 Results Not on fileafter 07/15/2018 Insurance Type Payer Benefit Subscriber ID Effective Phone Address Plan / Dates Group HMO AETNA MEDICARE AETNA xxxxxxxx 2013-P MEDICARE resent HMO/PPO [facility] Medicaid MEDICAID MEDICAID xxxxxxxxx 2013- Present Advance Directives For more information, please contact: [phone] Patient Occupational Therapy Manager Explanation Type Date Recorded Advance Directives, Living Will and Medical Power of Operational Risk Analyst
--- OUTSIDE RECORDS SUMMARY | 2019-07-16 07:19 | XMS REPORT | Continuity of Care Document ---
Author Author [employer] Address Unknown Phone Unavailable Care Team Providers Care Guitar Teacher Name Role Phone [employer] Unavailable Unavailable Problems Problem Status Onset Date Classification Date Reported Comments Source Localized swelling, mass and lump, neck 10/01/2018 04/14/2019 [facility] DEPRESSIVE DISORDER, MAJOR, RECURRENT EPISODE, MODERATE Active 07/04/2018 Diagnosis 06/12/2019 [facility] Pelvic and perineal pain 01/16/2018 04/18/2018 [facility] Interstitial pulmonary disease, unspecified 01/09/2018 04/11/2018 [facility] BACK PAIN, POSS UTI, FEVER, VOMITING Active 12/08/2017 [facility] Other spondylosis, lumbosacral region 11/27/2017 11/29/2017 [facility] J45.909 Active 10/21/2017 [facility] Past history of procedure (context-dependent category) Resolved 09/18/2017 Problem 06/24/2019 [facility] THORACI FACET, SACRO ILIAC JOINT Active 08/13/2017 [facility] LUMBAR FACET Active 06/17/2017 [facility] Tachycardia (finding) Active 11/18/2016 Problem 11/29/2017 had cardiac testing done 1 yr ago-cardio Dr Jose Case. denies any CP [facility] J45.909///WITH DLCO Active 02/09/2016 [facility] Discharge Diagnosis: Asthma exacerbation 12/27/2015 12/30/2015 [facility] SOB Active 12/27/2015 [facility] Discharge Diagnosis: Acute diarrhea 11/25/2015 11/29/2015 [facility] Discharge Diagnosis: Abdominal pain 11/25/2015 11/29/2015 [facility] LOWER ABDOMINAL AND BACK PAIN Active 11/25/2015 [facility] PRE-OP CV EXAM Active 01/25/2015 Condition 01/25/2015 [facility] Asthma (disorder) Active 01/11/2015 Problem 06/24/2019 Data migrated from [employer] on 05/25/15. [facility] Chest pain (finding) Active 01/11/2015 Problem 06/24/2019 Data migrated from [employer] on 05/25/15. [facility] Conduction disorder of the heart (disorder) Active 01/11/2015 Problem 06/24/2019 Data migrated from [employer] on 05/25/15. [facility] Dyspnea (finding) Active 01/11/2015 Problem 06/24/2019 Data migrated from [employer] on 05/25/15. [facility], [facility] Palpitations (finding) Active 01/11/2015 Problem 06/24/2019 Data migrated from [employer] on 05/25/15. [facility] CHEST PAIN Active 01/11/2015 Condition 01/25/2015 [facility] PALPITATIONS Active 01/11/2015 Condition 01/25/2015 [facility] DYSPNEA Active 01/11/2015 Condition 01/25/2015 [facility] CARDIAC ARRHYTHMIA Active 01/11/2015 Condition 01/25/2015 [facility] HYPERTENSION - BENIGN ESSENTIAL Active 01/11/2015 Condition 01/25/2015 [facility] DM Active 01/11/2015 Condition 01/25/2015 [facility] ASTHMA Active 01/11/2015 Condition 01/25/2015 [facility] [id number] - LUMBOSACR SPOND Active 11/23/2014 [facility] Insulin pump, device (physical object) Active 11/18/2013 Problem 11/29/2017 [facility] Depression - motion (qualifier value) Active Problem 11/24/2017 [facility] Pulmonary fibrosis, unspecified 04/11/2018 [facility] Cardiomegaly 04/11/2018 [facility] Backache (finding) Active Problem 06/24/2019 [facility] Crohn's disease (disorder) Active Problem 06/24/2019 [facility] Depressive disorder (disorder) Active Problem 06/24/2019 [facility] Diabetes mellitus (disorder) Active Problem 06/24/2019 [facility] Diabetic neuropathy (disorder) Active Problem 06/24/2019 [facility] Hypercholesterolemia (disorder) Active Problem 06/24/2019 [facility] Disorder of liver (disorder) Active Problem 06/24/2019 [facility] Neck pain (finding) Active Problem 06/24/2019 [facility] Polyp (disorder) Resolved Problem 06/24/2019 [facility] Secondary diabetes mellitus (disorder) Resolved Problem 06/24/2019 [facility] Tachyarrhythmia (disorder) Active Problem 06/24/2019 [facility] Disease of thyroid gland (disorder) Active Problem 06/24/2019 [facility] Type II diabetes mellitus - poor control (disorder) Active Problem 06/24/2019 [facility] Final: Mild persistent asthma with (acute) exacerbation 12/30/2015 [facility] Final: Acute bronchitis, unspecified 12/30/2015 [facility] Final: Fever, unspecified 12/30/2015 [facility] Final: Diarrhea, unspecified 12/30/2015 [facility] Final: Otalgia, left ear 12/30/2015 [facility] Final: Type 2 diabetes mellitus without complications 12/30/2015 [facility] Herniated structure (morphologic abnormality) Active Problem 02/24/2016 herniated disk [facility] Hyperlipidemia, mixed Active Problem 07/15/2019 eCW: Noel Mckenna Neuropathic spondyloarthropathy of lumbosacral region Active Problem 07/15/2019 eCW: Noel Mckenna Cervical disc disorder with radiculopathy, cervicothoracic region Active Problem 07/15/2019 eCW: Noel Mckenna Left knee pain Active Problem 07/15/2019 eCW: Noel Mckenna Hypothyroid Active Diagnosis 07/15/2019 eCW: Noel Mckenna Essential (primary) hypertension Active Diagnosis 07/15/2019 eCW: Noel Mckenna PVD (peripheral vascular disease) Active Problem 07/15/2019 eCW: Noel Mckenna Type 2 diabetes mellitus with hyperglycemia Active Diagnosis 07/15/2019 eCW: Noel Mckenna Radiculopathy, cervical region Active Problem 07/15/2019 eCW: Noel Mckenna Carpal tunnel syndrome Active Problem 07/15/2019 eCW: Noel Mckenna Diarrhea Active Problem 07/15/2019 eCW: Noel Mckenna GERD (gastroesophageal reflux disease) Active Problem 07/15/2019 eCW: Noel Mckenna Radiculopathy, lumbar region Active Problem 07/15/2019 eCW: Noel Mckenna Candidiasis, unspecified Active Problem 01/27/2019 eCW: Noel Mckenna Other chronic pain Active Problem 07/15/2019 eCW: Noel Mckenna Nonscarring hair loss, unspecified Active Problem 07/15/2019 eCW: Noel Mckenna Otalgia, left ear Active Problem 07/15/2019 eCW: Noel Mckenna Anemia Active Problem 07/15/2019 eCW: Noel Mckenna Vitamin D deficiency Active Problem 07/15/2019 eCW: Noel Mckenna Migraine Active Problem 07/15/2019 eCW: Noel Mckenna Asthma Active Problem 07/15/2019 eCW: Noel Mckenna History of Iveth thyroiditis Active Problem 07/15/2019 eCW: Noel Mckenna Insulin pump status Active Diagnosis 07/15/2019 eCW: Noel Mckenna Hx of diverticulitis of colon Active Problem 07/15/2019 eCW: Noel Mckenna Type 2 diabetes mellitus with diabetic polyneuropathy Active Diagnosis 07/15/2019 eCW: Noel Mckenna Crohn's disease of large intestine without complications Active Problem 07/15/2019 eCW: Noel Mckenna Encounter for immunization Active Diagnosis 12/03/2017 eCW: Noel Mckenna Urinary frequency Active Diagnosis 12/03/2017 eCW: Noel Mckenna Tinea pedis Active Problem 07/15/2019 eCW: Noel Mckenna Onychomycosis Active Problem 07/15/2019 eCW: Noel Mckenna Back pain Active Problem 07/15/2019 eCW: Noel Mckenna Pelvic pain in female Active Diagnosis 02/05/2018 eCW: Noel Mckenna Dysuria Active Diagnosis 02/05/2018 eCW: Noel Mckenna Diabetes Type 2 Uncontrolled Active Problem 03/07/2017 eCW: Noel Mckenna Diverticulosis of colon (without mention of hemorrhage) Active Problem 03/07/2017 eCW: Noel Mckenna Fatigue Active Problem 03/07/2017 eCW: Noel Mckenna Insomnia Active Problem 03/07/2017 eCW: Noel Mckenna Anxiety state, unspecified Active Problem 03/07/2017 eCW: Noel Mckenna ASTHMA NOS Active Problem 03/07/2017 eCW: Noel Mckenna Hyperlipidemia Active Problem 03/07/2017 eCW: Noel Mckenna INSULIN PUMP STATUS Active Problem 03/07/2017 eCW: Noel Mckenna Diabetes type 2 uncontrolled w/neurological manifestations Active Problem 03/07/2017 eCW: Noel Mckenna UTI [Urinary tract infection] Active Problem 03/07/2017 eCW: Noel Mckenna Pseudopolyposis, colon Active Problem 03/07/2017 eCW: Noel Mckenna Crohn's disease NOS Active Problem 03/07/2017 eCW: Noel Mckenna Gastroenteritis NOS Active Problem 03/07/2017 eCW: Noel Mckenna Nausea with vomiting Active Problem 03/07/2017 eCW: Noel Mckenna Spondylolysis, lumbosacral region Active Problem 03/07/2017 eCW: Noel Mckenna Peripheral Vascular Disease-PVD Active Problem 03/07/2017 eCW: Noel Mckenna Tachycardia Active Problem 03/07/2017 eCW: Noel Mckenna Vitamin D Deficiency Active Problem 03/07/2017 eCW: Noel Mckenna Menopause Active Problem 03/07/2017 eCW: Noel Mckenna Dysuria Active Problem 03/07/2017 eCW: Noel Mckenna BREAST ANOMALIES NEC Active Problem 03/07/2017 eCW: Noel Mckenna Back pain Active Problem 03/07/2017 eCW: Noel Mckenna Iveth's thyroiditis Active Problem 03/07/2017 eCW: Noel Mckenna Depression with anxiety Active Problem 03/07/2017 eCW: Noel Mckenna Vulvovaginitis due to Mame Active Problem 03/07/2017 eCW: Noel Mckenna Arthralgias Active Problem 03/07/2017 eCW: Noel Mckenna INSULIN PUMP TRAINING Active Problem 03/07/2017 eCW: Noel Mckenna Crohn's disease of colon Active Problem 03/07/2017 eCW: Noel Mckenna Insulin pump titration Active Problem 03/07/2017 eCW: Noel Mckenna Hypothyroidism (acquired) Active Problem 03/07/2017 eCW: Noel Mckenna Migraine Active Problem 03/07/2017 eCW: Noel Mckenna Other screening mammogram Active Diagnosis 01/04/2016 eCW: Noel Mckenna Examination of eyes and vision Active Diagnosis 01/04/2016 eCW: Noel Mckenna Encounter for screening mammogram for malignant neoplasm of breast Active Diagnosis 01/04/2016 eCW: Noel Mckenna Encounter for general adult medical examination without abnormal findings Active Diagnosis 01/04/2016 eCW: Noel Mckenna Insomnia Active Problem 03/07/2017 eCW: Noel Mckenna Type 2 diabetes mellitus with diabetic neuropathy Active Problem 03/07/2017 eCW: Noel Mckenna Type 2 diabetes mellitus with autonomic neuropathy Active Problem 03/07/2017 eCW: Noel Mckenna Vaginitis Active Diagnosis 06/12/2016 eCW: Noel Mckenna UTI (lower urinary tract infection) Active Diagnosis 06/12/2016 eCW: Noel Mckenna Left ear pain Active Diagnosis 06/12/2016 eCW: Noel Mckenna Vitamin D deficiency, unspecified Active Diagnosis 08/01/2016 eCW: Noel Mckenna Screening for lipid disorders Active Diagnosis 08/01/2016 eCW: Noel Mckenna Moniliasis Active Problem 07/15/2019 eCW: Noel Mckenna Anxiety (finding) Active Problem 11/29/2017 [facility] Steatosis of liver (disorder) Active Problem 11/29/2017 [facility] Hypertensive disorder, systemic arterial (disorder) Active Problem 11/29/2017 [facility] UNSPECIFIED ASTHMA, UNCOMPLICATED Active [facility] Medications Medication Details Route Status Patient Instructions Ordering Provider Order Date Source Levothyroxine Sodium 1 tab(s) orally Active 75 mcg (0.075 mg) orally once a day [facility] 08/24/2019 eCW: Noel Mckenna Lidocaine Viscous 2% mucous membrane solution 1 appl, TOP, QID, PRN Mouth Pain, X 7 day, # 15 mL, 0 Refill(s), Pharmacy: [facility] Active 06/16/2019 [facility] Ranitidine See Instructions, 0 Refill(s) Active 06/16/2019 [facility] levothyroxine 88 mcg (0.088 mg) oral tablet 88 microgram=1 tab, PO, Daily, # 90 tab, 0 Refill(s) Active 06/16/2019 [facility] Levothyroxine Sodium 1 tab(s) orally Active 88 mcg (0.088 mg) orally once a day [facility] 05/22/2019 eCW: Noel Mckenna levothyroxine 75 mcg (0.075 mg) oral tablet 75 microgram=1 tab, PO, Daily, # 90 tab, 1 Refill(s) Active 02/27/2019 [facility] sertraline 25 mg oral tablet 25 mg=1 tab, PO, Daily, # 90 tab, 0 Refill(s) Active 02/27/2019 [facility] Sucralfate 100 MG/ML Oral Suspension [Carafate] 1 gm=10 ml, PO, Before Meals & Bedtime, # 200 ml, 0 Refill(s) Inactive 02/27/2019 [facility] Vitamin D3 50,000 intl units oral capsule 50,000 IntlUnit=1 cap, PO, qWeek, # 12 cap, 0 Refill(s), Pharmacy: [facility] Active 02/27/2019 [facility] Terbinafine Hydrochloride, Topical 1 mike applied topically Active 1% applied topically One times a day [facility] 02/25/2019 eCW: Noel Mckenna TraMADol Hydrochloride 1 tab(s) orally Active 50 mg orally daily p.r.n. [facility] 02/25/2019 eCW: Noel Mckenna ONE TOUCH ULTRA TEST STRIPS - check blood sugars Active - check blood sugars 4 TIMES A DAY [facility] 02/21/2019 eCW: Noel Mckenna Lidocaine Viscous 2% mucous membrane solution 1 appl, TOP, QID, PRN Mouth Pain, No trague, solution, X 7 day, # 15 mL, 0 Refill(s), Pharmacy: [facility] Active 12/30/2018 [facility] levothyroxine 50 mcg (0.05 mg) oral tablet See Instructions, # 30 tab, Refill(s) 5, TAKE 1 TABLET BY MOUTH DAILY, Pharmacy: [facility] No Longer Active 09/30/2018 [facility] levothyroxine 50 mcg (0.05 mg) oral tablet See Instructions, # 30 tab, TAKE 1 TABLET BY MOUTH DAILY, Pharmacy: [facility] No Longer Active 08/29/2018 [facility] levothyroxine 50 mcg (0.05 mg) oral tablet See Instructions, # 30 tab, TAKE 1 TABLET BY MOUTH DAILY, [facility] No Longer Active 07/28/2018 [facility] DESIPRAMINE HCL One tablet nightly. Active One tablet nightly. 07/25/2018 [facility] CLONAZEPAM One tablet Po BID. Active One tablet Po BID. 07/25/2018 [facility] DESIPRAMINE HCL Two tablets at night. Active Two tablets at night. 07/25/2018 [facility] Acetaminophen-TraMADol Hydrochloride 1 tab(s) orally Active 325 mg-37.5 mg orally every 12 hours, p.r.n. [facility] 07/18/2018 eCW: Noel Mckenna ZOLOFT 100 MG ORAL TABLET Two tablets daily. Active Two tablets daily. 07/04/2018 [facility] desipramine 25 mg oral tablet 25 mg=1 tab, PO, TID, # 270 tab, 0 Refill(s) Active 05/23/2018 [facility] Terbinafine Hydrochloride 1 tab(s) orally Active 250 mg orally once a day [facility] 05/19/2018 eCW: Noel Mckenna Terbinafine Hydrochloride, Topical 1 mike applied topically Active 1% applied topically One times a day [facility] 05/19/2018 eCW: Noel Mckenna Megestrol Acetate 40 MG/ML Oral Suspension [Megace] 800 mg=20 mL, PO, Daily, # 140 mL, 0 Refill(s), Pharmacy: [facility] Active 04/01/2018 [facility] Freestyle William Sensor Apply one sensor every 10 days or as directed NA Active -- 01/13/2018 eCW: Noel Mckenna B-12 1 tab(s) sublingually Active 1000 mcg sublingually once a day 01/13/2018 eCW: Noel Mckenna Freestyle William [place] Use as directed NA Active -- 01/13/2018 eCW: Noel Mckenna Misc Medication 200 mL, Soln-IV, IV, Once, first dose 11/27/17 13:36:00 END USER CONSULTANT, stop date 11/27/17 13:36:00 END USER CONSULTANT Inactive 11/27/2017 [facility] diphenhydrAMINE 25 mg=0.5 mL, Injection, IV Push, Once PRN for itching, first dose 11/27/17 13:34:00 END USER CONSULTANT Inactive 11/27/2017 [facility] hydrALAZINE 10 mg=0.5 mL, Injection, IV Push, As Indicated PRN for hypertension, first dose 11/27/17 13:34:00 END USER CONSULTANT Inactive 11/27/2017 [facility] Labetalol 5 mg=1 mL, Injection, IV Push, As Indicated PRN for hypertension, first dose 11/27/17 13:34:00 END USER CONSULTANT Inactive 11/27/2017 [facility] Dilaudid 0.5 mg=0.5 mL, Injection, IV Push, q10min PRN for pain severe (7-10), first dose 11/27/17 13:34:00 END USER CONSULTANT Inactive 11/27/2017 [facility] morphine 2 mg=0.2 mL, Injection, IV Push, q5min PRN for pain, first dose 11/27/17 13:34:00 END USER CONSULTANT Inactive 11/27/2017 [facility] ondansetron 4 mg=2 mL, Injection, IV Push, q15min PRN for nausea, order duration: 2 doses, first dose 11/27/17 13:34:00 END USER CONSULTANT, stop date Limited # of times Inactive 11/27/2017 [facility] Xopenex 0.63 mg/3 mL inhalation solution 0.63 mg=3 mL, Soln, NEB, Once PRN for wheezing, first dose 11/27/17 13:34:00 END USER CONSULTANT Inactive 11/27/2017 [facility] Demerol HCl 12.5 mg=0.25 mL, Injection, IV Push, Once PRN for shivers, first dose 11/27/17 13:34:00 END USER CONSULTANT Inactive 11/27/2017 [facility] Saline Lock Flush 10 mL, Soln, IV Push, As Indicated PRN for flush, first dose 11/27/17 13:34:00 END USER CONSULTANT Inactive 11/27/2017 [facility] LR 1,000 mL 1,000 mL, IV, 75 mL/hr, start date 11/27/17 13:34:00 END USER CONSULTANT Inactive 11/27/2017 [facility] fentaNYL 50 mcg=1 mL, Injection, IV, Once, first dose 11/27/17 13:12:00 END USER CONSULTANT, stop date 11/27/17 13:12:00 END USER CONSULTANT Inactive 11/27/2017 [facility] midazolam 1 mg=1 mL, Injection, IV, Once, first dose 11/27/17 13:12:00 END USER CONSULTANT, stop date 11/27/17 13:12:00 END USER CONSULTANT Inactive 11/27/2017 [facility] ceFAZolin 1 gm, Powder-Inj, IV, Once, first dose 11/27/17 13:11:00 END USER CONSULTANT, stop date 11/27/17 13:11:00 END USER CONSULTANT Inactive 11/27/2017 [facility] Misc Medication 1,000 mL, Soln-IV, IV, Once, first dose 11/27/17 13:08:00 END USER CONSULTANT, stop date 11/27/17 13:08:00 END USER CONSULTANT Inactive 11/27/2017 [facility] fentaNYL 50 mcg=1 mL, Injection, IV, Once, first dose 11/27/17 13:06:00 END USER CONSULTANT, stop date 11/27/17 13:06:00 END USER CONSULTANT Inactive 11/27/2017 [facility] midazolam 1 mg=1 mL, Injection, IV, Once, first dose 11/27/17 13:06:00 END USER CONSULTANT, stop date 11/27/17 13:06:00 END USER CONSULTANT Inactive 11/27/2017 [facility] fentaNYL 50 mcg=1 mL, Injection, IV, Once, first dose 11/27/17 13:01:00 END USER CONSULTANT, stop date 11/27/17 13:01:00 END USER CONSULTANT Inactive 11/27/2017 [facility] midazolam 1 mg=1 mL, Injection, IV, Once, first dose 11/27/17 13:01:00 END USER CONSULTANT, stop date 11/27/17 13:01:00 END USER CONSULTANT Inactive 11/27/2017 [facility] midazolam 1 mg=1 mL, Injection, IV, Once, first dose 11/27/17 12:56:00 END USER CONSULTANT, stop date 11/27/17 12:56:00 END USER CONSULTANT Inactive 11/27/2017 [facility] fentaNYL 50 mcg=1 mL, Injection, IV, Once, first dose 11/27/17 12:56:00 END USER CONSULTANT, stop date 11/27/17 12:56:00 END USER CONSULTANT Inactive 11/27/2017 [facility] Lidocaine 2% 0.2 mL IV Start [[place]] 0.2 mL, Injection, Subcutaneous, Once PRN for other (see comment), first dose 11/27/17 11:01:00 END USER CONSULTANT Inactive 11/27/2017 [facility] LR 1,000 mL 1,000 mL, IV, 30 mL/hr, start date 11/27/17 11:01:00 END USER CONSULTANT Inactive 11/27/2017 [facility] NovoLOG Subcutaneous, TIDAC, INSULIN [...] Stop date: 08/20/17 13:25:00 CDT Inactive 08/20/2017 [facility] lidocaine (ANES) Route: IV, Drug form: INJ, ONCE, Stop date: 08/20/17 13:25:00 CDT Inactive 08/20/2017 [facility] LR 1000 mL INJ (ANES) Route: IV, Total Volume: 1,000, Start date: 08/20/17 13:08:00 CDT, Stop date: 08/20/17 14:08:00 CDT Inactive 08/20/2017 [facility] Atenolol 50 MG Oral Tablet 50 mg=1 tab, PO, Daily, 0 Refill(s) Active 08/20/2017 [facility] influenza virus vaccine, inactivated 0.5 mL, Route: IM, Drug Form: SUSP, ONCALL, Start date: 08/19/17 16:16:03 CDT, Stop date: 09/18/17 16:11:03 CDTNotes: (Same as: Fluzone Quadrivalent, Fluarix Quadrivalent) For 3 years of age and older (0.5 mL IM) Shake well before use No Longer Active 08/19/2017 [facility] levothyroxine 75 mcg (0.075 mg) oral tablet 75 microgram=1 tab, PO, Daily, 0 Refill(s) Active 08/19/2017 [facility] clonazePAM 0.5 mg oral tablet 0.5 mg=1 tab, PO, TID, 0 Refill(s) Active 08/19/2017 [facility] 3 ML liraglutide 6 MG/ML Prefilled Syringe [Victoza] SUB- Q, Daily, 0 Refill(s) Active 08/19/2017 [facility] 100 ACTUAT Beclomethasone Dipropionate 0.04 MG/ACTUAT Metered Dose Inhaler [Qvar] INHALATION, BID, 0 Refill(s) Active 08/19/2017 [facility] Trazodone Hydrochloride 100 MG Oral Tablet 100 mg=1 tab, PO, TID, 0 Refill(s) Active 08/19/2017 [facility] pantoprazole 40 mg oral enteric coated tablet 40 mg=1 tab, PO, Daily, 0 Refill(s) Active 08/19/2017 [facility] Metoclopramide 10 MG Oral Tablet 10 mg=1 tab, PO, TID, 0 Refill(s) Active 08/19/2017 [facility] pravastatin 40 mg oral tablet 40 mg=1 tab, PO, Daily, 0 Refill(s) Active 08/19/2017 [facility] Syringes - store brand not defined NA Active 3cc 25Gx1.5 1X/W [facility] 07/08/2017 eCW: Noel Mckenna cyanocobalamin 1000 mcg intramuscularly Active 1000 mcg/mL intramuscularly 1X/W [facility] 07/08/2017 eCW: Noel Mckenna midazolam (ANES) Route: IV, Drug form: SOLN, ONCE, Stop date: 06/25/17 11:24:00 CDT Inactive 06/25/2017 [facility] fentaNYL (ANES) Route: IV, Drug form: INJ, ONCE, Stop date: 06/25/17 11:24:00 CDT Inactive 06/25/2017 [facility] Calcium Chloride 0.0014 MEQ/ML / Potassium Chloride 0.004 MEQ/ML / Sodium Chloride 0.103 MEQ/ML / Sodium Lactate 0.028 MEQ/ML Injectable Solution 1,000 mL, Rate: 25 ml/hr, Infuse over: 40 hr, Route: IV, Dosing Weight 60.1 kg, Total Volume: 1,000, Start date: 06/25/17 11:10:00 CDT, Duration: 30 day, Stop date: 07/25/17 11:09:00 CDT Inactive 06/25/2017 [facility] Dexamethasone 4 mg, 1 mL, Route: IVP, Drug form: INJ, ONCE, Dosing Weight 60.1, kg, PRN Nausea & Vomiting, Start date: 06/25/17 11:10:00 CDTNotes: Concentration: 4mg/ml Inactive 06/25/2017 [facility] Ondansetron 4 mg, 2 mL, Route: IVP, Drug form: INJ, ONCE, Dosing Weight 60.1, kg, PRN Nausea & Vomiting, Start date: 06/25/17 11:10:00 CDTNotes: (Same as: Patrick) MEDICATION WASTE Product Size: 4 mg P roduct Wasted: ___ mg Inactive 06/25/2017 [facility] Naloxone 0.4 mg, 1 mL, Route: IVP, Drug form: INJ, Q2MIN, Dosing Weight 60.1, kg, PRN Narcotic Reversal, Start date: 06/25/17 11:10:00 CDT, Duration: 8 doses or times, Stop date: Limited # of timesNotes: Same as Narcan Inactive 06/25/2017 [facility] Morphine 4 mg, 1 mL, Route: IVP, Drug form: INJ, Q5Min, Dosing Weight 60.1, kg, PRN Pain Score 7-10, Start date: 06/25/17 11:10:00 CDT, Duration: 3 doses or times, Stop date: Limited # of timesNotes: (Same as :MORPhine Sulfate) Inactive 06/25/2017 [facility] Flumazenil 0.2 mg, 2 mL, Route: IVP, Drug form: INJ, PRN, Dosing Weight 60.1, kg, PRN Benzodiazepine Reversal, Initial dose, Start date: 06/25/17 11:10:00 CDT, Duration: 30 day, Stop date: 07/25/17 11:09:00 CDTNotes: (Same as: Romazicon) Inactive 06/25/2017 [facility] Meperidine 12.5 mg, 0.25 mL, Route: IVP, Drug form: INJ, Q30Min, Dosing Weight 60.1, kg, PRN Other -See Comment, For shivering, Start date: 06/25/17 11:10:00 CDT, Duration: 2 doses or times, Stop date: Limited # of timesNotes: (Same As: Demerol) Inactive 06/25/2017 [facility] Ketorolac 30 mg, 1 mL, Route: IVP, [...] mg Product Wasted: ___ mg Inactive 06/25/2017 [facility] Hydralazine 10 mg, 0.5 mL, Route: IVP, Drug form: INJ, Q20Min, Dosing Weight 60.1, kg, PRN Elevated BP, Start date: 06/25/17 11:10:00 CDT, Duration: 2 doses or times, Stop date: Limited # of timesNotes: (Same as: Apresoline) Push over 5 minutes Inactive 06/25/2017 [facility] Diphenhydramine 12.5 mg, 0.25 mL, Route: IVP, Drug form: INJ, Q6H, Dosing Weight 60.1, kg, PRN Itching, Start date: 06/25/17 11:10:00 CDT, Duration: 30 day, Stop date: 07/25/17 11:09:00 CDTNotes: (Same as: Benadryl) Inactive 06/25/2017 [facility] LR 1000 mL INJ (ANES) Route: IV, Total Volume: 1,000, Start date: 06/25/17 11:01:00 CDT, Stop date: 06/25/17 12:01:00 CDT Inactive 06/25/2017 [facility] fluconazole 1 tab(s) orally Active 150 mg orally once 12/27/2016 eCW: Noel Mckenna BD Ultra-Fine Pen Needle [place] 32g 4mm as directed subcutaneously Active - subcutaneously daily 11/13/2016 eCW: Noel Mckenna BD Ultra-Fine Pen Needle [place] 32g 4mm as directed subcutaneously Active - subcutaneously daily 11/13/2016 eCW: Noel Mckenna Victoza 1.8 mg subcutaneously Active 18 mg/3 mL subcutaneously once a day 11/13/2016 eCW: Noel Mckenna Pravachol 1 tab(s) orally Active 40 mg orally once a day (at bedtime) 08/17/2016 eCW: Noel Mckenna nystatin topical 1 mike applied topically Active 459572 units/g applied topically 3 times a day 07/12/2016 eCW: Noel Mckenna nystatin topical 1 mike applied topically Active 192320 units/g applied topically 3 times a day 07/12/2016 eCW: Noel Mckenna fluconazole 1 tab(s) orally Active 150 mg orally once 07/12/2016 eCW: Noel Mckenna Pravachol 1 tab(s) orally Active 40 mg orally once a day (at bedtime) 05/03/2016 eCW: Noel Mckenna Celebrex 1 cap(s) orally Active 200 mg orally 2 times a day 04/27/2016 eCW: Noel Mckenna Sulfamethoxazole-Trimethoprim DS 1 tab(s) orally Active 800 mg- 160 mg orally 2 times a day 04/27/2016 eCW: Noel Mckenna Acetaminophen-TraMADol Hydrochloride 2 tab(s) orally Active 325 mg-37.5 mg orally every 12 hours 04/27/2016 eCW: Noel Mckenna fluconazole 1 tab(s) orally Active 150 mg orally once and repeat in 3 days take after done with antibiotics 04/27/2016 eCW: Noel Mckenna Victoza 1.2 mg subcutaneously Active 18 mg/3 mL subcutaneously once a day Bala 03/01/2016 eCW: Noel Mckenna Tussin DM 10 CC orally Active 10 mg-100 mg/5 mL orally qid prn Bala 01/06/2016 eCW: Noel Mckenna Nebulizer Misc/Other 1 ea, MISC, PRN, PRN As directed by physician, # 1 unit, 0 Refill(s) Active 12/28/2015 [facility] predniSONE 20 mg oral tablet 40 mg=2 tab, PO, Daily, X 4 day, # 8 tab, 0 Refill(s) Active 12/28/2015 [facility] azithromycin 250 mg oral tablet See Instructions, Take 2 tablets by mouth the first day then 1 tablet by mouth daily on days 2-5., X 5 day, # 6 tab, 0 Refill(s) Active 12/28/2015 [facility] Albuterol 0.833 MG/ML / Ipratropium [place] 0.167 MG/ML Inhalant Solution [DuoNeb] 3 mL, INHALATION, QID, # 360 mL, 0 Refill(s) Active 12/28/2015 [facility] 200 ACTUAT Albuterol 0.09 MG/ACTUAT Metered Dose Inhaler [ProAir HFA] 2 puff, INHALER, Q4H, PRN wheezing, coughing, or shortness of breath, # 1 ea, 1 Refill(s) Active 12/28/2015 [facility] Albuterol 0.833 MG/ML / Ipratropium [place] 0.167 MG/ML Inhalant Solution [DuoNeb] 3 mL, Route: INHALATION, Dosing Weight 63.636, kg, ONCE, Start date: 12/27/15 18:55:00, Stop date: 12/27/15 18:55:00 Inactive 12/28/2015 [facility] Prednisone 60 mg, 3 tab, Route: PO, Drug form: TAB, ONCE, Dosing Weight 63.636, kg, Priority: STAT, Start date: 12/27/15 18:55:00, Stop date: 12/27/15 18:55:00Notes: Take with food. Inactive 12/28/2015 [facility] Naproxen 375 MG Oral Tablet [Naprosyn] 375 mg=1 tab, PO, BID, PRN Pain, # 30 tab, 0 Refill(s) Active 11/26/2015 [facility] Ondansetron 4 MG Disintegrating Tablet [Zofran] 4 mg=1 tab, PO, BID, PRN Nausea and Vomiting, Dissolve tab under tongue, X 5 day, # 10 tab, 0 Refill(s) Active 11/26/2015 [facility] Ciprofloxacin 500 MG Oral Tablet [Cipro] 500 mg=1 tab, PO, Q12H, X 7 day, # 14 tab, 0 Refill(s) Active 11/26/2015 [facility] Metronidazole 500 MG Oral Tablet [Flagyl] 500 mg=1 tab, PO, Q8H, X 7 day, # 21 tab, 0 Refill(s) Active 11/26/2015 [facility] Zofran 4 mg, 2 mL, Route: IVP, Drug form: INJ, ONCE, Dosing Weight 66.818, kg, Priority: STAT, Start date: 11/25/15 21:25:00, Stop date: 11/25/15 21:25:00Notes: (Same as: Zofran) MEDICATION WASTE Product Size: 4 mg Product Wasted: ___ mg Inactive 11/26/2015 [facility] Morphine 4 mg, 1 mL, Route: IVP, Drug form: INJ, ONCE, Dosing Weight 66.818, kg, Priority: STAT, Start date: 11/25/15 21:25:00, Stop date: 11/25/15 21:25:00Notes: (Same as:MORPhine Sulfate) Inactive 11/26/2015 [facility] Sodium Chloride 0.154 MEQ/ML Injectable Solution 1,000 mL, 1,000 ml/hr, Infuse Over: 1 hr, Route: IV, 1,000, Drug form: INJ, ONCE, Priority: STAT, Dosing Weight 66.818 kg, Start date: 11/25/15 21:25:00, Duration: 1 doses or times, Stop date: 11/25/15 21:25:00 Inactive 11/26/2015 [facility] Saline Flush 0.9% 10 mL, Route: IVP, Drug Form: INJ, Dosing Weight 66.818, kg, PRN, PRN Line Flush, Start date: 11/25/15 19:54:00, Duration: 30 day, Stop date: 12/25/15 19:53:00Notes: (Same as: BD Posiflush) No Longer Active 11/26/2015 [facility] Zostavax 1 mL subcutaneously Active - subcutaneously once Bala 2015 eCW: Noel Mckenna Pioglitazone Hydrochloride 1 tab(s) orally No Longer Active mg orally once a day Bala 09/23/2015 eCW: Noel Mckenna Pravachol 1 tab(s) orally Active 40 mg orally once a day (at bedtime) Farah 07/29/2015 eCW: Noel Mckenna NovoLog 75 units via insulin pump subcutaneously Active 100 units/mL subcutaneously insulin pump Fraah 07/15/2015 eCW: Noel Mckenna Acetaminophen-TraMADol Hydrochloride 1 tab(s) orally Active 325 mg-37.5 mg orally bid Bala 03/18/2015 eCW: Noel Mckenna ASPIRIN EC LOW DOSE 81 MG TBEC 1 tablet daily Active 01/11/[facility] METFORMIN HCL ER 500 MG [id number] 1 po qd Active 11/30/2014 [facility] PRAVACHOL 40 MG TABS 1 tablet daily Active 01/25/2013 [facility] GABAPENTIN 600 MG TABS 1 po TID Active 12/25/2011 [facility] TRAMADOL HCL ER 100 MG [id number] 1 po qd Active 12/25/2011 [facility] IMIPRAMINE HCL 50 MG TABS 1 po TID Active 12/25/2011 [facility] CLONAZEPAM 1 MG TABS 2 po hs Active 12/25/2011 [facility] ATENOLOL 25 MG TABS 1 po [...] 1 tablet daily Active 12/25/2011 [facility] albuterol 3 mL inhaled Active 2.5 mg/3 mL (0.083%) inhaled every 6 hours Bala eCW: Noel Mckenna ergocalciferol 1 cap(s) orally Active 50,000 intl units orally 2 times a week Bala eCW: Noel Mckenna Vitamin B6 not defined NA Active Bala eCW: Noel Mckenna NovoLog 75 units via insulin pump subcutaneously Active 100 units/mL subcutaneously insulin pump Bala eCW: Noel Mckenna Acetaminophen-TraMADol Hydrochloride 2 tab(s) orally Active 325 mg-37.5 mg orally every 12 hours Bala eCW: Noel Mckenna clonazepam 2 tabs orally Active 0.5 mg orally qhs Bala eCW: Noel Mckenna Levothyroxine Sodium 1 tab(s) orally Active 75 mcg (0.075 mg) orally once a day Bala eCW: Noel Mckenna pantoprazole 1 tab(s) orally Active 40 mg orally once a day Bala eCW: Noel Mckenna Apriso 4 cap(s) orally Active 0.375 g orally once a day (in the morning) Bala eCW: Noel Mckenna Celebrex 1 cap(s) orally Active 200 mg orally 2 times a day Bala eCW: Noel Mckenna zolpidem 1 tab(s) orally Active 10 mg orally once a day (at bedtime) Bala eCW: Noel Mckenna ProAir HFA 2 puff(s) inhaled Active CFC free 90 mcg/inh inhaled 4 times a day Bala eCW: Noel Mckenna atenolol 25 mg oral tablet 1 tab(s) orally Active orally daily Bala eCW: Noel Mckenna Pravachol 1 tab(s) orally Active 40 mg orally once a day (at bedtime) Bala eCW: Noel Mckenna Duexis 1 tab(s) orally Active 26.6 mg-800 mg orally 3 times a day Bala eCW: Noel Mckenna trazodone 1 tab(s) orally Active 100 mg orally qhs Bala eCW: Noel Mckenna ONE TOUCH ULTRA TEST STRIPS - check blood sugars Active - check blood sugars 4 TIMES A DAY Bala eCW: Noel Mckenna Victoza 0.6 subcutaneously Active 18 mg/3 mL subcutaneously once a day Bala eCW: Noel Mckenna fluconazole 1 tab(s) orally Active 150 mg orally once Bala eCW: Noel Mckenna Levothyroxine Sodium 1 tab(s) orally Active 75 mcg (0.075 mg) orally once a day Bala eCW: Noel Mckenna Pravachol 1 tab(s) orally Active 40 mg orally once a day (at bedtime) Bala eCW: Noel Mckenna metoclopramide 1 tab(s) orally Active 10 mg orally 2 TIMES A DAY Bala eCW: Noel Mckenna pantoprazole 1 tab(s) orally Active 40 mg orally once a day Bala eCW: Noel Mckenna atenolol 25 mg oral tablet 1 tab(s) orally Active orally daily Bala eCW: Noel Mckenna clonazepam 2 tabs orally Active 0.5 mg orally qhs Bala eCW: Noel Mckenna Acetaminophen-TraMADol Hydrochloride 2 tab(s) orally Active 325 mg-37.5 mg orally every 12 hours Bala eCW: Noel Mckenna Qvar 1 puff(s) inhaled Active 40 mcg/inh inhaled 2 times a day Bala eCW: Noel Mckenna ProAir HFA 2 puff(s) inhaled Active CFC free 90 mcg/inh inhaled 4 times a day Bala eCW: Noel Mckenna NovoLog 75 units via insulin pump subcutaneously Active 100 units/mL subcutaneously insulin pump Bala eCW: Noel Mckenna trazodone 1 tab(s) orally Active 100 mg orally qhs Bala eCW: Noel Mckenna Vitamin B6 not defined NA Active Bala eCW: Noel Mckenna ergocalciferol 1 cap(s) orally Active 50,000 intl units orally 2 times a week Bala eCW: Noel Mckenna Levothyroxine Sodium 1 tab(s) orally Active 75 mcg (0.075 mg) orally once a day Phongsy eCW: Noel Mckenna albuterol 3 mL inhaled Active 2.5 mg/3 mL (0.083%) inhaled every 6 hours Bala eCW: Noel Mckenna Victoza 0.6 subcutaneously Active 18 mg/3 mL subcutaneously once a day Bala eCW: Noel Mckenna zolpidem 1 tab(s) orally Active 10 mg orally once a day (at bedtime) Bala eCW: Noel Mckenna fluconazole 1 tab(s) orally Active 150 mg orally once Bala eCW: Noel Mckenna Apriso 4 cap(s) orally Active 0.375 g orally once a day (in the morning) Bala eCW: Noel Mckenna Pravachol 1 tab(s) orally Active 40 mg orally once a day (at bedtime) Bala eCW: Noel Mckenna Freestyle [place] Use as directed NA Active -- Bala eCW: Noel Mckenna Freestyle William Sensor Apply one sensor every 10 days or as directed NA Active -- Bala eCW: Noel Mckenna Terbinafine Hydrochloride, Topical 1 mike applied topically Active 1% applied topically One times a day Bala eCW: Noel Mckenna ONE TOUCH ULTRA TEST STRIPS CHECK BLOOD SUGARS TWICE/DAY - Active - - 6 x per day Bala eCW: Noel Mckenna Cymbalta 1 cap(s) orally Active 30 mg orally 2 times a day Bala eCW: Noel Mckenna Lyrica 1 cap(s) orally Active 150 mg orally 2 times a day Bala eCW: Noel Mckenna tramadol 1 tab(s) orally Active 50 mg orally once a day Gagan eCW: Noel Mckenna Proventil HFA 2 puff(s) inhaled Active CFC free 90 mcg/inh inhaled 4 times a day Bala eCW: Noel Mckenna Volume spacer for inhaler as directed NA Active Gagan eCW: Noel Mckenna Pioglitazone Hydrochloride 1 tab(s) orally Active 15 mg orally once a day Gagan eCW: Noel Mckenna metronidazole 1 tab(s) orally Active 500 mg orally every 8 hours Bala eCW: Noel Mckenna ondansetron 1 tab(s) orally Active 4 mg orally 3 times a day Bala eCW: Noel Mckenna ciprofloxacin 1 tab(s) orally Active 500 mg orally once a day Bala eCW: Noel Mckenna naproxen 1 tab(s) orally Active 375 mg orally 2 times a day Bala eCW: Noel Mckenna escitalopram 1 tab(s) orally Active 20 mg orally once a day Bala eCW: Noel Mckenna Allergies, Adverse Reactions, Alerts Substance Category Reaction Severity Reaction type Status Date Reported Comments Source DARVOCET Drug allergy DARVOCET 12/26/2011 [facility] acetaminophen-propoxyphene<sup>4</sup> Assertion Drug allergy Active 12/26/2011 Data migrated from [facility] on05/26/15. Originally documented as DARVOCET. [facility] acetaminophen-propoxyphene<sup>1</sup> Assertion Drug allergy Active 12/26/2011 Data migrated from [facility] on05/26/15. Originally documented as DARVOCET. [facility] CODEINE drug allergy Does not now what 07/04/2018 [facility] PENICILLIN drug allergy Unkown 07/04/2018 [facility] METFORMIN HCL drug allergy diarrhea and vomiting 07/04/2018 [facility] codeine Adverse Reaction Info Not Available Adverse Reaction Active 05/22/2019 eCW: Noel Mckenna metformin Adverse Reaction Info Not Available Adverse Reaction Active 05/22/2019 eCW: Noel Mckenna Darevacet N 100 Adverse Reaction Info Not Available Adverse Reaction Active 05/22/2019 eCW: Noel Mckenna Darvocet N 50 Adverse Reaction Info Not Available Adverse Reaction Active 05/22/2019 eCW: Noel Mckenna Penicillin Adverse Reaction Info Not Available Adverse Reaction Active 05/22/2019 eCW: Noel CadeBala penicillins<sup>1</sup> Assertion Drug allergy Active Data migrated from [facility] on 06/17/15. Originally documented as PENICILLIN. [facility] codeine<sup>2, 3</sup> Assertion Drug allergy Active Data migrated from [facility] on 02/06/16. Originally documented as CODEINE. Data migrated from [facility] on 01/20/16. Originally documented as CODEINE. [facility] Vicodin Assertion Drug allergy Active [facility] Darvocet-N 100 Assertion Drug allergy Active [facility] metFORMIN Assertion Drug allergy Active [facility] penicillins<sup>4</sup> Assertion Drug allergy Active Data migrated from [facility] on 06/17/15. Originally documented as PENICILLIN. [facility] penicillins Assertion Drug allergy Active [facility] penicillin Assertion Unknown reaction Moderate Drug allergy Active [facility] Immunizations Immunization Date Given Site Status Last Updated Comments Source influenza virus vaccine, inactivated<sup>1</sup> 08/20/2018 Left Deltoid completed Jacob Result Comment: patient tolerated vaccine well, wait for 15 minutes no adverse reaction [facility], OPID [facility] pneumococcal 23-valent vaccine<sup>2</sup> 05/23/2018 Left Deltoid completed Jacob Result Comment: patient tolerated vaccine well, wait for 15 minutes no adverse reaction [facility], TANISHA [facility] pneumococcal 23-valent vaccine<sup>1</sup> 05/23/2018 Left Deltoid completed Jacob Result Comment: patient tolerated vaccine well, wait for 15 minutes no adverse reaction [facility] Influenza ([facility]) 10/17/2017 completed eCW: Noel CadeBala Influenza ([facility]) 09/27/2016 completed eCW: Noel Bala Toradol 30MG 04/27/2016 completed eCW: Noel CadeBala Influenza ([facility]) 09/23/2015 completed eCW: Noel Mckenna influenza virus vaccine, inactivated 10/16/2011 Right deltoid completed [facility] pneumococcal 23-valent vaccine 10/16/2011 Left deltoid completed [facility] Results Order Name Results Value Reference Range Date Interpretation Comments Source LABORATORY Blood Glucose, Capillary 96 74 - 106 11/27/2017 [facility] CHEM PANEL eGFR 84 08/19/2017 Result Comment: The eGFR is calculated [...] should be multiplied by the estimated BMI. [facility] CHEM PANEL Calcium Lvl 10.1 8.5 - 10.5 08/19/2017 [facility] CHEM PANEL Chloride Lvl 108 95 - 109 08/19/2017 [facility] CHEM PANEL Potassium Lvl 4.3 3.5 - 5.1 08/19/2017 [facility] CHEM PANEL Sodium Lvl 143 135 - 145 08/19/2017 [facility] CHEM PANEL Glucose Lvl 118 70 - 99 08/19/2017 [facility] CHEM PANEL CO2 30 24 - 32 08/19/2017 [facility] CHEM PANEL Creatinine Lvl 0.80 0.50 - 1.40 08/19/2017 [facility] CHEM PANEL BUN 7 7 - 22 08/19/2017 [facility] CHEM PANEL AGAP 9.3 10.0 - 20.0 08/19/2017 [facility] HEMATOLOGY MCHC 33.2 32.0 - 36.0 08/19/2017 [facility] Platelet 248 133 - 450 08/19/2017 [facility] MCH 28.6 27.0 - 31.0 08/19/2017 [facility] HEMATOLOGY RDW 15.2 11.5 - 14.5 08/19/2017 [facility] HEMATOLOGY MPV 9.0 7.4 - 10.4 08/19/2017 [facility] RBC 4.04 4.20 - 5.40 08/19/2017 [facility] HEMATOLOGY Hgb 11.6 12.0 - 16.0 08/19/2017 [facility] MCV 86.3 80.0 - 98.0 08/19/2017 [facility] WBC 8.0 3.7 - 10.4 08/19/2017 [facility] HEMATOLOGY Hct 34.8 36.0 - 48.0 08/19/2017 [facility] Lymphocytes 37.4 20.0 - 40.0 08/19/2017 [facility] HEMATOLOGY Basophils 0.4 0.0 - 1.0 08/19/2017 [facility] HEMATOLOGY Eosinophils 1.4 0.0 - 4.0 08/19/2017 [facility] HEMATOLOGY Monocytes 7.5 2.0 - 12.0 08/19/2017 [facility] HEMATOLOGY Basophils # 0.0 0.0 - 0.2 08/19/2017 [facility] HEMATOLOGY Eosinophils # 0.1 0.0 - 0.5 08/19/2017 [facility] HEMATOLOGY Monocytes # 0.6 0.0 - 0.8 08/19/2017 [facility] HEMATOLOGY Segs 53.3 45.0 - 75.0 08/19/2017 [facility] HEMATOLOGY Segs-Bands # 4.3 1.5 - 8.1 08/19/2017 [facility] HEMATOLOGY Lymphocytes # 3.0 1.0 - 5.5 08/19/2017 [facility] ELECTROLYTES AGAP 8.8 10.0 - 20.0 06/21/2017 [facility] ELECTROLYTES eGFR 84 06/21/2017 Result Comment: The eGFR is calculated [...] should be multiplied by the estimated BMI. [facility] ELECTROLYTES Calcium Lvl 9.3 8.5 - 10.5 06/21/2017 [facility] ELECTROLYTES CO2 29 24 - 32 06/21/2017 [facility] ELECTROLYTES Chloride Lvl 111 95 - 109 06/21/2017 [facility] ELECTROLYTES BUN 10 7 - 22 06/21/2017 [facility] ELECTROLYTES Glucose Lvl 116 70 - 99 06/21/2017 [facility] ELECTROLYTES Sodium Lvl 144 135 - 145 06/21/2017 [facility] ELECTROLYTES Creatinine Lvl 0.80 0.50 - 1.40 06/21/2017 [facility] ELECTROLYTES Potassium Lvl 4.8 3.5 - 5.1 06/21/2017 [facility] Platelet 237 133 - 450 06/21/2017 [facility] MPV 8.9 7.4 - 10.4 06/21/2017 [facility] MCH 27.6 27.0 - 31.0 06/21/2017 [facility] RDW 14.7 11.5 - 14.5 06/21/2017 [facility] MCHC 32.2 32.0 - 36.0 06/21/2017 [facility] RBC 4.05 4.20 - 5.40 06/21/2017 [facility] MCV 85.9 80.0 - 98.0 06/21/2017 [facility] Hct 34.8 36.0 - 48.0 06/21/2017 [facility] Hgb 11.2 12.0 - 16.0 06/21/2017 [facility] WBC 7.8 3.7 - 10.4 06/21/2017 [facility] Monocytes # 0.5 0.0 - 0.8 06/21/2017 [facility] HEMATOLOGY Eosinophils # 0.2 0.0 - 0.5 06/21/2017 [facility] HEMATOLOGY Basophils 0.6 0.0 - 1.0 06/21/2017 [facility] HEMATOLOGY Lymphocytes # 2.7 1.0 - 5.5 06/21/2017 [facility] Segs-Bands # 4.4 1.5 - 8.1 06/21/2017 [facility] Lymphocytes 34.2 20.0 - 40.0 06/21/2017 [facility] Monocytes 6.0 2.0 - 12.0 06/21/2017 [facility] HEMATOLOGY Eosinophils 2.2 0.0 - 4.0 06/21/2017 [facility] Segs 57.0 45.0 - 75.0 06/21/2017 [facility] VIRAL - SEROLOGY Influ B Negative (12/27/15 7:26 PM) Negative 12/28/2015 [facility] VIRAL - SEROLOGY Influ A Negative (12/27/15 7:26 PM) Negative 12/28/2015 [facility] CHEM PANEL Lipase Lvl 145 73 - 393 11/26/2015 [facility] CHEM PANEL eGFR 64 11/26/2015 Result Comment: The eGFR is calculated [...] should be multiplied by the estimated BMI. [facility] CHEM PANEL Bili Total 0.3 0.2 - 1.3 11/26/2015 [facility] CHEM PANEL Total Protein 8.3 6.4 - 8.4 11/26/2015 [facility] CHEM PANEL Albumin Lvl 3.6 3.5 - 5.0 11/26/2015 [facility] CHEM PANEL ALT 23 0 - 65 11/26/2015 [facility] CHEM PANEL Chloride Lvl 105 95 - 109 11/26/2015 [facility] CHEM PANEL CO2 25 24 - 32 11/26/2015 [facility] CHEM PANEL AST 16 0 - 37 11/26/2015 [facility] CHEM PANEL Alk Phos 101 39 - 136 11/26/2015 [facility] CHEM PANEL Calcium Lvl 8.6 8.5 - 10.5 11/26/2015 [facility] CHEM PANEL Sodium Lvl 140 135 - 145 11/26/2015 [facility] CHEM PANEL Potassium Lvl 3.5 3.5 - 5.1 11/26/2015 [facility] CHEM PANEL Creatinine Lvl 1.01 0.50 - 1.40 11/26/2015 [facility] CHEM PANEL Glucose Lvl 184 70 - 99 11/26/2015 [facility] CHEM PANEL BUN 10 7 - 22 11/26/2015 [facility] CHEM PANEL A/G Ratio 0.8 0.7 - 1.6 11/26/2015 [facility] CHEM PANEL Globulin 4.7 2.0 - 4.0 11/26/2015 [facility] CHEM PANEL AGAP 13.5 10.0 - 20.0 11/26/2015 [facility] CHEM PANEL B/C Ratio 10 6 - 25 11/26/2015 [facility] HEMATOLOGY MPV 9.1 7.4 - 10.4 11/26/2015 [facility] HEMATOLOGY Platelet 272 133 - 450 11/26/2015 [facility] HEMATOLOGY MCH 26.3 27.0 - 31.0 11/26/2015 [facility] MCHC 31.8 32.0 - 36.0 11/26/2015 [facility] HEMATOLOGY RDW 16.3 11.5 - 14.5 11/26/2015 [facility] HEMATOLOGY Hct 38.1 36.0 - 48.0 11/26/2015 [facility] HEMATOLOGY MCV 82.7 80.0 - 98.0 11/26/2015 [facility] HEMATOLOGY WBC 11.9 3.7 - 10.4 11/26/2015 [facility] HEMATOLOGY Hgb 12.1 12.0 - 16.0 11/26/2015 [facility] HEMATOLOGY RBC 4.60 4.20 - 5.40 11/26/2015 [facility] HEMATOLOGY Basophils 0.5 0.0 - 1.0 11/26/2015 [facility] HEMATOLOGY Segs-Bands # 6.9 1.5 - 8.1 11/26/2015 [facility] HEMATOLOGY Lymphocytes # 4.1 1.0 - 5.5 11/26/2015 [facility] HEMATOLOGY Eosinophils 1.0 0.0 - 4.0 11/26/2015 [facility] HEMATOLOGY Lymphocytes 34.4 20.0 - 40.0 11/26/2015 [facility] HEMATOLOGY Monocytes 6.1 2.0 - 12.0 11/26/2015 [facility] HEMATOLOGY Segs 58.0 45.0 - 75.0 11/26/2015 [facility] HEMATOLOGY Monocytes # 0.7 0.0 - 0.8 11/26/2015 [facility] HEMATOLOGY Eosinophils # 0.1 0.0 - 0.5 11/26/2015 [facility] HEMATOLOGY Basophils # 0.1 0.0 - 0.2 11/26/2015 [facility] URINE AND STOOL UA Trans Epi 0-2 *ABN* (11/25/15 8:10 PM) 11/26/2015 [facility] URINE AND STOOL UA Amorph Heather Moderate /HPF None Seen /HPF 11/26/2015 [facility] URINE AND STOOL UA Sq Epi Few /LPF Few /LPF 11/26/2015 [facility] URINE AND STOOL UA Mucus Few /LPF None Seen /LPF 11/26/2015 [facility] URINE AND STOOL UA RBC 0-2 /HPF 0 - 2 11/26/2015 [facility] URINE AND STOOL UA Bacteria None Seen (11/25/15 8:10 PM) None Seen 11/26/2015 [facility] URINE AND STOOL UA WBC 6-10 /HPF None Seen /HPF 11/26/2015 [facility] URINE AND STOOL UA Nitrite Negative (11/25/15 8:10 PM) Negative 11/26/2015 [facility] URINE AND STOOL UA Leuk Est Moderate *ABN* (11/25/15 8:10 PM) Negative 11/26/2015 [facility] URINE AND STOOL UA Urobilinogen 0.2 0.1 - 1.0 11/26/2015 [facility] URINE AND STOOL UA Blood Negative (11/25/15 8:10 PM) Negative 11/26/2015 [facility] URINE AND STOOL UA Ketones Negative *NA* (11/25/15 8:10 PM) Negative 11/26/2015 [facility] URINE AND STOOL UA Bili Negative *NA* (11/25/15 8:10 PM) Negative 11/26/2015 [facility] URINE AND STOOL UA Glucose Negative (11/25/15 8:10 PM) Negative 11/26/2015 [facility] URINE AND STOOL UA pH 6.0 5.0 - 8.0 11/26/2015 [facility] URINE AND STOOL UA Protein Negative (11/25/15 8:10 PM) Negative 11/26/2015 [facility] URINE AND STOOL UA Spec Grav 1.010 <=1.030 11/26/2015 [facility] URINE AND STOOL UA Color Yellow *NA* (11/25/15 8:10 PM) Yellow 11/26/2015 [facility] [facility] URINE AND STOOL UA Turbidity Clear (11/25/15 8:10 PM) Clear 11/26/2015 [facility] Pathology Reports No Data Provided for This Section Diagnostic Reports Report Value Date Source Neck soft tissue wo contrast CT Clinical [...] limited noncontrast CT examination of the neck. SL: [id number] 01/28/2019 [facility] Soft Tissue Head/Neck US Patient Name: ELLI MACK : 1960; Age: 57 years Female MR: [id number] Study: Soft Tissue Head/Neck US 09/24/2018 2:55 PM END USER CONSULTANT Clinical Indication: - R22.1 Localized swelling, mass [...] contrast is recommended for further evaluation. SL: [id number] 09/24/2018 [facility] Pelvis w Pelvis Transvaginal US Clinical Indication: [...] have been removed. No adnexal masses. SL: [id number] 01/10/2018 [facility] Chest wo contrast CT Patient Name: ELLI MACK : 1960; Age: 57 years y/o Female MR: [id number] Study: Chest wo contrast CT 01/03/2018 3:23 PM END USER CONSULTANT Ordering Physician: Kyle Miranda MD Comparison: Chest [...] cardiomegaly with minimal coronary artery calcifications. SL: [id number] 01/03/2018 [facility] Chest 2 views DX EXAM: Chest radiographs HISTORY: Cough, asthma COMPARISON: 12/27/2015 TECHNIQUE: Frontal and lateral views of the chest FINDINGS: The lungs appear clear. No pleural effusion. Heart size upper normal. IMPRESSION: Negative chest radiographs. SL: [id number] 02/14/2016 [facility] Digital Mammo Screen Vignesh MA w lenka [...] dated: 03/16/2014 mammogram and 02/26/2014 mammogram - [facility]. There are scattered fibroglandular densities in both breasts. Multiple, benign-appearing, similar circumscribed masses are present within both breasts, most likely manufacturer's representative of cysts or fibroadenomas. There are benign appearing calcifications in the right breast. No significant masses, calcifications, or other findings are seen in either breast. There has been no significant interval change. IMPRESSION: BENIGN Bilateral benign appearing masses. There is no mammographic evidence of malignancy. A 1 year screening mammogram is recommended. Huang Roca M.D. rstarah/penrad:01/19/2016 08:39:46 Pruner: Hung Muñoz, [facility] This exam was dictated and interpreted by [id number] at [facility]. letter sent: Normal exam Mammogram BI-RADS: 2 Benign 01/18/2016 [facility] Chest 2 views DX EXAMINATION: Chest 2 [...] focal osseous lesion is appreciated. SL:17 12/27/2015 [facility] ED Abdomen/Pelvis IV contrast only CT CT [...] pelvic abnormalities are visualized. SL: 16 11/25/2015 [facility] Consultation Notes No Data Provided for This Section Discharge Summaries No Data Provided for This Section History and Physicals No Data Provided for This Section Vital Signs Vital Sign Value Date Comments Source Weight 61.42 [facility] Height 149.86 cm 06/16/[facility] BMI Calculated 27.35 06/16/2019 [facility] Heart Rate 104 06/16/2019 [facility] Temperature Oral (F) 99.3 F 06/16/2019 [facility] Systolic (mm Hg) 111 06/16/2019 [facility] Diastolic (mm Hg) 70 06/16/2019 [facility] Diastolic (mm Hg) 74 06/05/2019 [facility] Systolic (mm Hg) 111 06/05/2019 [facility] Height 61 06/05/2019 [facility] Heart Rate 108 06/05/2019 [facility] Weight 137 06/05/2019 [facility] Weight 136 05/22/2019 eCW: Nole Mckenna Height 61 05/22/2019 eCW: Noel Mckenna Diastolic (mm Hg) 82 05/22/2019 eCW: Noel Mckenna Systolic (mm Hg) 115 05/22/2019 eCW: Noel Mckenna Diastolic (mm Hg) 74 05/08/2019 [facility] Systolic (mm Hg) 117 05/08/2019 [facility] Height 61 05/08/2019 [facility] Heart Rate 101 05/08/2019 [facility] Weight 133.50 05/08/2019 [facility] Diastolic (mm Hg) 72 03/13/2019 [facility] Systolic (mm Hg) 112 03/13/2019 [facility] Height 61 03/13/2019 [facility] Heart Rate 111 03/13/2019 [facility] Weight 132.60 03/13/2019 [facility] Temperature Oral (F) 98.5 F 02/27/2019 [facility] Heart Rate 94 02/27/2019 [facility] Height 149.86 cm 02/27/2019 [facility] BMI Calculated 26.31 02/27/2019 [facility] Weight 59.091 02/27/2019 [facility] Systolic (mm Hg) 99 02/27/2019 [facility] Diastolic (mm Hg) 67 02/27/2019 [facility] Weight 130 02/25/2019 eCW: Noel Mckenna Height 61 02/25/2019 eCW: Noel Mckenna Diastolic (mm Hg) 76 02/25/2019 eCW: Noel Mckenna Systolic (mm Hg) 115 02/25/2019 eCW: Noel Mckenna Diastolic (mm Hg) 76 01/30/2019 [facility] Systolic (mm Hg) 117 01/30/2019 [facility] Height 61 01/30/2019 [facility] Heart Rate 102 01/30/2019 [facility] Weight 132.25 01/30/2019 [facility] Diastolic (mm Hg) 72 01/02/2019 [facility] Systolic [...] 70 12/30/2018 [facility] Weight 130 11/24/2018 eCW: Noel Mckenna Height 61 11/24/2018 eCW: Noel Mckenna Diastolic (mm Hg) 80 11/24/2018 eCW: Noel Mckenna Systolic (mm Hg) 125 11/24/2018 eCW: Noel Mckenna Diastolic (mm Hg) 75 10/31/2018 [facility] Systolic (mm Hg) 111 10/31/2018 [facility] Height 61 10/31/2018 [facility] Heart Rate 113 10/31/2018 [facility] Weight 129.60 10/31/2018 [facility] BMI Calculated 26.11 09/15/2018 [facility] Weight 58.636 09/15/2018 [facility] Height 149.86 cm 09/15/2018 [facility] Temperature Oral (F) 98.4 F 09/15/2018 [facility] Heart Rate 101 09/15/2018 [facility] Systolic (mm Hg) 95 09/15/2018 [facility] Diastolic (mm Hg) 65 09/15/2018 [facility] Diastolic (mm Hg) 80 08/29/2018 [facility] Systolic (mm Hg) 117 08/29/2018 [facility] Height 61 08/29/2018 [facility] Heart Rate 87 08/29/2018 [facility] Weight 130.40 08/29/2018 [facility] Weight 128 08/25/2018 eCW: Noel Mckenna Height 61 08/25/2018 eCW: Noel Mckenna Diastolic (mm Hg) 70 08/25/2018 eCW: Noel Mckenna Systolic (mm Hg) 110 08/25/2018 eCW: Noel Mckenna Systolic (mm Hg) 110 08/20/2018 [facility] Diastolic (mm Hg) 66 08/20/2018 [facility] Temperature Oral (F) 98.9 F 08/20/2018 [facility] Heart Rate 102 08/20/2018 [facility] Height 149.86 cm 08/20/2018 [facility] Weight 58.182 08/20/2018 [facility] BMI Calculated 25.91 08/20/2018 [facility] Diastolic (mm Hg) 76 07/25/2018 [facility] Systolic [...] 05/23/2018 [facility] Heart Rate 83 05/23/2018 [facility] Systolic (mm Hg) 108 05/23/2018 [facility] Diastolic (mm Hg) 68 05/23/2018 [facility] Weight 125 05/19/2018 eCW: Noel Mckenna Height 61 05/19/2018 eCW: Noel Mckenna Diastolic (mm Hg) 70 05/19/2018 eCW: Noel Mckenna Systolic (mm Hg) 110 05/19/2018 eCW: Noel Mckenna Height 149.86 cm 04/01/2018 [facility] BMI Calculated 25.7 04/01/2018 [facility] Weight 57.727 04/01/2018 [facility] Systolic (mm Hg) 112 04/01/2018 [facility] Diastolic (mm Hg) 80 04/01/2018 [facility] Heart Rate 98 04/01/2018 [facility] Temperature Oral (F) 98.4 F 04/01/2018 [facility] Weight 124 02/17/2018 eCW: Noel Mckenna Height 61 02/17/2018 eCW: Noel Mckenna Diastolic (mm Hg) 80 02/17/2018 eCW: Noel Mckenna Systolic (mm Hg) 120 02/17/2018 eCW: Noel Mckenna Weight 126 01/13/2018 e[facility]: Noel Mckenna Height 61 01/13/2018 eCW: Noel Mckenna Weight 126 12/11/2017 e[facility]: Noel Mckenna Height 61 12/11/2017 e[facility]: Noel Mckenna Diastolic (mm Hg) 92 12/11/2017 e[facility]: Noel Mckenna Systolic (mm Hg) 136 12/11/2017 [facility]: Noel Mckenna Systolic (mm Hg) 130 11/27/2017 [facility] Diastolic [...] [facility] Temperature Oral (F) 36.7 Kitty 11[facility]27[facility] Height 151.13 cm 11/21/2017 [facility] Weight 58.636 11/21/2017 [facility] BMI Calculated 25.67 11/21/2017 [facility] Weight Measured 58.96 11/20/2017 [facility] Height 152.4 cm 11/20/2017 [facility] Weight 130 11/12/2017 e[facility]: Noel Mckenna Height 61 11/12/2017 eCW: Noel Mckenna Diastolic (mm Hg) 80 11/12/2017 eCW: Noel Mckenna Systolic (mm Hg) 120 11/12/2017 e[facility]: Noel Mckenna Weight 129 10/17/2017 e[facility]: Noel Mckenna Height 61 10/17/2017 eCW: Noel Mckenna Diastolic (mm Hg) 70 10/17/2017 e[facility]: Noel Mckenna Systolic (mm Hg) 112 10/17/2017 [facility]: Noel Mckenna Systolic (mm Hg) 103 08/20/2017 [facility] Diastolic (mm Hg) 63 08/20/2017 [facility] Respitory Rate 13 08/20/2017 [facility] Systolic (mm Hg) 103 08/20/2017 [facility] Diastolic (mm Hg) 63 08/20/2017 [facility] Respitory Rate 13 08/20/2017 [facility] Systolic (mm Hg) 94 08/20/2017 [facility] Diastolic (mm Hg) 66 08/20/2017 [facility] Respitory Rate 16 08/20/2017 [facility] Heart Rate 78 08/20/2017 [facility] Temperature Oral (F) 98.4 F 08/20/2017 [facility] Heart Rate 75 08/19/2017 [facility] BMI Calculated 24.97 08/19/2017 [facility] Height 152.4 cm 08/19/2017 [facility] Weight 58 08/19/2017 [facility] Weight 128 07/08/2017 eCW: Noel Mckenna Height 61 07/08/2017 eCW: Noel Mckenna Diastolic (mm Hg) 72 07/08/2017 e[facility]: Noel Mckenna Systolic (mm Hg) 112 07/08/2017 [facility]: Noel Mckenna Systolic (mm Hg) 123 06/25/2017 [facility] Diastolic (mm Hg) 74 06/25/2017 [facility] Respitory Rate 12 06/25/2017 [facility] Respitory Rate 7 06/25/2017 [facility] Systolic (mm Hg) 104 06/25/2017 [facility] Diastolic (mm Hg) 50 06/25/2017 [facility] Systolic (mm Hg) 114 06/25/2017 [facility] Diastolic (mm Hg) 77 06/25/2017 [facility] Respitory Rate 16 06/25/2017 [facility] Heart Rate 78 06/25/2017 [facility] Temperature Oral (F) 96.6 F 06/21/2017 [facility] Heart Rate 83 06/21/2017 [facility] Weight 60.1 06/21/2017 [facility] BMI Calculated 25.88 06/21/2017 [facility] Height 152.4 cm 06/21/2017 [facility] Weight 133 04/04/2017 eCW: Noel Mckenna Height 61 04/04/2017 eCW: Noel Mckenna Diastolic (mm Hg) 70 04/04/2017 e[facility]: Noel Mckenna Systolic (mm Hg) 110 04/04/2017 e[facility]: Noel Mckenna Weight 137 12/27/2016 [facility]: Noel Mckenna Height 61 12/27/2016 eCW: Noel Mckenna Diastolic (mm Hg) 66 12/27/2016 e[facility]: Noel Mckenna Systolic (mm Hg) 108 12/27/2016 [facility]: Noel Mckenna Weight 138 09/27/2016 e[facility]: Noel Mckenna Height 61 09/27/2016 eCW: Noel Mckenna Diastolic (mm Hg) 70 09/27/2016 eCW: Noel Mckenna Systolic (mm Hg) 126 09/27/2016 e[facility]: Noel Mckenna Weight 142 07/12/2016 e[facility]: Noel Mckenna Height 61 07/12/2016 eCW: Noel Mckenna Diastolic (mm Hg) 76 07/12/2016 eCW: Noel Mckenna Systolic (mm Hg) 106 07/12/2016 eCW: Noel Mckenna Weight 142 06/07/2016 eCW: Noel Mckenna Height 61 06/07/2016 eCW: Noel Mckenna Temperature Oral (F) 97.9 F 06/07/2016 eCW: Noel Mckenna Diastolic (mm Hg) 70 06/07/2016 eCW: Noel Mckenna Systolic (mm Hg) 124 06/07/2016 eCW: Noel Mckenna Weight 149 04/27/2016 eCW: Noel Mckenna Height 61 04/27/2016 eCW: Noel Mckenna Diastolic (mm Hg) 76 04/27/2016 eCW: Noel Mckenna Systolic (mm Hg) 120 04/27/2016 eCW: Noel Mckenna Weight 150 03/01/2016 e[facility]: Noel Mckenna Height 61 03/01/2016 eCW: Noel Mckenna Diastolic (mm Hg) 70 03/01/2016 e[facility]: Noel Mckenna Systolic (mm Hg) 102 03/01/2016 eCW: Noel Mckenna Height 154.94 cm 02/21/2016 [facility] BMI Calculated 27.83 02/21/2016 [facility] Weight 66.818 02/21/2016 [facility] Weight 148 01/06/2016 e[facility]: Noel Mckenna Height 61 01/06/2016 eCW: Noel Hearnta Diastolic (mm Hg) 70 01/06/2016 eCW: Noel Bala Systolic (mm Hg) 112 01/06/2016 eCW: Noel Mckenna Systolic (mm Hg) 119 12/28/2015 [facility] Diastolic (mm Hg) 57 12/28/2015 [facility] Heart Rate 89 12/28/2015 [facility] Respitory Rate 18 12/28/2015 [facility] Temperature Oral (F) 98.7 F 12/28/2015 [facility] Height 170.18 cm 12/28/2015 [facility] Weight 63.636 12/28/2015 [facility] BMI Calculated 21.97 12/28/2015 [facility] Heart Rate 92 12/28/2015 [facility] Systolic (mm Hg) 151 12/28/2015 [facility] Diastolic (mm Hg) 93 12/28/2015 [facility] Temperature Oral (F) 98.2 F 12/28/2015 [facility] Respitory Rate 18 12/28/2015 [facility] Weight 153 12/01/2015 e[facility]: Noel Hearnta Height 61 12/01/2015 eCW: Noel Hearnta Diastolic (mm Hg) 70 12/01/2015 eCW: Noel CadeBala Systolic (mm Hg) 110 12/01/2015 eCW: Noel CadeBala Respitory Rate 18 11/26/2015 [facility] Heart Rate 76 11/26/2015 [facility] Systolic (mm Hg) 120 11/26/2015 [facility] Diastolic (mm Hg) 71 11/26/2015 [facility] Temperature Oral (F) 97.8 F 11/26/2015 [facility] Respitory Rate 18 11/26/2015 [facility] Temperature Oral (F) 99.1 F 11/26/2015 [facility] Heart Rate 88 11/26/2015 [facility] Systolic (mm Hg) 122 11/26/2015 [facility] Diastolic (mm Hg) 77 11/26/2015 [facility] Weight 66.818 11/26/2015 [facility] BMI Calculated 27.83 11/26/2015 [facility] Height 154.94 cm 11/26/2015 [facility] Weight 150 2015 eCW: Noel Mckenna Height 61 2015 eCW: Noel Mckenna Diastolic (mm Hg) 80 2015 eCW: Noel Mckenna Systolic (mm Hg) 130 2015 eCW: Noel CadeBala Weight 150 10/28/2015 eCW: Noel Mckenna Height 61 10/28/2015 eCW: Noel Mckenna Diastolic (mm Hg) 80 10/28/2015 eCW: Noel Mckenna Systolic (mm Hg) 116 10/28/2015 e[facility]: Noel Mckenna Weight 147 09/23/2015 eCW: Noel Mckenna Height 61 09/23/2015 eCW: Noel Mckenna Diastolic (mm Hg) 80 09/23/2015 e[facility]: Noel Mckenna Systolic (mm Hg) 110 09/23/2015 [facility]: Noel Mckenna Weight 143 01/25/[facility] [...] Source Noel Mckenna MD 3 mon x zuleima [id number] 09/04/2013 09/04/2013 eCW: Noel Hall MD 3 mon x zuleima [id number] 09/04/2013 09/04/2013 eCW: Noel Hall MD 3 mon x zuleima [id number] 09/04/2013 09/04/2013 eCW: Noel Hall MD 3 mon x zuleima [id number] 09/04/2013 09/04/2013 eCW: Noel Hall MD 3 mon x zuleima [id number] 09/04/2013 09/04/2013 eCW: Noel Hall MD 3 mon x dm [id number] 09/04/2013 09/04/2013 eCW: Noel Hall MD 3 mon x dm [id number] 09/04/2013 09/04/2013 eCW: Noel Hall MD 3 mon x dm [id number] 09/04/2013 09/04/2013 eCW: Noel Hall MD 3 mon x dm [id number] 09/04/2013 09/04/2013 eCW: Noel Hall MD 3 mon x dm [id number] 09/04/2013 09/04/2013 eCW: Noel Hall MD 3 mon x dm [id number] 09/04/2013 09/04/2013 eCW: Noel Hall MD 3 mon x dm [id number] 09/04/2013 09/04/2013 eCW: Noel Hall MD 3 mon x dm [id number] 09/04/2013 09/04/2013 eCW: Noel Hall MD 3 mon x dm [id number] 09/04/2013 09/04/2013 eCW: Noel Hall MD 3 mon x dm [id number] 09/04/2013 09/04/2013 eCW: Noel Hall MD 3 mon x dm [id number] 09/04/2013 09/04/2013 eCW: Noel Hall MD Unknown [id number] 01/23/2014 01/23/2014 eCW: Noel Hall MD Unknown [id number] 01/23/2014 01/23/2014 eCW: Noel Hall MD Unknown [id number] 01/23/2014 01/23/2014 eCW: Noel Hall MD Unknown [id number] 01/23/2014 01/23/2014 eCW: Noel Hall MD Unknown [id number] 01/23/2014 01/23/2014 eCW: Noel Hall MD Unknown [id number] 01/23/2014 01/23/2014 eCW: Noel Hall MD Unknown [id number] 01/23/2014 01/23/2014 eCW: Noel Hall MD Unknown [id number] 01/23/2014 01/23/2014 eCW: Noel Hall MD Unknown [id number] 01/23/2014 01/23/2014 eCW: Noel Hall MD Unknown [id number] 01/23/2014 01/23/2014 eCW: Noel Hall MD Unknown [id number] 01/23/2014 01/23/2014 eCW: Noel Hall MD Unknown [id number] 01/23/2014 01/23/2014 eCW: Noel Hall MD Unknown [id number] 01/23/2014 01/23/2014 eCW: Noel Hall MD Unknown [id number] 01/23/2014 01/23/2014 eCW: Noel Hall MD Unknown [id number] 01/23/2014 01/23/2014 eCW: Noel Hall MD Unknown [id number] 01/23/2014 01/23/2014 eCW: Noel Hall MD Refferal [id number] 03/01/2014 03/01/2014 eCW: Noel Hall MD Refferal [id number] 03/01/2014 03/01/2014 eCW: Noel Hall MD Refferal [id number] 03/01/2014 03/01/2014 eCW: Noel Hall MD Refferal [id number] 03/01/2014 03/01/2014 eCW: Neol Hall MD Refferal [id number] 03/01/2014 03/01/2014 eCW: Noel Hall MD Refferal [id number] 03/01/2014 03/01/2014 eCW: Noel Hall MD Refferal [id number] 03/01/2014 03/01/2014 eCW: Noel Hall MD Refferal [id number] 03/01/2014 03/01/2014 eCW: Noel Hall MD Refferal [id number] 03/01/2014 03/01/2014 eCW: Noel Hall MD Refferal [id number] 03/01/2014 03/01/2014 eCW: Noel Hall MD Refferal [id number] 03/01/2014 03/01/2014 eCW: Noel Hall MD Refferal [id number] 03/01/2014 03/01/2014 eCW: Noel Hall MD Refferal [id number] 03/01/2014 03/01/2014 eCW: Noel Hall MD Refferal [id number] 03/01/2014 03/01/2014 eCW: Noel Hall MD Refferal [id number] 03/01/2014 03/01/2014 eCW: Noel Hall MD Refferal [id number] 03/01/2014 03/01/2014 eCW: Noel Hall MD shortness of breath, weak [id number] 03/12/2014 03/12/2014 eCW: Noel Hall MD shortness of breath, weak [id number] 03/12/2014 03/12/2014 eCW: Noel Hall MD shortness of breath, weak [id number] 03/12/2014 03/12/2014 eCW: Noel Hall MD shortness of breath, weak [id number] 03/12/2014 03/12/2014 eCW: Noel Hall MD shortness of breath, weak [id number] 03/12/2014 03/12/2014 eCW: Noel Hall MD shortness of breath, weak [id number] 03/12/2014 03/12/2014 eCW: Noel Hall MD shortness of breath, weak [id number] 03/12/2014 03/12/2014 eCW: Noel Hall MD shortness of breath, weak [id number] 03/12/2014 03/12/2014 eCW: Noel Hall MD shortness of breath, weak [id number] 03/12/2014 03/12/2014 eCW: Noel Hall MD shortness of breath, weak [id number] 03/12/2014 03/12/2014 eCW: Noel Hall MD shortness of breath, weak [id number] 03/12/2014 03/12/2014 eCW: Noel Hall MD shortness of breath, weak [id number] 03/12/2014 03/12/2014 eCW: Noel Hall MD shortness of breath, weak [id number] 03/12/2014 03/12/2014 eCW: Noel Hall MD shortness of breath, weak [id number] 03/12/2014 03/12/2014 eCW: Noel Hall MD shortness of breath, weak [id number] 03/12/2014 03/12/2014 eCW: Noel Hall MD shortness of breath, weak [id number] 03/12/2014 03/12/2014 eCW: Noel Hall MD Unknown [id number] 03/15/2014 03/15/2014 eCW: Noel Hall MD Unknown [id number] 03/15/2014 03/15/2014 eCW: Noel Hall MD Unknown [id number] 03/15/2014 03/15/2014 eCW: Noel Hall MD Unknown [id number] 03/15/2014 03/15/2014 eCW: Noel Hall MD Unknown [id number] 03/15/2014 03/15/2014 eCW: Noel Hall MD Unknown [id number] 03/15/2014 03/15/2014 eCW: Noel Hall MD Unknown [id number] 03/15/2014 03/15/2014 eCW: Noel Hall MD Unknown [id number] 03/15/2014 03/15/2014 eCW: Noel Hall MD Unknown [id number] 03/15/2014 03/15/2014 eCW: Noel Hall MD Unknown [id number] 03/15/2014 03/15/2014 eCW: Noel Hall MD Unknown [id number] 03/15/2014 03/15/2014 eCW: Noel Hall MD Unknown [id number] 03/15/2014 03/15/2014 eCW: Noel Hall MD Unknown [id number] 03/15/2014 03/15/2014 eCW: Noel Hall MD Unknown [id number] 03/15/2014 03/15/2014 eCW: Noel Hall MD Unknown [id number] 03/15/2014 03/15/2014 eCW: Noel Hall MD Unknown [id number] 03/15/2014 03/15/2014 eCW: Nole Hall MD Unknown [id number] 03/17/2014 03/17/2014 eCW: Noel Hall MD Unknown [id number] 03/17/2014 03/17/2014 eCW: Noel Hall MD Unknown [id number] 03/17/2014 03/17/2014 eCW: Noel Hall MD Unknown [id number] 03/17/2014 03/17/2014 eCW: Noel Hall MD Unknown [id number] 03/17/2014 03/17/2014 eCW: Noel Hall MD Unknown [id number] 03/17/2014 03/17/2014 eCW: Noel Hall MD Unknown [id number] 03/17/2014 03/17/2014 eCW: Noel Hall MD Unknown [id number] 03/17/2014 03/17/2014 eCW: Noel Hall MD Unknown [id number] 03/17/2014 03/17/2014 eCW: Noel Hall MD Unknown [id number] 03/17/2014 03/17/2014 eCW: Noel Hall MD Unknown [id number] 03/17/2014 03/17/2014 eCW: Noel Hall MD Unknown [id number] 03/17/2014 03/17/2014 eCW: Noel Hlal MD Unknown [id number] 03/17/2014 03/17/2014 eCW: Noel Hall MD Unknown [id number] 03/17/2014 03/17/2014 eCW: Noel Hall MD Unknown [id number] 03/17/2014 03/17/2014 eCW: Noel Hall MD Unknown [id number] 03/17/2014 03/17/2014 eCW: Noel Hall MD 3m x dm [id number] 04/09/2014 04/09/2014 eCW: Noel Hall MD 3m x dm [id number] 04/09/2014 04/09/2014 eCW: Noel Hall MD 3m x dm [id number] 04/09/2014 04/09/2014 eCW: Noel Hall MD 3m x dm [id number] 04/09/2014 04/09/2014 eCW: Noel Hall MD 3m x dm [id number] 04/09/2014 04/09/2014 eCW: Noel Hall MD 3m x dm [id number] 04/09/2014 04/09/2014 eCW: Noel Hall MD 3m x dm [id number] 04/09/2014 04/09/2014 eCW: Noel Hall MD 3m x dm [id number] 04/09/2014 04/09/2014 eCW: Noel Hall MD 3m x dm [id number] 04/09/2014 04/09/2014 eCW: Noel Hall MD 3m x dm [id number] 04/09/2014 04/09/2014 eCW: Noel Hall MD 3m x dm [id number] 04/09/2014 04/09/2014 eCW: Noel Hall MD 3m x dm [id number] 04/09/2014 04/09/2014 eCW: Noel Hall MD 3m x dm [id number] 04/09/2014 04/09/2014 eCW: Noel Hall MD 3m x dm [id number] 04/09/2014 04/09/2014 eCW: Noel Hall MD 3m x dm [id number] 04/09/2014 04/09/2014 eCW: Noel Hall MD 3m x dm [id number] 04/09/2014 04/09/2014 eCW: Noel Hall MD Unknown [id number] 07/09/2014 07/09/2014 eCW: Noel Hall MD Unknown [id number] 07/09/2014 07/09/2014 eCW: Noel Hall MD Unknown [id number] 07/09/2014 07/09/2014 eCW: Noel Hall MD Unknown [id number] 07/09/2014 07/09/2014 eCW: Noel Hall MD Unknown [id number] 07/09/2014 07/09/2014 eCW: Noel Hall MD Unknown [id number] 07/09/2014 07/09/2014 eCW: Noel Hall MD Unknown [id number] 07/09/2014 07/09/2014 eCW: Noel Hall MD Unknown [id number] 07/09/2014 07/09/2014 eCW: Noel Hall MD Unknown [id number] 07/09/2014 07/09/2014 eCW: Noel Hall MD Unknown [id number] 07/09/2014 07/09/2014 eCW: Noel Hall MD Unknown [id number] 07/09/2014 07/09/2014 eCW: Noel Hall MD Unknown [id number] 07/09/2014 07/09/2014 eCW: Noel Hall MD Unknown [id number] 07/09/2014 07/09/2014 eCW: Noel Hall MD Unknown [id number] 07/09/2014 07/09/2014 eCW: Noel Hall MD Unknown [id number] 07/09/2014 07/09/2014 eCW: Noel Hall MD Unknown [id number] 07/09/2014 07/09/2014 eCW: Noel Hall MD Cold congestion [id number]-3z3t-312x-2vacex716949 08/24/2014 08/24/2014 eCW: Noel Hall MD Cold congestion [id number]-n40p-py9tl27168k8 08/24/2014 08/24/2014 eCW: Noel Hall MD Cold congestion [id number]-8f47-38q9-y71b-8fz4ti9u4m45 08/24/2014 08/24/2014 eCW: Noel Hall MD Cold congestion [id number]-7654-393e-708ir315eyq4 08/24/2014 08/24/2014 eCW: Noel Hall MD Cold congestion [id number]-[id number] 08/24/2014 08/24/2014 eCW: Noel Hall MD Cold congestion [id number]-19u1-k43c-ns68g1090v51 08/24/2014 08/24/2014 eCW: Noel Hall MD Cold congestion [id number]-x7wv-00by-v3wu-96qrv7miq614 08/24/2014 08/24/2014 eCW: Noel Hall MD Cold congestion 6l01w2g3-52s3-0n08-0387-86u82c9xm00p 08/24/2014 08/24/2014 eCW: Noel Hall MD Cold congestion [id number]-50h2-50bp-65vs-k094748c5i96 08/24/2014 08/24/2014 eCW: Noel Hall MD Cold congestion [id number]-y240-3863-0kl2-yf39843l408l 08/24/2014 08/24/2014 eCW: Noel Hall MD Cold congestion m236j9ay-553z-9o84-r258-66h48wa67l55 08/24/2014 08/24/2014 eCW: Noel Hall MD Cold congestion 6u688mr9-0jf7-0h48-vt66-c5j880yg0523 08/24/2014 08/24/2014 eCW: Noel Hall MD Cold congestion [id number]y18 08/24/2014 08/24/2014 eCW: Noel Hall MD Cold congestion e52m0bp8-9998-9rtf-43bw-a716287144l1 08/24/2014 08/24/2014 eCW: Noel Hall MD Cold congestion u4vl96x4-r37v-8634-c1x0-5mv9jo04x0fr 08/24/2014 08/24/2014 eCW: Noel Hall MD Cold congestion [id number]-7wo1-a7e5-x00644bnz215 08/24/2014 08/24/2014 eCW: Noel Mckenna [facility] Outpatient Imaging [facility]ia [facility] [id number] Telly Farah 08/25/2014 08/26/2014 [facility] Noel Mckenna MD CXR results [id number]-[id number] 08/26/2014 08/26/2014 eCW: Noel Hall MD CXR results 81nu6574-8ys6-6869-bsv6-283r0f998gu4 08/26/2014 08/26/2014 eCW: Noel Hall MD CXR results dbly1805-092w-6690-17zw-0m431quoi8ho 08/26/2014 08/26/2014 eCW: Noel Hall MD CXR results 454el64r-qk63-5336-9beq-685g88tcd68o 08/26/2014 08/26/2014 eCW: Noel Hall MD CXR results s2b42o48-04e9-98gc-u98o-urx901i23vqf 08/26/2014 08/26/2014 eCW: Noel Hall MD CXR results i2t9d1a9-74di-593i-p807-5367e9v22k07 08/26/2014 08/26/2014 eCW: Noel Hall MD CXR results w2584cal-j640-1194-1oqo-ug3l06k06vjm 08/26/2014 08/26/2014 eCW: Noel Hall MD CXR results 538e38nq-9nu7-04dt-o796-lh717io34u21 08/26/2014 08/26/2014 eCW: Noel Hall MD CXR results [id number]-r9p7-7p87-9e9t-63m05h7p52d5 08/26/2014 08/26/2014 eCW: Noel Hall MD CXR results zpf7pir7-f0a7-333f-a70y-kq3l86970518 08/26/2014 08/26/2014 eCW: Noel Hall MD CXR results 1tp47i7k-q856-922c-nt15-9m6kx43g70hm 08/26/2014 08/26/2014 eCW: Noel Hall MD CXR results 1c3n84d5-g0qf-6084-49m5-6d72odu5s386 08/26/2014 08/26/2014 eCW: Noel Hall MD CXR results [id number]-wr3s-852p0kn18p99 08/26/2014 08/26/2014 eCW: Noel Hall MD CXR results oqa112qw-53kd-7y57-th5x-72i9x230li4r 08/26/2014 08/26/2014 eCW: Noel Hall MD CXR results 4hp0657d-5569-0710-8e5x-7p48g985i661 08/26/2014 08/26/2014 eCW: Noel Hall MD CXR results [id number]-r126-zvuo85086469 08/26/2014 08/26/2014 eCW: Noel Hall MD Cold u7u88v5e-oaj2-325q-t22k-348wqf73s5xs 08/31/2014 08/31/2014 eCW: Noel Hall MD Cold 286p3hq1-k2gc-031m-b4p2-6739l0593tm3 08/31/2014 08/31/2014 eCW: Noel Hall MD [facility] 3f1q2d8p-0w0c-08t3-k2un-0p640663u3o1 08/31/2014 08/31/2014 eCW: Noel Hall MD [facility] o9y5254g-v0d9-148i-v781-mx6bo8909t18 08/31/2014 08/31/2014 eCW: Noel Hall MD [facility] 0aui1151-41z9-2oz8-x445-33hc3c2yyxj7 08/31/2014 08/31/2014 eCW: Noel Hall MD [facility] 33672g26-ry48-5429-um53-v72c4ou898lj 08/31/2014 08/31/2014 eCW: Noel Hall MD [facility] o85c10ui-0v59-4mjn-e96m-no3i34g35h22 08/31/2014 08/31/2014 eCW: Noel Hall MD [facility] 1uwr17an-057h-073d-77pa-6957707239mr 08/31/2014 08/31/2014 eCW: Noel Hall MD [facility] z8084y2v-5l3s-1brs-gf19-e0cl53qxc57k 08/31/2014 08/31/2014 eCW: Noel Hall MD [facility] 01l0gze9-u028-12no-9c3z-b4b386obgo41 08/31/2014 08/31/2014 eCW: Noel Hall MD [facility] 8v3w3a20-m655-385g-q739-84719f8os21q 08/31/2014 08/31/2014 eCW: Noel Hall MD [facility] 5q3wqduo-0446-3740-eaq9-ys2354k9911o 08/31/2014 08/31/2014 eCW: Noel Hall MD [facility] [id number]-u10h-9j0d-ek56-8c89zx3ih835 08/31/2014 08/31/2014 eCW: Noel Hall MD Cold [id number]-i7tg-6j12-n7w1-xv80p9608058 08/31/2014 08/31/2014 eCW: Noel Hall MD Cold 23x7sxf9-9728-1q89-m1mm-z5pzi453630e 08/31/2014 08/31/2014 eCW: Noel Hall MD Cold 2pre9gqw-hrs7-6q07-712a-15075x1d976u 08/31/2014 08/31/2014 eCW: Noel Hall MD follow up Diabetes/insulin pump 90090o87-mv6u-8d30-y5l5-1im570ip2udv 11/16/2014 11/16/2014 eCW: Noel Hall MD follow up Diabetes/insulin pump [id number]-uh75-68kv532w37m0 11/16/2014 11/16/2014 eCW: Noel Hall MD follow up Diabetes/insulin pump 37090ouw-3n56-111o-0m86-j07vbhm2m933 11/16/2014 11/16/2014 eCW: Noel Hall MD follow up Diabetes/insulin pump [id number]-q4b8wne08293 11/16/2014 11/16/2014 eCW: Noel Hall MD follow up Diabetes/insulin pump 8ps17n1s-8a8y-7908-s811-j9395a717441 11/16/2014 11/16/2014 eCW: Noel Hall MD follow up Diabetes/insulin pump 4k0o0917-176m-3i4a-0526-1ma297776sf3 11/16/2014 11/16/2014 eCW: Noel Hall MD follow up Diabetes/insulin pump s8dv69ak-s333-17j1-5p1l-6x7vkf9p6g4q 11/16/2014 11/16/2014 eCW: Noel Hall MD follow up Diabetes/insulin pump 4pd7x767-7mv4-52wm-q4wu-fmu3994z8x0t 11/16/2014 11/16/2014 eCW: Noel Hall MD follow up Diabetes/insulin pump k5z41azn-a458-8826-qkw7-03ou959jhpl9 11/16/2014 11/16/2014 eCW: Noel Hall MD follow up Diabetes/insulin pump 96tyl4q6-7692-39a7-9rzm-4v66zfs182n5 11/16/2014 11/16/2014 eCW: Neol Hall MD follow up Diabetes/insulin pump fd7565yj-4549-4802-921q-7a6x858m863j 11/16/2014 11/16/2014 eCW: Noel Hall MD follow up Diabetes/insulin pump w3l4332e-787c-520t-6185-87n2vmf2k0a0 11/16/2014 11/16/2014 eCW: Noel Hall MD follow up Diabetes/insulin pump 7pgc5273-4y7c-3u62-m5o1-3823g3277418 11/16/2014 11/16/2014 eCW: Noel Hall MD follow up Diabetes/insulin pump huiyylh1-37o7-6ozw90i1-2ueq-l913-4n191w61ta80 11/16/2014 11/16/2014 eCW: Noel Hall MD follow up Diabetes/insulin pump [id number]-7f47-q27g-710750362a02 11/16/2014 11/16/2014 eCW: Noel Hall MD follow up Diabetes/insulin pump x33eh94d-7799-3p98-5822-7ixs1t0w2h0l 11/16/2014 11/16/2014 eCW: Noel Mckenna [facility] Out[facility] [id number] Telly Farah 11/23/2014 11/24/2014 [facility] Noel Brooks MD cgms disc [id number]-0g34-4m4w-snsh16uzfv03 11/29/2014 11/29/2014 eCW: Noel Hall MD cgms disc [id number]-67n8-3306-856oz1129681 11/29/2014 11/29/2014 eCW: Noel Hall MD cgms disc j1g87jq3-2oeg-32q7-4729-5kdr9o3m1vy5 11/29/2014 11/29/2014 eCW: Noel Hall MD cgms disc fx2b2004-zl8u-733l-u057-6h7is905480y 11/29/2014 11/29/2014 eCW: Noel Hall MD cgms disc deo74eqy-45u7-8525-8bg0-b096i6y7jd9i 11/29/2014 11/29/2014 eCW: Noel Hall MD cgms disc r3e7utj2-lfj8-2702-n431-796a00753avm 11/29/2014 11/29/2014 eCW: Noel Hall MD cgms disc g5952cj7-k600-0714-u4v3-75425ana7367 11/29/2014 11/29/2014 eCW: Noel Hall MD cgms disc 182dr694-6qt8-6g5m-s078-txd1680f89pm 11/29/2014 11/29/2014 eCW: Noel Hall MD cgms disc 2j63ii4v-myjr-96m5-w4zl-6n25ss62d6jt 11/29/2014 11/29/2014 eCW: Noel Hall MD cgms disc 0qtfdm24-6hz9-3uy1-512u-1o751q98w919 11/29/2014 11/29/2014 eCW: Noel Hall MD cgms disc e7s633k7-r07n-546d-r07o-h8437d1155l2 11/29/2014 11/29/2014 eCW: Noel Hall MD cgms disc 2hsj9641-8o07-46p3-y30s-40235hbn3098 11/29/2014 11/29/2014 eCW: Noel Hall MD cgms disc n971534m-9gr0-3t37-0877-ii9835ys27v7 11/29/2014 11/29/2014 eCW: Noel Hall MD cgms disc v1raqv7u-zhn9-0955-ym20-3bx84j4z29ab 11/29/2014 11/29/2014 eCW: Noel Hall MD cgms disc ak85imu4-y8v7-31e4-8427-443i489s322y 11/29/2014 11/29/2014 eCW: Noel Hall MD cgms results q17177x1-809d-93uh-wk8p-6754p84k4q7r 12/17/2014 12/17/2014 eCW: Noel Hall MD cgms results 2711ik2q-ocy0-7g53-mqs8-2q543pa50b52 12/17/2014 12/17/2014 eCW: Noel Hall MD cgms results 3253a4g3-gkj2-84a0-932y-ns2228y46134 12/17/2014 12/17/2014 eCW: Noel Hall MD cgms results f759359j-g9jk-6jv3-e751-069402kne079 12/17/2014 12/17/2014 eCW: Noel Hall MD cgms results 2ik8p6qx-ny01-2o59-e747-q581gc302x18 12/17/2014 12/17/2014 eCW: Noel Hall MD cgms results l77r2h72-9w8e-99n9-7ck0-x5n54b9f45e4 12/17/2014 12/17/2014 eCW: Noel Hall MD cgms results ue83506u-b843-1axb-g1up-0j8y7074g47c 12/17/2014 12/17/2014 eCW: Noel Hall MD cgms results 4k1o7948-97l2-0asq-sh14-2g03u65a94o0 12/17/2014 12/17/2014 eCW: Noel Hall MD cgms results n2812731-6020-2pu8-ce7m-594e95m60np2 12/17/2014 12/17/2014 eCW: Noel Hall MD cgms results 29gyv205-1p31-199b-8476-423c7fx03p74 12/17/2014 12/17/2014 eCW: Noel Hall MD cgms results nshb788d-y8o7-4l7p-uk60-71enh22p5u94 12/17/2014 12/17/2014 eCW: Noel Hall MD cgms results noh79j13-9l53-259p-x652-gf5c7u2c2br2 12/17/2014 12/17/2014 eCW: Noel Hall MD cgms results 4zl26623-3253-694p-k20f-4e22jt5s97q8 12/17/2014 12/17/2014 eCW: Noel Hall MD cgms results d38i5o73-91as-420o-fq01-x1ghs0g1o001 12/17/2014 12/17/2014 eCW: Noel Hall MD cgms results 19ds9ip1-rg83-0z92-ue71-4565821kd092 12/17/2014 12/17/2014 eCW: Noel Hall MD cgms results 372e6v4u-in06-7b72-xt60-463688326p08 12/17/2014 12/17/2014 eCW: Noel Hall MD left wrist pain b9564210-0i58-1647-r826-g5975x3nbnl1 12/31/2014 12/31/2014 eCW: Noel Hall MD left wrist pain 620ou222-1sa9-3379-im88-9i39j2334i1o 12/31/2014 12/31/2014 eCW: Noel Hall MD left wrist pain 3u221415-79qx-356k-i7l3-53f1b68w8a60 12/31/2014 12/31/2014 eCW: Noel Hall MD left wrist pain 9458u2g8-pyak-4368-ck39-63k89e5i6420 12/31/2014 12/31/2014 eCW: Noel Hall MD left wrist pain x22yk8f0-x74g-1n8u-gm1b-90vu4mf26q9c 12/31/2014 12/31/2014 eCW: Noel Hall MD left wrist pain 0792327g-akz6-8rt2-749k-36s28zb3395w 12/31/2014 12/31/2014 eCW: Noel Hall MD left wrist pain jrq5934w-an2k-9pv7-06q7-2d1m2h832876 12/31/2014 12/31/2014 eCW: Noel Hall MD left wrist pain b83y2e26-nduv-2yj2-d282-46q6i2xy626h 12/31/2014 12/31/2014 eCW: Noel Hall MD left wrist pain 777zcp78-00qp-72i9-cf27-36zsahji7408 12/31/2014 12/31/2014 eCW: Noel Hall MD left wrist pain z7063cs6-899p-1975-7698-786h62987t82 12/31/2014 12/31/2014 eCW: Noel Hall MD left wrist pain 90i3052i-kf6t-7s01-v306-5q4i3n4w58t8 12/31/2014 12/31/2014 eCW: Noel Hall MD left wrist pain 9f19sq07-45ol-68x7-8x2n-g50ix22p2p15 12/31/2014 12/31/2014 eCW: Noel Hall MD left wrist pain g178h3vh-m121-40l9-4944-07zb58llj7c5 12/31/2014 12/31/2014 eCW: Noel Hall MD left wrist pain d22fd803-9344-6wtg-s2p5-2i3vk17gp235 12/31/2014 12/31/2014 eCW: Noel Hall MD left wrist pain jc667173-xd9w-4z7z-0j04-524a890n3h66 12/31/2014 12/31/2014 eCW: Noel Hall MD left wrist pain os216zvd-2cw4-6450-8hs4-0n3w83315230 12/31/2014 12/31/2014 eCW: Noel Hall MD 4 Weeks (Reason: Diabetes ) l3k7xl56-964o-601a-m740-4437o42qa153 01/07/2015 01/07/2015 eCW: Noel Hall MD 4 Weeks (Reason: Diabetes ) 4dz9n243-u8w7-3e0j-y953-axg399061650 01/07/2015 01/07/2015 eCW: Noel Hall MD 4 Weeks (Reason: Diabetes ) c443o9yo-j0y8-8901-3p07-09e3167kk0cf 01/07/2015 01/07/2015 eCW: Noel Hall MD 4 Weeks (Reason: Diabetes ) 7s7w7b8m-m944-3s69-o150-7o8kw3m37222 01/07/2015 01/07/2015 eCW: Noel Hall MD 4 Weeks (Reason: Diabetes ) d70lvu3q-7603-496u-ae21-8042n9157q87 01/07/2015 01/07/2015 eCW: Noel Hall MD 4 Weeks (Reason: Diabetes ) 8c0153m9-57yv-1c81-44j0-e8n25n19n6iw 01/07/2015 01/07/2015 eCW: Noel Hall MD 4 Weeks (Reason: Diabetes ) ug3v210u-669i-77ec-9n0h-74q33c8fa366 01/07/2015 01/07/2015 eCW: Noel Hall MD 4 Weeks (Reason: Diabetes ) 34pj707y-6901-3262-2df3-46b0y27l8l13 01/07/2015 01/07/2015 eCW: Noel Hall MD 4 Weeks (Reason: Diabetes ) t422462j-5hvz-5li7-2150-2v29823ch2q8 01/07/2015 01/07/2015 eCW: Noel Hall MD 4 Weeks (Reason: Diabetes ) 42k6v4t4-uv43-67fv-u86w-838i0f554kr5 01/07/2015 01/07/2015 eCW: Noel Hall MD 4 Weeks (Reason: Diabetes ) 92z212e3-3qt0-7325-g8ww-9j8nd4997w2a 01/07/2015 01/07/2015 eCW: Noel Hall MD 4 Weeks (Reason: Diabetes ) 5f49in35-v652-5wh0-5d8h-bfir5p28k9nj 01/07/2015 01/07/2015 eCW: Noel Hall MD 4 Weeks (Reason: Diabetes ) 9y0nh338-4u9n-0br9-0835-5hx7185q793i 01/07/2015 01/07/2015 eCW: Noel Hall MD 4 Weeks (Reason: Diabetes ) 388ubo81-03lc-37n8-opi1-6805x8zjqs76 01/07/2015 01/07/2015 eCW: Noel Hall MD 4 Weeks (Reason: Diabetes ) 096doi6d-45ur-65c9-7480-n0k9567gk3ll 01/07/2015 01/07/2015 eCW: Noel Hall MD 4 Weeks (Reason: Diabetes ) 1540x37g-1584-1ryj-n5am-0a3r5s8300c0 01/07/2015 01/07/2015 eCW: Noel Mckenna [facility] Cardiology SW Office Visit [id number] Gustavo Calles MD 01/11/2015 01/11/[address] [facility] Cardiology Office Visit [id number] Gustavo Calles MD 01/25/2015 01/25/2015 [facility] Noel Mckenna MD referral for Dr. Easton 1hn6k857-3vi0-3063-ewni-911n16r0519y 01/26/2015 01/26/2015 eCW: Noel Hall MD referral for Dr. Easton 9zvbl66x-7w1h-85en-ys7q-3ps6w7016081 01/26/2015 01/26/2015 eCW: Noel Hall MD referral for Dr. Easton k74t6376-35p9-0848-9511-275mz59912yg 01/26/2015 01/26/2015 eCW: Noel Hall MD referral for Dr. Easton 59f5ro64-2532-035t-03n1-98lt87343h2f 01/26/2015 01/26/2015 eCW: Noel Hall MD referral for Dr. Easton aylug49a-q50r-0046-2527-es532m6i6160 01/26/2015 01/26/2015 eCW: Noel Hall MD referral for Dr. Easton o92g36l9-9842-899h-r353-49n5277lc8u5 01/26/2015 01/26/2015 eCW: Noel Hall MD referral for Dr. Easton r9msmv04-0q20-1377-ox15-qm1q780h0b53 01/26/2015 01/26/2015 eCW: Noel Hall MD referral for Dr. Easton 8s27z142-w0v7-06t7-g644-ep1hw8d6yp04 01/26/2015 01/26/2015 eCW: Noel Hall MD referral for Dr. Easton 67216h08-9m3a-40j9-09lc-w88309ab61xj 01/26/2015 01/26/2015 eCW: Noel Hall MD referral for Dr. Easton 11e59f8o-z984-6b66-e146-q340de965k82 01/26/2015 01/26/2015 eCW: Noel Hall MD referral for Dr. Easton 470f7128-74sm-7lj6-xz54-4151g34ec51v 01/26/2015 01/26/2015 eCW: Noel aHll MD referral for Dr. Easton 2642qv28-89ed-37c7-597w-44t834fj40c9 01/26/2015 01/26/2015 eCW: Noel Hall MD referral for Dr. Easton d54a737k-7550-0fz5-i6hb-59337j1j0517 01/26/2015 01/26/2015 eCW: Noel Hall MD referral for Dr. Easton 742df0p7-40e1-2738-pg08-9e276c9wh9g4 01/26/2015 01/26/2015 eCW: Noel Hall MD referral for Dr. Easton 32kcb00h-dkz6-8672-109x-0ub71f01o132 01/26/2015 01/26/2015 eCW: Noel Hall MD referral for Dr. Easton 4e951hb8-8517-8j4w-l6vt-di0c13481j7t 01/26/2015 01/26/2015 eCW: Noel Hall MD New referral 854qqc9a-5835-4n73-4886-56ny45y426s2 02/16/2015 02/16/2015 eCW: Noel Hall MD New referral 7308a9av-142g-1n10-1692-m2766n77653k 02/16/2015 02/16/2015 eCW: Noel Hall MD New referral l173v7mc-8xz8-2o4r-8jla-663oox23t19y 02/16/2015 02/16/2015 eCW: Noel Hall MD New referral 736eo773-0a5w-0ai4-89oa-99347032d0hx 02/16/2015 02/16/2015 eCW: Noel Hall MD New referral 1p518358-jez0-95v9-6g32-2qix9954fowz 02/16/2015 02/16/2015 eCW: Noel Hall MD New referral 6u0u3vq3-6plk-4f93-j257-53l6299kqt2u 02/16/2015 02/16/2015 eCW: Noel Hall MD New referral v41f4w03-9035-519o-80yu-u69m3pc24501 02/16/2015 02/16/2015 eCW: Noel Hall MD New referral 1u7w9o4o-61e3-5859-24f3-d9680672o259 02/16/2015 02/16/2015 eCW: Noel Hall MD New referral 8hv2r04n-j73s-24t2-75o3-maq02r6242jp 02/16/2015 02/16/2015 eCW: Noel Hall MD New referral 3o38d51u-537c-0nv8-x6zv-7k5a807038q6 02/16/2015 02/16/2015 eCW: Noel Hall MD New referral x5hskku8-6482-789w-t165-38d994b0i886 02/16/2015 02/16/2015 eCW: Noel Hall MD New referral 6um9r183-8g63-8wq4-r61s-9l91j3345qe9 02/16/2015 02/16/2015 eCW: Noel Hall MD New referral h7ylqgsj-9148-2306-y191-gt5mo9c5o144 02/16/2015 02/16/2015 eCW: Noel Hall MD New referral m8n8t5h4-1475-2579-jt88-qi2524w91rus 02/16/2015 02/16/2015 eCW: Noel Hall MD New referral 1h9v441t-8627-7a84-m31c-879gpqh6cdu2 02/16/2015 02/16/2015 eCW: Noel Hall MD New referral 13pb7u78-4h7v-8l71-p28r-0w262d3lkk0d 02/16/2015 02/16/2015 eCW: Noel Hall MD 3 Months (Reason: D.M. and multiple problems) rak62q44-oh32-84ul-j41t-50ok2wpx83m3 06/24/2015 06/24/2015 eCW: Noel Hall MD 3 Months (Reason: D.M. and multiple problems) [id number] 06/24/2015 06/24/2015 eCW: Noel Hall MD 3 Months (Reason: D.M. and multiple problems) [id number] 06/24/2015 06/24/2015 eCW: Noel Hall MD 3 Months (Reason: D.M. and multiple problems) [id number] 06/24/2015 06/24/2015 eCW: Noel Hall MD 3 Months (Reason: D.M. and multiple problems) [id number] 06/24/2015 06/24/2015 eCW: Noel Hall MD 3 Months (Reason: D.M. and multiple problems) [id number] 06/24/2015 06/24/2015 eCW: Noel Hall MD 3 Months (Reason: D.M. and multiple problems) [id number] 06/24/2015 06/24/2015 eCW: Noel Hall MD 3 Months (Reason: D.M. and multiple problems) [id number] 06/24/2015 06/24/2015 eCW: Noel Hall MD 3 Months (Reason: D.M. and multiple problems) [id number] 06/24/2015 06/24/2015 eCW: Noel Hall MD 3 Months (Reason: D.M. and multiple problems) [id number] 06/24/2015 06/24/2015 eCW: Noel Hall MD 3 Months (Reason: D.M. and multiple problems) [id number] 06/24/2015 06/24/2015 eCW: Noel Hall MD 3 Months (Reason: D.M. and multiple problems) [id number] 06/24/2015 06/24/2015 eCW: Noel Hall MD 3 Months (Reason: D.M. and multiple problems) [id number] 06/24/2015 06/24/2015 eCW: Noel Hall MD 3 Months (Reason: D.M. and multiple problems) [id number] 06/24/2015 06/24/2015 eCW: Noel Hall MD 3 Months (Reason: D.M. and multiple problems) [id number] 06/24/2015 06/24/2015 eCW: Noel Hall MD 3 Months (Reason: D.M. and multiple problems) [id number] 06/24/2015 06/24/2015 eCW: Noel Hall MD 3 Months (Reason: Diabetes ) [id number] 09/23/2015 09/23/2015 eCW: Noel Hall MD 3 Months (Reason: Diabetes ) [id number] 09/23/2015 09/23/2015 eCW: Noel Hall MD 3 Months (Reason: Diabetes ) [id number] 09/23/2015 09/23/2015 eCW: Noel Hall MD 3 Months (Reason: Diabetes ) [id number] 09/23/2015 09/23/2015 eCW: Noel Hall MD 3 Months (Reason: Diabetes ) [id number] 09/23/2015 09/23/2015 eCW: Noel Hall MD 3 Months (Reason: Diabetes ) [id number] 09/23/2015 09/23/2015 eCW: Noel Hall MD 3 Months (Reason: Diabetes ) [id number] 09/23/2015 09/23/2015 eCW: Noel Hall MD 3 Months (Reason: Diabetes ) [id number] 09/23/2015 09/23/2015 eCW: Noel Hall MD 3 Months (Reason: Diabetes ) [id number] 09/23/2015 09/23/2015 eCW: Noel Hall MD 3 Months (Reason: Diabetes ) [id number] 09/23/2015 09/23/2015 eCW: Noel Hall MD 3 Months (Reason: Diabetes ) [id number] 09/23/2015 09/23/2015 eCW: Noel Hall MD 3 Months (Reason: Diabetes ) [id number] 09/23/2015 09/23/2015 eCW: Noel Hall MD 3 Months (Reason: Diabetes ) [id number] 09/23/2015 09/23/2015 eCW: Noel Hall MD 3 Months (Reason: Diabetes ) [id number] 09/23/2015 09/23/2015 eCW: Noel Hall MD 3 Months (Reason: Diabetes ) [id number]-pcda-[id number] 09/23/2015 09/23/2015 eCW: Noel Hall MD 3 Months (Reason: Diabetes ) [id number] 09/23/2015 09/23/2015 eCW: Noel Hall MD cgms disc [id number]-[id number] 10/10/2015 10/10/2015 eCW: Noel Hall MD cgms disc [id number] 10/10/2015 10/10/2015 eCW: Noel Hall MD cgms disc [id number]-r2215ndpxf9s 10/10/2015 10/10/2015 eCW: Noel Hall MD cgms disc [id number] 10/10/2015 10/10/2015 eCW: Noel Hall MD cgms disc [id number] 10/10/2015 10/10/2015 eCW: Noel Hall MD cgms disc [id number]-b2d3fn6481ec 10/10/2015 10/10/2015 eCW: Noel Hall MD cgms disc [id number] 10/10/2015 10/10/2015 eCW: Noel Hall MD cgms disc [id number]-l1w6-9686786g2cer 10/10/2015 10/10/2015 eCW: Noel Hall MD cgms disc [id number]-ic2k-9691ak5b05s9 10/10/2015 10/10/2015 eCW: Noel Hall MD cgms disc [id number]-n04y-b10rn696cpgx 10/10/2015 10/10/2015 eCW: Noel Hall MD cgms disc [id number] 10/10/2015 10/10/2015 eCW: Noel Hall MD cgms disc [id number] 10/10/2015 10/10/2015 eCW: Noel Hall MD cgms results [id number] 10/28/2015 10/28/2015 eCW: Noel Hall MD cgms results [id number]-[id number] 10/28/2015 10/28/2015 eCW: Noel Hall MD cgms results [id number] 10/28/2015 10/28/2015 eCW: Noel Hall MD cgms results [id number] 10/28/2015 10/28/2015 eCW: Noel Hall MD cgms results [id number] 10/28/2015 10/28/2015 eCW: Noel Hall MD cgms results [id number]-v24ecmv8y517 10/28/2015 10/28/2015 eCW: Noel Hall MD cgms results [id number]-3q65-f379-38l20ah001oa 10/28/2015 10/28/2015 eCW: Noel Hall MD cgms results [id number] 10/28/2015 10/28/2015 eCW: Noel Hall MD cgms results [id number] 10/28/2015 10/28/2015 eCW: Noel Hall MD cgms results [id number]-[id number] 10/28/2015 10/28/2015 eCW: Noel Hall MD cgms results [id number]-e82s-[id number] 10/28/2015 10/28/2015 eCW: Noel Hall MD cgms results [id number] 10/28/2015 10/28/2015 eCW: Noel Hall MD cgms results [id number] 10/28/2015 10/28/2015 eCW: Noel Hall MD AWV [id number] 2015 2015 eCW: Noel Hall MD AWV [id number]-[id number] 2015 2015 eCW: Noel Hall MD AWV [id number]-[id number] 2015 2015 eCW: Noel Hall MD AWV [id number]-[id number] 2015 2015 eCW: Noel Hall MD AWV [id number] 2015 2015 eCW: Noel Hall MD AWV [id number]-6tpr3280ck5v 2015 2015 eCW: Noel Hall MD AWV [id number] 2015 2015 eCW: Noel Hall MDV [id number] 2015 2015 eCW: Noel Hall MDV [id number] 2015 2015 eCW: Noel Hall MDV [id number] 2015 2015 eCW: Noel Hall MDV [id number] 2015 2015 eCW: Noel Hall MDV [id number] 2015 2015 eCW: Noel Mckenna [facility] [id number] Alberto Lay 11/26/2015 11/26/2015 [facility] Noel Mckenna MD x dm after cgms results [id number]-70wz07232kg6 12/01/2015 12/01/2015 eCW: Noel Hall MD x dm after cgms results [id number] 12/01/2015 12/01/2015 eCW: Noel Hall MD dm after cgms results [id number] 12/01/2015 12/01/2015 eCW: Noel Hall MD x dm after cgms results [id number]-y000-f5nh0s621f26 12/01/2015 12/01/2015 eCW: Noel Hall MD x dm after cgms results [id number] 12/01/2015 12/01/2015 eCW: Noel Hall MD x dm after cgms results [id number] 12/01/2015 12/01/2015 eCW: Noel Hall MD dm after cgms results [id number] 12/01/2015 12/01/2015 eCW: Noel Hall MD dm after cgms results [id number] 12/01/2015 12/01/2015 eCW: Noel Hall MD dm after cgms results [id number] 12/01/2015 12/01/2015 eCW: Noel Hall MD dm after cgms results [id number] 12/01/2015 12/01/2015 eCW: Noel Hall MD dm after cgms results [id number] 12/01/2015 12/01/2015 eCW: Noel Hall MD dm after cgms results [id number] 12/01/2015 12/01/2015 eCW: Noel Hall MD dm after cgms results [id number] 12/01/2015 12/01/2015 eCW: Noel Hall MD dm after cgms results [id number] 12/01/2015 12/01/2015 eCW: Noel Mckenna [facility] [id number] Alberto Lay 12/28/2015 12/28/2015 Noel Bach MD Asthma [id number] 01/06/2016 01/06/2016 eCW: Noel Hall MD Asthma [id number] 01/06/2016 01/06/2016 eCW: Noel Hall MD Asthma [id number] 01/06/2016 01/06/2016 eCW: Noel Hall MD Asthma [id number] 01/06/2016 01/06/2016 eCW: Noel Hall MD Asthma [id number] 01/06/2016 01/06/2016 eCW: Noel Hall MD Asthma [id number] 01/06/2016 01/06/2016 eCW: Noel Hall MD Asthma [id number] 01/06/2016 01/06/2016 eCW: Noel Hall MD Asthma [id number] 01/06/2016 01/06/2016 eCW: Noel Hall MD Asthma [id number] 01/06/2016 01/06/2016 eCW: Noel Hall MD Asthma [id number] 01/06/2016 01/06/2016 eCW: Noel Mckenna [facility] Outpatient Imaging [facility] Outpatient [id number] Noel Mckenna 01/18/2016 01/19/2016 [facility] Outpatient Imaging [facility] Outpt Diag Services [id number] Kyle Ortizo 02/14/2016 02/15/2016 [facility] [id number] Kyle Miranda 02/21/2016 02/22/2016 [facility] Noel Mckenna MD 3 Months (Reason: D.M.) [id number] 03/01/2016 03/01/2016 eCW: Noel Hall MD 3 Months (Reason: D.M.) [id number] 03/01/2016 03/01/2016 eCW: Noel Hall MD 3 Months (Reason: D.M.) [id number] 03/01/2016 03/01/2016 eCW: Noel Hall MD 3 Months (Reason: D.M.) [id number] 03/01/2016 03/01/2016 eCW: Noel Hall MD 3 Months (Reason: D.M.) [id number] 03/01/2016 03/01/2016 eCW: Noel Hall MD 3 Months (Reason: D.M.) [id number] 03/01/2016 03/01/2016 eCW: Noel Hall MD 3 Months (Reason: D.M.) [id number] 03/01/2016 03/01/2016 eCW: Noel Hall MD check up [id number] 04/27/2016 04/27/2016 eCW: Noel Hall MD check up [id number] 04/27/2016 04/27/2016 eCW: Noel Hall MD check up [id number] 04/27/2016 04/27/2016 eCW: Noel Hall MD check up [id number] 04/27/2016 04/27/2016 eCW: Noel Hall MD check up [id number] 04/27/2016 04/27/2016 eCW: Noel Hall MD check up [id number] 04/27/2016 04/27/2016 eCW: Noel Hall MD check up [id number] 04/27/2016 04/27/2016 eCW: Noel Hall MD check up [id number] 04/27/2016 04/27/2016 eCW: Noel Hall MD referral [id number] 05/17/2016 05/17/2016 eCW: Noel Hall MD referral [id number] 05/17/2016 05/17/2016 eCW: Noel Hall MD referral [id number] 05/17/2016 05/17/2016 eCW: Noel Hall MD referral [id number] 05/17/2016 05/17/2016 eCW: Noel Hall MD referral [id number] 05/17/2016 05/17/2016 eCW: Noel Hall MD referral [id number] 05/17/2016 05/17/2016 eCW: Noel Hall MD referral [id number] 05/17/2016 05/17/2016 eCW: Noel Hall MD referral [id number] 05/17/2016 05/17/2016 eCW: Noel Hall MD referral [id number] 05/17/2016 05/17/2016 eCW: Noel Hall MD 3 mon f/u [id number] 06/07/2016 06/07/2016 eCW: Noel Hall MD 3 mon f/u [id number] 06/07/2016 06/07/2016 eCW: Noel Hall MD 3 mon f/u [id number] 06/07/2016 06/07/2016 eCW: Noel Hall MD 3 mon f/u [id number] 06/07/2016 06/07/2016 eCW: Noel Hall MD 3 mon f/u [id number] 06/07/2016 06/07/2016 eCW: Noel Hall MD 3 mon f/u [id number] 06/07/2016 06/07/2016 eCW: Noel Hall MD 4 Weeks (Reason: D.M.) [id number] 07/12/2016 07/12/2016 eCW: Noel Hall MD 4 Weeks (Reason: D.M.) [id number] 07/12/2016 07/12/2016 eCW: Noel Hall MD 4 Weeks (Reason: D.M.) [id number] 07/12/2016 07/12/2016 eCW: Noel Hall MD 4 Weeks (Reason: D.M.) [id number] 07/12/2016 07/12/2016 eCW: Noel Hall MD 4 Weeks (Reason: D.M.) [id number] 07/12/2016 07/12/2016 eCW: Noel Hall MD 3 Months (Reason: D.M.) [id number] 09/27/2016 09/27/2016 eCW: Noel Hall MD 3 Months (Reason: D.M.) [id number] 09/27/2016 09/27/2016 eCW: Noel Hall MD 3 Months (Reason: D.M.) [id number] 09/27/2016 09/27/2016 eCW: Noel Hall MD 3 Months (Reason: D.M.) [id number] 09/27/2016 09/27/2016 eCW: Noel Hall MD referral [id number] 10/25/2016 10/25/2016 eCW: Noel Hall MD referral [id number] 10/25/2016 10/25/2016 eCW: Noel Hall MD REFILLS [id number] 11/13/2016 11/13/2016 eCW: Noel Hall MD REFILLS [id number] 11/13/2016 11/13/2016 eCW: Noel Hall MD REFILLS [id number] 11/13/2016 11/13/2016 eCW: Noel Hall MD REFERRAL TO CARDIO [id number] 11/26/2016 11/26/2016 eCW: Noel Mckenna [facility] Day Surgery [id number] Jeb Juan 06/25/2017 06/25/2017 [facility] Day Surgery [id number] Jeb Juan 08/20/2017 08/20/2017 [facility] Outpatient [id number] Kyle Miranda 11/21/2017 11/22/2017 [facility] Outpatient [id number] Jeb Juan 11/27/2017 11/27/2017 Discharged [facility] Outpatient [id number] Jeb Juan 11/27/2017 11/27/[address] [facility] Outpatient Imaging [facility] Outpt Diag Services [id number] Kyle Ruth 01/03/2018 01/04/2018 MH OP[facility] Outpatient Imaging [facility] Outpt Diag Services [id number] Jagdish Pulidovan 01/10/2018 01/11/2018 [facility] Outpatient [id number] [facility] 04/01/2018 [facility] Primary Care [facility] Outpatient [id number] [facility] 04/01/2018 04/02/2018 [facility] Outpatient [id number] [facility] 05/08/2018 Active [facility] Primary Care [facility] Ambulatory Pre-Reg [id number] [facility] 05/08/2018 05/08/2018 [facility] Outpatient [id number] [facility] 05/23/2018 Active [facility] Primary Care [facility] Outpatient [id number] [facility] 05/23/2018 05/24/2018 [facility] MG Primary Care [facility] Phone Message [id number] 07/04/2018 07/06/2018 [facility] Est Patient Detailed - [id number] Kris Hunt MD 07/25/2018 [facility] Primary Care [facility] Phone Message [phone] 07/28/2018 07/30/2018 [facility] Outpatient [id number] [facility] 08/20/2018 Active [facility] Primary Care [facility] Outpatient [id number] [facility] 08/20/2018 08/21/2018 [facility] Est Patient Exp Problem - [id number] Kris Hunt MD 08/29/2018 [facility] Outpatient [id number] [facility] 09/15/2018 Active [facility] Primary Care [facility] Outpatient [id number] [facility] 09/15/2018 09/16/[address] [facility] Outpatient Imaging [facility] Outpt Diag Services [id number] [facility] 09/24/2018 09/25/2018 MH OP[facility] Primary Care [facility] Phone Message [id number] 09/26/2018 09/28/2018 [facility] Exp Problem - [id number] Kris Hunt MD 10/31/2018 [facility] Primary Care [facility] Phone Message [id number] 11/21/2018 11/23/2018 [facility] Outpatient [id number] [facility] 12/30/2018 Active [facility] Primary Care [facility] Outpatient [id number] [facility] 12/30/2018 12/31/2018 [facility] Est Patient Exp Problem - [id number] Perla Clayton MD 01/02/[address] [facility] Outpatient Imaging [facility] Out Diag Services [id number] Arnold Riberaeynolds 01/28/2019 01/29/2019 [facility] Est Patient Exp Problem - [id number] Perla Clayton MD 01/30/2019 [facility] Primary Care [facility] Between Visit [id number] 02/27/2019 02/28/2019 Medical Group Outpatient [id number] [facility] 02/27/2019 Active [facility] Primary Care [facility] Outpatient [id number] [facility] 02/27/2019 02/28/2019 Medical Group [facility] Primary Care [facility] Between Visit [id number] 03/01/2019 03/02/2019 [facility] Est Patient Exp Problem - [id number] Perla Clayton MD 03/16/2019 [facility] Outpatient [id number] [facility] 04/06/2019 Active [facility] Primary Care [facility] Ambulatory Pre-Reg [id number] [facility] 04/06/2019 04/06/2019 [facility] Est Patient Exp Problem - 23735 [id number] Perla Clayton MD 05/25/2019 [facility] Outpatient [id number] Roger Mcintosh 05/26/2019 Active [facility] Primary Care [facility] Ambulatory Pre-Reg [id number] [facility] 05/26/2019 05/26/2019 [facility] Est Patient Exp Problem - 65304 [id number] Perla Clayton MD 06/10/2019 [facility] Outpatient [id number] Roger Mcintosh 06/16/2019 Active [facility] Primary Care [facility] Outpatient [id number] Roger Mcintosh 06/16/2019 06/17/2019 [facility] Primary Care [facility] Between Visit [id number] 06/22/2019 06/23/2019 Medical [facility] Outpatient [id number] Roger Mcintosh 07/14/2019 Active [facility] Procedures Procedure Code Date Perfomer Comments Source Gastroduodenoscopy<sup>1</sup> [id number] 01/30/2019 EGD and esophageal dilation [facility] Diagnostic evaluation with medical - [id number] 07/04/2018 Gilbert L[facility] Colonoscopy<sup>1</sup> [id number] 02/26/2018 Dr. Rodriguez [facility] Gastroduodenoscopy [id number] 02/26/2018 [facility] Colonoscopy<sup>2</sup> [id number] 02/26/2018 Dr. Rodriguez [facility] PAP smear preparation<sup>2</sup> [id number] 12/19/2017 Dr. Hansen [facility] PAP smear preparation<sup>3</sup> [id number] 12/19/2017 Dr. Hansen [facility] DESTRUCTION BY NEUROLYTIC AGENT PARAVERTEBRAL FACET JT NERVE W/ IMAGE LUMB/SACRAL EACH 49207 (Bilateral)<sup>1</sup> 11/27/2017 auto-populated from documented surgical case [facility] DESTRUCTION BY NEUROLYTIC AGT PARARVERT FACET JT W/IMAGE LUM/SAC SINGLE JT 86538 (Bilateral)<sup>2</sup> 11/27/2017 auto-populated from documented surgical case [facility] FLUOROSCOPIC GUIDANCE AND LOCALIZATION OF NEEDLE OR CATHETER TIP; SPINE INJ. 55733 (Bilateral)<sup>3</sup> 11/27/2017 auto-populated from documented surgical case [facility] Colonoscopy [id number] 11/18/2013 [facility] Esophagogastroduodenoscopy [id number] 11/18/2013 [facility] section [id number] [facility] Gallbladder operation [id number] [facility] Gastric operation [id number] [facility] Hysterectomy [id number] [facility] Endoscopy of larynx [id number] [facility] Arthroscopy of knee<sup>4</sup> [id number] X 2- left knee [facility] Cholecystectomy [id number] [facility] Laparoscopy [id number] [facility] Assessment and Plan No Data Provided for This Section Plan of Care No Data Provided for This Section Social History Social History Date Source Social History TypeResponse Exercise Exercise duration: 0. Alcohol Never Smoking Status Never smoker; Exposure to Tobacco Smoke None; Cigarette Smoking Last 365 Days No; Reg Smoking Cessation Counseling No entered on: 06/16/19 06/16/2019 [facility] Social History TypeResponse Exercise Exercise duration: 0. Alcohol Never Smoking Status Never smoker; Exposure to Tobacco Smoke None; Cigarette Smoking Last 365 Days No; Reg Smoking Cessation Counseling No entered on: 02/27/19 02/27/2019 [facility] Social History TypeResponse Smoking Status Never smoker 11/20/2017 [facility] Social History TypeResponse Alcohol Never Smoking Status Never smoker; Exposure to Tobacco Smoke None; Cigarette Smoking Last 365 Days No; Reg Smoking Cessation Counseling No 08/19/2017 [facility] Social History ElementQualifiersDate Reported Language: . Malay, Lao Sep 27, 2016 Marital Status: single. Sep [...] 2016 Occupation: unemployed. Disabled Sep 27, 2016 09/27/2016 eCW: Noel Mckenna Family History No Data Provided for This Section Advance Directives No Data Provided for This Section Functional Status No Data Provided for This Section
--- OUTSIDE RECORDS SUMMARY | 2019-07-16 07:20 | XMS REPORT | Summary of Care ---
Author Author [facility] Care [facility] Organization [facility] Address Unknown Phone Unavailable Care Team Providers Care Scientific Illustrator Name Role Phone Roger Mcintosh PCP Encounter HQ Encntr_huong(FIN) [phone] Date(s): 06/21/19 - 06/22/19 [facility] [address] [place], [place] [address]- [phone] Vital Signs No data available for this [...] Procedure Date Related Diagnosis Body Site Status Gastroduodenoscopy1 01/30/19 Completed Colonoscopy2 02/26/18 Completed PAP smear preparation3 12/2017 Completed section Completed Endoscopy of larynx Completed Gallbladder operation Completed Gastric operation Completed Hysterectomy Completed 1EGD and esophageal dilation 2Dr. Jennifer 3Dr. Jade Social History Social History Type Response Exercise Exercise duration: 0. Alcohol Never Smoking Status Never smoker; Exposure to Tobacco Smoke None; Cigarette Smoking Last 365 Days No; Reg Smoking Cessation Counseling No entered on: 06/16/19 Assessment and Plan No data available for this section
--- OUTSIDE RECORDS SUMMARY | 2019-07-16 07:20 | XMS REPORT | Summary of Care ---
Author Author [facility] Organization [facility] Address Unknown Phone Unavailable Care Team Providers Care Audience Development Manager Name Role Phone Roger Mcintosh PCP Encounter HQ Encntr_huong(FIN) [id number] Date(s): 05/26/19 - 05/26/19 [facility] [address] [place] [address]- [phone] Attending Physician: Roger Mcintosh MD Vital Signs [...] PAP smear preparation2 12/2017 Completed section Completed Endoscopy of larynx Completed Gallbladder operation Completed Gastric operation Completed Hysterectomy Completed 1DrMaggy Rodriguez 2DrMaggy Hansen Social History Social History Type Response Exercise Exercise duration: 0. Alcohol Never Smoking Status Never smoker; Exposure to Tobacco Smoke None; Cigarette Smoking Last 365 Days No; Reg Smoking Cessation Counseling No entered on: 02/27/19 Assessment and Plan No data available for this section
--- OUTSIDE RECORDS SUMMARY | 2019-07-16 07:20 | XMS REPORT | Summary of Care ---
Author Author [facility] Care [facility] Organization [facility] Address Unknown Phone Unavailable Care Team Providers Care Hadoop Engineer Name Role Phone Roger Mcintosh PCP Encounter HQ [email or web address]_huong(FIN) [phone] Date(s): 06/16/19 - 06/16/19 [facility] [address] [place], [place] [address]- [phone] Discharge Disposition: Home or Self Care Attending Physician: Roger Mcintosh MD Vital Signs Most recent to 1 oldest [Reference Range]: Height 149.86 cm (06/16/19 4:18 PM) Temperature Oral 99.3 DegF [96.4-99.1 DegF] *HI* (06/16/19 4:18 PM) Blood Pressure 111/70 mmHg [90-140/60-90 mmHg] (06/16/19 4:18 PM) Peripheral Pulse 104 bpm Rate [60-100 bpm] *HI* (06/16/19 4:18 PM) Weight 61.42 kg (06/16/19 4:18 PM) Body Mass Index 27.35 m2 (06/16/19 4:18 PM) Problem List Condition Effective Dates Status [...] on05/26/15. Originally documented as DARVOCET. Medications levothyroxine 88 mcg (0.088 mg) oral tablet 88 microgram=1 tab, PO, Daily, # 90 tab, 0 Refill(s) Start Date: 06/16/19 Status: Ordered Lidocaine Viscous 2% mucous membrane solution 1 appl, TOP, QID, PRN Mouth Pain, X 7 day, # 15 mL, 0 Refill(s), Pharmacy: [facility] Start Date: 06/16/19 Stop Date: 06/23/19 Status: Ordered ranitidine See Instructions, 0 Refill(s) Start Date: 06/16/19 Status: Ordered Results No data available for [...]
--- OUTSIDE RECORDS SUMMARY | 2019-07-16 07:20 | XMS REPORT | Summary of Care ---
Author Author [facility] Outpatient [facility] Outpatient Imaging [facility] Address Unknown Phone Unavailable Care Team Providers Care Appeals Manager Name Role Phone Roger Mcintosh PCP Encounter HQ [email or web address]_huong(FIN) [phone] Date(s): 09/24/18 - 09/24/18 [facility] Outpatient Imaging [facility] [address] [place], [place] [address] [phone] Encounter Diagnosis Localized swelling, mass and lump, neck (Final) - 09/30/18 Discharge Disposition: Home or Self Care Attending Physician: Roger Mcintosh MD Referring Physician: Roger Mcintosh MD Vital Signs No [...] operation Completed Gastric operation Completed Hysterectomy Completed GloriarMaggy Rodriguez 2DrMaggy Hansen Social History Social History Type Response Exercise Exercise duration: 0. Alcohol Never Smoking Status Never smoker; Exposure to Tobacco Smoke None; Cigarette Smoking Last 365 Days No; Reg Smoking Cessation Counseling No entered on: 02/27/19 Assessment and Plan No data available for this section
--- OUTSIDE RECORDS SUMMARY | 2019-07-16 07:20 | XMS REPORT | Summary of Care ---
Author Author [facility] Care [facility] Organization [facility] Address Unknown Phone Unavailable Care Team Providers Care Osteologist Name Role Phone Roger Mcintosh PCP Encounter HQ Encntr_alijonas(FIN) [phone] Date(s): 09/26/18 - 09/27/18 [facility] [address] [place] [address]- [phone] Vital Signs No data available for this [...] TAKE 1 TABLET BY MOUTH DAILY, Pharmacy: [facility] Start Date: 09/30/18 Stop Date: 02/27/19 Status: Discontinued Results No data available for this section [...] operation Completed Gastric operation Completed Hysterectomy Completed Arturo Rodriguez 2DrMaggy Hansen Social History Social History Type Response Exercise Exercise duration: 0. Alcohol Never Smoking Status Never smoker; Exposure to Tobacco Smoke None; Cigarette Smoking Last 365 Days No; Reg Smoking Cessation Counseling No entered on: 02/27/19 Assessment and Plan No data available for this section
--- OUTSIDE RECORDS SUMMARY | 2019-07-16 07:20 | XMS REPORT | Summary of Care ---
Author Author [facility] Primary [facility] Address Unknown Phone Unavailable Encounter HQ Carlos(FIN) [phone] Date(s): 02/27/19 - 02/27/19 [facility] [address] [place], [place] [address]- [phone] Discharge Disposition: Home or Self Care Attending Physician: Roger Mcintosh MD Vital Signs Most recent to 1 oldest [Reference Range]: Height 149.86 cm (02/27/19 2:16 PM) Temperature Oral 98.5 DegF [96.4-99.1 DegF] (02/27/19 2:16 PM) Blood Pressure 99/67 mmHg [90-140/60-90 mmHg] (02/27/19 2:16 PM) Peripheral Pulse 94 bpm Rate [60-100 bpm] (02/27/19 2:16 PM) Weight 59.091 kg (02/27/19 2:16 PM) Body Mass Index 26.31 m2 (02/27/19 2:16 PM) Problem List Condition Effective Dates Status [...] Centricity on05/26/15. Originally documented as DARVOCET. Medications Carafate 1 g/10 mL oral suspension 1 gm=10 ml, PO, Before Meals & Bedtime, # 200 ml, 0 Refill(s) Start Date: 02/27/19 Stop Date: 02/27/19 Status: Discontinued levothyroxine 75 mcg (0.075 mg) oral tablet 75 microgram=1 tab, PO, Daily, # 90 tab, 1 Refill(s) Start Date: 02/27/19 Status: Ordered sertraline 25 mg oral tablet 25 mg=1 tab, PO, Daily, # 90 tab, 0 Refill(s) Start Date: 02/27/19 Stop Date: 05/28/19 Status: Ordered Results No data available for [...]
--- OUTSIDE RECORDS SUMMARY | 2019-07-16 07:20 | XMS REPORT | Summary of Care ---
Author Author [facility] Primary [facility] Organization [facility] Address Unknown Phone Unavailable Encounter HQ Deedeer_huong(FIN) [id number] Date(s): 07/28/18 - 07/29/18 [facility] [address] [place], [place] [address]- [phone] Vital Signs No data available for this [...] 1 TABLET BY MOUTH DAILY, Pharmacy: [facility] Start Date: 07/28/18 Stop Date: 08/29/18 [...]
--- OUTSIDE RECORDS SUMMARY | 2019-07-16 07:20 | XMS REPORT | Summary of Care ---
Author Author [facility] Organization [facility] Address Unknown Phone Unavailable Encounter HQ Deedeer_huong(FIN) [id number] Date(s): 02/26/19 - 02/27/19 [facility] [address] [place], [place] [address]- [phone] Vital Signs No data available for this [...] documented as CODEINE. 3Data migrated from [employer] on 01/20/16. Originally documented as CODEINE. 4Data migrated from [employer] on05/26/15. Originally documented as DARVOCET. Medications Vitamin D3 50,000 intl units oral capsule 50,000 IntlUnit=1 cap, PO, qWeek, # 12 cap, 0 Refill(s), Pharmacy: [facility] Sarah neumann Start Date: 02/26/19 Stop Date: 05/21/19 Status: Ordered Results No data available for [...]
--- OUTSIDE RECORDS SUMMARY | 2019-07-16 07:21 | XMS REPORT | Summary of Care ---
Author Author [facility] Organization [facility] Address Unknown Phone Unavailable Care Team Providers Care Ux Research Associate Name Role Phone Roger Mcintosh PCP Encounter HQ Encntr_huong(FIN) [id number] Date(s): 04/06/19 - 04/06/19 [facility] [address] [place], [place] [address]- [phone] Attending Physician: Roger Mcintosh MD Vital Signs [...]
--- OUTSIDE RECORDS SUMMARY | 2019-07-16 07:21 | XMS REPORT ---
Author Author Gustavo Mckenna Organization [employer] Address Unknown Phone Unavailable Care Team Providers Care Finished Stock Inspector Name Role Phone Gustavo Mckenna CP Unavailable [...] mellitus with diabetic polyneuropathy E11.42 Active Problem History of Iveth thyroiditis Z86.39 Active Problem Hyperlipidemia, mixed E78.2 Active Problem Hx of diverticulitis of colon Z87.19 Active Problem Radiculopathy, cervical region M54.12 Active Problem Asthma J45.909 Active Problem Anemia D64.9 Active Problem Otalgia, left ear H92.02 Active Problem Insulin pump status Z96.41 Active Problem Cervical disc disorder with radiculopathy, cervicothoracic region M50.13 Active Problem Left knee pain M25.562 Active Problem Nonscarring hair loss, unspecified L65.9 Active Problem Onychomycosis B35.1 Active Problem Back pain M54.9 Active Problem Migraine G43.909 Active Problem PVD (peripheral vascular disease) I73.9 Active Assessment Back pain M54.9 Active Problem Moniliasis B37.9 Active Problem GERD (gastroesophageal reflux disease) K21.9 Active Assessment Moniliasis B37.9 Active Problem Type 2 diabetes mellitus with diabetic polyneuropathy E11.42 Active Problem 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 Problem Tinea pedis B35.3 Active Problem Crohn's disease of large intestine without complications K50.10 Active Assessment PVD (peripheral vascular disease) I73.9 Active Problem Other chronic pain G89.29 Active Assessment Hyperlipidemia, mixed E78.2 Active Problem Type 2 diabetes mellitus with hyperglycemia E11.65 Active Assessment Asthma J45.909 Active Problem Vitamin D deficiency E55.9 Active Assessment Hypothyroid E03.9 Active Problem Hypothyroid E03.9 Active Assessment Crohn's disease of large intestine without complications K50.10 Active Problem Carpal tunnel syndrome G56.00 Active Assessment GERD (gastroesophageal reflux disease) K21.9 Active Problem Diarrhea R19.7 Active Problem Essential (primary) hypertension I10 Active Problem Radiculopathy, lumbar region M54.16 Active Medications Medication Code System Code Instructions Start Date End Date Status Dosage NovoLog [facility] 47143056556 100 units/mL subcutaneously insulin pump Active 75 units via insulin pump clonazepam ND 30502248000 0.5 mg orally qhs Active 2 tabs Pravachol ND 01738099802 40 mg orally once a day (at bedtime) Active 1 tab(s) Vitamin B6 NDC 0 Active not defined trazodone ND 48778114149 100 mg orally qhs Active 1 tab(s) ONE TOUCH ULTRA TEST STRIPS NDC 0 - check blood sugars 4 TIMES A DAY Active - atenolol 25 mg oral tablet NDC 0 orally daily Active 1 tab(s) Terbinafine Hydrochloride, Topical ND 57728729205 1% applied topically One times a day February 25, 2019 Inactive 1 mike Freestyle William [place] [facility] 00380593853 -- Active Use as directed NovoLog [facility] 25941330345 100 units/mL subcutaneously insulin pump Active 75 units via insulin pump B-12 ND 15986991106 1000 mcg sublingually once a day Jan 13, 2018 Active 1 tab(s) pantoprazole ND 02416245961 40 mg orally once a day Active 1 tab(s) Pravachol ND 77469731710 40 mg orally once a day (at bedtime) Active 1 tab(s) TraMADol Hydrochloride [facility] 60432322320 50 mg orally daily p.r.n. February 25, 2019 April 26, 2019 Active 1 tab(s) BD Ultra-Fine Pen Needle Haley 32g 4mm NDC 0 - subcutaneously daily Nov 13, 2016 Active as directed Freestyle William Sensor [facility] 85557298524 -- Active Apply one sensor every 10 days or as directed Syringes - store brand NDC 0 3cc 25Gx1.5 1X/W Jul 08, 2017 Active not defined ProAir HFA [facility] 89666222987 CFC free 90 mcg/inh inhaled 4 times a day Active 2 puff(s) Levothyroxine Sodium [facility] 69333776183 75 mcg (0.075 mg) orally once a day Aug 24, 2019 Active 1 tab(s) metoclopramide [facility] 96591149257 10 mg orally 2 TIMES A DAY Active 1 tab(s) ergocalciferol [facility] 58054044793 50,000 intl units orally 2 times a week Active 1 cap(s) Qvar [facility] 78943249932 40 mcg/inh inhaled 2 times a day Active 1 puff(s) Vital Signs Date/Time: February 25, 2019 BMI 24.56 Index Weight 130 lbs Height 61 in Blood Pressure Diastolic 76 mm Hg Blood Pressure Systolic 115 mm Hg Results No Known Results Summary Purpose [employer] Submission
--- OUTSIDE RECORDS SUMMARY | 2019-07-16 07:21 | XMS REPORT | Summary of Care ---
Author Author [facility] Address Unknown Phone Unavailable Encounter HQ Carlos(FIN) [id number] Date(s): 01/28/19 - 01/28/19 [facility] [address] [place], [place] [address] [phone] Discharge Disposition: Home or Self Care Attending Physician: Arnold Gomez MD Referring Physician: Arnold Gomez MD Vital Signs No data available for [...]
--- OUTSIDE RECORDS SUMMARY | 2019-07-16 07:21 | XMS REPORT | Summary of Care ---
Author Author [facility] Care [facility] Organization [facility] Address Unknown Phone Unavailable Care Team Providers Care Talent Director Name Role Phone Roger Mcintosh PCP Encounter HQ Jignesh_huong(FIN) [id number] Date(s): 09/15/18 - 09/15/18 [facility] [address] [place], [place] [address]- [phone] Discharge Disposition: Home or Self Care Attending Physician: Roger Mcintosh MD Vital Signs Most recent to 1 oldest [Reference Range]: Height 149.86 cm (09/15/18 2:47 PM) Temperature Oral 98.4 DegF [96.4-99.1 DegF] (09/15/18 2:47 PM) Blood Pressure 95/65 mmHg [90-140/60-90 mmHg] (09/15/18 2:47 PM) Peripheral Pulse 101 bpm Rate [60-100 bpm] *HI* (09/15/18 2:47 PM) Weight 58.636 kg (09/15/18 2:47 PM) Body Mass Index 26.11 m2 (09/15/18 2:47 PM) Problem List Condition Effective Dates Status [...] on05/26/15. Originally documented as DARVOCET. Medications No Known Medications Results No data available for this section [...]
--- OUTSIDE RECORDS SUMMARY | 2019-07-16 07:21 | XMS REPORT | Summary of Care ---
Author Author [facility] Organization [facility] Address Unknown Phone Unavailable Encounter HQ Deedeer_huong(FIN) [id number] Date(s): 03/01/19 - 03/02/19 [facility] [address] [place] [address] [phone] Vital Signs No data available for this [...]
--- OUTSIDE RECORDS SUMMARY | 2019-07-16 07:21 | XMS REPORT | Summary of Care ---
Author Author [facility] Care [facility] Organization [facility] Address Unknown Phone Unavailable Care Team Providers Care Hat Trimmer Name Role Phone Roger Mcintosh PCP Encounter HQ Encntr_huong(FIN) [id number] Date(s): 11/21/18 - 11/22/18 [facility] [address] [place] [address] [phone] Vital Signs No data available for this [...]
--- OUTSIDE RECORDS SUMMARY | 2019-07-16 07:21 | XMS REPORT | Summary of Care ---
Author Author [facility] Primary [facility] Organization [facility] Address Unknown Phone Unavailable Encounter HQ Carlos(FIN) [id number] Date(s): 08/20/18 - 08/20/18 [facility] [address] [place], [place] [address]- [phone] Discharge Disposition: Home or Self Care Attending Physician: Roger Mcintosh MD Vital Signs Most recent to 1 oldest [Reference Range]: Height 149.86 cm (08/20/18 3:18 PM) Temperature Oral 98.9 DegF [96.4-99.1 DegF] (08/20/18 3:18 PM) Blood Pressure 110/66 mmHg [90-140/60-90 mmHg] (08/20/18 3:18 PM) Peripheral Pulse 102 bpm Rate [60-100 bpm] *HI* (08/20/18 3:18 PM) Weight 58.182 kg (08/20/18 3:18 PM) Body Mass Index 25.91 m2 (08/20/18 3:18 PM) Problem List Condition Effective Dates Status [...] operation Completed Hysterectomy Completed 1DrMaggy Rodriguez 2Dr. Jaed Social History Social History Type Response Exercise Exercise duration: 0. Alcohol Never Smoking Status Never smoker; Exposure to Tobacco Smoke None; Cigarette Smoking Last 365 Days No; Reg Smoking Cessation Counseling No entered on: 02/27/19 Assessment and Plan No data available for this section
--- OUTSIDE RECORDS SUMMARY | 2019-07-16 07:21 | XMS REPORT ---
Author Author Gustavo Mckenna Organization [employer] Address Unknown Phone Unavailable Care Team Providers Care Sponge Clipper Name Role Phone Gustavo Mckenna CP Unavailable Allergies No Known Allergies Problems Problem Type Condition Code Onset Dates Condition Status Problem Nausea [...] Problem Crohn's disease NOS 555.9 Active Medications No Known Medications Results No Known Results Summary Purpose [employer] Submission
--- OUTSIDE RECORDS SUMMARY | 2019-07-16 07:23 | XMS REPORT ---
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 98043190159 10 mg orally 2 TIMES A DAY Active 1 tab(s) Levothyroxine Sodium [facility] 94733904448 75 mcg (0.075 mg) orally once a day Aug 24, 2019 Active 1 tab(s) trazodone [facility] 90215908081 100 mg orally qhs Active 1 tab(s) Levothyroxine Sodium [facility] 51866268373 88 mcg (0.088 mg) orally once a day May 22, 2019 Nov 18, 2019 Active 1 tab(s) NovoLog [facility] 48116344680 100 units/mL subcutaneously insulin pump Active 75 units via insulin pump Qvar ND 66944566548 40 mcg/inh inhaled 2 times a day Active 1 puff(s) Pravachol [facility] 78942073240 40 mg orally once a day (at bedtime) Active 1 tab(s) ONE TOUCH ULTRA TEST STRIPS ND 0 - check blood sugars 4 TIMES A DAY Active - Vitamin B6 NDC 0 Active not defined NovoLog [facility] 78313919463 100 units/mL subcutaneously insulin pump Active 75 units via insulin pump Freestyle William Sensor [facility] 27042841362 -- Active Apply one sensor every 10 days or as directed ProAir HFA [facility] 27328140979 CFC free 90 mcg/inh inhaled 4 times a day Active 2 puff(s) pantoprazole ND 69223995184 40 mg orally once a day Active 1 tab(s) clonazepam [facility] 60109445149 0.5 mg orally qhs Active 2 tabs Pravachol ND 70320535327 40 mg orally once a day (at bedtime) Active 1 tab(s) BD Ultra-Fine Pen Needle Haley 32g 4mm NDC 0 - subcutaneously daily Nov 13, 2016 Active as directed Freestyle William [place] [facility] 40481918539 -- Active Use as directed B-12 [facility] 82838435096 1000 mcg sublingually once a day Jan 13, 2018 Active 1 tab(s) ergocalciferol [facility] 54165381842 50,000 intl units orally 2 times a week Active 1 cap(s) atenolol 25 mg oral tablet NDC 0 orally daily Active 1 tab(s) Vital Signs Date/Time: May 22, 2019 BMI 25.69 Index Weight 136 lbs Height 61 in Blood Pressure Diastolic 82 mm Hg Blood Pressure Systolic 115 mm Hg Results No Known Results Summary Purpose [employer] Submission
--- OUTSIDE RECORDS SUMMARY | 2019-07-16 07:24 | XMS REPORT ---
Author Author Admin, [place] Organization [facility] Address [address] [place] [address] Phone Allergies, Adverse Reactions, Alerts Allergy Name [...] ORAL TABLET One tablet Po BID. CLONAZEPAM 02867301667 Active Perla Clayton MD Active DESIPRAMINE HCL 75 MG ORAL TABLET One tablet nightly. DESIPRAMINE HCL 26902985175 Active Perla Clayton MD Active ZOLOFT 100 MG ORAL TABLET One tablet Po Every am SERTRALINE HCL 39374685895 Active Perla Clayton MD Active Vital Signs Date Name Value Unit Range Description blood pressure, diastolic 76 mm[Hg] BP martinez blood pressure, systolic 117 mm[Hg] BP sys height E&M 61 [in_us] Bdy height pulse rate E&M 102 /min Heart rate weight E&M 132.25 [lb_av] Weight Measured blood pressure, diastolic 72 mm[Hg] BP martinez [...] Measured Encounters Date Encounter Provider Code Facility 14:38:03 CDT Est Patient Exp Problem - 41511 Perla Clayton MD CPT-82185 [place] 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
--- OUTSIDE RECORDS SUMMARY | 2019-07-16 07:24 | XMS REPORT ---
Author Author Admin, [place] Organization [facility] Address [address] [place] [address] Phone Allergies, Adverse Reactions, Alerts Allergy Name [...] ORAL TABLET One tablet Po BID. CLONAZEPAM 83910364408 Active Perla Clayton MD Active DESIPRAMINE HCL 75 MG ORAL TABLET One tablet nightly. DESIPRAMINE HCL 02537360717 Active Perla Clayton MD Active ZOLOFT 100 MG ORAL TABLET Two tablets daily. SERTRALINE HCL 40120256216 Active Perla Clayton MD Active Vital Signs Date Name Value Unit Range Description blood pressure, diastolic 74 mm[Hg] BP martinez blood pressure, systolic 111 mm[Hg] BP sys height E&M 61 [in_us] Bdy height pulse rate E&M 108 /min Heart rate weight E&M 137 [lb_av] Weight Measured blood pressure, diastolic 74 mm[Hg] BP martinez blood pressure, systolic 117 mm[Hg] BP sys height E&M 61 [in_us] Bdy height pulse rate E&M 101 /min Heart rate weight E&M 133.50 [lb_av] Weight Measured blood pressure, diastolic 72 mm[Hg] BP amrtinez blood pressure, systolic 112 mm[Hg] BP sys height E&M 61 [in_us] Bdy height pulse rate E&M 111 /min Heart rate weight E&M 132.60 [lb_av] Weight Measured blood pressure, diastolic 76 [...] Measured Encounters Date Encounter Provider Code Facility 11:47:23 CDT Est Patient Exp Problem - 33652 Perla Clayton MD CPT-29686 [place] 08:56:46 CDT Est Patient Exp Problem - 49260 Perla Clayton MD CPT-40515 [facility] 08:44:06 CDT Est Patient Exp Problem - 33787 Perla Clayton MD CPT-69083 [facility] 14:38:03 CDT Est Patient Exp Problem - 83192 Perla Clayton MD CPT-97143 [place] 16:16:31 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 14:44:53 CDT Est Patient Detailed - 42954 Kris Hunt MD CPT-88872 [facility] Procedures Code Procedure Name Date Entry Date Standard Description CPT-50082 Diagnostic evaluation with medical - 69341 13:53:05 CDT
--- OUTSIDE RECORDS SUMMARY | 2019-07-16 07:24 | XMS REPORT ---
Author Author Admin, [place] Organization [facility] Address [address] [place] [address] Phone Allergies, Adverse Reactions, Alerts Allergy Name [...] ORAL TABLET One tablet Po BID. CLONAZEPAM 46820620904 Active Perla Clayton MD Active DESIPRAMINE HCL 75 MG ORAL TABLET One tablet nightly. DESIPRAMINE HCL 81366999207 Active Perla Clayton MD Active ZOLOFT 100 MG ORAL TABLET One and a half tablets daily for two weeks, then two tablets daily. SERTRALINE HCL 64570984509 Active Perla Clayton MD Active Vital Signs Date Name Value Unit Range Description blood pressure, diastolic 72 mm[Hg] BP martinez blood pressure, systolic 112 mm[Hg] BP sys [...] Measured Encounters Date Encounter Provider Code Facility 08:44:06 CDT Est Patient Exp Problem - 42185 Perla Clayton MD CPT-10828 [facility] 14:38:03 CDT Est Patient Exp Problem - 41825 Perla Clayton MD CPT-21696 [place] 16:16:31 BOOKY Est Patient Exp Problem - 37932 Perla Clayton MD CPT-09068 [facility] 15:59:40 BOOKY Est Patient Exp Problem - 65813 Kris Wooten MD CPT-61678 [facility] 16:16:41 CDT Est Patient Exp Problem - 40394 Kris Wooten MD CPT-13925 [facility] 14:44:53 CDT Est Patient Detailed - 25418 Kris Hunt MD CPT-25090 [facility] Procedures Code Procedure Name Date Entry Date Standard Description CPT-39110 Diagnostic evaluation with medical - 32253 13:53:05 CDT
[2019-07-16 10:50] VITALS: BP 101/60
--- NOTE | 2019-07-16 12:40 | Operative Report ---
DATE OF PROCEDURE: 07/16/2019 SURGEON: Piero Sen MD PREOPERATIVE DIAGNOSIS: Right lateral tongue ulcer. POSTOPERATIVE DIAGNOSIS: Right lateral tongue ulcer. PROCEDURE: Wide local excision of right lateral tongue ulcer. SIGNIFICANT FINDINGS: Frozen section analysis revealed no evidence of squamous cell carcinoma. ANESTHESIA: General endotracheal tube anesthesia. SPECIMENS REMOVED: Wide local excision of right lateral tongue ulcer. ESTIMATED BLOOD LOSS: Less than 1 mL. COMPLICATIONS: None. INDICATIONS: The patient is a 58-year-old [place]-Citizen [place] female with a painful ulcer on the right lateral tongue present for the past year. She is a nonsmoker. 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 On examination, she has approximately 1 cm right lateral tongue ulcer. She is scheduled for wide local excision of right lateral tongue ulcer with frozen section analysis. Risks and complications of the procedure were thoroughly discussed with the patient and include infection, bleeding, scarring, failure to improve, need for additional operations, damage to tongue, lips, teeth and gums, possibility of malignancy and need for further treatment, damage to surrounding nerves, blood vessels and muscles, need for blood transfusions. She fully understands and gives consent. DESCRIPTION OF PROCEDURE: The patient was taken to the operating room and placed supine on the operating table where general anesthesia was achieved through orotracheal intubation. Following this, a dental bite block was then placed to keep the mouth open. The tongue was then retracted to the left. Examination revealed slightly indurated ulcer in the right lateral tongue in the midportion measuring approximately 1 cm. Wide local excision was then performed. An elliptical incision encompassing the ulcer with a rim of normal tissue was made. The long axis of the incision measured 1.5 cm and was along the lateral border of the right tongue horizontally. The ulcer was then removed with a rim of normal tissue superiorly and inferiorly. The soft tissue specimen was then excised off the underlying tongue musculature (which appeared to be normal). Frozen section analysis revealed no evidence of overt squamous cell carcinoma. Hemostasis was obtained with bipolar cautery. The wound was then repaired with interrupted 4-0 Vicryl. Following this, the patient was awakened in the operating room, extubated, and taken to the recovery room in good condition. Piero Sen MD JKY/STEVEN /[id number] ARMANDO
== END | disposition home or self-care (01) ==
LOC: OR 07:12
PROVIDERS: ATTEND Otolaryngology
DX: K13.29 Other disturbances of oral epithelium, including tongue (principal); J45.909 Unspecified asthma, uncomplicated; E11.9 Type 2 diabetes mellitus without complications; I10 Essential (primary) hypertension; E78.00 Pure hypercholesterolemia, unspecified; E03.9 Hypothyroidism, unspecified; R00.0 Tachycardia, unspecified; Z88.5 Allergy status to narcotic agent; Z88.0 Allergy status to penicillin; Z88.8 Allergy status to other drugs, medicaments and biological substances; Z01.810 Encounter for preprocedural cardiovascular examination; Z01.812 Encounter for preprocedural laboratory examination; Z79.4 Long term (current) use of insulin; Z96.41 Presence of insulin pump (external) (internal)
CPT/HCPCS: 36415 ×2; 41113; 80048; 82948; 88305; 88331; 93005; J0131; J1100; J1885; J2001; J2250; J2405; J2704; J3010

== ENCOUNTER → 2020-02-12 | Day surgery (SDC) | payer MEDICARE ==
[~2020-02-12] MED LIST changes: -ACETAMINOPHEN 1000 MG/100 ML 100 ML IV ONE; -DEXAMETHASONE SOD PHOS INJ 4 MG/ML VIAL ONE; -KETOROLAC TROMETHAMINE 30 MG/ML VIAL ONE; -LIDOCAINE 1% W/EPINEPHRINE 20 ML VIAL ONE; -LIDOCAINE HCL 2% LOCAL INJ 5 ML SDV VIAL INJ ONE; +METOCLOPRAMIDE HCL 10 MG/2ML VIAL ONE; -ONDANSETRON HCL INJ 2MG/ML 2ML 2 MG/ML VIAL ONE; +PRISTIQ ER50 MG PO; -PROPOFOL IV EMULSION 10 MG/ML 20 ML VIAL ONE; +PROPOFOL IV EMULSION 10 MG/ML 50 ML VIAL ONE; -ROCURONIUM BROMIDE 10 MG/ML 5ML VIAL ONE; -SEVOFLURANE INHAL SOLN 250 ML PEN BTL ONE
--- OUTSIDE RECORDS SUMMARY | 2020-02-12 07:09 | XMS REPORT ---
Author Author Admin, [facility] [place] Organization Unknown Address Unknown Phone Unavailable PROBLEMS Condition Status Date Provider Notes DEPRESSIVE DISORDER, MAJOR, RECURRENT EPISODE, MODERATE active Kris Hunt ENCOUNTERS Date Type Provider Location Encounter Diagnosis - Ambulatory Encounter Perla Matias Forrest Butt [facility] UNK - Ambulatory Encounter Perla Mauricioos [facility] UNK - Ambulatory Encounter Perla Mauricioos [facility] UNK - Ambulatory Encounter Perla Mauricioos [facility] UNK - Ambulatory Encounter Perla Matias Forrest Vivar [facility] UNK - Ambulatory Encounter Perla Matias Forrest Lebron [facility] UNK - Ambulatory Encounter DidierAnabel Elizabeth [facility] UNK - Ambulatory Encounter Perla Matias Forrest Vivar [facility] UNK - Ambulatory Encounter Perla Matias Forrest Crookgado [facility] UNK - Ambulatory Encounter Perla Clayton [facility] UNK - Ambulatory Encounter Perla Matias Forrest Lindsey Dianna [facility] UNK - Ambulatory Encounter Perla Matias Forrest Tangina Bustillo [facility] UNK - Ambulatory Encounter Lindsey Dianna [facility] UNK - Ambulatory Encounter Perla Hansen [facility] UNK - Ambulatory Encounter Micro Klaus Gilbert Mortono Klaus Gilbert Rothman [facility] UNK - Ambulatory Encounter Micro Klaus Gilbert Kris Klaus Gilbert [facility] UNK - Ambulatory Encounter Kris Klaus Gilbert Mortono Klaus Gilbert Rothman [facility] UNK - Ambulatory Encounter Micro Klaus Gilbert Micro Klaus Gilbert [facility] UNK - Ambulatory Encounter Micro Klaus Gilbert Micro Klaus Gilbert Rothman [facility] [employer] [facility] UNK - Ambulatory Encounter Micro Klaus Gilbert Mortono Klaus EthanAram [facility] [employer] [facility] UNK - Ambulatory Encounter Micro Klaus Gilbert Mortono Klaus Gilbert Rothman [facility] [employer] [employer] [facility] DEPRESSIVE DISORDER, MAJOR, RECURRENT EPISODE, MODERATE - Ambulatory Encounter Anahi Rothman [facility] [employer] [facility] UNK - Ambulatory Encounter Cori Mona [facility] UNK VITAL SIGNS No Information Available ALLERGIES Allergy Name Onset Date Reaction Criticality Status METFORMIN HCL diarrhea and vomiting High Criticality active PENICILLIN Unkown High Criticality active CODEINE Does not now what High Criticality active REASON FOR REFERRAL No Information Available RESULTS No Information Available HISTORY OF IMMUNIZATIONS No Information Available HISTORY OF MEDICATION USE Medication Instructions Dates Provider Comments CLONAZEPAM 0.5 MG ORAL TABLET One tablet Po BID. Kris Enrique Thierry Wooten DESIPRAMINE HCL 75MG TABLET TAKE 1 TABLET BY MOUTH DAILY AT NIGHTS Perla Clayton ZOLOFT 100 MG ORAL TABLET Two tablets daily. Perla Clayton SOCIAL HISTORY Date Observation Value Provider smoking status never smoker Perla Clayton smoking status never smoker Perla Clayton " Exercise Program Referral T Perla Clayton " Weight Management Counseling Provided T Perla Clayton " Nutrition intervention T Perla Clayton smoking status never smoker Perla Clayton smoking status never smoker Perla Clayton " Exercise Program Referral T Perla Clayton " Weight Management Counseling Provided T Perla Clayton " Nutrition intervention T Perla Clayton smoking status never smoker Perla Clayton " Exercise Program Referral T Perla Clayton " Weight Management Counseling Provided T Perla Clayton " Nutrition intervention T Perla Clayton smoking status never smoker Perla Clayton smoking status never smoker Kris Enrique Gilbert " social history E&M Lives with a friend as a roommate. She is oldest of the siblings.5 and one brotrh of cancer. Roomate in an appartment Dissable None Kris Enrique Gilbert " social history reviewed E&M reviewed today Kris Enrique Gilbert smoking status never smoker Kris Enrique Gilbert " social history E&M Lives with a friend as a roommate. She is oldest of the siblings.5 and one brotrh of cancer. Roomate in an appartment Dissable None Kris Enrique Gilbert " social history reviewed E&M reviewed today Kris Enrique Gilbert smoking status never smoker Kris Enrique Gilbert " social history E&M Lives with a friend as a roommate. She is oldest of the siblings.5 and one brotrh of cancer. Roomate in an appartment Dissable None Kris Hunt " social history reviewed E&M reviewed today Kris Hunt drug use, illicit Never Kris Hunt " alcohol use Never Kris Hunt " smoking, advice to quit Yes Kris Hunt " smoking status never smoker Kris Hunt " social history E&M Lives with a friend as a roommate. She is oldest of the siblings.5 and one brotrh of cancer. Roomate in an appartment Dissable None Kris Hunt " social history - sexual practice None Kris Hunt " home/family situation, assessment Roomate in an appartment Kris Wooten " family support Lives with a friend as a roommate. She is oldest of the siblings.5 and one brotrh of cancer. Kris Hunt " social history reviewed E&M reviewed today Kris Hunt FUNCTIONAL STATUS No Information Available MENTAL STATUS Date Observation Value Provider mental status assessment, judgment good Perla Clayton " insight (mental status exam) good Perla Clayton " Mental Status Exam: intelligence adequate fund of information, intact memory processes, oriented to person, oriented to place, oriented to time, oriented to situation, oriented to reality Perla Clayton " hallucinations none Perla Clayton " thought content (mental status exam) (E&M) lucid Perla Clayton " mental status assessment, process able to abstract, goal-directed, logical Perla Clayton " mental status assessment, sensorium alert, attentive, clear Perla Clayton " affect (mental status exam) congruent, euthymic, normal intensity, normal range Perla Clayton " mood (mental status exam) happy Perla Clayton " mental status assessment, speech activity normal flow, normal pace, normal pressure, normal rate, normal tone, normal volume, spontaneous Perla [place] Forrest " mental status assessment, motor activity normal gait, normal posture Perla Florencio Forrest " behavior (mental status exam) appropriate, candid, cooperative, good eye contact, polite, responsive Perla [place] Forrest " mental appearance (mental status exam) adequate hygiene, appropriate dress, looks like stated age, michael Clayton mental status assessment, judgment good Perla Florencio Forrest " insight (mental status exam) good Perla [place] Forrest " Mental Status Exam: intelligence adequate fund of information, intact memory processes, oriented to person, oriented to place, oriented to time, oriented to situation, oriented to reality Perla [place] Forrest " hallucinations none Perla [place] Forrest " thought content (mental status exam) (E&M) lucid Perla Matias Forrest " mental status assessment, process able to abstract, goal-directed, logical Perla Florencio Forrest " mental status assessment, sensorium alert, attentive, clear Perla [place] Forrest " affect (mental status exam) congruent, euthymic, normal intensity, normal range Perla Florencio Forrest " mood (mental status exam) happy Perla Mauricioos " mental status assessment, speech activity normal flow, normal pace, normal pressure, normal rate, normal tone, normal volume, spontaneous Perla Florencio Forrest " mental status assessment, motor activity normal gait, normal posture Perla Florencio Forrest " behavior (mental status exam) appropriate, candid, cooperative, good eye contact, polite, responsive Perla Florencio Forrest " mental appearance (mental status exam) adequate hygiene, appropriate dress, looks like stated age, michael Clayton mental status assessment, judgment good Perla Florencio Forrest " insight (mental status exam) good Perla Florencio Forrest " Mental Status Exam: intelligence adequate fund of information, intact memory processes, oriented to person, oriented to place, oriented to time, oriented to situation, oriented to reality Perla Florencio Forrest " hallucinations none Perla Florencio Forrest " thought content (mental status exam) (E&M) lucid Perla Matias Forrest " mental status assessment, process able to abstract, goal-directed, logical Perla Florencio Forrest " mental status assessment, sensorium alert, attentive, clear Perla Florencio Forrest " affect (mental status exam) congruent, normal intensity, normal range, labile Perla [place] Forrest " mood (mental status exam) sad Perla [place] Forrest " mental status assessment, speech activity normal flow, normal pace, normal pressure, normal rate, normal tone, normal volume, spontaneous Perla Florencio Forrest " mental status assessment, motor activity normal gait, normal posture Perla [place] Forrest " behavior (mental status exam) appropriate, candid, cooperative, good eye contact, polite, responsive Perla [place] Forrest " mental appearance (mental status exam) adequate hygiene, appropriate dress, looks like stated age, michael Clayton mental status assessment, judgment good Perla Florencio Forrest " insight (mental status exam) good Perla Florencio Forrest " Mental Status Exam: intelligence adequate fund of information, intact memory processes, oriented to person, oriented to place, oriented to time, oriented to situation, oriented to reality Perla Florencio Forrest " hallucinations none Perla Florencio Forrest " thought content (mental status exam) (E&M) lucid Perla Matias Forrest " mental status assessment, process able to abstract, goal-directed, logical Perla [place] Forrest " mental status assessment, sensorium alert, attentive, clear Perla [place] Forrest " affect (mental status exam) congruent, normal intensity, normal range, labile Perla [place] Forrest " mood (mental status exam) sad Perla Matias Forrest " mental status assessment, speech activity normal flow, normal pace, normal pressure, normal rate, normal tone, normal volume, spontaneous Perla Florencio Forrest " mental status assessment, motor activity normal gait, normal posture Perla Florencio Forrest " behavior (mental status exam) appropriate, candid, cooperative, good eye contact, polite, responsive Perla Florencio Forrest " mental appearance (mental status exam) adequate hygiene, appropriate dress, looks like stated candelaria, michael Clayton mental status assessment, judgment good Perla Matias Forrest " insight (mental status exam) good Perla Florencio Forrest " Mental Status Exam: intelligence adequate fund of information, intact memory processes, oriented to person, oriented to place, oriented to time, oriented to situation, oriented to reality Perla [place] Forrest " hallucinations none Perla Florencio Forrest " thought content (mental status exam) (E&M) lucid Perla Florencio Forrest " mental status assessment, process able to abstract, goal-directed, logical Perla Florencio Forrest " mental status assessment, sensorium alert, attentive, clear Perla [place] Forrest " affect (mental status exam) congruent, normal intensity, normal range, labile Perla Florencio Forrest " mood (mental status exam) sad Perla [place] Forrest " mental status assessment, speech activity normal flow, normal pace, normal pressure, normal rate, normal tone, normal volume, spontaneous Perla Florencio Forrest " mental status assessment, motor activity normal gait, normal posture Perla [place] Forrest " behavior (mental status exam) appropriate, candid, cooperative, good eye contact, polite, responsive Perla [place] Forrest " mental appearance (mental status exam) adequate hygiene, appropriate dress, looks like stated age, neat Perla Clayton mental status assessment, judgment good Perla Florencio Forrest " insight (mental status exam) good Perla Florencio Forrest " Mental Status Exam: intelligence adequate fund of information, intact memory processes, oriented to person, oriented to place, oriented to time, oriented to situation, oriented to reality Perla Florencio Forrest " hallucinations none Perla Florencio Forrest " thought content (mental status exam) (E&M) lucid Perla Florencio Forrest " mental status assessment, process able to abstract, goal-directed, logical Perla [place] Forrest " mental status assessment, sensorium alert, attentive, clear Perla Florencio Forrest " affect (mental status exam) congruent, normal intensity, normal range, labile Perla [place] Forrest " mood (mental status exam) sad Perla [place] Forrest " mental status assessment, speech activity normal flow, normal pace, normal pressure, normal rate, normal tone, normal volume, spontaneous Perla Florencio Forrest " mental status assessment, motor activity normal gait, normal posture Perla Florencio Forrest " behavior (mental status exam) appropriate, candid, cooperative, good eye contact, polite, responsive Perla [place] Forrest " mental appearance (mental status exam) adequate hygiene, appropriate dress, looks like stated age, michael Matias Forrest mental status assessment, judgment good [facility] " insight (mental status exam) good [facility] " Mental Status Exam: intelligence adequate fund of information, intact memory processes, oriented to person, oriented to place, oriented to time, oriented to situation, oriented to reality [facility] " hallucinations none [facility] " thought content (mental status exam) (E&M) lucid [facility] " mental status assessment, process able to abstract, goal-directed, logical [facility] " mental status assessment, sensorium alert, attentive, clear [facility] " affect (mental status exam) congruent, normal intensity, normal range, labile [facility] " mood (mental status exam) sad [facility] " mental status assessment, speech activity normal flow, normal pace, normal pressure, normal rate, normal tone, normal volume, spontaneous [facility] " mental status assessment, motor activity normal gait, normal posture [facility] " behavior (mental status exam) appropriate, candid, cooperative, good eye contact, polite, responsive [facility] " mental appearance (mental status exam) adequate hygiene, appropriate dress, looks like stated age, neat [facility] mood (mental status exam) sad [facility] " mental status assessment, judgment good [facility] " insight (mental status exam) good [facility] " Mental Status Exam: intelligence adequate fund of information, intact memory processes, oriented to person, oriented to place, oriented to time, oriented to situation, oriented to reality [facility] " hallucinations none [facility] " thought content (mental status exam) (E&M) lucid [facility] " mental status assessment, process able to abstract, goal-directed, logical [facility] " mental status assessment, sensorium alert, attentive, clear [facility] " affect (mental status exam) congruent, normal intensity, normal range, constricted [facility] " mental status assessment, speech activity normal flow, normal pace, normal pressure, normal rate, normal tone, normal volume, spontaneous [facility] Wooten " mental status assessment, motor activity normal gait, normal posture [facility] " behavior (mental status exam) appropriate, candid, cooperative, good eye contact, polite, responsive [facility] " mental appearance (mental status exam) adequate hygiene, appropriate dress, looks like stated age, neat [facility] mental status assessment, judgment good [facility] " insight (mental status exam) good [facility] " Mental Status Exam: intelligence adequate fund of information, intact memory processes, oriented to person, oriented to place, oriented to time, oriented to situation, oriented to reality [facility] " hallucinations [facility] " thought content (mental status exam) (E&M) lucid [facility] " mental status assessment, process able to abstract, goal-directed, logical [facility] " mental status assessment, sensorium alert, attentive, clear [facility] " affect (mental status exam) congruent, normal intensity, normal range, constricted [facility] " mood (mental status exam) sad, worried [facility] " mental status assessment, speech activity normal flow, normal pace, normal pressure, normal rate, normal tone, normal volume, spontaneous [facility] " mental status assessment, motor activity normal gait, normal posture [facility] " behavior (mental status exam) appropriate, candid, cooperative, good eye contact, polite, responsive [facility] " mental appearance (mental status exam) adequate hygiene, appropriate dress, looks like stated age, neat [facility] mood (mental status exam) frustrated, sad, worried [facility] " mental status assessment, judgment good [facility] " insight (mental status exam) good [facility] " Mental Status Exam: intelligence adequate fund of information, intact memory processes, oriented to person, oriented to place, oriented to time, oriented to situation, oriented to reality [facility] " hallucinations none [facility] " thought content (mental status exam) (E&M) lucid [facility] " mental status assessment, process able to abstract, goal-directed, logical [facility] " mental status assessment, sensorium alert, attentive, clear [facility] " affect (mental status exam) congruent, normal intensity, normal range, constricted [facility] " mental status assessment, speech activity normal flow, normal pace, normal pressure, normal rate, normal tone, normal volume, spontaneous [facility] " mental status assessment, motor activity normal gait, normal posture [facility] " behavior (mental status exam) appropriate, candid, cooperative, good eye contact, polite, responsive [facility] " mental appearance (mental status exam) adequate hygiene, appropriate dress, looks like stated age, neat [facility] " anxiety worry a lot, sleep disturbance, irritability, many physical complaints, muscle tension [facility] MEDICAL EQUIPMENT No Information Available FAMILY HISTORY No Information Available INSURANCE PROVIDERS No Information Available ADVANCE DIRECTIVES No Information Available TREATMENT PLAN Date Name Est Patient Exp Problem - 78992 Est Patient Exp Problem - 08253 Est Patient Exp Problem - 45840 Est Patient Exp Problem - 18842 Est Patient Exp Problem - 23206 Est Patient Exp Problem - 69838 Est Patient Exp Problem - 76932 Est Patient Exp Problem - 33120 Est Patient Detailed - 85943 Diagnostic evaluation with medical - 96945 HISTORY OF PROCEDURES Procedure Date Procedure Name Provider Procedure Notes Status Diagnostic evaluation with medical - 15360 Kris Hunt completed GOALS No Information Available HEALTH CONCERNS No Information Available
--- OUTSIDE RECORDS SUMMARY | 2020-02-12 07:09 | XMS REPORT ---
Author Author Admin, [place] [facility] Address [address] [place] [address] Phone ;[phone] Allergies, Adverse Reactions, Alerts Allergy Name Reaction [...] ORAL TABLET One tablet Po BID. CLONAZEPAM [id number] Active Perla Clayton MD Active DESIPRAMINE HCL 75 MG ORAL TABLET One tablet nightly. DESIPRAMINE HCL 47231636990 Active Perla Clayton MD Active ZOLOFT 100 MG ORAL TABLET Two tablets daily. SERTRALINE HCL 31434176619 Active Perla Clayton MD Active Vital Signs Date Name Value Unit Range Description height E&M 61 [in_us] Bdy height blood pressure, diastolic 74 mm[Hg] BP martinez [...] rate weight E&M 114.80 [lb_av] Weight Measured Encounters Date Encounter Provider Code Facility 08:10:48 CDT Est Patient Exp Problem - 55541 Perla Clayton MD [facility]136 [facility] 11:47:23 CDT Est Patient Exp Problem - 93350 Perla Clayton MD CPT-06097 [facility] 08:56:46 CDT Est Patient Exp Problem - 99047 Perla Clayton MD CPT-87774 [facility] 08:44:06 CDT Est Patient Exp Problem - 56893 Perla Clayton MD CPT-88673 [facility] 14:38:03 CDT Est Patient Exp Problem - 18191 Perla Clayton MD CPT-21669 [facility] 16:16:31 [employer]TER Est Patient Exp Problem - 49731 Perla Clayton MD CPT-47549 [facility] 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 16:16:41 CDT Est Patient Exp Problem - 66531 Kris Wooten MD CPT-64563 [facility] 14:44:53 CDT Est Patient Detailed - 81458 Kris Hunt MD CPT-47516 [facility] Procedures Code Procedure Name Date Entry Date Standard Description [id number] Diagnostic evaluation with medical - 09371 13:53:05 CDT
--- OUTSIDE RECORDS SUMMARY | 2020-02-12 07:09 | XMS REPORT ---
Author Author Admin, [place] Organization Unknown Address Unknown Phone Unavailable PROBLEMS Condition Status Date Provider Notes DEPRESSIVE DISORDER, MAJOR, RECURRENT EPISODE, MODERATE active Kris Hunt ENCOUNTERS Date Type Provider Location Encounter Diagnosis - Ambulatory Encounter Perla Bernabeember Clayton [facility] UNK - Ambulatory Encounter Perla Florencioember Beckwith [facility] UNK - Ambulatory Encounter Perla Florencioember Butt [facility] UNK - Ambulatory Encounter Perla Bernabeember Clayton [facility] UNK - Ambulatory Encounter Perla Bernabeember Clayton [facility] UNK - Ambulatory Encounter Perla Matias Forrest [facility] UNK - Ambulatory Encounter Perla Matias Forrest Vivar [facility] UNK - Ambulatory Encounter Perla Milanember Lebron [facility] UNK - Ambulatory Encounter Noel Elizabeth [facility] UNK - Ambulatory Encounter Perla Milanember Vivar [facility] - Ambulatory Encounter Perlajuarez Matias Forrest Bustillo [facility] UNK - Ambulatory Encounter Perla Matias Forrest [facility] UNK - Ambulatory Encounter Perla Florencioember Bustamante [facility] UNK - Ambulatory Encounter Perla Hodges Bustillo [facility] - Ambulatory Encounter Lindsey Dianna [facility] - Ambulatory Encounter Perla Clayton Victor Manuel Hansen [facility] UNK - Ambulatory Encounter Kris Klaus Gilbert Kris Klaus Gilbert Rothman [employer] [facility] UNK - Ambulatory Encounter Kris Klaus Gilbert Thompson Klaus Gilbert [facility] [employer] [facility] UNK - Ambulatory Encounter Kris Klaus Gilbert Thompson Klaus Gilbert Rothman [facility] [employer] [facility] UNK - Ambulatory Encounter Kris Klaus Gilbert Thompson Klaus [facility] UNK - Ambulatory Encounter Kris Klaus Gilbert Kris Klaus Gilbert Rothman [facility] [employer] [facility] UNK - Ambulatory Encounter Kris Klaus Gilbert Kris Klaus Gilbert [facility] [employer] [facility] UNK - Ambulatory Encounter Thompson Klaus Gilbert Kris Klaus Gilbert Rothman [employer] [facility] DEPRESSIVE DISORDER, MAJOR, RECURRENT EPISODE, MODERATE - Ambulatory Encounter Anahi Rothman [facility] [employer] [facility] UNK - Ambulatory Encounter Cori Mona [facility] UNK VITAL SIGNS Date Observation Value Provider method used to obtain blood pressure automatic Dann Beckwith " Blood Pressure Position 01 sitting Dann Beckwith " blood pressure, site #1 left arm Dann Beckwith " blood pressure, diastolic 70 mm[Hg] Dann Beckwith " blood pressure, systolic 119 mm[Hg] Dann Beckwith " pulse rate E&M 103 /min Dann Beckwith " weight E&M 137.50 lbs. Dann Beckwith " weight in kilograms E&M 62.50 kg Dann Beckwith " height E&M 61 [in_i] Dann Beckwith " height in centimeters E&M 154.94 cm Dann Beckwith method used to obtain blood pressure automatic Lindsey Vivar " Blood Pressure Position 01 sitting GretelSabra Vivar " blood pressure, site #1 left arm Lindsey Vivar " height E&M 61 [in_i] Lindsey Vivar " height in centimeters E&M 154.94 cm Lindsey Vivar weight E&M 137 lbs. GretelSabra Vivar " weight in kilograms E&M 62.27 kg Lindsey Vivar " blood pressure, diastolic 74 mm[Hg] Lindsey Vivar " blood pressure, systolic 111 mm[Hg] Lindsey Vivar " pulse rate E&M 108 /min Lindsey Vivar " method used to obtain blood pressure automatic GretelSabra Vivar " Blood Pressure Position 01 sitting GretelSabra Vivar " blood pressure, site #1 left arm Lindsey Vivar " height E&M 61 [in_i] Lindsey Vivar " height in centimeters E&M 154.94 cm Lindsey Vivar method used to obtain blood pressure automatic Tracie Bustillo " Blood Pressure Position 01 sitting Tracie Bustillo " blood pressure, site #1 left arm Tracie Bustillo " blood pressure, diastolic 74 mm[Hg] Tracie Bustillo " blood pressure, systolic 117 mm[Hg] Tracie Bustillo " pulse rate E&M 101 /min Tracie Bustillo " weight E&M 133.50 lbs. Tracie Bustillo " weight in kilograms E&M 60.68 kg Tracie Bustillo " height E&M 61 [in_i] Tracie Bustillo " height in centimeters E&M 154.94 cm Tracie Bustillo method used to obtain blood pressure automatic Lindsey Dianna " Blood Pressure Position 01 sitting Lindsey Dianna " blood pressure, site #1 left arm Lindsey Dianna " blood pressure, diastolic 72 mm[Hg] Lindsey Dianna " blood pressure, systolic 112 mm[Hg] Lindsey Dianna " pulse rate E&M 111 /min Lindsey Dianna " weight E&M 132.60 lbs. Lindsey Dianna " weight in kilograms E&M 60.27 kg Lindsey Dianna " height E&M 61 [in_i] Lindsey Dianna " height in centimeters E&M 154.94 cm Lindsey Dianna method used to obtain blood pressure automatic Tracie Bustillo " Blood Pressure Position 01 sitting Tracie Bustillo " blood pressure, site #1 left arm Tracie Bustillo " blood pressure, diastolic 76 mm[Hg] Tracie Bustillo " blood pressure, systolic 117 mm[Hg] Tracie Bustillo " pulse rate E&M 102 /min Tracie Bustillo " weight E&M 132.25 lbs. Tracie Bustillo " weight in kilograms E&M 60.11 kg Tracie Bustillo " height E&M 61 [in_i] Tracie Bustillo " height in centimeters E&M 154.94 cm Tracie Bustillo method used to obtain blood pressure automatic Victor Manuel Hansen " Blood Pressure Position 01 sitting Victor Manuel Hansen " blood pressure, site #1 left arm Victor Manuel Hansen " blood pressure, diastolic 72 mm[Hg] Victor Manuel Hansen " blood pressure, systolic 106 mm[Hg] Victor Manuel Hansen " pulse rate E&M 114 /min Victor Manuel Hansen " weight E&M 130 lbs. Victor Manuel Hansen " weight in kilograms E&M 59.09 kg Victor Manuel Hansen " height E&M 61 [in_i] Victor Manuel Hansen " height in centimeters E&M 154.94 cm Victor Manuel Hansen method used to obtain blood pressure automatic Anahi Rothman " Blood Pressure Position 01 sitting Anahi Rothman " blood pressure, site #1 left arm Anahi Rothman " blood pressure, diastolic 75 mm[Hg] Anahi Rothman " blood pressure, systolic 111 mm[Hg] Anahi Rothman " pulse rate E&M 113 /min Anahi Rothman " weight E&M 129.60 lbs. Anahi Rothman " weight in kilograms E&M 58.91 kg Anahi Rothman " height in centimeters E&M 154.94 cm Anahi Rothman " height E&M 61 [in_i] Anahi Rothman method used to obtain blood pressure automatic Anahi Rothman " Blood Pressure Position 01 sitting Anahi Rothman " blood pressure, site #1 left arm Anahi Rothman " blood pressure, diastolic 80 mm[Hg] Anahi Rothman " blood pressure, systolic 117 mm[Hg] Anahi Rothman " pulse rate E&M 87 /min Anahi Rothman " weight E&M 130.40 lbs. Anahi Rothman " weight in kilograms E&M 59.27 kg Anahi Rothman " height in centimeters E&M 154.94 cm Anahi Rothman " height E&M 61 [in_i] Anahi Rothman method used to obtain blood pressure automatic Anahi Rothman " Blood Pressure Position 01 sitting Anahi Rothman " blood pressure, site #1 left arm Anahi Rothman " blood pressure, diastolic 76 mm[Hg] Anahi Rothman " blood pressure, systolic 111 mm[Hg] Anahi Rothman " pulse rate E&M 103 /min Anahi Rothman " weight E&M 114.80 lbs. Anahi Rothman " weight in kilograms E&M 52.18 kg Anahi Rothman " height in centimeters E&M 154.94 cm Anahi Rothman " height E&M 61 [in_i] Anahi Rothman height E&M 61 [in_i] Kris Hunt " height in centimeters E&M 154.94 cm Kris Hunt " method used to obtain blood pressure automatic Anahi Rothman " Blood Pressure Position 01 sitting Anahi Rotmhan " blood pressure, site #1 left arm Anahi Rothman " blood pressure, diastolic 76 mm[Hg] Anahi Rothman " blood pressure, systolic 118 mm[Hg] Anahi Rothman " pulse rate E&M 106 /min Anahi Rothman " weight E&M 126.50 lbs. Anahi Rothman " weight in kilograms E&M 57.50 kg Anahi Rothman ALLERGIES Allergy Name Onset Date Reaction Criticality [...] ORAL TABLET One tablet Po BID. Kris Wooten DESIPRAMINE HCL 75MG TABLET TAKE 1 TABLET BY MOUTH DAILY AT NIGHTS Perla Clayton PRISTIQ 25 MG ORAL TABLET EXTENDED RELEASE 24 HOUR One tablet daily. Perla Clayton SOCIAL HISTORY Date Observation Value Provider Exercise Program Referral T Perla Clayton " Nutrition intervention T Perla Clayton " Weight Management Counseling Provided T Perla Clayton " drug use, illicit Never Perla Clayton " alcohol use Never Perla Clayton " smoking status never smoker Perla Clayton smoking status never smoker Perla Clayton smoking status never smoker Perla Clayton " Exercise Program Referral T Perla Clayton " Weight Management Counseling Provided T Perla Clayton " Nutrition intervention Italo Clayton smoking status never smoker Perla Clayton [...] Roomate in an appartment Dissable None Kris Klauscorey Hunt " social history reviewed E&M reviewed today Kris Pikevanessa Hunt smoking status never smoker Kris Piekvanessa Hunt " social history E&M Lives with a friend as a roommate. She is oldest of the siblings.5 and one brotrh of cancer. Roomate in an appartment Dissable None Krisarturo Enrique Gilbert " social history reviewed E&M reviewed today Kris Pikevanessa Hunt smoking status never smoker Kris Enrique Gilbert " social history E&M Lives with a friend as a roommate. She is oldest of the siblings.5 and one brotrh of cancer. Roomate in an appartment Dissable None Kris Klauscorey Hunt " social history reviewed E&M reviewed today Kris Pikevanessa Hunt drug use, illicit Never Kris Hunt " alcohol use Never Kris Hunt " smoking, advice to quit Yes Thompsonvanessa Hunt " smoking status never smoker Thompson Klausvanessa Hunt " social history E&M Lives with a friend as a roommate. She is oldest of the siblings.5 and one brotrh of cancer. Roomate in an appartment Dissable None Kris Hunt " social history - sexual practice None Thompson Klausvanessa Hunt " home/family situation, assessment Roomate in an appartment Thompson Klausvanessa Wooten " family support Lives with a friend as a roommate. She is oldest of the siblings.5 and one brotrh of cancer. Kris Hunt " social history reviewed E&M reviewed today Kris Pikevanessa Hunt FUNCTIONAL STATUS No Information Available MENTAL [...] Clayton " affect (mental status exam) congruent, normal intensity, normal range Perla Clayton " mood (mental status exam) sad Perla Clayton " mental status assessment, speech activity normal flow, normal pace, normal pressure, normal rate, normal tone, normal volume, spontaneous Perla Clayton " mental status assessment, motor activity normal gait, normal posture Perla Clayton " behavior (mental status exam) appropriate, candid, cooperative, good eye contact, polite, negativistic Perla Clayton " mental appearance (mental status exam) adequate hygiene, appropriate dress, looks like stated age, neat Perla Clayton mental status assessment, judgment good Perla Clayton " insight (mental status exam) good Perla Clayton " Mental Status Exam: intelligence adequate fund of information, intact memory processes, oriented to person, oriented to place, oriented to time, oriented to situation, oriented to reality Perla Florencio Forrest " hallucinations none Perla Milan Forrest " thought content (mental status exam) (E&M) lucid Perla Florencio Forrest " mental status assessment, process able to abstract, goal-directed, logical Perla Milan Forrest " mental status assessment, sensorium alert, attentive, clear Perla Florencio Forrest " affect (mental status exam) congruent, euthymic, normal intensity, normal range Perla Milan Forrest " mood (mental status exam) happy Perla Milan Forrest " mental status assessment, speech activity normal flow, normal pace, normal pressure, normal rate, normal tone, normal volume, spontaneous Perla Milan Forrest " mental status assessment, motor activity normal gait, normal posture Perla Milan Forrest " behavior (mental status exam) appropriate, candid, cooperative, good eye contact, polite, responsive Perla Florencio Forrest " mental appearance (mental status exam) adequate hygiene, appropriate dress, looks like stated age, neat Perla Milan Forrest mental status assessment, judgment good Perla Florencio Forrest " insight (mental status exam) good Perla Florencio Forrest " Mental Status Exam: intelligence adequate fund of information, intact memory processes, oriented to person, oriented to place, oriented to time, oriented to situation, oriented to reality Perla Florencio Forrest " hallucinations none Perla Milan Forrest " thought content (mental status exam) (E&M) lucid Perla Milan Forrest " mental status assessment, process able to abstract, goal-directed, logical Perla Milan Forrest " mental status assessment, sensorium alert, attentive, clear Perla Florencio Forrest " affect (mental status exam) congruent, euthymic, normal intensity, normal range Perla Milan Forrest " mood (mental status exam) happy Perla Milan Forrest " mental status assessment, speech activity normal flow, normal pace, normal pressure, normal rate, normal tone, normal volume, spontaneous Perla Milan Forrest " mental status assessment, motor activity normal gait, normal posture Perla Milan Forrest " behavior (mental status exam) appropriate, candid, cooperative, good eye contact, polite, responsive Perla Milan Forrest " mental appearance (mental status exam) adequate hygiene, appropriate dress, looks like stated age, neat Perla Mauricioos mental status assessment, judgment good Perla Florencio Forrest " insight (mental status exam) good Perla Florencio Forrest " Mental Status Exam: intelligence adequate fund of information, intact memory processes, oriented to person, oriented to place, oriented to time, oriented to situation, oriented to reality Perla Florencio Forrest " hallucinations none Perla Milan Forrest " thought content (mental status exam) (E&M) lucid Perla Matias Forrest " mental status assessment, process able to abstract, goal-directed, logical Perla Milan Forrest " mental status assessment, sensorium alert, attentive, clear Perla Florencio Forrest " affect (mental status exam) congruent, normal intensity, normal range, labile Perla Milan Forrest " mood (mental status exam) sad Perla Florencio Forrest " mental status assessment, speech activity normal flow, normal pace, normal pressure, normal rate, normal tone, normal volume, spontaneous Perla Milan Forrest " mental status assessment, motor activity [...] mental status assessment, sensorium alert, attentive, clear Eprla Florencio Forrest " affect (mental status exam) congruent, normal intensity, normal range, labile Perla Florencio Forrest " mood (mental status exam) sad Perla Milan Forrest " mental status assessment, speech activity normal flow, normal pace, normal pressure, normal rate, normal tone, normal volume, spontaneous Perla Florencio Forrest " mental status assessment, motor activity normal gait, normal posture Perla Milan Forrest " behavior (mental status exam) appropriate, candid, cooperative, good eye contact, polite, responsive Perla Florencio Forrest " mental appearance (mental status exam) adequate hygiene, appropriate dress, looks like stated age, michael Matias Forrest mental status assessment, judgment good Perla Milan Forrest " insight (mental status exam) good Perla Milan Forrest " Mental Status Exam: intelligence adequate fund of information, intact memory processes, oriented to person, oriented to place, oriented to time, oriented to situation, oriented to reality Perla Florencio Forrest " hallucinations none Perla Florencio Forrest " thought content (mental status exam) (E&M) lucid Perla Milan Forrest " mental status assessment, process able to abstract, goal-directed, logical Perla Milan Forrest " mental status assessment, sensorium alert, attentive, clear Perla Milan Forrest " affect (mental status exam) congruent, normal intensity, normal range, labile Perla Milan Forrest " mood (mental status exam) sad Perla Milan Forrest " mental status assessment, speech activity normal flow, normal pace, normal pressure, normal rate, normal tone, normal volume, spontaneous Perla Florencio Forrest " mental status assessment, motor activity normal gait, normal posture Perla Milan Forerst " behavior (mental status exam) appropriate, candid, cooperative, good eye contact, polite, responsive Perla Milan Forrest " mental appearance (mental status exam) adequate hygiene, appropriate dress, looks like stated age, michael Matias Forrest mental status assessment, judgment good Perla Florencio Forrest " insight (mental status exam) good Perla Milan Forrest " Mental Status Exam: intelligence adequate fund of information, intact memory processes, oriented to person, oriented to place, oriented to time, oriented to situation, oriented to reality Perla Milan Forrest " hallucinations none Perla Florencio Forrest " thought content (mental status exam) (E&M) lucid Perla Milan Forrest " mental status assessment, process able to abstract, goal-directed, logical Perla Milan Forrest " mental status assessment, sensorium alert, attentive, clear Perla Florencio Forrest " affect (mental status exam) congruent, normal intensity, normal range, labile Perla Florencio Forrest " mood (mental status exam) sad Perla Clayton " mental status assessment, speech activity normal flow, normal pace, normal pressure, normal rate, normal tone, normal volume, spontaneous Perla Claytno " mental status assessment, motor activity normal gait, normal posture Perla Clayton " behavior (mental status exam) appropriate, candid, cooperative, good eye contact, polite, responsive Perla Clayton " mental appearance (mental status exam) adequate hygiene, appropriate dress, looks like stated age, neat Perla Clayton mental status assessment, judgment good Kris Long-Wooten " insight (mental status exam) good Thompsonvanessa Olivasa " Mental Status Exam: intelligence adequate fund of information, intact memory processes, oriented to person, oriented to place, oriented to time, oriented to situation, oriented to reality Kris Hunt " hallucinations none Thompsonvanessa Long-Wooten " thought content (mental status exam) (E&M) lucid Kris Long-Wooten " mental status assessment, process able to abstract, goal-directed, logical Thompsonvanessa Olivasa " mental status assessment, sensorium alert, attentive, clear Kris Klaus Long-Wooten " affect (mental status exam) congruent, normal intensity, normal range, labile Krisvanessa Long-Wooten " mood (mental status exam) sad Kris Long-Wooten " mental status assessment, speech activity normal flow, normal pace, normal pressure, normal rate, normal tone, normal volume, spontaneous Thompson Klaus Long-Wooten " mental status assessment, motor activity normal gait, normal posture Thompsonvanessa Long-Wooten " behavior (mental status exam) appropriate, candid, cooperative, good eye contact, polite, responsive Krisvanessa Long-Wooten " mental appearance (mental status exam) adequate hygiene, appropriate dress, looks like stated age, neat Kris Olivasa mood (mental status exam) sad Kris Long-Wooten " mental status assessment, judgment good [facility] " insight (mental status exam) good [facility] " Mental Status Exam: intelligence adequate fund of information, intact memory processes, oriented to person, oriented to place, oriented to time, oriented to situation, oriented to reality [facility] " hallucinations none [facility] " thought content (mental status exam) (E&M) lucid [facility] " mental status assessment, process able to abstract, goal-directed, logical [facility] " mental status assessment, sensorium alert, attentive, clear [facility] " affect (mental status exam) congruent, normal intensity, normal range, constricted [facility] " mental status assessment, speech activity normal flow, normal pace, normal pressure, normal rate, normal tone, normal volume, spontaneous [facility] " mental status assessment, motor activity normal gait, normal posture [facility] " behavior (mental status exam) appropriate, candid, cooperative, good eye contact, polite, responsive [facility] " mental appearance (mental status exam) adequate hygiene, appropriate dress, looks like stated age, neat [facility], judgment good [facility] " insight (mental status exam) good [facility] " Mental Status Exam: intelligence adequate fund of information, intact memory processes, oriented to person, oriented to place, oriented to time, oriented to situation, oriented to reality [facility] " hallucinations none [facility] " thought content (mental status exam) (E&M) lucid [facility] " mental status assessment, process able to abstract, goal-directed, logical [facility] " mental status assessment, sensorium alert, attentive, clear [facility] " affect (mental status exam) congruent, normal intensity, normal range, constricted Thompson Klaus Ethan-Wooten " mood (mental status exam) sad, worried Thompson Klaus Ethan-Wooten " mental status assessment, speech activity normal flow, normal pace, normal pressure, normal rate, normal tone, normal volume, spontaneous Thompson Klaus Ethan-Wooten " mental status assessment, motor activity normal gait, normal posture Thompson Klaus Ethan-Wooten " behavior (mental status exam) appropriate, candid, cooperative, good eye contact, polite, responsive Thompson Klaus Ethan-Wooten " mental appearance (mental status exam) adequate hygiene, appropriate dress, looks like stated age, neat Thompson Kl[facility] ([facility] status exam) frustrated, sad, worried Thompson Klaus Ethan-Wooten " mental status assessment, judgment good [facility] " insight (mental status exam) good [facility] " Mental Status Exam: intelligence adequate fund of information, intact memory processes, oriented to person, oriented to place, oriented to time, oriented to situation, oriented to reality Thompson Klaus Ethan-Wooten " hallucinations none [facility] " thought content (mental status exam) (E&M) lucid [facility] " mental status assessment, process able to abstract, goal-directed, logical Thompson Kl[facility] " mental status assessment, sensorium alert, attentive, clear [facility] " affect (mental status exam) congruent, normal intensity, normal range, constricted Thompson Klaus Ethan-Wooten " mental status assessment, speech activity normal flow, normal pace, normal pressure, normal rate, normal tone, normal volume, spontaneous Thompson Klaus Ethan-Wooten " mental status assessment, motor activity normal gait, normal posture Thompson Klaus Ethan-Wooten " behavior (mental status exam) appropriate, candid, cooperative, good eye contact, polite, responsive Thompson Klaus Ethan-Wooten " mental appearance (mental status exam) adequate hygiene, appropriate dress, looks like stated age, neat Kris Klauscorey Hunt " anxiety worry a lot, sleep disturbance, irritability, many physical complaints, muscle tension Kris Klauscorey Hunt MEDICAL EQUIPMENT No Information Available FAMILY HISTORY No Information Available INSURANCE PROVIDERS No Information Available ADVANCE DIRECTIVES No Information Available TREATMENT PLAN Date Name Est Patient Exp Problem - 53662 Est Patient Exp Problem - 55434 Est Patient Exp Problem - 87828 Est Patient Exp Problem - 09388 Est Patient Exp Problem - 48337 Est Patient Exp Problem - 11431 Est Patient Exp Problem - 98824 Est Patient Exp Problem - 27861 Est Patient Exp Problem - 25685 Est Patient Detailed - 12539 Diagnostic evaluation with medical - 06259 HISTORY OF PROCEDURES Procedure Date Procedure Name Provider Procedure Notes Status Diagnostic evaluation with medical - 17133 Kris Klauscorey Hunt completed GOALS No Information Available HEALTH CONCERNS No Information Available
--- OUTSIDE RECORDS SUMMARY | 2020-02-12 07:10 | XMS REPORT ---
Author Author Admin, Mangham Organization Unknown Address Unknown Phone Unavailable PROBLEMS Condition Status Date Provider Notes DEPRESSIVE DISORDER, MAJOR, RECURRENT EPISODE, MODERATE active Kris Hunt ENCOUNTERS Date Type Provider Location Encounter Diagnosis - Ambulatory Encounter Perla Maitas Forrest Bustamante [facility] UNK - Ambulatory Encounter Perla Florencioember Clayton [facility] UNK - Ambulatory Encounter Perla Florencioember Beckwith [facility] UNK - Ambulatory Encounter Perlajuarez Matias Forrest Butt [facility] UNK - Ambulatory Encounter Perla Clayton [facility] UNK - Ambulatory Encounter Perla Matias Forrest [facility] UNK - Ambulatory Encounter Perla Clayton [facility] UNK - Ambulatory Encounter Perla Matias Forrest Vivar [facility] UNK - Ambulatory Encounter Perla Matias Forrest Lebron [facility] UNK - Ambulatory Encounter Noel Elizabeth [facility] UNK - Ambulatory Encounter Perla Matias Forrest Vivar [facility] UNK - Ambulatory Encounter Perla Matias Forrest Bustillo [facility] UNK - Ambulatory Encounter Perla Clayton [facility] UNK - Ambulatory Encounter Perla Clayton Lindsey Dianna [facility] UNK - Ambulatory Encounter Perla Hodges Bustillo [facility] UNK - Ambulatory Encounter Lindsey Dianna [facility] UNK - Ambulatory Encounter Perla Clayton Victor Manuel Hansen [facility] UNK - Ambulatory Encounter Kris Klaus Gilbert [place] Klaus Gilbert [facility] [employer] [facility] UNK - Ambulatory Encounter [place] Klaus Gilbert [place] Klaus Gilbert [employer] [facility] UNK - Ambulatory Encounter [place] Klaus Gilbert [place] Klaus Gilbert [employer] [facility] UNK - Ambulatory Encounter [place] Klaus Gilbert Kris Klaus Gilbert [employer] [facility] UNK - Ambulatory Encounter Kris Klaus Gilbert Kris Klaus Gilbert [employer] [facility] UNK - Ambulatory Encounter [place] Klaus Gilbert [place] Klaus Gilbert [employer] [facility] UNK - Ambulatory Encounter Kris Klaus Gilbert [place] Klaus Gilbert [facility] [employer] [facility] DEPRESSIVE DISORDER, MAJOR, RECURRENT EPISODE, MODERATE - Ambulatory Encounter Anahi Rothman [employer] [facility] UNK - Ambulatory Encounter Cori Hamlinncio [facility] UNK VITAL SIGNS Date Observation Value Provider method used to obtain blood pressure automatic Lindsey Dianna " Blood Pressure Position 01 sitting Lindsey Dianna " blood pressure, site #1 left arm Lindsey Dianna " blood pressure, diastolic 77 mm[Hg] Lindsey Dianna " blood pressure, systolic 127 mm[Hg] Lindsey Dianna " pulse rate E&M 106 /min Lindsey Dianna " weight E&M 136.40 lbs. Lindsey Dianna " weight in kilograms E&M 62 kg Lindsey Dianna " height E&M 61 [...] Lindsey Vivar " height E&M 61 [in_i] Gretel Vivar " height in centimeters E&M 154.94 cm Lindsey Quirosmez weight E&M 137 lbs. Gretel Vivar " weight in kilograms E&M 62.27 kg Lindsey Vivar " blood pressure, diastolic 74 mm[Hg] Gretel Vivar " blood pressure, systolic 111 mm[Hg] Gretel Vivar " pulse rate E&M 108 /min Gretel Cb " method used to obtain blood pressure automatic GretelSabra Vivar " Blood Pressure Position 01 sitting GretelSabra Vivar " blood pressure, site #1 left arm Lindsey Vivar " height E&M 61 [in_i] Gretel Vivar " height in centimeters E&M 154.94 cm Lindsey Montaño Cb method used to obtain blood pressure automatic [...] Dianna " blood pressure, systolic 112 mm[Hg] Lindsye Dianna " pulse rate E&M 111 /min [...] Bustillo " pulse rate E&M 102 /min Trcaie Bustillo " weight E&M 132.25 lbs. Tracie [...] [in_i] Anahi Rothman height E&M 61 [in_i] [place] Klaus Hunt " height in centimeters E&M 154.94 cm Kris Klaus Hunt " method used to obtain blood [...] MG ORAL TABLET One tablet Po BID. [place] Klaus Long Je DESIPRAMINE HCL 75MG TABLET TAKE 1 TABLET BY MOUTH DAILY AT NIGHTS Perla Bernabeember Clayton PRISTIQ 50 MG ORAL TABLET EXTENDED RELEASE 24 HOUR One tablet daily in the morning. Perla Clayton SOCIAL HISTORY Date Observation Value Provider drug use, illicit Never Perla Clayton " alcohol use Never Perla Clayton " smoking status never smoker Perla Bernabeember Clayton Exercise Program Referral T Perla Clayton " [...] Perla Clayton smoking status never smoker Perla Bernabeember Clayton " Exercise Program Referral T Perla Clayton " Weight Management Counseling Provided T Perla Clayton " Nutrition intervention T Perla Clayton smoking status never smoker Perla Florencioember Clayton " Exercise Program Referral T Perla Clayton " Weight Management Counseling Provided T Perla Clayton " Nutrition intervention T Perlajuarez Clayton smoking status never smoker Perla Clayton smoking status never smoker [place] Starkcorey Hunt " social history E&M Lives with a friend as a roommate. She is oldest of the siblings.5 and one brotrh of cancer. Roomate in an appartment Dissable None Kris Hunt " social history reviewed E&M reviewed today Kris Hunt smoking status never smoker Kris Starkcorey Hunt " social history E&M Lives with a friend as a roommate. She is oldest of the siblings.5 and one brotrh of cancer. Roomate in an appartment Dissable None Kris Hunt " social history reviewed E&M reviewed today Kris Hunt smoking status never smoker Kris Hunt " [...] exam) congruent, normal intensity, normal range Perla Florencio Forrest " mood (mental status exam) pleasant Perla Florencio Forrest " mental status assessment, speech activity normal flow, normal pace, normal pressure, normal rate, normal tone, normal volume, spontaneous Perla Florencio Forrest " mental status assessment, motor activity normal gait, normal posture Perla Florencio Forrest " behavior (mental status exam) appropriate, candid, cooperative, good eye contact, polite, negativistic Perla [place] Forrest " mental appearance (mental status exam) [...] exam) congruent, normal intensity, normal range Perla Florencio Forrest " mood (mental status exam) sad Perla Florencio Forrest " mental status assessment, speech activity normal flow, normal pace, normal pressure, normal rate, normal tone, normal volume, spontaneous Perla [place] Forrest " mental status assessment, motor activity normal gait, normal posture Perla Florencio Forrest " behavior (mental status exam) appropriate, candid, cooperative, good eye contact, polite, negativistic Perla [place] Forrest " mental appearance (mental status exam) adequate hygiene, appropriate dress, looks like stated age, neat Perla Clayton mental status assessment, judgment good Perla [place] Forrest " insight (mental status exam) good Perla [place] Forrest " Mental Status Exam: intelligence adequate fund of information, intact memory processes, oriented to person, oriented to place, oriented to time, oriented to situation, oriented to reality Perla [place] Forrest " hallucinations none Perla Florencio Forrest " thought content (mental status exam) (E&M) lucid Perla [place] Forrest " mental status assessment, process able to abstract, goal-directed, logical Perla [place] Forrest " mental status assessment, sensorium alert, attentive, clear Perla Florencio Forrest " affect (mental status exam) congruent, euthymic, normal intensity, normal range Perla [place] Forrest " mood (mental status exam) happy Perla Florencio Forrest " mental status assessment, [...] dress, looks like stated age, neat Perla Matias Forrest mental status assessment, judgment good Perla [place] Forrest " insight (mental status exam) good Perla [place] Forrest " Mental Status Exam: intelligence adequate fund of information, intact memory processes, oriented to person, oriented to place, oriented to time, oriented to situation, oriented to reality Perla Florencio Forrest " hallucinations none Perla Florencio Forrest " thought content (mental status exam) (E&M) lucid Perla [place] Forrest " mental status assessment, process able to abstract, goal-directed, logical Perla Florencio Forrest " mental status assessment, sensorium alert, attentive, clear Perla Florencio Forrest " affect (mental status exam) congruent, euthymic, normal intensity, normal range Perla [place] Forrest " mood (mental status exam) happy Perla [place] Forrest " mental status assessment, speech activity normal flow, normal pace, normal pressure, normal rate, normal tone, normal volume, spontaneous Perla Florencio Forrest " mental status assessment, motor activity normal gait, normal posture Perla Florencio Forrest " behavior (mental status exam) appropriate, candid, cooperative, good eye contact, polite, responsive Perla [place] Forrest " mental appearance (mental status exam) adequate hygiene, appropriate dress, looks like stated age, neat Perla [place] Forrest mental status assessment, judgment good Perla Florencio Forrest " insight (mental status exam) good Perla Matias Forrest " Mental Status Exam: intelligence adequate fund of information, intact memory processes, oriented to person, oriented to place, oriented to time, oriented to situation, oriented to reality Perla Mauricioos " hallucinations none Perla [place] Forrest " thought content (mental status exam) (E&M) lucid Perla Matias Forrest " mental status assessment, process able to abstract, goal-directed, logical Perla [place] Forrest " mental status assessment, sensorium alert, attentive, clear Perla [place] Forrest " affect (mental status exam) congruent, [...] cooperative, good eye contact, polite, responsive Perla Matias Forrest " mental appearance (mental status exam) adequate hygiene, appropriate dress, looks like stated age, neat Perla Clayton mental status assessment, judgment good Perla Matias Forrest " insight (mental status exam) good Perla Matias Forrest " Mental Status Exam: intelligence adequate fund of information, intact memory processes, oriented to person, oriented to place, oriented to time, oriented to situation, oriented to reality Perla Mauricioos " hallucinations none Perla Matias Forrest " thought content (mental status exam) (E&M) lucid Perla Matias Forrest " mental status assessment, process able to abstract, goal-directed, logical Perla Florencio Forrest " mental status assessment, sensorium alert, attentive, clear Perla [place] Forrest " affect (mental status exam) congruent, normal intensity, normal range, labile Perla Florencio Forrest " mood (mental status exam) sad Perla Florencio Forrest " mental status assessment, speech activity normal flow, normal pace, normal pressure, normal rate, normal tone, normal volume, spontaneous Perla [place] Forrest " mental status assessment, motor activity normal gait, normal posture Perla Florencio Forrest " behavior (mental status exam) appropriate, candid, cooperative, good eye contact, polite, responsive Perla Florencio Forrest " mental appearance (mental status exam) adequate hygiene, appropriate dress, looks like stated age, michael Mauricioos mental status assessment, judgment good Perla [place] Forrest " insight (mental status exam) good Perla [place] Forrest " Mental Status Exam: intelligence adequate fund of information, intact memory processes, oriented to person, oriented to place, oriented to time, oriented to situation, oriented to reality Perla [place] Forrest " hallucinations none Perla Florencio Forrest " thought content (mental status exam) (E&M) lucid Perla Florencio Forrest " mental status assessment, process able to abstract, goal-directed, logical Perla [place] Forrest " mental status assessment, sensorium alert, attentive, clear Perla [place] Forrest " affect (mental status exam) congruent, normal intensity, normal range, labile Perla [place] Forrest " mood (mental status exam) sad Perla [place] Forrest " mental status assessment, speech activity normal flow, normal pace, normal pressure, normal rate, normal tone, normal volume, spontaneous Perla [place] Forrest " mental status assessment, motor activity normal gait, normal posture Perla Florencio Forrest " behavior (mental status exam) appropriate, candid, cooperative, good eye contact, polite, responsive Perla Florencio Forrest " mental appearance (mental status exam) adequate hygiene, appropriate dress, looks like stated age, michael Matias Forrest mental status assessment, judgment good Perla [place] Forrest " insight (mental status exam) good Perla Florencio Forrest " Mental Status Exam: intelligence adequate fund of information, intact memory processes, oriented to person, oriented to place, oriented to time, oriented to situation, oriented to reality Perla [place] Forrest " hallucinations none Perla [place] Forrest " thought content (mental status exam) [...] Perla Clayton mental status assessment, judgment good Krisvanessa Hunt " insight (mental status exam) good Kris Klauscorey Olivasa " Mental Status Exam: intelligence adequate fund of information, intact memory processes, oriented to person, oriented to place, oriented to time, oriented to situation, oriented to reality [place] " hallucinations none [place] Klaus Hunt " thought content (mental status exam) (E&M) lucid [place] Hunt " mental status assessment, process able to abstract, goal-directed, logical Kris Klaus Olivasa " mental status assessment, sensorium alert, attentive, clear Kris Klaus Olivasa " affect (mental status exam) congruent, normal intensity, normal range, labile Krisvanessa Olivasa " mood (mental status exam) sad Krisvanessa Olivasa " mental status assessment, speech activity normal flow, normal pace, normal pressure, normal rate, normal tone, normal volume, spontaneous Kris Klaus Olivasa " mental status assessment, motor activity normal gait, normal posture [place] Klaus Olivasa " behavior (mental status exam) appropriate, candid, cooperative, good eye contact, polite, responsive Krisvanessa Olivasa " mental appearance (mental status exam) adequate hygiene, appropriate dress, looks like stated age, michael [place] Klauscorey Hunt mood (mental status exam) sad Krisvanessa Olivasa " mental status assessment, judgment good Krisvanessa Olivasa " insight (mental status exam) good [facility] " Mental Status Exam: intelligence adequate fund of information, intact memory processes, oriented to person, oriented to place, oriented to time, oriented to situation, oriented to reality Kris [facility] " hallucinations none [facility] " thought content (mental status exam) (E&M) lucid [facility] " mental status assessment, process able to abstract, goal-directed, logical [facility] " mental status assessment, sensorium alert, attentive, clear [facility] " affect (mental status exam) congruent, normal intensity, normal range, constricted [facility] " mental status assessment, speech activity normal flow, normal pace, normal pressure, normal rate, normal tone, normal volume, spontaneous [facility] " mental status assessment, motor activity normal gait, normal posture [facility] " behavior (mental status exam) appropriate, candid, cooperative, good eye contact, polite, responsive [facility] " mental appearance (mental status exam) adequate hygiene, appropriate dress, looks like stated age, neat [facility], judgment good [facility] " insight (mental status exam) good [facility] " Mental Status Exam: intelligence adequate fund of information, intact memory processes, oriented to person, oriented to place, oriented to time, oriented to situation, oriented to reality [facility] " hallucinations none [facility] " thought content (mental status exam) (E&M) lucid [place] Klaus [facility] " mental status assessment, process able to abstract, goal-directed, logical [facility] " mental status assessment, sensorium alert, attentive, clear [facility] " affect (mental status exam) congruent, normal intensity, normal range, constricted [facility] " mood (mental status exam) sad, worried [place] Klaus [facility] " mental status assessment, speech activity normal flow, normal pace, normal pressure, normal rate, normal tone, normal volume, spontaneous [place] Klaus [facility] " mental status assessment, motor activity normal gait, normal posture Kris Klaus [place] " behavior (mental status exam) appropriate, candid, cooperative, good eye contact, polite, responsive [place] Klaus [facility] " mental appearance (mental status exam) adequate hygiene, appropriate dress, looks like stated age, neat Kris Klaus [place] mood (mental status exam) frustrated, sad, worried [place] Klaus [facility] " mental status assessment, judgment good [place] Klaus [place] " insight (mental status exam) good [place] Klaus [place] " Mental Status Exam: intelligence adequate fund of information, intact memory processes, oriented to person, oriented to place, oriented to time, oriented to situation, oriented to reality [place] Klaus [place] " hallucinations none [facility] " thought content (mental status exam) (E&M) lucid [place] [facility] " mental status assessment, process able to abstract, goal-directed, logical [place] Klaus " mental status assessment, sensorium alert, attentive, clear [place] [facility] " affect (mental status exam) congruent, normal intensity, normal range, constricted [place] Klaus [place] " mental status assessment, speech activity normal flow, normal pace, normal pressure, normal rate, normal tone, normal volume, spontaneous Kris Klaus [place] " mental status assessment, motor activity normal gait, normal posture [place] Klaus [place] " behavior (mental status exam) appropriate, candid, cooperative, good eye contact, polite, responsive Kris Klaus [place] " mental appearance (mental status exam) adequate hygiene, appropriate dress, looks like stated age, neat [place] Klaus [place] " anxiety worry a lot, sleep disturbance, irritability, many physical complaints, muscle tension Kris Hunt MEDICAL EQUIPMENT No Information Available FAMILY HISTORY No Information Available INSURANCE PROVIDERS No Information Available ADVANCE DIRECTIVES No Information Available TREATMENT PLAN Date Name Est Patient Exp Problem - 12210 Est Patient Exp Problem - 06394 Est Patient Exp Problem - 09126 Est Patient Exp Problem - 81405 Est Patient Exp Problem - 97805 Est Patient Exp Problem - 34763 Est Patient Exp Problem - 42121 Est Patient Exp Problem - 99302 Est Patient Exp Problem - 13259 Est Patient Exp Problem - 01554 Est Patient Detailed - 88295 Diagnostic evaluation with medical - 98834 HISTORY OF PROCEDURES Procedure Date Procedure Name Provider Procedure Notes Status Diagnostic evaluation with medical - 21100 Kris Hunt completed GOALS No Information Available HEALTH CONCERNS No Information Available
--- OUTSIDE RECORDS SUMMARY | 2020-02-12 07:10 | XMS REPORT ---
Author Author Admin, Logan Organization Unknown Address Unknown Phone Unavailable PROBLEMS Condition Status Date Provider Notes DEPRESSIVE DISORDER, MAJOR, RECURRENT EPISODE, MODERATE active Kris Hunt ENCOUNTERS Date Type Provider Location Encounter Diagnosis - Ambulatory Encounter Perla Bernabeember Clayton [facility] UNK - Ambulatory Encounter Perla Florencioember Beckwith [facility] UNK - Ambulatory Encounter Perla Florencioember [facility] UNK - Ambulatory Encounter Perla Bernabeember Clayton [facility] UNK - Ambulatory Encounter Perla Bernabeember Clayton [facility] UNK - Ambulatory Encounter Perla Matias Forrest [facility] UNK - Ambulatory Encounter Perla Matias Forrest Vivar [facility] UNK - Ambulatory Encounter Perla Brooklynember Lebrno [facility] UNK - Ambulatory Encounter Noel Elizabeth [facility] UNK - Ambulatory Encounter Perla Brooklynember Vivar [facility] UNK - Ambulatory Encounter Perlajuarez Matias Forrest Bustillo [facility] UNK - Ambulatory Encounter Perla Matias Forrest [facility] UNK - Ambulatory Encounter Perla Florencioember Bustamante [facility] UNK - Ambulatory Encounter Perla Hodges Bustillo [facility] UNK - Ambulatory Encounter Lindsey Dianna [facility] UNK - Ambulatory Encounter Perla Clayton Victor Manuel Hansen [facility] UNK - Ambulatory Encounter Kris Klaus Gilbert Kris Klaus Gilbert Rothman [employer] [facility] UNK - Ambulatory Encounter Kris Klaus Gilbert [place] Klaus Gilbert [facility] UNK - Ambulatory Encounter Kris Klaus Gilbert [place] Klaus Gilbert Rothman [facility] UNK - Ambulatory Encounter Kris Klaus Gilbert [place] Klaus [facility] UNK - Ambulatory Encounter Kris Klaus Gilbert Kris Klaus Gilbert Rothman [facility] UNK - Ambulatory Encounter Kris Klaus Gilbert Kris Klaus Gilbert [facility] UNK - Ambulatory Encounter [place] Klaus Gilbert Kris Klaus Gilbert Rothman [employer] [facility] DEPRESSIVE DISORDER, MAJOR, RECURRENT EPISODE, MODERATE - Ambulatory Encounter Anahi Rothman [facility] UNK - Ambulatory Encounter Cori Mona [facility] UNK VITAL SIGNS Date [...] Lindsey Vivar " height E&M 61 [in_i] Linsdey Vivar " height in centimeters E&M 154.94 [...] Rothman " pulse rate E&M 106 /min Anaih Rothman " weight E&M 126.50 lbs. Anahi Rothman " weight in kilograms E&M 57.50 kg Anahi Rothmna ALLERGIES Allergy Name Onset Date Reaction Criticality [...] Pikevanessa Hunt smoking status never smoker Kris Pikevanessa Hunt " social history E&M Lives with [...] Hunt " smoking, advice to quit Yes [place] Hunt " smoking status never smoker [place] Klausvanessa Hunt " social history E&M Lives with a friend as a roommate. She is oldest of the siblings.5 and one brotrh of cancer. Roomate in an appartment Dissable None Kris Hunt " social history - sexual practice None [place] Klausvanessa Hunt " home/family situation, assessment Roomate in an appartment [place] Klausvanessa Wooten " family support Lives with [...] Perla Florencio Forrest " hallucinations none Perla Brooklyn Forrest " thought content (mental status exam) (E&M) lucid Perla Florencio Forrest " mental status assessment, process able to abstract, goal-directed, logical Perla Brooklyn Forrest " mental status assessment, sensorium alert, attentive, clear Perla Florencio Forrest " affect (mental status exam) congruent, euthymic, normal intensity, normal range Perla Brooklyn Forrest " mood (mental status exam) happy Perla Brooklyn Forrest " mental status assessment, speech activity normal flow, normal pace, normal pressure, normal rate, normal tone, normal volume, spontaneous Perla Brooklyn Forrest " mental status assessment, motor activity normal gait, normal posture Perla Brooklyn Forrest " behavior (mental status exam) appropriate, candid, cooperative, good eye contact, polite, responsive Perla Florencio Forrest " mental appearance (mental status exam) adequate hygiene, appropriate dress, looks like stated age, neat Perla Brooklyn Forrest mental status assessment, judgment good Perla Florencio Forrest " insight (mental status exam) good Perla Florencio Forrest " Mental Status Exam: intelligence adequate fund of information, intact memory processes, oriented to person, oriented to place, oriented to time, oriented to situation, oriented to reality Perla Florencio Forrest " hallucinations none Perla Brooklyn Forrest " thought content (mental status exam) (E&M) lucid Perla Brooklyn Forrest " mental status assessment, process able to abstract, goal-directed, logical Perla Brooklyn Forrest " mental status assessment, sensorium alert, attentive, clear Perla Florencio Forrest " affect (mental status exam) congruent, euthymic, normal intensity, normal range Perla Brooklyn Forrest " mood (mental status exam) happy Perla Brooklyn Forrest " mental status assessment, speech activity normal flow, normal pace, normal pressure, normal rate, normal tone, normal volume, spontaneous Perla Brooklyn Forrest " mental status assessment, motor activity normal gait, normal posture Perla Brooklyn Forrest " behavior (mental status exam) appropriate, candid, cooperative, good eye contact, polite, responsive Perla Brooklyn Forrest " mental appearance (mental status exam) [...] Perla Florencio Forrest " hallucinations none Perla Brooklyn Forrest " thought content (mental status exam) (E&M) lucid Perla Matias Forrest " mental status assessment, process able to abstract, goal-directed, logical Perla Brooklyn Forrest " mental status assessment, sensorium alert, attentive, clear Perla Florencio Forrest " affect (mental status exam) congruent, normal intensity, normal range, labile Perla Brooklyn Forrest " mood (mental status exam) sad Perla Florencio Forrest " mental status assessment, speech activity normal flow, normal pace, normal pressure, normal rate, normal tone, normal volume, spontaneous Perla Brooklyn Forrest " mental status assessment, motor activity normal gait, normal posture Perla Florencio Forrest " behavior (mental status exam) appropriate, candid, cooperative, good eye contact, polite, responsive Perla Florencio Forerst " mental appearance (mental status exam) adequate [...] " mood (mental status exam) sad Perla Brooklyn Forrest " mental status assessment, speech activity normal flow, normal pace, normal pressure, normal rate, normal tone, normal volume, spontaneous Perla Florencio Forrest " mental status assessment, motor activity normal gait, normal posture Perla Brooklyn Forrest " behavior (mental status exam) appropriate, candid, cooperative, good eye contact, polite, responsive Perla Florencio Forrest " mental appearance (mental status exam) adequate hygiene, appropriate dress, looks like stated age, michael Matias Forrest mental status assessment, judgment good Perla Brooklyn Forrest " insight (mental status exam) good Perla Brooklyn Forrest " Mental Status Exam: intelligence adequate fund of information, intact memory processes, oriented to person, oriented to place, oriented to time, oriented to situation, oriented to reality Perla Florencio Forrest " hallucinations none Perla Florencio Forrest " thought content (mental status exam) (E&M) lucid Perla Brooklyn Forrest " mental status assessment, process able to abstract, goal-directed, logical Perla Brooklyn Forrest " mental status assessment, sensorium alert, attentive, clear Perla Brooklyn Forrest " affect (mental status exam) congruent, normal intensity, normal range, labile Perla Brooklyn Forrest " mood (mental status exam) sad Perla Brooklyn Forrest " mental status assessment, speech activity normal flow, normal pace, normal pressure, normal rate, normal tone, normal volume, spontaneous Perla Florencio Forrest " mental status assessment, motor activity normal gait, normal posture Perla Brooklyn Forrest " behavior (mental status exam) appropriate, candid, cooperative, good eye contact, polite, responsive Perla Brooklyn Forrest " mental appearance (mental status exam) adequate hygiene, appropriate dress, looks like stated age, michael Matias Forrest mental status assessment, judgment good Perla Florencio Forrest " insight (mental status exam) good Perla Brooklyn Forrest " Mental Status Exam: intelligence adequate fund of information, intact memory processes, oriented to person, oriented to place, oriented to time, oriented to situation, oriented to reality Perla Brooklyn Forrest " hallucinations none Perla Florencio Forrest " thought content (mental status exam) (E&M) lucid Perla Brooklyn Forrest " mental status assessment, process able to abstract, goal-directed, logical Perla Brooklyn Forrest " mental status assessment, sensorium alert, [...] Long-Wooten " insight (mental status exam) good [place]vanessa Olivasa " Mental Status Exam: intelligence adequate fund of information, intact memory processes, oriented to person, oriented to place, oriented to time, oriented to situation, oriented to reality Kris Hunt " hallucinations none [place]vanessa Long-[place]oot[place] " thought content (mental status exam) (E&M) lucid Kris Long-Wooten " mental status assessment, process able to abstract, goal-directed, logical [place]vanessa Olivasa " mental status assessment, sensorium alert, attentive, clear Kris Klaus Long-[place]ooten " affect (mental status exam) congruent, normal intensity, normal range, labile Krisvanessa Long-Wooten " mood (mental status exam) sad Kris Long-Wooten " mental status assessment, speech activity normal flow, normal pace, normal pressure, normal rate, normal tone, normal volume, spontaneous [place] Klaus Long-[place]en " mental status assessment, motor activity normal gait, normal posture [place]vanessa Long-[place]ooten " behavior (mental status exam) appropriate, candid, cooperative, good eye contact, polite, responsive Krisvanessa Long-Wooten " mental appearance (mental status exam) adequate hygiene, appropriate dress, looks like stated age, neat Kris Olivasa mood (mental status exam) sad Kris Long-Wooten " mental status assessment, judgment good [facility] " insight (mental status exam) good [facility] " Mental Status Exam: intelligence adequate fund of information, intact memory processes, oriented to person, oriented to place, oriented to time, oriented to situation, oriented to reality [facility] " hallucinations [facility] " thought content (mental status exam) (E&M) lucid [facility] " mental status assessment, process able to abstract, goal-directed, logical [facility] " mental status assessment, sensorium alert, attentive, clear [facility] " affect (mental status exam) congruent, normal intensity, normal range, constricted [facility] " mental status assessment, speech activity normal flow, normal pace, normal pressure, normal rate, normal tone, normal volume, spontaneous [facility] " mental status assessment, motor activity normal gait, normal posture [facility] " behavior (mental status exam) appropriate, candid, cooperative, good eye contact, polite, responsive [facility] " mental appearance (mental status exam) adequate hygiene, appropriate dress, looks like stated age, neat [facility], judgment good [facility] " insight (mental status exam) good [facility] " Mental Status Exam: intelligence adequate fund of information, intact memory processes, oriented to person, oriented to place, oriented to time, oriented to situation, oriented to reality [facility] " hallucinations none [facility] " thought content (mental status exam) (E&M) lucid [facility] " mental status assessment, process able to abstract, goal-directed, logical [facility] " mental status assessment, sensorium alert, attentive, clear [facility] " affect (mental status exam) congruent, normal intensity, normal range, constricted [place] Klaus Ethan-Wooten " mood (mental status exam) sad, worried [place] Klaus Ethan-[place]en " mental status assessment, speech activity normal flow, normal pace, normal pressure, normal rate, normal tone, normal volume, spontaneous [place] Klaus Ethan-[place] " mental status assessment, motor activity normal gait, normal posture [place] Klaus Ethan-[place] " behavior (mental status exam) appropriate, candid, cooperative, good eye contact, polite, responsive [place] Klaus Ethan-[place] " mental appearance (mental status exam) adequate hygiene, appropriate dress, looks like stated age, neat [place] [facility] mood (mental status exam) frustrated, sad, worried [place] Klaus Ethan-[place] " mental status assessment, judgment good [place] [facility] " insight (mental status exam) good [place] [facility] Mental Status Exam: intelligence adequate fund of information, intact memory processes, oriented to person, oriented to place, oriented to time, oriented to situation, oriented to reality [place] Klaus Ethan-[place]en " hallucinations none [facility] " thought content (mental status exam) (E&M) lucid [place] [facility] " mental status assessment, process able to abstract, goal-directed, logical [place] Klaus [facility] " mental status assessment, sensorium alert, attentive, clear [place] [facility] " affect (mental status exam) congruent, normal intensity, normal range, constricted [place] Klaus Ethan-[place] " mental status assessment, speech activity normal flow, normal pace, normal pressure, normal rate, normal tone, normal volume, spontaneous [place] Klaus Ethan-[place] " mental status assessment, motor activity normal gait, normal posture [place] Klaus Ethan-[place] " behavior (mental status exam) appropriate, candid, cooperative, good eye contact, polite, responsive [place] Klaus Ethan-[place] " mental appearance (mental status [...] Date Name Est Patient Exp Problem - 18296 Est Patient Exp Problem - 71205 Est Patient Exp Problem - 28016 Est Patient Exp Problem - 13264 Est Patient Exp Problem - 88633 Est Patient Exp Problem - 07709 Est Patient Exp Problem - 22457 Est Patient Exp Problem - 16044 Est Patient Exp Problem - 31518 Est Patient Detailed - 15711 Diagnostic evaluation with medical - 32649 HISTORY OF PROCEDURES Procedure Date Procedure Name Provider Procedure Notes Status Diagnostic evaluation with medical - 07546 Kris Klauscorey Hunt completed GOALS No Information Available HEALTH CONCERNS No Information Available
--- OUTSIDE RECORDS SUMMARY | 2020-02-12 07:10 | XMS REPORT ---
Author Author Admin, [place] Organization Unknown Address Unknown Phone Unavailable PROBLEMS Condition Status Date Provider Notes DEPRESSIVE DISORDER, MAJOR, RECURRENT EPISODE, MODERATE active Kris Hunt ENCOUNTERS Date Type Provider Location Encounter Diagnosis - Ambulatory Encounter Perla Bernabeember Bustamante [facility] UNK - Ambulatory Encounter Perla Florencioember Clayton [facility] UNK - Ambulatory Encounter Perla Florencioemebr Beckwith [facility] UNK - Ambulatory Encounter Perlajuarez Matias Forrest Butt [facility] UNK - Ambulatory Encounter Perla Clayton [facility] UNK - Ambulatory Encounter Perla Matias Forrest [facility] UNK - Ambulatory Encounter Perla Clayton [facility] UNK - Ambulatory Encounter Perla Matias Forrest Vivar [facility] UNK - Ambulatory Encounter Perla Matias Forrest Lebron [facility] UNK - Ambulatory Encounter Noel Elizabeth [facility] UNK - Ambulatory Encounter Perla Matias Forrest Vivar [facility] UNK - Ambulatory Encounter Perla Matias Forrest Bustillo [facility] UNK - Ambulatory Encounter Perla Clayton [facility] UNK - Ambulatory Encounter Perla Clayton Lindsey Dianna [facility] UNK - Ambulatory Encounter Perla Hodges Bustillo [facility] [place] UNK - Ambulatory Encounter Lindsey Dianna [facility] UNK - Ambulatory Encounter Perla Clayton Victor Manuel Hansen [facility] UNK - Ambulatory Encounter Kris Klaus Gilbert [place] Klaus Gilbert [facility] UNK - Ambulatory Encounter [place] Klaus Gilbert [place] Klaus Gilbert [facility] UNK - Ambulatory Encounter [place] Klaus Gilbert [place] Klaus Gilbert [facility] UNK - Ambulatory Encounter [place] Klaus Gilbert Kris Klaus Gilbert [facility] UNK - Ambulatory Encounter Kris Klaus Gilbert Kris Klaus Gilbert [facility] UNK - Ambulatory Encounter [place] Klaus Gilbert [place] Klaus Gilbert [facility] UNK - Ambulatory Encounter Kris Klaus Gilbert [place] Klaus Gilbert [facility] DEPRESSIVE DISORDER, MAJOR, RECURRENT EPISODE, MODERATE - Ambulatory Encounter Anahi [facility] UNK - Ambulatory Encounter Cori Hamlinncio [facility] UNK VITAL SIGNS [...] method used to obtain blood pressure automatic Linsdey Dianna " Blood Pressure Position 01 sitting [...] Hansen " pulse rate E&M 114 /min Vcitor Manuel Hansen " weight E&M 130 lbs. [...] used to obtain blood pressure automatic Anahi Rothamn " Blood Pressure Position 01 sitting Anahi [...] [in_i] Anahi Rothman height E&M 61 [in_i] [place] Klaus Hunt " height in centimeters E&M [...] MG ORAL TABLET One tablet Po BID. [place] Klaus Long Je DESIPRAMINE HCL 75MG TABLET [...] smoker Perla Clayton smoking status never smoker [facility] Starkcorey Hunt " social history E&M Lives [...] content (mental status exam) (E&M) lucid Perla lCayton " mental status assessment, process able to [...] cooperative, good eye contact, polite, negativistic Perla [place] Forrest " mental appearance (mental status exam) [...] process able to abstract, goal-directed, logical Perla Flroencio Forrest " mental status assessment, sensorium alert, attentive, clear Perla Florencio Forrest " affect (mental status exam) congruent, normal intensity, normal range Perla Florencio Forrest " mood (mental status exam) sad Perla Florencio Forrest " mental status assessment, speech activity normal flow, normal pace, normal pressure, normal rate, normal tone, normal volume, spontaneous Perla [place] Forrest " mental status assessment, motor activity normal gait, normal posture Perla Florencio Forrest " behavior (mental status exam) appropriate, candid, cooperative, good eye contact, polite, negativistic Perla [place] Forrest " mental appearance (mental status exam) adequate hygiene, appropriate dress, looks like stated age, neat Perla Clayton mental status assessment, judgment good Perla [place] Forrest " insight (mental status exam) good Perla [place] Forrest " Mental Status Exam: intelligence adequate fund of information, intact memory processes, oriented to person, oriented to place, oriented to time, oriented to situation, oriented to reality Perla Buffalo Forrest " hallucinations none Perla Florencio Forrest " thought content (mental status exam) (E&M) lucid Perla [place] Forrest " mental status assessment, process able to abstract, goal-directed, logical Perla [place] Forrest " mental status assessment, sensorium alert, attentive, clear Perla Florencio Forrest " affect (mental status exam) congruent, euthymic, normal intensity, normal range Perla Buffalo Forrest " mood (mental status exam) happy [...] Forrest mental status assessment, judgment good Perla [place] Forrest " insight (mental status exam) good Perla [place] Forrest " Mental Status Exam: intelligence adequate fund of information, intact memory processes, oriented to person, oriented to place, oriented to time, oriented to situation, oriented to reality Perla Florencio Forrest " hallucinations none Perla Florencio Forrest " thought content (mental status exam) (E&M) lucid Perla [place] Forrest " mental status assessment, process able to abstract, goal-directed, logical Perla Florencio Forrest " mental status assessment, sensorium alert, attentive, clear Perla Florencio Forrest " affect (mental status exam) congruent, euthymic, normal intensity, normal range Perla Buffalo Forrest " mood (mental status exam) happy Perla [place] Forrest " mental status assessment, speech activity normal flow, normal pace, normal pressure, normal rate, normal tone, normal volume, spontaneous Perla Florencio Forrest " mental status assessment, motor activity normal gait, normal posture Perla Florencio Forrest " behavior (mental status exam) appropriate, candid, cooperative, good eye contact, polite, responsive Perla Buffalo Forrest " mental appearance (mental status exam) [...] process able to abstract, goal-directed, logical Perla Buffalo Forrest " mental status assessment, sensorium alert, attentive, clear Perla Buffalo Forrest " affect (mental status exam) congruent, [...] status assessment, sensorium alert, attentive, clear Perla Buffalo Forrest " affect (mental status exam) congruent, normal intensity, normal range, labile Perla Florencio Forrest " mood (mental status exam) sad Perla Florencio Forrest " mental status assessment, speech activity normal flow, normal pace, normal pressure, normal rate, normal tone, normal volume, spontaneous Perla [place] Forrest " mental status assessment, motor activity normal gait, normal posture Perla Florencio Forrest " behavior (mental status exam) appropriate, candid, cooperative, good eye contact, polite, responsive Perla Florencio Forrest " mental appearance (mental status exam) adequate hygiene, appropriate dress, looks like stated age, michael Mauricioos mental status assessment, judgment good Perla [place] Forrest " insight (mental status exam) good Perla [place] Forrest " Mental Status Exam: intelligence adequate fund of information, intact memory processes, oriented to person, oriented to place, oriented to time, oriented to situation, oriented to reality Perla Buffalo Forrest " hallucinations none Perla Florencio Forrest " thought content (mental status exam) (E&M) lucid Perla Florencio Forrest " mental status assessment, process able to abstract, goal-directed, logical Perla [place] Forrest " mental status assessment, sensorium alert, attentive, clear Perla Buffalo Forrest " affect (mental status exam) congruent, normal intensity, normal range, labile Perla Buffalo Forrest " mood (mental status exam) sad Perla [place] Forrest " mental status assessment, speech activity normal flow, normal pace, normal pressure, normal rate, normal tone, normal volume, spontaneous Perla [place] Forrest " mental status assessment, motor activity normal gait, normal posture Perla Florencio Forrest " behavior (mental status exam) appropriate, candid, cooperative, good eye contact, polite, responsive Perla Florencio Forrest " mental appearance (mental status exam) adequate hygiene, appropriate dress, looks like stated age, michael Matias Forrest mental status assessment, judgment good Perla [place] Forrest " insight (mental status exam) good Perla Florencio Forrest " Mental Status Exam: intelligence adequate fund of information, intact memory processes, oriented to person, oriented to place, oriented to time, oriented to situation, oriented to reality Perla Buffalo Forrest " hallucinations none Perla Buffalo Forrest " thought content (mental status exam) [...] time, oriented to situation, oriented to reality [facility] Gatevanessa Hunt " hallucinations none [place] Klaus Hunt " thought content (mental status exam) (E&M) lucid Golden Gatevanessa Hunt " mental status assessment, process able to abstract, goal-directed, logical Kris Klaus Olivasa " mental status assessment, sensorium alert, attentive, clear Kirs Klaus Olivasa " affect (mental status exam) congruent, normal intensity, normal range, labile Krisvanessa Olivasa " mood (mental status exam) sad Krisvanessa Olivasa " mental status assessment, speech activity normal flow, normal pace, normal pressure, normal rate, normal tone, normal volume, spontaneous Kris Klaus Olivasa " mental status assessment, motor activity normal gait, normal posture [place] Klaus Olivasa " behavior (mental status exam) appropriate, candid, cooperative, good eye contact, polite, responsive Krisvanessa Olivasa " mental appearance (mental status exam) adequate hygiene, appropriate dress, looks like stated age, michael [place] Klauscorey Hunt mood (mental status exam) sad Krisvanessa Olivasa " mental status assessment, judgment good Krisvanessa Olivasa " insight (mental status exam) good [facility] " Mental Status Exam: intelligence adequate fund of information, intact memory processes, oriented to person, oriented to place, oriented to time, oriented to situation, oriented to reality [facility] " hallucinations none [facility] " thought content (mental status exam) (E&M) lucid [facility] " mental status assessment, process able to abstract, goal-directed, logical [facility] " mental status assessment, sensorium alert, attentive, clear [facility] " affect (mental status exam) congruent, normal intensity, normal range, constricted [facility] " mental status assessment, speech activity normal flow, normal pace, normal pressure, normal rate, normal tone, normal volume, spontaneous [facility] " mental status assessment, motor activity normal gait, normal posture [facility] " behavior (mental status exam) appropriate, candid, cooperative, good eye contact, polite, responsive [facility] " mental appearance (mental status exam) adequate hygiene, appropriate dress, looks like stated age, neat [facility], judgment good [facility] " insight (mental status exam) good [facility] " Mental Status Exam: intelligence adequate fund of information, intact memory processes, oriented to person, oriented to place, oriented to time, oriented to situation, oriented to reality [facility] " hallucinations none [facility] " thought content (mental status exam) (E&M) lucid [place] [facility] " mental status assessment, process able to abstract, goal-directed, logical [facility] " mental status assessment, sensorium alert, attentive, clear [facility] " affect (mental status exam) congruent, normal intensity, normal range, constricted [facility] " mood (mental status exam) sad, worried [place] Klaus [facility] " mental status assessment, speech activity normal flow, normal pace, normal pressure, normal rate, normal tone, normal volume, spontaneous [place] Klaus [facility] " mental status assessment, motor activity normal gait, normal posture Kris Klaus [facility] " behavior (mental status exam) appropriate, candid, cooperative, good eye contact, polite, responsive [place] Klaus [facility] " mental appearance (mental status exam) adequate hygiene, appropriate dress, looks like stated age, neat Kris Klaus [facility] mood (mental status exam) frustrated, sad, worried [place] Klaus [facility] " mental status assessment, judgment good [place] Klaus [facility] " insight (mental status exam) good [place] Klaus [facility] " Mental Status Exam: intelligence adequate fund of information, intact memory processes, oriented to person, oriented to place, oriented to time, oriented to situation, oriented to reality [place] Klaus [facility] " hallucinations none [facility] " thought content (mental status exam) (E&M) lucid [facility] " mental status assessment, process able to abstract, goal-directed, logical [place] Klaus " mental status assessment, sensorium alert, attentive, clear [place] [facility] " affect (mental status exam) congruent, normal intensity, normal range, constricted [place] Klaus [facility] " mental status assessment, speech activity normal flow, normal pace, normal pressure, normal rate, normal tone, normal volume, spontaneous Kris Klaus [facility] " mental status assessment, motor activity normal gait, normal posture [place] Klaus [facility] " behavior (mental status exam) appropriate, candid, cooperative, good eye contact, polite, responsive Kris Klaus [facility] " mental appearance (mental status exam) adequate hygiene, appropriate dress, looks like stated age, neat [place] Klaus [facility] " anxiety worry a lot, sleep disturbance, irritability, many physical complaints, muscle tension Kris Hunt MEDICAL EQUIPMENT No Information Available FAMILY HISTORY No Information Available INSURANCE PROVIDERS No Information Available ADVANCE DIRECTIVES No Information Available TREATMENT PLAN Date Name Est Patient Exp Problem - 27613 Est Patient Exp Problem - 45710 Est Patient Exp Problem - 52790 Est Patient Exp Problem - 86308 Est Patient Exp Problem - 16754 Est Patient Exp Problem - 87972 Est Patient Exp Problem - 68794 Est Patient Exp Problem - 80501 Est Patient Exp Problem - 86828 Est Patient Exp Problem - 20709 Est Patient Detailed - 79884 Diagnostic evaluation with medical - 78850 HISTORY OF PROCEDURES Procedure Date Procedure Name Provider Procedure Notes Status Diagnostic evaluation with medical - 80985 Kris uHnt completed GOALS No Information Available HEALTH CONCERNS No Information Available
[2020-02-12 10:13] VITALS: BP 101/65
--- NOTE | 2020-02-12 10:33 | Operative Report ---
DATE OF PROCEDURE: 02/12/2020 SURGEON: George Lin MD PROCEDURE PERFORMED: EGD with esophageal dilatation and biopsies. INDICATIONS FOR EGD: Dysphagia to solids, nausea and vomiting. MEDICATIONS: The patient was done under MAC, please see anesthesiologist's note. PROCEDURE IN DETAIL: With the patient in left lateral decubitus position, a flexible fiberoptic Olympus gastroscope was introduced into the esophagus under direct visualization without any difficulty. There was a mild stricture noted at the GE junction and that was dilated to size 56-Gabonese Munoz. The scope was then advanced with ease into the stomach and moderate amount of retained undigested food stuff was noted in the stomach precluding visualization of the proximal two-thirds of the body of the stomach. The mucosa overlying the antrum revealed some diffuse erythema and low-grade edema and biopsies were obtained. The pylorus was intubated with ease and the scope was advanced all the way to the second portion of the duodenum. Biopsies were obtained from the proximal second portion and duodenal bulb to rule out sprue. The scope was then withdrawn back into the stomach and retroflexed and the fundus was only partially visualized due to the retained food stuff, but whatever was visualized appeared to be within normal limits along with the cardia. The scope was then straightened out or was subsequently withdrawn. The patient tolerated the procedure well. IMPRESSION: 1. 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 2. Moderate amount of retained undigested food stuff in stomach, reflective of her diabetic or of the patient's diabetic gastroparesis. 3. Gastritis. 4. Rule out sprue. PLAN: Follow up histology. Continue Protonix 40 mg 1 p.o. before meals b.i.d. Add Reglan 10 mg 1 p.o. before meals t.i.d. and at bedtime. George Lin MD [facility]/MODL /[id number] cc: Roger Mcintosh MD
== END | disposition home or self-care (01) ==
LOC: OR 06:58
PROVIDERS: ATTEND Internal Medicine Gastroenterology
DX: K22.2 Esophageal obstruction (principal); K29.50 Unspecified chronic gastritis without bleeding; E11.43 Type 2 diabetes mellitus with diabetic autonomic (poly)neuropathy; K31.84 Gastroparesis; J45.909 Unspecified asthma, uncomplicated; E03.9 Hypothyroidism, unspecified; K76.0 Fatty (change of) liver, not elsewhere classified; F32.9 Major depressive disorder, single episode, unspecified; Z88.6 Allergy status to analgesic agent; Z88.0 Allergy status to penicillin; Z01.810 Encounter for preprocedural cardiovascular examination; Z79.4 Long term (current) use of insulin; Z96.41 Presence of insulin pump (external) (internal)
CPT/HCPCS: 36415; 43239; 43450; 82948; 93005; J2250; J2704; J2765; J3010

== ENCOUNTER → 2021-05-20 | Day surgery (SDC) | payer MEDICARE ==
[~2021-05-20] MED LIST changes: +GLUCAGON FOR INJ 1 MG VIAL ONE; +HYOSCYAMINE SULFATE 0.5 MG/ML INJ ONE; +LIDOCAINE HCL 2% LOCAL INJ 5 ML SDV VIAL INJ ONE; -METOCLOPRAMIDE HCL 10 MG/2ML VIAL ONE; +PROPOFOL IV EMULSION 10 MG/ML 20 ML VIAL ONE; -PROPOFOL IV EMULSION 10 MG/ML 50 ML VIAL ONE
[2021-05-20 10:00] VITALS: BP 116/84
[2021-05-25 04:23] LABS: ENDOMYSIAL ANTIBODIES, IGA Negative (Negative)
== END | disposition home or self-care (01) ==
LOC: OR 06:24
PROVIDERS: ATTEND Internal Medicine Gastroenterology
DX: D50.9 Iron deficiency anemia, unspecified (principal); K62.1 Rectal polyp; K29.50 Unspecified chronic gastritis without bleeding; K31.89 Other diseases of stomach and duodenum; K64.8 Other hemorrhoids; K59.00 Constipation, unspecified; K56.609 Unspecified intestinal obstruction, unspecified as to partial versus complete obstruction; E11.9 Type 2 diabetes mellitus without complications; E03.9 Hypothyroidism, unspecified; J45.909 Unspecified asthma, uncomplicated; I49.9 Cardiac arrhythmia, unspecified; F32.9 Major depressive disorder, single episode, unspecified; Z88.6 Allergy status to analgesic agent; Z88.0 Allergy status to penicillin; Z88.8 Allergy status to other drugs, medicaments and biological substances; Z01.810 Encounter for preprocedural cardiovascular examination; Z79.4 Long term (current) use of insulin
CPT/HCPCS: 36415; 43239; 45380; 45384; 82784; 82948; 83516; 86256; 93005; C9113; J1610; J1980; J2001; J2250; J2704; J3010

== ENCOUNTER → 2022-06-18 | Day surgery (SDC) | payer MEDICARE ==
[~2022-06-18] MED LIST changes: +ATORVASTATIN CA40 MG PO; -FENTANYL CITRATE/PF 100MCG/2 ML INJ ONE; +FEROSUL325 MG PO; -GLUCAGON FOR INJ 1 MG VIAL ONE; -HYOSCYAMINE SULFATE 0.5 MG/ML INJ ONE; +LIOTHYRONINE SO5 MCG PO; +MESTINON60 MG PO; +METOPROLOL PO; -MIDAZOLAM HCL 2 MG/2 ML VIAL ONE; +PRAZOSIN HCL1 MG; +TRAZODONE HCL50 MG PO
[2022-06-18 10:04] LABS: BASOPHILS % 0.2 % (0.0-1.0); EOSINOPHILS % 0.2 % (0.0-6.0); HEMATOCRIT 35.8 % (34.2-44.1); HEMOGLOBIN 11.7 g/dL (12.0-16.0); MEAN CORPUSCULAR HEMOGLOBIN 28.3 pg (28-32); MEAN CORPUSCULAR HGB CONC 32.7 g/dL (31-35); MEAN CORPUSCULAR VOLUME 86.7 fL (81-99); MONOCYTES # (AUTO) 0.7 (0.2-0.8); MONOCYTES % 5.2 % (4.4-11.3); NEUTROPHILS % 78.1 % (38.7-80.0); PLATELET COUNT 264 x10e3/uL (140-360); RED BLOOD COUNT 4.13 x10e6/uL (3.6-5.1)
[2022-06-18 15:22] LABS: WBC,FECAL (FECAL LACTOFERRIN) NEGATIVE (NEGATIVE)
[2022-06-18 15:30] VITALS: BP 135/77
== END | disposition home or self-care (01) ==
LOC: OR 09:40
PROVIDERS: ATTEND Internal Medicine Gastroenterology
DX: K51.50 Left sided colitis without complications (principal); K62.1 Rectal polyp; K31.7 Polyp of stomach and duodenum; K20.90 Esophagitis, unspecified without bleeding; K31.84 Gastroparesis; K31.89 Other diseases of stomach and duodenum; K57.30 Diverticulosis of large intestine without perforation or abscess without bleeding; K62.89 Other specified diseases of anus and rectum; Z71.3 Dietary counseling and surveillance; K76.0 Fatty (change of) liver, not elsewhere classified; E11.9 Type 2 diabetes mellitus without complications; J45.909 Unspecified asthma, uncomplicated; I10 Essential (primary) hypertension; E03.9 Hypothyroidism, unspecified; F32.A Depression, unspecified; F41.9 Anxiety disorder, unspecified; Z88.6 Allergy status to analgesic agent; Z88.0 Allergy status to penicillin; Z88.8 Allergy status to other drugs, medicaments and biological substances; Z20.822 Contact with and (suspected) exposure to COVID-19; Z79.4 Long term (current) use of insulin; Z79.899 Other long term (current) drug therapy
CPT/HCPCS: 0223U; 36415; 43239; 43245; 43450; 45380; 82948; 83630; 83993; 85025; 87045; 87177; 87324; 87328; 87449; 93005; C1726; C9113; 45378; 87493; J2001